=== PATIENT | female | born 1960 | race African-American/Black ===

== ENCOUNTER 2016-07-31 14:32 | Inpatient (IN) | payer BC, OTHER ==
[~2016-07-31] VITALS: Ht 157.5 cm
[~2016-07-31 14:32] MED LIST: ACET325T21 PO; ACET325T9 PO; ALBU2.5V14 NEB; ALBU2.5V5 NEB; ALTE2VIA IJ; ASCO500T2 PO; BREO ELLIPTA INH; FAMO20TA5 PO; FLUT1DIS5 IH; FOLI0.8T3 PO; FOLI1TAB16 PO; FURO-68 PO; FURO40TA4 PO; GABA-585 PO; IPRA3AMP IH; IPRA3AMP NEB; LINE600T PO; LORA0.5T96 PO; MELA3TAB12 PO; MELO7.5T5 PO; METH2.5T PO; METO25TA4 PO; METO25TA9 PO; MORP15TA34 PO; MULT-37 PO; MYCO500T PO; NYST1000 PO; NYST60PO TP; ONDA4TAB10 PO; ONDA4TAB7 PO; OXYC5CAP3 PO; OXYC5TAB PO; OXYM30SP67 NS; POLY17PO5 PO; PRED-299 PO; SENN-37 PO; SENN8.6T3 PO; SPIR50TA2 PO; WARF2TAB PO; ZINC220C5 PO
[2016-07-31] MEDS ORDERED: TRANEXAMIC ACID 1,000 MG/10 ML VIAL. TOP ONE (14:45)
[2016-07-31 14:54] LABS: BASO % 0 % (0-3); EOS % 0 % (0-3); HEMATOCRIT 33.4 % (36.0-47.0); HEMOGLOBIN 10.1 g/dL (12.0-15.5); LYMPH % 8 % (24-48); MEAN CORPUSCULAR HEMOGLOBIN 31 pg (25-35); MEAN CORPUSCULAR HGB CONC 30 g/dL (31-37); MEAN CORPUSCULAR VOLUME 101 fL (79-100); MONO % 5 % (0-9); NEUT % 87 % (31-73); PLATELET COUNT 314 x10^3/uL (140-400); WHITE BLOOD COUNT 13.2 x10^3/uL (4.0-11.0)
[2016-07-31 15:01] LABS: CALCIUM 10.6 mg/dL (8.5-10.1); CREATININE 1.2 mg/dL (0.6-1.0)
[2016-07-31 15:14] LABS: POTASSIUM 6.2 mmol/L (3.5-5.1)
[2016-07-31] MEDS ORDERED: PROTAMINE 50 MG/5 ML VIAL. IV ONE (15:15)
--- NOTE | 2016-07-31 15:28 | PHYS DOC ---
Past Medical History Past Medical History: Anxiety, Asthma, Heart Disease, Hypertension, Renal Failure, UTI, Other Additional Past Medical Histor: pain; MSSA Past Surgical History: Pacemaker, Other Additional Past Surgical Histo: defibrillator; PICC; GI sx Alcohol Use: None Drug Use: None Adult General Chief Complaint Chief Complaint: WOUND CHECK HPI HPI 56-year-old female with extensive wound history and some acute bleeding from her left anterior thigh that was noted today at her [facility] facility during a dressing change. Patient is currently heparinized for DVT prophylaxis. She is mentating appropriately and able to answer all my questions at this time and in no acute distress. EMS attempted hemostasis in the field without relief. She has full sensation in her lower extremities. She denies any significant chest pain or shortness breath at this time. Patient is morbidly obese history of renal failure as well. Review of Systems Review of Systems Constitutional: Denies fever or chills [] Eyes: Denies change in visual acuity, redness, or eye pain [] HENT: Denies nasal congestion or sore throat [] Respiratory: Denies cough or shortness of breath [] Cardiovascular: No additional information not addressed in HPI [] GI: Denies abdominal pain, nausea, vomiting, bloody stools or diarrhea [] : Denies dysuria or hematuria [] Musculoskeletal: Denies back pain or joint pain [] Integument: Denies rash or skin lesions [] Neurologic: Denies headache, focal weakness or sensory changes [] Endocrine: Denies polyuria or polydipsia [] Current Medications Current Medications Current Medications Medications (Trade) Dose Ordered Sig/[facility] Start Time Stop Time Status Last Admin Dose Admin Tranexamic Acid (Cyklokapron) 1,000 mg 1X ONCE 07/31/16 14:45 07/31/16 14:46 DC 07/31/16 15:18 1,000 MG Allergies Allergies Allergies Coded Allergies Type Severity Reaction Last Updated Verified pineapple Allergy Mild Itching 04/21/16 Yes Iodinated Contrast Media - IV Dye Adverse Reaction Severe 04/19/16 Yes vancomycin Adverse Reaction Severe renal disease 04/19/16 Yes Physical Exam Physical Exam Constitutional: Well developed, well nourished, no acute distress, non-toxic appearance, morbidly obese. [] HENT: Normocephalic, atraumatic, bilateral external ears normal, oropharynx moist, no oral exudates, nose normal. [] Eyes: PERRLA, EOMI, conjunctiva normal, no discharge. [] Neck: Normal range of motion, no tenderness, supple, no stridor. [] Cardiovascular:Heart rate regular rhythm, no murmur [] Lungs & Thorax: Bilateral breath sounds clear to auscultation [] Abdomen: Bowel sounds normal, soft, no tenderness, no masses, no pulsatile masses. [] Skin: Warm, dry, no erythema, no rash. [] Back: No tenderness, no CVA tenderness. [] Extremities: There is a large area of bleeding and ulceration to the left anterior thigh, the bleeding is nonpulsatile and appears consistent with venous oozing, no cyanosis, no clubbing, ROM intact, no edema. [] Neurologic: Alert and oriented X 3, normal motor function, normal sensory function, no focal deficits noted. [] Psychologic: Affect normal, judgement normal, mood normal. [] Current Patient Data Vital Signs Vital Signs Date Time Temp Pulse Resp B/P Pulse Ox O2 Delivery O2 Flow Rate FiO2 07/31/16 14:45 98.8 82 16 85/68 100 Nasal Cannula 2.5 98.8 Lab Values Laboratory Tests Test 07/31/16 14:45 White Blood Count 13.2x10^3/uL (4.0-11.0) H Red Blood Count 3.30x10^6/uL (3.50-5.40) L Hemoglobin 10.1g/dL (12.0-15.5) L Hematocrit 33.4% (36.0-47.0) L Mean Corpuscular Volume 101fL (79-100) H Mean Corpuscular Hemoglobin 31pg (25-35) Mean Corpuscular Hemoglobin Concent 30g/dL (31-37) L Red Cell Distribution Width 17.0% (11.5-14.5) H Platelet Count 314x10^3/uL (140-400) Neutrophils (%) (Auto) 87% (31-73) H Lymphocytes (%) (Auto) 8% (24-48) L Monocytes (%) (Auto) 5% (0-9) Eosinophils (%) (Auto) 0% (0-3) Basophils (%) (Auto) 0% (0-3) Neutrophils # (Auto) 11.5x10^3uL (1.8-7.7) H Lymphocytes # (Auto) 1.0x10^3/uL (1.0-4.8) Monocytes # (Auto) 0.7x10^3/uL (0.0-1.1) Eosinophils # (Auto) 0.0x10^3/uL (0.0-0.7) Basophils # (Auto) 0.0x10^3/uL (0.0-0.2) Platelet Estimate Pending Sodium Level 135mmol/L (136-145) L Potassium Level 6.2mmol/L (3.5-5.1) *H Chloride Level 99mmol/L (98-107) Carbon Dioxide Level 33mmol/L (21-32) H Anion Gap 3 (6-14) L Blood Urea Nitrogen 34mg/dL (7-20) H Creatinine 1.2mg/dL (0.6-1.0) H Estimated GFR (Cockcroft-Gault) 56.0 Glucose Level 112mg/dL (70-99) H Calcium Level 10.6mg/dL (8.5-10.1) H Laboratory Tests 07/31/16 14:45 Laboratory Tests 07/31/16 14:45 EKG EKG EKG as interpreted by me shows a sinus rhythm with rate of 93 bpm. There is a leftward axis. There is also a nonspecific intraventricular block. This EKG does not meet STEMI criteria. Radiology/Procedures Radiology/Procedures [] Course & Med Decision Making Course & Med Decision Making Pertinent Labs and Imaging studies reviewed. (See chart for details) This 56-year-old female who's having ongoing venous bleeding to her left anterior thigh has adequate hemostasis with topical TX a and pressure dressing. I discussed the case with the vascular surgeon on-call, Dr. Gil, who agreed with this plan and will see the patient consultation for her nonhealing wounds. I also discussed the need for admission with the [facility], Dr. Robin, who agreed to accept the patient for further evaluation and treatment. IM protamine was also administered for her heparin reversal. An IV bolus of fluids was given as the patient is hypotensive in the 81/47 range initially on our evaluation. Her initial labwork demonstrated a hyperkalemia but the lab reports the specimen is hemolyzed and we will have laboratory workup redrawn. Repeat basic metabolic panel demonstrates a continued hyperkalemia of 7.2 with a creatinine of 1.2 to be on a 34. Temporizing medications of insulin, dextrose , bicarbonate, and calcium were administered. A renal consult was also placed. At the time of admission, her bleeding appears controlled in her thigh with a pressure dressing and TXA soaked gauze applied to the area. Her blood pressure improved with fluid bolus 158/70. She is in no acute distress. She was admitted without incident. Dragon Disclaimer Dragon Disclaimer This electronic medical record was generated, in whole or in part, using a voice recognition dictation system. Departure Departure Impression: Primary Impression: Wound, open Additional Impressions: Bleeding from wound Hyperkalemia Disposition: ADMITTED INPATIENT Admitting Physician: Elizabeth oRbin Condition: STABLE Referrals: HAYDEN FLORES (PCP) Problem Qualifiers SACHI LOPEZ DO Jul 31, 2016 15:28
[2016-07-31] MEDS: IV NORMAL SALINE 1000ML BAG 1,000 ML IV SCH ×2 (15:30→23:30)
[2016-07-31] MEDS ORDERED: IV NORMAL SALINE 500ML BAG 500 ML IV ONE (15:30)
[2016-07-31] MEDS ORDERED: ONDANSETRON PF 4 MG/2 ML VIAL. IV PRN (15:30)
[2016-07-31] MEDS ORDERED: ACETAMINOPHEN 325 MG TABLET. PO PRN ×2 (15:30→19:15)
[2016-07-31] MEDS ORDERED: INSULIN REGULAR 100 UNIT/ML 10ML VIAL. IV ONE (15:45)
[2016-07-31] MEDS ORDERED: DEXTROSE 50% 25 GM / 50ML DISP.SYRIN. IV ONE (15:45)
[2016-07-31] MEDS ORDERED: SODIUM BICARBONATE VIAL 50 MEQ in IV DEXTROSE 5% 1,000 ML IV SCH (15:45)
[2016-07-31] MEDS ORDERED: SODIUM BICARB ADULT 8.4% 50 MEQ/50 ML DISP.SYRIN. ONE (16:26)
[2016-07-31 16:58] LABS: CALCIUM 10.5 mg/dL (8.5-10.1); CREATININE 1.2 mg/dL (0.6-1.0)
[2016-07-31 16:59] LABS: POTASSIUM 7.2 mmol/L (3.5-5.1)
[2016-07-31] MEDS ORDERED: CALCIUM GLUCONATE 1,000 MG/10 ML VIAL IVP ONE (17:00)
[2016-07-31] MEDS ORDERED: SODIUM BICARB ADULT 8.4% 50 MEQ/50 ML DISP.SYRIN. IV ONE (17:00)
[2016-07-31 17:27] LABS: PLT ESTIMATE ADEQUATE (ADEQUATE)
[2016-07-31] MEDS ORDERED: SODIUM POLYSTYRENE SULFONATE 15 GM/60 ML ORAL.SUSP. PO ONE (18:00)
[2016-07-31] MEDS ORDERED: IV NORMAL SALINE 1000ML BAG 1,000 ML IV PRN (18:10)
[2016-07-31] MEDS ORDERED: ALBUMIN HUMAN 25% 200 ML IV PRN (18:15)
[2016-07-31] MEDS ORDERED: DIALYSIS PATIENT. MC PRN (18:15)
[2016-07-31] MEDS ORDERED: DIPHENHYDRAMINE 50 MG/ML VIAL IV PRN ×2 (18:15)
[2016-07-31] MEDS ORDERED: ACETAMINOPHEN 500 MG TABLET PO PRN (18:15)
[2016-07-31] MEDS ORDERED: LIDOCAINE 1% / SOD BICARB 8.4% 20 ML VIAL. IJ ONE ×2 (18:27→19:00)
[2016-07-31] MEDS ORDERED: HEPARIN for IV BOLUS 10,000 UNIT/10 ML VIAL. ONE (18:27)
--- NOTE | 2016-07-31 18:52 | PDOC2 ---
CONSULT Date of Consult Date of Consult DATE: 07/31/16 TIME: 18:51 Past Medical History Cardiovascular: AFIB, Other Pulmonary: Asthma, Other GI: Other Heme/Onc: Other Psych: Anxiety, Depression Rheumatologic: Fibromyalgia Infectious disease: Other Renal/: Acute renal failure Past Surgical History Past Surgical History: Pacemaker Family History Family History: Family History Unknown Social History Lives: Intermediate Current Problem List Problem List Problems Medical Problems: (1) Bleeding from wound Status: Acute (2) Hyperkalemia Status: Acute (3) Wound, open Status: Acute Current Medications Current Medications Current Medications Tranexamic Acid (Cyklokapron) 1,000 mg 1X ONCE TOP Last administered on 15:18; Start 07/31/16 at 14:45; Stop 07/31/16 at 14:46; Status DC Protamine Sulfate 50 mg 1X ONCE IV Last administered on 07/31/16 14:54; Start 07/31/16 at 15:15; Stop 07/31/16 at 15:16; Status DC Dextrose 25 gm 1X ONCE IV Last administered on 07/31/16 16:32; Start at 15:45; Stop 07/31/16 at 15:46; Status DC Insulin Human Regular 10 unit 10 unit 1X ONCE IV Last administered on 16:35; Start 07/31/16 at 15:45; Stop 07/31/16 at 15:46; Status DC Sodium Bicarbonate 50 meq/Dextrose 1,050 ml @ 125 mls/hr Q8H24M IV ; Start 05/07 at 15:45; Status Cancel Sodium Chloride (Iv Sodium Chloride 0.9% 500ml Bag) 500 ml @ 500 mls/hr 1X ONCE IV Last administered on 07/31/16 15:25; Start 07/31/16 at 15:30; Stop 05/07 at 16:29; Status DC Ondansetron HCl 4 mg 4 mg PRN Q8HRS PRN IV NAUSEA/VOMITING; Start 07/31/16 at 15:30; Stop 08/01/16 at 15:29 Sodium Chloride (Iv Sodium Chloride 0.9% 1000ml Bag) 1,000 ml @ 125 mls/hr Q8H IV ; Start 07/31/16 at 15:30; Stop 08/01/16 at 15:29 Acetaminophen (Tylenol) 650 mg PRN Q4HRS PRN PO FEVER; Start 07/31/16 at 15:30 ; Stop 08/01/16 at 15:29 Calcium Gluconate 1,000 mg 1X ONCE IVP Last administered on 07/31/16 16:36; Start 07/31/16 at 17:00; Stop 07/31/16 at 17:01; Status DC Sodium Bicarbonate 50 meq STK-MED ONCE .ROUTE ; Start 07/31/16 at 16:26; Stop at 16:27; Status DC Sodium Bicarbonate 50 meq 1X ONCE IV Last administered on 07/31/16 16:36; Start 07/31/16 at 17:00; Stop 07/31/16 at 17:01; Status DC Sodium Polystyrene Sulfonate 15 gm 15 gm 1X ONCE PO Last administered on 18:00; Start 07/31/16 at 18:00; Stop 07/31/16 at 18:01; Status DC Sodium Chloride 1,000 ml @ 1,000 mls/hr Q1H PRN IV hypotension; Start 07/31/16 at 18:10; Stop 08/01/16 at 00:09 Albumin Human (Albuminar) 200 ml @ 200 mls/hr 1X PRN PRN IV Hypotension; Start 07/31/16 at 18:15; Stop 08/01/16 at 00:14 Acetaminophen (Tylenol) 500 mg 1X PRN PRN PO MILD PAIN / TEMP; Start 07/31/16 at 18:15; Stop 08/01/16 at 00:30 Diphenhydramine HCl (Benadryl) 25 mg 1X PRN PRN IV ITCHING; Start 07/31/16 at 18:15; Stop 08/01/16 at 00:30 Diphenhydramine HCl (Benadryl) 25 mg 1X PRN PRN IV ITCHING; Start 07/31/16 at 18:15; Stop 08/01/16 at 00:30 Info (PHARMACY MONITORING -- do not chart) 1 each PRN DAILY PRN MC SEE COMMENTS ; Start 07/31/16 at 18:15 Heparin Sodium (Porcine) 10,000 unit STK-MED ONCE .ROUTE ; Start 07/31/16 at 18: 27; Stop 3/12/17 at 18:28; Status DC Lidocaine/Sodium Bicarbonate 20 ml 20 ml STK-MED ONCE IJ ; Start 07/31/16 at 18: 27; Stop 07/31/16 at 18:28; Status DC Heparin Sodium/ Sodium Chloride 500 ml @ As Directed STK-MED ONCE .ROUTE ; Start 07/31/16 at 18:27; Stop 07/31/16 at 18:28; Status DC Lidocaine/Sodium Bicarbonate (Buffered Lidocaine 1%) 3 ml 1X ONCE IJ ; Start at 19:00; Stop 07/31/16 at 19:01 Heparin Sodium/ Sodium Chloride 60 unit 1X ONCE IV ; Start 07/31/16 at 19:00; Stop 07/31/16 at 19:01 Heparin Sodium (Porcine) 2,500 unit 1X ONCE INT CAT ; Start 07/31/16 at 19:00; Stop 07/31/16 at 19:01 Active Scripts Active Reported Nephro-Arielle Tablet (Folic Acid/Vitamin B Comp W-C) 0.8 Mg Tablet 1 Tab PO DAILY Oxycodone Hcl 5 Mg Capsule 1 Cap PO Q4HRS PRN Zofran (Ondansetron Hcl) 4 Mg Tablet 1 Tab PO Q8HRS Albuterol Sulfate Neb Soln (Albuterol Sulfate) 2.5 Mg/3 Ml Vial.neb 1 Vial NEB PRN Q4HRS Tylenol (Acetaminophen) 325 Mg Tablet 650 Mg PO Q6HRS PRN Duoneb 0.5-3(2.5) Mg/3 Ml (Albuterol/Ipratropium) 3 Ml Ampul.neb 3 Ml NEB TID Spironolactone 50 Mg Tablet 1 Tab PO DAILY Deltasone (Prednisone) 20 Mg Tablet 10 Mg PO DAILY Nystatin 100,000 Unit/1 Ml Oral.susp 100,000 Unit PO QID Cellcept (Mycophenolate Mofetil) 500 Mg Tablet 1 Tab PO BID Metoprolol Tartrate 25 Mg Tablet 25 Mg PO BID Melatonin 3 Mg Tab.rapdis 3 Mg PO HS Neurontin (Gabapentin) 100 Mg Capsule 100 Mg PO TID Lasix (Furosemide) 40 Mg Tablet 1 Tab PO DAILY Folic Acid 1 Mg Tablet 1 Tab PO DAILY Advair 500-50 Diskus (Fluticasone/Salmeterol) 1 Each Disk.w.dev 1 Puff IH BID Ms Contin (Morphine Sulfate) 15 Mg Tablet.er 15 Mg PO Q12HR Mobic (Meloxicam) 7.5 Mg Tablet 7.5 Mg PO DAILY Ativan (Lorazepam) 0.5 Mg Tablet 0.5 Mg PO PRN BID PRN Coumadin (Warfarin Sodium) 2 Mg Tablet 1 Tab PO HS Senokot-S Tablet (Sennosides/Docusate Sodium) 1 Each Tablet 1 Tab PO BID PRN Allergies Allergies: Coded Allergies: pineapple (Verified Allergy, Mild, Itching, 04/21/16) Iodinated Contrast Media - IV Dye (Verified Adverse Reaction, Severe, ) patient states that she thinks she ended up on dialysis temporarily after receiving dye vancomycin (Verified Adverse Reaction, Severe, renal disease, 04/19/16) Vitals VITALS Vital Signs Date Time Temp Pulse Resp B/P Pulse Ox O2 Delivery O2 Flow Rate FiO2 07/31/16 16:30 88 24 154/75 100 07/31/16 14:45 98.8 Nasal Cannula 2.5 98.8 Labs Labs Laboratory Tests Test 07/31/16 14:45 07/31/16 15:30 White Blood Count 13.2x10^3/uL (4.0-11.0) Red Blood Count 3.30x10^6/uL (3.50-5.40) Hemoglobin 10.1g/dL (12.0-15.5) Hematocrit 33.4% (36.0-47.0) Mean Corpuscular Volume 101fL (79-100) Mean Corpuscular Hemoglobin 31pg (25-35) Mean Corpuscular Hemoglobin Concent 30g/dL (31-37) Red Cell Distribution Width 17.0% (11.5-14.5) Platelet Count 314x10^3/uL (140-400) Neutrophils (%) (Auto) 87% (31-73) Lymphocytes (%) (Auto) 8% (24-48) Monocytes (%) (Auto) 5% (0-9) Eosinophils (%) (Auto) 0% (0-3) Basophils (%) (Auto) 0% (0-3) Neutrophils # (Auto) 11.5x10^3uL (1.8-7.7) Lymphocytes # (Auto) 1.0x10^3/uL (1.0-4.8) Monocytes # (Auto) 0.7x10^3/uL (0.0-1.1) Eosinophils # (Auto) 0.0x10^3/uL (0.0-0.7) Basophils # (Auto) 0.0x10^3/uL (0.0-0.2) Segmented Neutrophils % 87% (35-66) Lymphocytes % 10% (24-48) Monocytes % 3% (0-10) Platelet Estimate Adequate (ADEQUATE) Sodium Level 135mmol/L (136-145) 135mmol/L (136-145) Potassium Level 6.2mmol/L (3.5-5.1) 7.2mmol/L (3.5-5.1) Chloride Level 99mmol/L (98-107) 100mmol/L (98-107) Carbon Dioxide Level 33mmol/L (21-32) 32mmol/L (21-32) Anion Gap 3 (6-14) 3 (6-14) Blood Urea Nitrogen 34mg/dL (7-20) 34mg/dL (7-20) Creatinine 1.2mg/dL (0.6-1.0) 1.2mg/dL (0.6-1.0) Estimated GFR (Cockcroft-Gault) 56.0 56.0 Glucose Level 112mg/dL (70-99) 113mg/dL (70-99) Calcium Level 10.6mg/dL (8.5-10.1) 10.5mg/dL (8.5-10.1) Laboratory Tests Test 07/31/16 14:45 07/31/16 15:30 White Blood Count 13.2x10^3/uL (4.0-11.0) Red Blood Count 3.30x10^6/uL (3.50-5.40) Hemoglobin 10.1g/dL (12.0-15.5) Hematocrit 33.4% (36.0-47.0) Mean Corpuscular Volume 101fL (79-100) Mean Corpuscular Hemoglobin 31pg (25-35) Mean Corpuscular Hemoglobin Concent 30g/dL (31-37) Red Cell Distribution Width 17.0% (11.5-14.5) Platelet Count 314x10^3/uL (140-400) Neutrophils (%) (Auto) 87% (31-73) Lymphocytes (%) (Auto) 8% (24-48) Monocytes (%) (Auto) 5% (0-9) Eosinophils (%) (Auto) 0% (0-3) Basophils (%) (Auto) 0% (0-3) Neutrophils # (Auto) 11.5x10^3uL (1.8-7.7) Lymphocytes # (Auto) 1.0x10^3/uL (1.0-4.8) Monocytes # (Auto) 0.7x10^3/uL (0.0-1.1) Eosinophils # (Auto) 0.0x10^3/uL (0.0-0.7) Basophils # (Auto) 0.0x10^3/uL (0.0-0.2) Segmented Neutrophils % 87% (35-66) Lymphocytes % 10% (24-48) Monocytes % 3% (0-10) Platelet Estimate Adequate (ADEQUATE) Sodium Level 135mmol/L (136-145) 135mmol/L (136-145) Potassium Level 6.2mmol/L (3.5-5.1) 7.2mmol/L (3.5-5.1) Chloride Level 99mmol/L (98-107) 100mmol/L (98-107) Carbon Dioxide Level 33mmol/L (21-32) 32mmol/L (21-32) Anion Gap 3 (6-14) 3 (6-14) Blood Urea Nitrogen 34mg/dL (7-20) 34mg/dL (7-20) Creatinine 1.2mg/dL (0.6-1.0) 1.2mg/dL (0.6-1.0) Estimated GFR (Cockcroft-Gault) 56.0 56.0 Glucose Level 112mg/dL (70-99) 113mg/dL (70-99) Calcium Level 10.6mg/dL (8.5-10.1) 10.5mg/dL (8.5-10.1) Assessment/Plan Assessment/Plan RENAL CONSULT / SHARI GARIBAY. # [id number] REMBERTO MCCARTHY MD Jul 31, 2016 18:52
[2016-07-31] MEDS ORDERED: ALBUTEROL SULFATE 2.5 MG/3 ML NEBU. NEB PRN (19:15)
[2016-07-31] MEDS ORDERED: LORAZEPAM 0.5 MG TABLET. PO PRN (19:15)
--- NOTE | 2016-07-31 19:15 | PDOC1 ---
History and Physical Date of Admission Date of Admission DATE: 07/31/16 TIME: 19:13 Identification/Chief Complaint Chief Complaint leg bleeding, hyperkalemia Source Source: Chart review, Patient History of Present Illness History of Present Illness pt seen in ICU, waiting for HD cath placement she is awake and alert, had been eating in ER before repeat lab drawn seemed worse, tele stable she feels well full exam at 10pm after HD was done, she was cold and less talkative, had been very interactive before. had no complaint either time. LE thigh wounds well known to ID team here. bleeding from left leg brought her in tonight, appears improved after ER intervention first lab draw was thought to be hemolyzed by the ER, repeat lab was higher, stat REnal consult, IR, Dr. Jeff placed HD cath and HD done Past Medical History Cardiovascular: AFIB, Other Pulmonary: Asthma, Other GI: Other Heme/Onc: Other Psych: Anxiety, Depression Rheumatologic: Fibromyalgia Infectious disease: Other Renal/: Acute renal failure Past Surgical History Past Surgical History: Pacemaker Family History Family History: Family History Unknown Social History Smoke: No ALCOHOL: none Drugs: None Current Problem List Problem List Problems Medical Problems: (1) Bleeding from wound Status: Acute (2) Hyperkalemia Status: Acute (3) Wound, open Status: Acute Problems: Current Medications Current Medications Current Medications Tranexamic Acid (Cyklokapron) 1,000 mg 1X ONCE TOP Last administered on 15:18; Start 07/31/16 at 14:45; Stop 07/31/16 at 14:46; Status DC Protamine Sulfate 50 mg 1X ONCE IV Last administered on 07/31/16 14:54; Start 07/31/16 at 15:15; Stop 07/31/16 at 15:16; Status DC Dextrose 25 gm 1X ONCE IV Last administered on 07/31/16 16:32; Start at 15:45; Stop 07/31/16 at 15:46; Status DC Insulin Human Regular 10 unit 10 unit 1X ONCE IV Last administered on 16:35; Start 07/31/16 at 15:45; Stop 07/31/16 at 15:46; Status DC Sodium Bicarbonate 50 meq/Dextrose 1,050 ml @ 125 mls/hr Q8H24M IV ; Start 05/07 at 15:45; Status Cancel Sodium Chloride (Iv Sodium Chloride 0.9% 500ml Bag) 500 ml @ 500 mls/hr 1X ONCE IV Last administered on 07/31/16 15:25; Start 07/31/16 at 15:30; Stop 05/07 at 16:29; Status DC Ondansetron HCl 4 mg 4 mg PRN Q8HRS PRN IV NAUSEA/VOMITING; Start 07/31/16 at 15:30; Stop 08/01/16 at 15:29 Sodium Chloride (Iv Sodium Chloride 0.9% 1000ml Bag) 1,000 ml @ 125 mls/hr Q8H IV ; Start 07/31/16 at 15:30; Stop 08/01/16 at 15:29 Acetaminophen (Tylenol) 650 mg PRN Q4HRS PRN PO FEVER; Start 07/31/16 at 15:30 ; Stop 08/01/16 at 15:29 Calcium Gluconate 1,000 mg 1X ONCE IVP Last administered on 07/31/16 16:36; Start 07/31/16 at 17:00; Stop 07/31/16 at 17:01; Status DC Sodium Bicarbonate 50 meq STK-MED ONCE .ROUTE ; Start 07/31/16 at 16:26; Stop at 16:27; Status DC Sodium Bicarbonate 50 meq 1X ONCE IV Last administered on 07/31/16 16:36; Start 07/31/16 at 17:00; Stop 07/31/16 at 17:01; Status DC Sodium Polystyrene Sulfonate 15 gm 15 gm 1X ONCE PO Last administered on 18:00; Start 07/31/16 at 18:00; Stop 07/31/16 at 18:01; Status DC Sodium Chloride 1,000 ml @ 1,000 mls/hr Q1H PRN IV hypotension; Start 07/31/16 at 18:10; Stop 08/01/16 at 00:09 Albumin Human (Albuminar) 200 ml @ 200 mls/hr 1X PRN PRN IV Hypotension; Start 07/31/16 at 18:15; Stop 08/01/16 at 00:14 Acetaminophen (Tylenol) 500 mg 1X PRN PRN PO MILD PAIN / TEMP; Start 07/31/16 at 18:15; Stop 08/01/16 at 00:30 Diphenhydramine HCl (Benadryl) 25 mg 1X PRN PRN IV ITCHING; Start 07/31/16 at 18:15; Stop 08/01/16 at 00:30 Diphenhydramine HCl (Benadryl) 25 mg 1X PRN PRN IV ITCHING; Start 07/31/16 at 18:15; Stop 08/01/16 at 00:30 Info (PHARMACY MONITORING -- do not chart) 1 each PRN DAILY PRN MC SEE COMMENTS ; Start 07/31/16 at 18:15 Heparin Sodium (Porcine) 10,000 unit STK-MED ONCE .ROUTE ; Start 07/31/16 at 18: 27; Stop 07/31/16 at 18:28; Status DC Lidocaine/Sodium Bicarbonate 20 ml 20 ml STK-MED ONCE IJ ; Start 07/31/16 at 18: 27; Stop 07/31/16 at 18:28; Status DC Heparin Sodium/ Sodium Chloride 500 ml @ As Directed STK-MED ONCE .ROUTE ; Start 07/31/16 at 18:27; Stop 07/31/16 at 18:28; Status DC Lidocaine/Sodium Bicarbonate (Buffered Lidocaine 1%) 3 ml 1X ONCE IJ ; Start at 19:00; Stop 07/31/16 at 19:01; Status DC Heparin Sodium/ Sodium Chloride 60 unit 1X ONCE IV ; Start 07/31/16 at 19:00; Stop 07/31/16 at 19:01; Status DC Heparin Sodium (Porcine) 2,500 unit 1X ONCE INT CAT ; Start 07/31/16 at 19:00; Stop 07/31/16 at 19:01; Status DC Active Scripts Active Reported Nephro-Arielle Tablet (Folic Acid/Vitamin B Comp W-C) 0.8 Mg Tablet 1 Tab PO DAILY Oxycodone Hcl 5 Mg Capsule 1 Cap PO Q4HRS PRN Zofran (Ondansetron Hcl) 4 Mg Tablet 1 Tab PO Q8HRS Albuterol Sulfate Neb Soln (Albuterol Sulfate) 2.5 Mg/3 Ml Vial.neb 1 Vial NEB PRN Q4HRS Tylenol (Acetaminophen) 325 Mg Tablet 650 Mg PO Q6HRS PRN Duoneb 0.5-3(2.5) Mg/3 Ml (Albuterol/Ipratropium) 3 Ml Ampul.neb 3 Ml NEB TID Spironolactone 50 Mg Tablet 1 Tab PO DAILY Deltasone (Prednisone) 20 Mg Tablet 10 Mg PO DAILY Nystatin 100,000 Unit/1 Ml Oral.susp 100,000 Unit PO QID Cellcept (Mycophenolate Mofetil) 500 Mg Tablet 1 Tab PO BID Metoprolol Tartrate 25 Mg Tablet 25 Mg PO BID Melatonin 3 Mg Tab.rapdis 3 Mg PO HS Neurontin (Gabapentin) 100 Mg Capsule 100 Mg PO TID Lasix (Furosemide) 40 Mg Tablet 1 Tab PO DAILY Folic Acid 1 Mg Tablet 1 Tab PO DAILY Advair 500-50 Diskus (Fluticasone/Salmeterol) 1 Each Disk.w.dev 1 Puff IH BID Ms Contin (Morphine Sulfate) 15 Mg Tablet.er 15 Mg PO Q12HR Mobic (Meloxicam) 7.5 Mg Tablet 7.5 Mg PO DAILY Ativan (Lorazepam) 0.5 Mg Tablet 0.5 Mg PO PRN BID PRN Coumadin (Warfarin Sodium) 2 Mg Tablet 1 Tab PO HS Senokot-S Tablet (Sennosides/Docusate Sodium) 1 Each Tablet 1 Tab PO BID PRN Allergies Allergies: Coded Allergies: pineapple (Verified Allergy, Mild, Itching, 04/21/16) Iodinated Contrast Media - IV Dye (Verified Adverse Reaction, Severe, ) patient states that she thinks she ended up on dialysis temporarily after receiving dye vancomycin (Verified Adverse Reaction, Severe, renal disease, 04/19/16) ROS General: YES: Chills, No: Appetite, Fatigue, Malaise, Night Sweats, Other PSYCHOLOGICAL ROS: YES: Anxiety, No: Behavioral Disorder, Concentration difficultie, Decreased libido, Depression, Disorientation, Hallucinations, Hostility, Irritablity, Memory difficulties, Mood Swings, Obsessive thoughts, Other, Physical abuse, Sexual abuse, Sleep disturbances, Suicidal ideation Eyes: No Blurry vision, No Decreased vision, No Double vision, No Dry eyes, No Excessive tearing, No Eye Pain, No Itchy Eyes, No Loss of vision, No Other, No Photophobia, No Scotomata, No Uses contacts, No Uses glasses HEENT: No: Epistaxis, Heacaches, Hearing change, Nasal congestion, Nasal discharge, Oral lesions, Other, Sinus pain, Sneezing, Snoring, Sore Throat, Tinnitus, Vertigo, Visual Changes, Vocal changes Respiratory: No: Cough, Hemoptysis, Orthopnea, Other, Pleuritic Pain, SOB with excertion, Shortness of breath, Sputum Changes, Stridor, Tachypnea, Wheezing Cardiovascular: No Chest Pain, No Edema, No Lt Headedness, No Orthopnea, No Other, No Palpitations, No Paroxysmal Noc. Dyspnea Gastrointestinal: No Abdominal Pain, No Constipation, No Diarrhea, No Hematochezia, No Melena, No Nausea, No Other, No Vomiting Musculoskeletal: Yes Gait Disturbance, Yes Pain In:, No Joint Pain, No Joint Stiffness, No Joint Swelling, No Muscle Pain, No Muscular Weakness, No Other, No Swelling In: Neurological: Yes Gait Disturbance, No Behavorial Changes, No Bowel/Bladder ControlChng, No Confusion, No Dizziness, No Headaches, No Impaired Coord/balance, No Memory Loss, No Numbness/ Tingling, No Other, No Seizures, No Speech Problems, No Tremors, No Visual Changes, No Weakness Skin: Yes Dry Skin, No Acne, No Eczema, No Hair Changes, No Lumps, No Mole Changes, No Mottling, No Nail Changes, No Other, No Pruritus, No Rash, No Skin Lesion Changes Physical Exam General: Alert, Oriented X3, Cooperative, No acute distress HEENT: Atraumatic, PERRLA, EOMI Lungs: Clear to auscultation Heart: no gallops, no murmurs Abdomen: Normal bowel sounds, Soft (very obese) Extremities: No clubbing, Other (tr edema) Skin: Other (extensive open wounds to thigh, left thigh visualized, good margins, some exudate, right seems malordorous, ) Neuro: Sensation intact Psych/Mental Status: Mood NL Vitals Vitals Vital Signs Date Time Temp Pulse Resp B/P Pulse Ox O2 Delivery O2 Flow Rate FiO2 07/31/16 16:30 88 24 154/75 100 07/31/16 14:45 98.8 Nasal Cannula 2.5 98.8 Labs Labs Laboratory Tests Test 07/31/16 14:45 07/31/16 15:30 White Blood Count 13.2x10^3/uL (4.0-11.0) Red Blood Count 3.30x10^6/uL (3.50-5.40) Hemoglobin 10.1g/dL (12.0-15.5) Hematocrit 33.4% (36.0-47.0) Mean Corpuscular Volume 101fL (79-100) Mean Corpuscular Hemoglobin 31pg (25-35) Mean Corpuscular Hemoglobin Concent 30g/dL (31-37) Red Cell Distribution Width 17.0% (11.5-14.5) Platelet Count 314x10^3/uL (140-400) Neutrophils (%) (Auto) 87% (31-73) Lymphocytes (%) (Auto) 8% (24-48) Monocytes (%) (Auto) 5% (0-9) Eosinophils (%) (Auto) 0% (0-3) Basophils (%) (Auto) 0% (0-3) Neutrophils # (Auto) 11.5x10^3uL (1.8-7.7) Lymphocytes # (Auto) 1.0x10^3/uL (1.0-4.8) Monocytes # (Auto) 0.7x10^3/uL (0.0-1.1) Eosinophils # (Auto) 0.0x10^3/uL (0.0-0.7) Basophils # (Auto) 0.0x10^3/uL (0.0-0.2) Segmented Neutrophils % 87% (35-66) Lymphocytes % 10% (24-48) Monocytes % 3% (0-10) Platelet Estimate Adequate (ADEQUATE) Sodium Level 135mmol/L (136-145) 135mmol/L (136-145) Potassium Level 6.2mmol/L (3.5-5.1) 7.2mmol/L (3.5-5.1) Chloride Level 99mmol/L (98-107) 100mmol/L (98-107) Carbon Dioxide Level 33mmol/L (21-32) 32mmol/L (21-32) Anion Gap 3 (6-14) 3 (6-14) Blood Urea Nitrogen 34mg/dL (7-20) 34mg/dL (7-20) Creatinine 1.2mg/dL (0.6-1.0) 1.2mg/dL (0.6-1.0) Estimated GFR (Cockcroft-Gault) 56.0 56.0 Glucose Level 112mg/dL (70-99) 113mg/dL (70-99) Calcium Level 10.6mg/dL (8.5-10.1) 10.5mg/dL (8.5-10.1) Laboratory Tests Test 07/31/16 14:45 07/31/16 15:30 White Blood Count 13.2x10^3/uL (4.0-11.0) Red Blood Count 3.30x10^6/uL (3.50-5.40) Hemoglobin 10.1g/dL (12.0-15.5) Hematocrit 33.4% (36.0-47.0) Mean Corpuscular Volume 101fL (79-100) Mean Corpuscular Hemoglobin 31pg (25-35) Mean Corpuscular Hemoglobin Concent 30g/dL (31-37) Red Cell Distribution Width 17.0% (11.5-14.5) Platelet Count 314x10^3/uL (140-400) Neutrophils (%) (Auto) 87% (31-73) Lymphocytes (%) (Auto) 8% (24-48) Monocytes (%) (Auto) 5% (0-9) Eosinophils (%) (Auto) 0% (0-3) Basophils (%) (Auto) 0% (0-3) Neutrophils # (Auto) 11.5x10^3uL (1.8-7.7) Lymphocytes # (Auto) 1.0x10^3/uL (1.0-4.8) Monocytes # (Auto) 0.7x10^3/uL (0.0-1.1) Eosinophils # (Auto) 0.0x10^3/uL (0.0-0.7) Basophils # (Auto) 0.0x10^3/uL (0.0-0.2) Segmented Neutrophils % 87% (35-66) Lymphocytes % 10% (24-48) Monocytes % 3% (0-10) Platelet Estimate Adequate (ADEQUATE) Sodium Level 135mmol/L (136-145) 135mmol/L (136-145) Potassium Level 6.2mmol/L (3.5-5.1) 7.2mmol/L (3.5-5.1) Chloride Level 99mmol/L (98-107) 100mmol/L (98-107) Carbon Dioxide Level 33mmol/L (21-32) 32mmol/L (21-32) Anion Gap 3 (6-14) 3 (6-14) Blood Urea Nitrogen 34mg/dL (7-20) 34mg/dL (7-20) Creatinine 1.2mg/dL (0.6-1.0) 1.2mg/dL (0.6-1.0) Estimated GFR (Cockcroft-Gault) 56.0 56.0 Glucose Level 112mg/dL (70-99) 113mg/dL (70-99) Calcium Level 10.6mg/dL (8.5-10.1) 10.5mg/dL (8.5-10.1) VTE Prophylaxis Ordered VTE Prophylaxis Devices: Yes VTE Pharmacological Prophylaxi: Contraindicated (bleeding) Assessment/Plan Assessment/Plan acute renal failure hyperkalemia HD planned, renal consulted, admitted to ICU leg wounds, no INR checked morbid Obesity, BMI 50.7 chronic diastolic CHF weakenss and debilitiy peripheral neuropathy, chronic pain SIRI TAYLOR MD Jul 31, 2016 19:15
--- NOTE | 2016-07-31 19:19 | ACF ---
Admission Forms Criteria HYPONATREMIA; HYPERNATREMIA; HYPOKALEMIA; HYPERKALEMIA; HYPOCALCEMIA; HYPERCALCEMIA Clinical Indications for Inpatient Care (Place 'X' for any and all applicable criteria): Ongoing inpatient care may be indicated for ANY ONE of the following [G](1)(2)(3 )(5): [ ]I. Hyponatremia with ANY ONE of the following: [ ]a) Sodium less than 130 mEq/L (mmol/L) (new) (6)(22) [ ]b) Sodium less than 135 mEq/L (mmol/L) with ANY ONE of the following: [ ]i) Severe medical etiology requiring inpatient management (eg, heart failure, hypovolemia) [ ]ii) Altered mental status [ ]iii) Seizures [ ]II. Hypernatremia with ANY ONE of the following: [ ]a) Sodium greater than 155 mEq/L (mmol/L) [ ]b) Sodium greater than 150 mEq/L (mmol/L) with ANY ONE of the following: [ ] i) Altered mental status [ ]ii) Seizures [ ]iii) Severe medical etiology (eg, hypovolemia, diabetes insipidus) [ ]iv) Severe weakness [ ]v) Severe medical etiology (eg, hemolysis, infection, drug overdose) [ ]III. Hypokalemia with ANY ONE of the following: [ ]a) Potassium less than 2.5 mEq/L (mmol/L) despite outpatient and emergency treatment [ ]b) Potassium less than 3.0 mEq/L (mmol/L) with ANY ONE of the following: [ ]i) Weakness [ ]ii) Cardiac abnormality (eg, arrhythmia, conduction disturbance) [ ]iii) Cardiac ischemia [ ]iv) Ileus [ ]v) Ongoing medical cause requiring inpatient management. ( e.g., acute renal wasting, SIADH) [ ]vi) Other severe symptoms [X] IV. Hyperkalemia with ANY ONE of the following: [X]a) Potassium greater than 6.5 mEq/L (mmol/L) [ ]b) Potassium greater than 5 mEq/L (mmol/L) with ANY ONE of the following: [ ]i) Severe ECG findings [H] [ ]ii) Acute worsening of renal failure (creatinine greater than 2.5 mg/dL (221 micromoles/L) or significant elevation for age and size) [ ] V. Hypocalcemia with ANY ONE of the following: [ ]a) Calcium less than 7 mg/dL (1.75 mmol/L) despite outpatient and emergency treatment(19) [ ]b) Calcium less than 8 mg/dL (2 mmol/L) with significant symptoms or findings; examples include: [ ]i) Cardiac abnormality (eg, arrhythmia or conduction disturbance) [ ]ii) Altered mental status [ ]iii) Seizures [ ]iv) Breathing difficulty [ ]v) Muscle spasms [ ]. Hypercalcemia with ANY ONE of the following: [ ]a) Calcium greater than 14 mg/dL (3.5 mmol/L) [ ]b) Calcium greater than 12 mg/dL (3 mmol/L) with ANY ONE of the following: [ ]i) Significant dehydration or hypovolemia as indicated by ANY ONE of the following(2): [ ]1. Clinically significant dehydration as indicated by ANY ONE of the following: [ ]A. Acute loss of weight from baseline (5% of body weight in adults, 9% in pediatric patients) [ ]B. Hemodynamic instability [ ]C. Acute renal failure [ ]D. Serum sodium greater than 150 mEq/L (mmol/L) [ ]2) Dehydration that is persistent indicated by ALL of the following: [ ]A. Oral rehydration therapy not tolerated or insufficient to adequately correct dehydration [ ]B. Appropriate intravenous treatment (eg, fluids ) does not readily correct dehydration ie, after 12 to 24 hours of treatment) [ ]ii) Significant symptoms or findings; examples include: [ ]1) Altered mental status [ ]2) Cardiac abnormality (eg, arrhythmia, conduction disturbance) [ ]3) Cardiac abnormality (eg, arrhythmia, conduction disturbance) The original [employer] ([employer]) content created by [employer] has been revised. The portions of the content which have been revised are identified through the use of italic text or in bold, and [facility] has neither reviewed nor approved the modified material. All other unmodified content is copyright [facility] [employer] Please see references footnoted in the original [facility] [employer] edition 2016 Admission Criteria Met?: Yes CRISTI NI Jul 31, 2016 19:19
--- NOTE | 2016-07-31 19:28 | PDOC ---
BRIEF OPERATIVE NOTE Pre-Op Diagnosis Hyperkalemia Post-Op Diagnosis same Procedure Performed Temp HD Catheter Surgeon Randee Anesthesia Type: Local Findings Trialysis via RIJ with excellent manual flow rates Complications No immediate TOMMY TUCKER MD Jul 31, 2016 19:28
--- NOTE | 2016-07-31 19:51 | RAD ---
PROCEDURE AP portable chest 07/31/2016. HISTORY Line placement. TECHNIQUE COMPARISON FINDINGS A pacemaker enters the left subclavian approach. There apparently has been placement of a dialysis catheter via the right IJ approach. Its tip extends to near the cavoatrial junction. No pneumothorax is visible on this view. There is mild prominence of lung markings. Heart size is normal. IMPRESSION Placement of central line without apparent complication. Electronically signed by: Jared Camp (Jul 31, 2016 19:49:53)
[2016-07-31 20:00] VITALS: BP 127/72
[2016-07-31 20:27] LABS: POTASSIUM 4.6 mmol/L (3.5-5.1)
[2016-07-31 20:28] LABS: INR 1.2 (0.8-1.1); PROTHROMBIN TIME PATIENT 14.2 SEC (11.7-14.0)
[2016-07-31] MEDS: BUDESONIDE 0.5 MG/2 ML NEBU NEB SCH (20:41)
[2016-07-31] MEDS: IPRATRPIUM/ALBUTEROL 0.5/2.5MG 3 ML NEBU. NEB SCH (20:41)
[2016-07-31 21:00] VITALS: BP 125/69
[2016-07-31] MEDS ORDERED: NON FORMULARY ITEM (Melatonin 3 MG) PO SCH (21:00)
[2016-07-31 22:00] VITALS: BP 152/80
[2016-07-31] MEDS ORDERED: ONDANSETRON ODT 4 MG TAB.RAPDIS PO SCH (22:00)
[2016-07-31] MEDS: MYCOPHENOLATE MOFETIL 250 MG CAPSULE. PO SCH (22:26)
[2016-07-31] MEDS: METOPROLOL TART IMMED RELEASE 25 MG TABLET PO SCH (22:26)
[2016-07-31] MEDS: GABAPENTIN 100 MG CAPSULE. PO SCH (22:26)
[2016-07-31] MEDS: NYSTATIN 100,000 UNITS/ML 5 ML ORAL.SUSP. PO SCH (22:27)
[2016-07-31] MEDS: MORPHINE ER 15 MG TABLET.ER PO SCH (22:27)
[2016-07-31 23:00] VITALS: BP 132/80
[2016-07-31 23:17] LABS: BASO % 0 % (0-3); EOS % 0 % (0-3); HEMATOCRIT 31.8 % (36.0-47.0); HEMOGLOBIN 9.5 g/dL (12.0-15.5); LYMPH # 1.1 x10^3/uL (1.0-4.8); LYMPH % 7 % (24-48); MEAN CORPUSCULAR HEMOGLOBIN 31 pg (25-35); MEAN CORPUSCULAR HGB CONC 30 g/dL (31-37); MEAN CORPUSCULAR VOLUME 102 fL (79-100); MONO % 6 % (0-9); NEUT % 86 % (31-73); PLATELET COUNT 285 x10^3/uL (140-400); RED BLOOD COUNT 3.13 x10^6/uL (3.50-5.40); RED CELL DISTRIBUTION WIDTH 16.9 % (11.5-14.5); WHITE BLOOD COUNT 15.2 x10^3/uL (4.0-11.0)
[2016-07-31 23:34] LABS: ALBUMIN 1.9 g/dL (3.4-5.0); ALBUMIN/GLOBULIN RATIO 0.3 (1.0-1.7); CALCIUM 9.3 mg/dL (8.5-10.1); CREATININE 0.7 mg/dL (0.6-1.0); GFR 104.4; MAGNESIUM 1.5 mg/dL (1.8-2.4); POTASSIUM 3.8 mmol/L (3.5-5.1); TOTAL BILIRUBIN 0.3 mg/dL (0.2-1.0); TOTAL PROTEIN 8.2 g/dL (6.4-8.2)
[2016-08-01] VITALS (14 sets, daily range): BP systolic 87–108; BP diastolic 37–67
[2016-08-01] MEDS: OXYCODONE IR 5 MG TABLET. PO PRN ×2 (02:05→14:11)
[2016-08-01] MEDS: FENTANYL PF 100 MCG/2 ML VIAL. IV PRN ×2 (03:06→08:12)
--- NOTE | 2016-08-01 03:57 | CONS ---
DATE OF CONSULTATION: REASON FOR CONSULTATION: Hyperkalemia, acute renal failure. HISTORY OF PRESENT ILLNESS: The patient is a 56-year-old morbidly obese lady. History of hypertension, acute on chronic renal failure in the past, requiring temporary dialysis in April. Hospitalized through the Emergency Room initially to the floor and then transferred to the ICU at my request because of her potassium of 7.2 and bleeding through the thigh wound. She apparently came in due to acute bleeding from her left anterior thigh. There was ____ at the custodial [facility] where she is a resident. This was first picked up during a dressing change apparently today. She is on heparin for DVT prophylaxis. The patient was a little groggy when I saw her and was not able to engage in a very detailed conversation. She is denying any pain. She does not appear to be in any acute distress. No shortness of breath. Denies any chest discomfort. She is not obviously able to move around or walk. She is over 450 pounds. There is no reported vomiting, diarrhea, fever or chills. No other active issues. The patient was admitted to the floor and I unfortunately did not receive a phone call from the Emergency Room, so a dialysis catheter was not ordered until I was first made aware of the potassium of 7.2. PAST MEDICAL HISTORY: Significant for: 1. Hypertension. 2. Acute renal failure with possible CKD. 3. CKD stage 3 secondary to hypertension. 4. Morbid obesity with possible hypoventilation. 5. Atherosclerotic heart disease. 6. Asthma. 7. Anxiety and depression. 8. History of arrhythmias requiring a pacemaker. 9. Chronic back pain. 10. History of recurrent UTIs. PAST SURGICAL HISTORY: Significant for: 1. A temporary dialysis catheter placement and removal. 2. Pacemaker placement. 3. Insertion of previous PICC lines. REVIEW OF SYSTEMS: As above or as best could be obtained on a limited scale due to patient's condition. FAMILY HISTORY: Unobtainable. MEDICATIONS AND ALLERGIES: Reviewed. PHYSICAL EXAMINATION: GENERAL: Middle-aged lady, morbidly obese, awake, fairly alert, but not in a regular communication. VITAL SIGNS: Show blood pressure now in the low 100s/50s, apparently much lower down in the ER. HEENT: Her pupils are reactive. Tongue is midline and dry. NECK: Supple. LUNGS: Fair air entry. No rhonchi, rales or wheezes. CARDIOVASCULAR: Regular rate and rhythm, no rub. ABDOMEN: Portly, soft. EXTREMITIES: 1+ edema. Extensive wounds, both thighs, specifically on the left. LABORATORY DATA: White count 13.2, hemoglobin 10, hematocrit 33. Sodium 135, potassium 7.2, bicarbonate is 32, chloride 100, BUN of 34, creatinine of 1.2. Calcium is 10.5. IMPRESSION: 1. Acute renal failure likely due to renal hypoperfusion and hypotension. 2. Hyperkalemia from acute renal failure and possible bleed. 3. Hypertension with CKD. 4. Obesity with hypoventilation. PLAN: We will proceed with hemodialysis. Monitor intake and output. Given Kayexalate 15 g p.o. x 1. Recheck labs at 10:00 tonight. Discussed with the patient. Thank you very much for the consultation. I appreciate the referral. We will follow. REMBERTO MCCARTHY MD DR: MIN/ronnell JOB#: [id number] / [id number]
[2016-08-01 06:00] LABS: CALCIUM 9.4 mg/dL (8.5-10.1); GFR 69.1; POTASSIUM 3.9 mmol/L (3.5-5.1)
[2016-08-01] MEDS ORDERED: MEROPENEM 500 MG in IV NORMAL SALINE 50ML 50 ML IV SCH (06:00)
[2016-08-01 06:04] LABS: INR 1.2 (0.8-1.1); PROTHROMBIN TIME PATIENT 14.3 SEC (11.7-14.0)
[2016-08-01 06:05] LABS: ALBUMIN 1.8 g/dL (3.4-5.0); DIRECT BILIRUBIN 0.1 mg/dL (0.0-0.2); MAGNESIUM 1.6 mg/dL (1.8-2.4); PHOSPHORUS 3.2 mg/dL (2.6-4.7); TOTAL BILIRUBIN 0.3 mg/dL (0.2-1.0); TOTAL PROTEIN 7.8 g/dL (6.4-8.2)
[2016-08-01 06:07] LABS: BASO % 0 % (0-3); EOS % 0 % (0-3); HEMATOCRIT 30.3 % (36.0-47.0); HEMOGLOBIN 9.1 g/dL (12.0-15.5); LYMPH % 8 % (24-48); MEAN CORPUSCULAR HEMOGLOBIN 31 pg (25-35); MEAN CORPUSCULAR HGB CONC 30 g/dL (31-37); MEAN CORPUSCULAR VOLUME 103 fL (79-100); MONO % 8 % (0-9); NEUT % 84 % (31-73); PLATELET COUNT 274 x10^3/uL (140-400); RED BLOOD COUNT 2.93 x10^6/uL (3.50-5.40); RED CELL DISTRIBUTION WIDTH 17.3 % (11.5-14.5); WHITE BLOOD COUNT 12.9 x10^3/uL (4.0-11.0)
--- NOTE | 2016-08-01 06:10 | EKG ---
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
--- NOTE | 2016-08-01 07:23 | PDOC ---
Infectious Disease Note ROS ROS GEN: Denies fevers, chills, sweats HEENT: Denies blurred vision, sore throat CV: Denies chest pain RESP: Denies shortness of air, cough GI: Denies n/v/d NEURO: Denies confusion, dizziness MSK: Denies weakness, joint pain/swelling Vital Sign Vital Signs Vital Signs Date Time Temp Pulse Resp B/P Pulse Ox O2 Delivery O2 Flow Rate FiO2 08/01/16 06:05 100 08/01/16 06:00 74 20 94/47 BiPAP/CPAP 08/01/16 04:00 98.2 98.2 08/01/16 00:00 40.0 Physical Exam PHYSICAL EXAM GENERAL: NAD, Alert HEENT: PERRL, OC/OP NECK: Supple, no JVD, no LN LUNGS: Clear HEART: S1S2, no gallop, no murmur ABD: Soft, NT, no organomegaly, no rebound EXT: No edema, no cyanosis NARRATIVE WRITER: Alert, oriented x 3, no focal neurologic deficit SKIN: No rash IV: ok Labs Lab Laboratory Tests Test 07/31/16 14:45 07/31/16 15:30 07/31/16 20:00 07/31/16 23:00 White Blood Count 13.2x10^3/uL (4.0-11.0) 15.2x10^3/uL (4.0-11.0) Red Blood Count 3.30x10^6/uL (3.50-5.40) 3.13x10^6/uL (3.50-5.40) Hemoglobin 10.1g/dL (12.0-15.5) 9.5g/dL (12.0-15.5) Hematocrit 33.4% (36.0-47.0) 31.8% (36.0-47.0) Mean Corpuscular Volume 101fL (79-100) 102fL (79-100) Mean Corpuscular Hemoglobin 31pg (25-35) 31pg (25-35) Mean Corpuscular Hemoglobin Concent 30g/dL (31-37) 30g/dL (31-37) Red Cell Distribution Width 17.0% (11.5-14.5) 16.9% (11.5-14.5) Platelet Count 314x10^3/uL (140-400) 285x10^3/uL (140-400) Neutrophils (%) (Auto) 87% (31-73) 86% (31-73) Lymphocytes (%) (Auto) 8% (24-48) 7% (24-48) Monocytes (%) (Auto) 5% (0-9) 6% (0-9) Eosinophils (%) (Auto) 0% (0-3) 0% (0-3) Basophils (%) (Auto) 0% (0-3) 0% (0-3) Neutrophils # (Auto) 11.5x10^3uL (1.8-7.7) 13.1x10^3uL (1.8-7.7) Lymphocytes # (Auto) 1.0x10^3/uL (1.0-4.8) 1.1x10^3/uL (1.0-4.8) Monocytes # (Auto) 0.7x10^3/uL (0.0-1.1) 1.0x10^3/uL (0.0-1.1) Eosinophils # (Auto) 0.0x10^3/uL (0.0-0.7) 0.0x10^3/uL (0.0-0.7) Basophils # (Auto) 0.0x10^3/uL (0.0-0.2) 0.0x10^3/uL (0.0-0.2) Segmented Neutrophils % 87% (35-66) Lymphocytes % 10% (24-48) Monocytes % 3% (0-10) Platelet Estimate Adequate (ADEQUATE) Sodium Level 135mmol/L (136-145) 135mmol/L (136-145) 142mmol/L (136-145) 136mmol/L (136-145) Potassium Level 6.2mmol/L (3.5-5.1) 7.2mmol/L (3.5-5.1) 4.6mmol/L (3.5-5.1) 3.8mmol/L (3.5-5.1) Chloride Level 99mmol/L (98-107) 100mmol/L (98-107) 102mmol/L (98-107) 100mmol/L (98-107) Carbon Dioxide Level 33mmol/L (21-32) 32mmol/L (21-32) 35mmol/L (21-32) 30mmol/L (21-32) Anion Gap 3 (6-14) 3 (6-14) 5 (6-14) 6 (6-14) Blood Urea Nitrogen 34mg/dL (7-20) 34mg/dL (7-20) 13mg/dL (7-20) Creatinine 1.2mg/dL (0.6-1.0) 1.2mg/dL (0.6-1.0) 0.7mg/dL (0.6-1.0) Estimated GFR (Cockcroft-Gault) 56.0 56.0 104.4 Glucose Level 112mg/dL (70-99) 113mg/dL (70-99) 88mg/dL (70-99) Calcium Level 10.6mg/dL (8.5-10.1) 10.5mg/dL (8.5-10.1) 9.3mg/dL (8.5-10.1) Prothrombin Time 14.2SEC (11.7-14.0) Prothromb Time International Ratio 1.2 (0.8-1.1) BUN/Creatinine Ratio 19 (6-20) Magnesium Level 1.5mg/dL (1.8-2.4) Total Bilirubin 0.3mg/dL (0.2-1.0) Aspartate Amino Transf (AST/SGOT) 22U/L (15-37) Alanine Aminotransferase (ALT/SGPT) 9U/L (14-59) Alkaline Phosphatase 70U/L (46-116) Total Protein 8.2g/dL (6.4-8.2) Albumin 1.9g/dL (3.4-5.0) Albumin/Globulin Ratio 0.3 (1.0-1.7) Test 08/01/16 05:30 White Blood Count 12.9x10^3/uL (4.0-11.0) Red Blood Count 2.93x10^6/uL (3.50-5.40) Hemoglobin 9.1g/dL (12.0-15.5) Hematocrit 30.3% (36.0-47.0) Mean Corpuscular Volume 103fL (79-100) Mean Corpuscular Hemoglobin 31pg (25-35) Mean Corpuscular Hemoglobin Concent 30g/dL (31-37) Red Cell Distribution Width 17.3% (11.5-14.5) Platelet Count 274x10^3/uL (140-400) Neutrophils (%) (Auto) 84% (31-73) Lymphocytes (%) (Auto) 8% (24-48) Monocytes (%) (Auto) 8% (0-9) Eosinophils (%) (Auto) 0% (0-3) Basophils (%) (Auto) 0% (0-3) Neutrophils # (Auto) 10.8x10^3uL (1.8-7.7) Lymphocytes # (Auto) 1.0x10^3/uL (1.0-4.8) Monocytes # (Auto) 1.1x10^3/uL (0.0-1.1) Eosinophils # (Auto) 0.0x10^3/uL (0.0-0.7) Basophils # (Auto) 0.0x10^3/uL (0.0-0.2) Prothrombin Time 14.3SEC (11.7-14.0) Prothromb Time International Ratio 1.2 (0.8-1.1) Sodium Level 137mmol/L (136-145) Potassium Level 3.9mmol/L (3.5-5.1) Chloride Level 102mmol/L (98-107) Carbon Dioxide Level 31mmol/L (21-32) Anion Gap 4 (6-14) Blood Urea Nitrogen 15mg/dL (7-20) Creatinine 1.0mg/dL (0.6-1.0) Estimated GFR (Cockcroft-Gault) 69.1 Glucose Level 88mg/dL (70-99) Calcium Level 9.4mg/dL (8.5-10.1) Phosphorus Level 3.2mg/dL (2.6-4.7) Magnesium Level 1.6mg/dL (1.8-2.4) Total Bilirubin 0.3mg/dL (0.2-1.0) Direct Bilirubin 0.1mg/dL (0.0-0.2) Aspartate Amino Transf (AST/SGOT) 22U/L (15-37) Alanine Aminotransferase (ALT/SGPT) 8U/L (14-59) Alkaline Phosphatase 63U/L (46-116) Total Protein 7.8g/dL (6.4-8.2) Albumin 1.8g/dL (3.4-5.0) Objective Assessment Leukocytosis - better Multiple wounds H/o MDR PSA/MSSA Acute Encephalopathy Bleed from left thigh wound -controlled Acute Resp failure - on BiPAP ODALIS Plan Plan of Care Add Meropenem/Zyvox with Leukocytosis Add micafungin Obtain Cults if spikes Await wound care eval - needs surgical debridement of right thigh F/u labs 35 mins Critically ill Thank you # [phone] RAS MERINO MD Aug 01, 2016 07:23
[2016-08-01] MEDS: BUDESONIDE 0.5 MG/2 ML NEBU NEB SCH ×2 (07:25→21:38)
[2016-08-01] MEDS: IPRATRPIUM/ALBUTEROL 0.5/2.5MG 3 ML NEBU. NEB SCH ×3 (07:25→21:39)
[2016-08-01] MEDS: NYSTATIN 100,000 UNITS/ML 5 ML ORAL.SUSP. PO SCH ×4 (08:45→21:00)
[2016-08-01] MEDS: FOLIC ACID 1 MG TABLET PO SCH (08:46)
[2016-08-01] MEDS: FUROSEMIDE 40 MG TABLET PO SCH (08:46)
[2016-08-01] MEDS: MORPHINE ER 15 MG TABLET.ER PO SCH (08:46)
[2016-08-01] MEDS: MYCOPHENOLATE MOFETIL 250 MG CAPSULE. PO SCH ×2 (08:46→21:00)
[2016-08-01] MEDS: GABAPENTIN 100 MG CAPSULE. PO SCH ×3 (08:46→21:00)
[2016-08-01] MEDS: FOLIC/VIT B COMP W-C (RENAL) TABLET. PO SCH (08:46)
[2016-08-01] MEDS: METOPROLOL TART IMMED RELEASE 25 MG TABLET PO SCH ×3 (08:48→21:00)
[2016-08-01] MEDS: PREDNISONE 10 MG TABLET PO SCH (08:48)
[2016-08-01] MEDS ORDERED: MELOXICAM 7.5 MG TABLET PO SCH (09:00)
[2016-08-01] MEDS ORDERED: SPIRONOLACTONE 25 MG TABLET PO SCH (09:00)
--- NOTE | 2016-08-01 11:23 | PDOC ---
Renal-Progress Notes Subjective Notes Notes CONFUSED History of Present Illness Hx of present illness STABLE Vitals Vitals Vital Signs Date Time Temp Pulse Resp B/P Pulse Ox O2 Delivery O2 Flow Rate FiO2 08/01/16 09:13 98.1 79 20 103/56 99 Nasal Cannula 3.0 98.1 Weight Weight [ ] I.O. Intake and Output Intake and Output 08/01/16 07:00 Intake Total 1178 ml Output Total 550 ml Balance 628 ml Intake Oral 140 ml IV Total 500 ml Blood Product IV Normal Saline Flush 538 ml Output Urine Total 550 ml # Bowel Movements 1 Labs Labs Laboratory Tests Test 07/31/16 14:45 07/31/16 15:30 07/31/16 20:00 07/31/16 23:00 White Blood Count 13.2x10^3/uL (4.0-11.0) 15.2x10^3/uL (4.0-11.0) Red Blood Count 3.30x10^6/uL (3.50-5.40) 3.13x10^6/uL (3.50-5.40) Hemoglobin 10.1g/dL (12.0-15.5) 9.5g/dL (12.0-15.5) Hematocrit 33.4% (36.0-47.0) 31.8% (36.0-47.0) Mean Corpuscular Volume 101fL (79-100) 102fL (79-100) Mean Corpuscular Hemoglobin 31pg (25-35) 31pg (25-35) Mean Corpuscular Hemoglobin Concent 30g/dL (31-37) 30g/dL (31-37) Red Cell Distribution Width 17.0% (11.5-14.5) 16.9% (11.5-14.5) Platelet Count 314x10^3/uL (140-400) 285x10^3/uL (140-400) Neutrophils (%) (Auto) 87% (31-73) 86% (31-73) Lymphocytes (%) (Auto) 8% (24-48) 7% (24-48) Monocytes (%) (Auto) 5% (0-9) 6% (0-9) Eosinophils (%) (Auto) 0% (0-3) 0% (0-3) Basophils (%) (Auto) 0% (0-3) 0% (0-3) Neutrophils # (Auto) 11.5x10^3uL (1.8-7.7) 13.1x10^3uL (1.8-7.7) Lymphocytes # (Auto) 1.0x10^3/uL (1.0-4.8) 1.1x10^3/uL (1.0-4.8) Monocytes # (Auto) 0.7x10^3/uL (0.0-1.1) 1.0x10^3/uL (0.0-1.1) Eosinophils # (Auto) 0.0x10^3/uL (0.0-0.7) 0.0x10^3/uL (0.0-0.7) Basophils # (Auto) 0.0x10^3/uL (0.0-0.2) 0.0x10^3/uL (0.0-0.2) Segmented Neutrophils % 87% (35-66) Lymphocytes % 10% (24-48) Monocytes % 3% (0-10) Platelet Estimate Adequate (ADEQUATE) Sodium Level 135mmol/L (136-145) 135mmol/L (136-145) 142mmol/L (136-145) 136mmol/L (136-145) Potassium Level 6.2mmol/L (3.5-5.1) 7.2mmol/L (3.5-5.1) 4.6mmol/L (3.5-5.1) 3.8mmol/L (3.5-5.1) Chloride Level 99mmol/L (98-107) 100mmol/L (98-107) 102mmol/L (98-107) 100mmol/L (98-107) Carbon Dioxide Level 33mmol/L (21-32) 32mmol/L (21-32) 35mmol/L (21-32) 30mmol/L (21-32) Anion Gap 3 (6-14) 3 (6-14) 5 (6-14) 6 (6-14) Blood Urea Nitrogen 34mg/dL (7-20) 34mg/dL (7-20) 13mg/dL (7-20) Creatinine 1.2mg/dL (0.6-1.0) 1.2mg/dL (0.6-1.0) 0.7mg/dL (0.6-1.0) Estimated GFR (Cockcroft-Gault) 56.0 56.0 104.4 Glucose Level 112mg/dL (70-99) 113mg/dL (70-99) 88mg/dL (70-99) Calcium Level 10.6mg/dL (8.5-10.1) 10.5mg/dL (8.5-10.1) 9.3mg/dL (8.5-10.1) Prothrombin Time 14.2SEC (11.7-14.0) Prothromb Time International Ratio 1.2 (0.8-1.1) BUN/Creatinine Ratio 19 (6-20) Magnesium Level 1.5mg/dL (1.8-2.4) Total Bilirubin 0.3mg/dL (0.2-1.0) Aspartate Amino Transf (AST/SGOT) 22U/L (15-37) Alanine Aminotransferase (ALT/SGPT) 9U/L (14-59) Alkaline Phosphatase 70U/L (46-116) Total Protein 8.2g/dL (6.4-8.2) Albumin 1.9g/dL (3.4-5.0) Albumin/Globulin Ratio 0.3 (1.0-1.7) Test 08/01/16 05:30 White Blood Count 12.9x10^3/uL (4.0-11.0) Red Blood Count 2.93x10^6/uL (3.50-5.40) Hemoglobin 9.1g/dL (12.0-15.5) Hematocrit 30.3% (36.0-47.0) Mean Corpuscular Volume 103fL (79-100) Mean Corpuscular Hemoglobin 31pg (25-35) Mean Corpuscular Hemoglobin Concent 30g/dL (31-37) Red Cell Distribution Width 17.3% (11.5-14.5) Platelet Count 274x10^3/uL (140-400) Neutrophils (%) (Auto) 84% (31-73) Lymphocytes (%) (Auto) 8% (24-48) Monocytes (%) (Auto) 8% (0-9) Eosinophils (%) (Auto) 0% (0-3) Basophils (%) (Auto) 0% (0-3) Neutrophils # (Auto) 10.8x10^3uL (1.8-7.7) Lymphocytes # (Auto) 1.0x10^3/uL (1.0-4.8) Monocytes # (Auto) 1.1x10^3/uL (0.0-1.1) Eosinophils # (Auto) 0.0x10^3/uL (0.0-0.7) Basophils # (Auto) 0.0x10^3/uL (0.0-0.2) Prothrombin Time 14.3SEC (11.7-14.0) Prothromb Time International Ratio 1.2 (0.8-1.1) Sodium Level 137mmol/L (136-145) Potassium Level 3.9mmol/L (3.5-5.1) Chloride Level 102mmol/L (98-107) Carbon Dioxide Level 31mmol/L (21-32) Anion Gap 4 (6-14) Blood Urea Nitrogen 15mg/dL (7-20) Creatinine 1.0mg/dL (0.6-1.0) Estimated GFR (Cockcroft-Gault) 69.1 Glucose Level 88mg/dL (70-99) Calcium Level 9.4mg/dL (8.5-10.1) Phosphorus Level 3.2mg/dL (2.6-4.7) Magnesium Level 1.6mg/dL (1.8-2.4) Total Bilirubin 0.3mg/dL (0.2-1.0) Direct Bilirubin 0.1mg/dL (0.0-0.2) Aspartate Amino Transf (AST/SGOT) 22U/L (15-37) Alanine Aminotransferase (ALT/SGPT) 8U/L (14-59) Alkaline Phosphatase 63U/L (46-116) Total Protein 7.8g/dL (6.4-8.2) Albumin 1.8g/dL (3.4-5.0) Review of Systems Constitutional: yes: no symptom reported Physical Exam General Appearance: no apparent distress Skin: warm Respiratory: decreased breath sounds Heart: S1S2, RRR Abdomen: soft, bowel sounds present Extremities: pulses present Neurology: alert Assessment Assessment IMP HYPERKALEMIA-RESOLVED MORBID OBESITY LEUCOCYTOSIS MULTIPLE WOUNDS ENCEPHALOPATHY PLAN HOLD HD FOR NOW STOP HER ALDACTONE, MOBIC FOR NOW LABS IN AM ANTIBIOTICS ISOTONIC SALINE CATARINO LOREDO MD Aug 01, 2016 11:23
--- NOTE | 2016-08-01 11:28 | CONS ---
DATE OF CONSULTATION: 08/01/2016 PATIENT'S ROOM: ICU 13. REQUESTING PHYSICIAN: Dr. Robin. REASON FOR CONSULTATION: Leg wounds. 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 She has a history of multidrug-resistant pseudomonas from her wounds sensitive to tobramycin, intermediate to carbapenems, but otherwise resistant. Also has a history of Staph aureus and Klebsiella. [facility] 31 of July secondary to bleeding from her left thigh wound. On arrival, she had a white count of 13.2, hemoglobin was 10.5, which was concerning for acute renal failure and a potassium of 6.2. She had a hemodialysis PICC catheter placed in her right chest. She was admitted to the Intensive Care Unit. This evening her white blood cell count increased to 15.2. I was consulted and instituted meropenem and Zyvox. Currently, she is on BiPAP. She is arousable, but unable to provide any past medical history, history of present illness, or review of systems. PAST MEDICAL HISTORY: Positive for multiple wounds secondary to calciphylaxis with multiple bacteria including methicillin-sensitive Staph aureus to above-mentioned multidrug-resistant pseudomonas, Klebsiella. She had a history of yeast infections, super morbid obesity, anxiety disorder, asthma, hypertension, history of renal failure and respiratory failure. PAST SURGICAL HISTORY: Positive for pacemaker placement as well as multiple wound debridements. REVIEW OF SYSTEMS: Unobtainable. ALLERGIES: LISTED VANCOMYCIN AND TO [place]. SOCIAL HISTORY: She is a half-way resident. No recent tobacco. She has a supportive family. FAMILY HISTORY: Noncontributory. CURRENT MEDICATIONS: Include meropenem, Zyvox, Lasix, Neurontin. She was on heparin, Mobic, Aldactone, CellCept, oral nystatin. PHYSICAL EXAMINATION: VITAL SIGNS: She has been afebrile, temperature 98.2, pulse 74, respirations 20, blood pressure is 94/47, and 100% on CPAP. GENERAL: She is arousable. She is in no acute distress. She has normal conjunctivae. NECK: Supple. Neck was without JVD. LUNGS: Clear to auscultation. HEART: S1, S2. Pacemaker without signs of complications. Right chest hemodialysis catheter without signs of complications. ABDOMEN: Obese, soft, nontender, nondistended, positive bowel sounds. Morton is in place. EXTREMITIES: No clubbing or cyanosis with trace edema. She has bilateral thigh wounds with areas of necrosis on her right thigh with a foul odor. Her left thigh has a pressure bandage in place, appears to be clean with minimal bleed. SKIN: Otherwise, warm to touch without signs of rash, questionably yeast. NEUROLOGIC: She is awaken. LABORATORY VALUES: White count 12.9, hemoglobin 9.1, platelet are 274 with neutrophils of 84, creatinine of 1, potassium of 3.9, AST 22, ALT 8, albumin of 1.8. Chest x-ray, no acute abnormality by my eye. IMPRESSION: 1. Leukocytosis that is improved. 2. Multiple wounds. 3. History of multidrug-resistant pseudomonas, Staph aureus and Klebsiella. 4. Acute encephalopathy. 5. Bleed from her left thigh wound, appears controlled. 6. Acute respiratory failure, on BiPAP. 7. Acute kidney injury. RECOMMENDATIONS: Last night I did add meropenem as well as Zyvox given her leukocytosis, given the yeast accompanying her wounds we will add some micafungin, obtain cultures if she spikes, we will await wound care evaluation as she needs surgical debridement of her right thigh and we will follow up on her labs. She is critically ill. I spent 35 minutes of critical care time reviewing previous records and in discussions with the nursing staff. Thank you for allowing us me to participate in this patient's care. If you have any questions, please do not hesitate to contact me. RAS MERINO MD DR: GUILLAUME/ronnell JOB#: [id number] / [id number]
--- NOTE | 2016-08-01 11:47 | PDOC ---
PROGRESS NOTES Chief Complaint Chief Complaint Hyperkalemia Open wounds, bleeding ASSESSMENT AND PLAN: 1. ODALIS: improving 2. Hyperkalemia: resolved s/p HD yesterday 3. Respir failure: chronic; hypoventilation syndrome due to obesity; sarcoidosis 4. Wounds: calciphylaxis. hx of infection (MSSA). appreciate ID service input. on Merrem, Zyvox, micafungin. needs debridement FRANCISCO! wound care consult, Dr Gil consult 5. Leukocytosis: improving 6. Wound bleed: resolved with direct pressure 7. Acute Encephalopathy: resolved 8. Afib: rate controlled 9. Sarcoidosis: on cellcept and pred log-term 10. Antiphospholipid syndrome: previously seen by Dr Church; on coumadin on O/ P basis. 11. Anemia: macrocytic. obtain B12/folate levels. hx severe anemia, prob chronic inflammatory. 12. Hypoalbuminemia: severe, in face of massive obesity. supplements 13. Prophylaxis: coumadin on hold for now. heparin SQ minimum given APS hx Vitals Vitals Vital Signs Date Time Temp Pulse Resp B/P Pulse Ox O2 Delivery O2 Flow Rate FiO2 08/01/16 09:13 98.1 79 20 103/56 99 Nasal Cannula 3.0 98.1 Physical Exam General: Alert, Oriented X3, Cooperative, No acute distress Lungs: Clear Abdomen: Normal bowel sounds, Soft (very obese) Extremities: Other (tr edema) Skin: Other (Bilat open thigh wounds, with significant detritus, juarez R. malodorous) Labs LABS Laboratory Tests Test 07/31/16 14:45 07/31/16 15:30 07/31/16 20:00 07/31/16 23:00 White Blood Count 13.2x10^3/uL (4.0-11.0) 15.2x10^3/uL (4.0-11.0) Red Blood Count 3.30x10^6/uL (3.50-5.40) 3.13x10^6/uL (3.50-5.40) Hemoglobin 10.1g/dL (12.0-15.5) 9.5g/dL (12.0-15.5) Hematocrit 33.4% (36.0-47.0) 31.8% (36.0-47.0) Mean Corpuscular Volume 101fL (79-100) 102fL (79-100) Mean Corpuscular Hemoglobin 31pg (25-35) 31pg (25-35) Mean Corpuscular Hemoglobin Concent 30g/dL (31-37) 30g/dL (31-37) Red Cell Distribution Width 17.0% (11.5-14.5) 16.9% (11.5-14.5) Platelet Count 314x10^3/uL (140-400) 285x10^3/uL (140-400) Neutrophils (%) (Auto) 87% (31-73) 86% (31-73) Lymphocytes (%) (Auto) 8% (24-48) 7% (24-48) Monocytes (%) (Auto) 5% (0-9) 6% (0-9) Eosinophils (%) (Auto) 0% (0-3) 0% (0-3) Basophils (%) (Auto) 0% (0-3) 0% (0-3) Neutrophils # (Auto) 11.5x10^3uL (1.8-7.7) 13.1x10^3uL (1.8-7.7) Lymphocytes # (Auto) 1.0x10^3/uL (1.0-4.8) 1.1x10^3/uL (1.0-4.8) Monocytes # (Auto) 0.7x10^3/uL (0.0-1.1) 1.0x10^3/uL (0.0-1.1) Eosinophils # (Auto) 0.0x10^3/uL (0.0-0.7) 0.0x10^3/uL (0.0-0.7) Basophils # (Auto) 0.0x10^3/uL (0.0-0.2) 0.0x10^3/uL (0.0-0.2) Segmented Neutrophils % 87% (35-66) Lymphocytes % 10% (24-48) Monocytes % 3% (0-10) Platelet Estimate Adequate (ADEQUATE) Sodium Level 135mmol/L (136-145) 135mmol/L (136-145) 142mmol/L (136-145) 136mmol/L (136-145) Potassium Level 6.2mmol/L (3.5-5.1) 7.2mmol/L (3.5-5.1) 4.6mmol/L (3.5-5.1) 3.8mmol/L (3.5-5.1) Chloride Level 99mmol/L (98-107) 100mmol/L (98-107) 102mmol/L (98-107) 100mmol/L (98-107) Carbon Dioxide Level 33mmol/L (21-32) 32mmol/L (21-32) 35mmol/L (21-32) 30mmol/L (21-32) Anion Gap 3 (6-14) 3 (6-14) 5 (6-14) 6 (6-14) Blood Urea Nitrogen 34mg/dL (7-20) 34mg/dL (7-20) 13mg/dL (7-20) Creatinine 1.2mg/dL (0.6-1.0) 1.2mg/dL (0.6-1.0) 0.7mg/dL (0.6-1.0) Estimated GFR (Cockcroft-Gault) 56.0 56.0 104.4 Glucose Level 112mg/dL (70-99) 113mg/dL (70-99) 88mg/dL (70-99) Calcium Level 10.6mg/dL (8.5-10.1) 10.5mg/dL (8.5-10.1) 9.3mg/dL (8.5-10.1) Prothrombin Time 14.2SEC (11.7-14.0) Prothromb Time International Ratio 1.2 (0.8-1.1) BUN/Creatinine Ratio 19 (6-20) Magnesium Level 1.5mg/dL (1.8-2.4) Total Bilirubin 0.3mg/dL (0.2-1.0) Aspartate Amino Transf (AST/SGOT) 22U/L (15-37) Alanine Aminotransferase (ALT/SGPT) 9U/L (14-59) Alkaline Phosphatase 70U/L (46-116) Total Protein 8.2g/dL (6.4-8.2) Albumin 1.9g/dL (3.4-5.0) Albumin/Globulin Ratio 0.3 (1.0-1.7) Test 08/01/16 05:30 White Blood Count 12.9x10^3/uL (4.0-11.0) Red Blood Count 2.93x10^6/uL (3.50-5.40) Hemoglobin 9.1g/dL (12.0-15.5) Hematocrit 30.3% (36.0-47.0) Mean Corpuscular Volume 103fL (79-100) Mean Corpuscular Hemoglobin 31pg (25-35) Mean Corpuscular Hemoglobin Concent 30g/dL (31-37) Red Cell Distribution Width 17.3% (11.5-14.5) Platelet Count 274x10^3/uL (140-400) Neutrophils (%) (Auto) 84% (31-73) Lymphocytes (%) (Auto) 8% (24-48) Monocytes (%) (Auto) 8% (0-9) Eosinophils (%) (Auto) 0% (0-3) Basophils (%) (Auto) 0% (0-3) Neutrophils # (Auto) 10.8x10^3uL (1.8-7.7) Lymphocytes # (Auto) 1.0x10^3/uL (1.0-4.8) Monocytes # (Auto) 1.1x10^3/uL (0.0-1.1) Eosinophils # (Auto) 0.0x10^3/uL (0.0-0.7) Basophils # (Auto) 0.0x10^3/uL (0.0-0.2) Prothrombin Time 14.3SEC (11.7-14.0) Prothromb Time International Ratio 1.2 (0.8-1.1) Sodium Level 137mmol/L (136-145) Potassium Level 3.9mmol/L (3.5-5.1) Chloride Level 102mmol/L (98-107) Carbon Dioxide Level 31mmol/L (21-32) Anion Gap 4 (6-14) Blood Urea Nitrogen 15mg/dL (7-20) Creatinine 1.0mg/dL (0.6-1.0) Estimated GFR (Cockcroft-Gault) 69.1 Glucose Level 88mg/dL (70-99) Calcium Level 9.4mg/dL (8.5-10.1) Phosphorus Level 3.2mg/dL (2.6-4.7) Magnesium Level 1.6mg/dL (1.8-2.4) Total Bilirubin 0.3mg/dL (0.2-1.0) Direct Bilirubin 0.1mg/dL (0.0-0.2) Aspartate Amino Transf (AST/SGOT) 22U/L (15-37) Alanine Aminotransferase (ALT/SGPT) 8U/L (14-59) Alkaline Phosphatase 63U/L (46-116) Total Protein 7.8g/dL (6.4-8.2) Albumin 1.8g/dL (3.4-5.0) Review of Systems Review of Systems c/o vaginal itching (chronic) Comment Review of Relevant OVIDIO STALLWORTH MD Aug 01, 2016 11:47
--- NOTE | 2016-08-01 12:58 | RAD ---
PROCEDURE Ultrasound-guided right internal jugular venous temporary hemodialysis catheter placement at bedside HISTORY Adult female requiring hemodialysis for hyperkalemia COMPARISON No immediate FINDINGS All elements of maximal sterile barrier technique were utilized for this procedure including cap, sterile gown, mask, sterile gloves, chlorhexidine for antisepsis, and full field sterile drape. Following informed consent, the patient was prepped and draped in the usual sterile fashion. Ultrasound interrogation of the right neck revealed patency and compressibility of the right internal jugular vein. Hard copy ultrasound image was recorded as a 21 gauge micropuncture needle was used to gain access to this vessel. The needle was exchanged over a wire for serial dilators followed by a 20 centimeter Trialysis hemodialysis catheter. All lumens flushed and aspirated with ease and the large-bore lumens demonstrated excellent manual flow rates. The catheter was flushed, packed with heparin, capped, and sutured to the skin. Chest x-ray was obtained to assess for line position. IMPRESSION Ultrasound-guided temporary hemodialysis catheter as described Electronically signed by: Monroe Jeff MD (Aug 01, 2016 12:57:47)
[2016-08-01] MEDS: IV NORMAL SALINE 1000ML BAG 1,000 ML IV SCH ×2 (14:12)
[2016-08-01 14:23] LABS: HEP B SURFACE ABDY Non Reactive (.)
--- NOTE | 2016-08-01 16:46 | PDOC2 ---
CARLIE LUCERO TRIMMER OPERATOR 08/01/16 1646: CONSULT Date of Consult Date of Consult DATE: 08/01/16 TIME: 14:00 Reason for Consult Reason for Consult: Bleeding left thigh wound Referring Physician Referring Physician: Dr. 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 It is my understanding these wounds have been resistant to multiple antibiotics in the past and well-known to the Infectious Disease physicians. It is uncertain how long the patient has had these wounds. There is no family present and the patient is not coherent enough to provide any history or provide pertinent information. In reviewing previous notes, it appears the patient was brought to the emergency room due to bleeding from her left thigh wound where the bleeding was controlled by compression therapy while lab work was obtained. She was also given Protamine for heparin reversal. Additionally, she was found to have severe hyperkalemia with hypotension and concern for acute renal failure. She urgently underwent placement of a temporary hemodialysis catheter placement in her right neck followed by hemodialysis. She was admitted to the Intensive Care Unit and closely monitored. Vascular Surgery has been consulted to provide evaluation of her circulation and for a bleeding left thigh wound. 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) Renal/: Acute renal failure Dermatology: Other (Chronic bilateral thigh and buttock wounds ) Past Surgical History Past Surgical History: Pacemaker Family History Family History: Family History Unknown Social History No ALCOHOL: none Drugs: None Lives: [facility] Current Problem List Problem List Problems Medical Problems: (1) Bleeding from wound Status: Acute (2) Hyperkalemia Status: Acute (3) Wound, open Status: Acute Current Medications Current Medications Current Medications Tranexamic Acid (Cyklokapron) 1,000 mg 1X ONCE TOP Last administered on 15:18; Start 07/31/16 at 14:45; Stop 07/31/16 at 14:46; Status DC Protamine Sulfate 50 mg 1X ONCE IV Last administered on 07/31/16 14:54; Start 07/31/16 at 15:15; Stop 07/31/16 at 15:16; Status DC Dextrose 25 gm 1X ONCE IV Last administered on 07/31/16 16:32; Start at 15:45; Stop 07/31/16 at 15:46; Status DC Insulin Human Regular 10 unit 10 unit 1X ONCE IV Last administered on 16:35; Start 07/31/16 at 15:45; Stop 07/31/16 at 15:46; Status DC Sodium Bicarbonate 50 meq/Dextrose 1,050 ml @ 125 mls/hr Q8H24M IV ; Start 05/07 at 15:45; Status Cancel Sodium Chloride (Iv Sodium Chloride 0.9% 500ml Bag) 500 ml @ 500 mls/hr 1X ONCE IV Last administered on 07/31/16 15:25; Start 07/31/16 at 15:30; Stop 05/07 at 16:29; Status DC Ondansetron HCl 4 mg 4 mg PRN Q8HRS PRN IV NAUSEA/VOMITING; Start 07/31/16 at 15:30; Stop 08/01/16 at 15:29; Status DC Sodium Chloride (Iv Sodium Chloride 0.9% 1000ml Bag) 1,000 ml @ 125 mls/hr Q8H IV ; Start 07/31/16 at 15:30; Stop 08/01/16 at 00:00; Status DC Acetaminophen (Tylenol) 650 mg PRN Q4HRS PRN PO FEVER; Start 07/31/16 at 15:30 ; Stop 07/31/16 at 19:08; Status DC Calcium Gluconate 1,000 mg 1X ONCE IVP Last administered on 07/31/16 16:36; Start 07/31/16 at 17:00; Stop 07/31/16 at 17:01; Status DC Sodium Bicarbonate 50 meq STK-MED ONCE .ROUTE ; Start 07/31/16 at 16:26; Stop at 16:27; Status DC Sodium Bicarbonate 50 meq 1X ONCE IV Last administered on 07/31/16 16:36; Start 07/31/16 at 17:00; Stop 07/31/16 at 17:01; Status DC Sodium Polystyrene Sulfonate 15 gm 15 gm 1X ONCE PO Last administered on 18:00; Start 07/31/16 at 18:00; Stop 07/31/16 at 18:01; Status DC Sodium Chloride 1,000 ml @ 1,000 mls/hr Q1H PRN IV hypotension; Start 07/31/16 at 18:10; Stop 08/01/16 at 00:09; Status DC Albumin Human (Albuminar) 200 ml @ 200 mls/hr 1X PRN PRN IV Hypotension; Start 07/31/16 at 18:15; Stop 08/01/16 at 00:14; Status DC Acetaminophen (Tylenol) 500 mg 1X PRN PRN PO MILD PAIN / TEMP; Start 07/31/16 at 18:15; Stop 08/01/16 at 00:30; Status DC Diphenhydramine HCl (Benadryl) 25 mg 1X PRN PRN IV ITCHING; Start 07/31/16 at 18:15; Stop 08/01/16 at 00:30; Status DC Diphenhydramine HCl (Benadryl) 25 mg 1X PRN PRN IV ITCHING; Start 07/31/16 at 18:15; Stop 08/01/16 at 00:30; Status DC Info (PHARMACY MONITORING -- do not chart) 1 each PRN DAILY PRN MC SEE COMMENTS ; Start 07/31/16 at 18:15 Heparin Sodium (Porcine) 10,000 unit STK-MED ONCE .ROUTE ; Start 07/31/16 at 18: 27; Stop 07/31/16 at 18:28; Status DC Lidocaine/Sodium Bicarbonate 20 ml 20 ml STK-MED ONCE IJ ; Start 07/31/16 at 18: 27; Stop 07/31/16 at 18:28; Status DC Heparin Sodium/ Sodium Chloride 500 ml @ As Directed STK-MED ONCE .ROUTE ; Start 07/31/16 at 18:27; Stop 07/31/16 at 18:28; Status DC Lidocaine/Sodium Bicarbonate (Buffered Lidocaine 1%) 3 ml 1X ONCE IJ Last administered on 07/31/16t 19:12; Start 07/31/16 at 19:00; Stop 07/31/16 at 19:01 ; Status DC Heparin Sodium/ Sodium Chloride 60 unit 1X ONCE IV Last administered on t 19:13; Start 07/31/16 at 19:00; Stop 07/31/16 at 19:01; Status DC Heparin Sodium (Porcine) 2,500 unit 1X ONCE INT CAT Last administered on 19:12; Start 07/31/16 at 19:00; Stop 07/31/16 at 19:01; Status DC Acetaminophen (Tylenol) 650 mg PRN Q6HRS PRN PO PAIN; Start 07/31/16 at 19:15 Albuterol Sulfate (Ventolin Neb Soln) 2.5 mg PRN Q4HRS PRN NEB SHORTNESS OF BREATH; Start 07/31/16 at 19:15 Folic Acid (Folic Acid) 1 mg DAILY PO Last administered on 08/01/16 08:46; Start 08/01/16 at 09:00 Vitamin B Complex/ Vitamin C (Nephro-Arielle) 1 tab DAILY PO Last administered on 08/01/16 08:46; Start 08/01/16 at 09:00 Furosemide (Lasix) 40 mg DAILY PO Last administered on 08/01/16 08:46; Start 08/01/16 at 09:00 Gabapentin (Neurontin) 100 mg TID PO Last administered on 08/01/16 14:10; Start 07/31/16 at 21:00 Albuterol/ Ipratropium (Duoneb) 3 ml TID NEB Last administered on 08/01/16 11: 39; Start 07/31/16 at 21:00 Lorazepam (Ativan) 0.5 mg PRN BID PRN PO ANXIETY / AGITATION; Start 07/31/16 at 19:15 Meloxicam (Mobic) 7.5 mg DAILY PO Last administered on 08/01/16 08:46; Start 08/01/16 at 09:00; Stop 08/01/16 at 11:25; Status DC Metoprolol Tartrate (Lopressor) 25 mg BID PO Last administered on 07/31/16 22: 26; Start 07/31/16 at 21:00 Morphine Sulfate (Ms Contin) 15 mg Q12HR PO Last administered on 08/01/16 08: 46; Start 07/31/16 at 21:00 Nystatin 5 ml QID PO Last administered on 08/01/16 14:10; Start 07/31/16 at 21 :00 Prednisone (Prednisone) 10 mg DAILY PO Last administered on 08/01/16 08:48; Start 08/01/16 at 09:00 Senna/Docusate Sodium (Senna Plus) 1 tab PRN BID PRN PO CONSTIPATION; Start 05/07 at 19:15 Budesonide (Pulmicort) 0.5 mg RTBID NEB Last administered on 08/01/16 07:25; Start 07/31/16 at 20:00 Non-Formulary Medication 3 mg HS PO ; Start 07/31/16 at 21:00; Status UNV Mycophenolate Mofetil (Cellcept) 500 mg BID PO Last administered on 08/01/16 08:46; Start 07/31/16 at 21:00 Ondansetron HCl (Zofran Odt) 4 mg Q8HRS PO ; Start 07/31/16 at 22:00; Status Cancel Oxycodone HCl (Roxicodone) 5 mg PRN Q4HRS PRN PO PAIN Last administered on 08/01 14:11; Start 07/31/16 at 19:30 Spironolactone 50 mg 50 mg DAILY PO Last administered on 08/01/16 08:46; Start 08/01/16 at 09:00; Stop 08/01/16 at 11:25; Status DC Meropenem 500 mg/ Sodium Chloride 50 ml @ 100 mls/hr Q24H IV Last administered on 08/01/16 05:17; Start 08/01/16 at 06:00 Linezolid 300 ml @ 300 mls/hr Q12HR IV Last administered on 08/01/16 08:45; Start 08/01/16 at 09:00 Sodium Chloride (Iv Sodium Chloride 0.9% 1000ml Bag) 1,000 ml @ 70 mls/hr [id number] IV Last administered on 08/01/16 14:12; Start 08/01/16 at 00:00 Fentanyl Citrate (Fentanyl 2ml Vial) 50 mcg PRN Q2HR PRN IV PAIN Last administered on 08/01/16 08:12; Start 08/01/16 at 02:45 Heparin Sodium (Porcine) 5,000 unit Q8HRS SQ ; Start 08/01/16 at 22:00 Active Scripts Active Reported Nephro-Arielle Tablet (Folic Acid/Vitamin B Comp W-C) 0.8 Mg Tablet 1 Tab PO DAILY Oxycodone Hcl 5 Mg Capsule 1 Cap PO Q4HRS PRN Zofran (Ondansetron Hcl) 4 Mg Tablet 1 Tab PO Q8HRS Albuterol Sulfate Neb Soln (Albuterol Sulfate) 2.5 Mg/3 Ml Vial.neb 1 Vial NEB PRN Q4HRS Tylenol (Acetaminophen) 325 Mg Tablet 650 Mg PO Q6HRS PRN Duoneb 0.5-3(2.5) Mg/3 Ml (Albuterol/Ipratropium) 3 Ml Ampul.neb 3 Ml NEB TID Spironolactone 50 Mg Tablet 1 Tab PO DAILY Deltasone (Prednisone) 20 Mg Tablet 10 Mg PO DAILY Nystatin 100,000 Unit/1 Ml Oral.susp 100,000 Unit PO QID Cellcept (Mycophenolate Mofetil) 500 Mg Tablet 1 Tab PO BID Metoprolol Tartrate 25 Mg Tablet 25 Mg PO BID Melatonin 3 Mg Tab.rapdis 3 Mg PO HS Neurontin (Gabapentin) 100 Mg Capsule 100 Mg PO TID Lasix (Furosemide) 40 Mg Tablet 1 Tab PO DAILY Folic Acid 1 Mg Tablet 1 Tab PO DAILY Advair 500-50 Diskus (Fluticasone/Salmeterol) 1 Each Disk.w.dev 1 Puff IH BID Mobic (Meloxicam) 7.5 Mg Tablet 7.5 Mg PO DAILY Ativan (Lorazepam) 0.5 Mg Tablet 0.5 Mg PO PRN BID PRN Coumadin (Warfarin Sodium) 2 Mg Tablet 1 Tab PO HS Senokot-S Tablet (Sennosides/Docusate Sodium) 1 Each Tablet 1 Tab PO BID PRN Allergies Allergies: Coded Allergies: pineapple (Verified Allergy, Mild, Itching, 04/21/16) Iodinated Contrast Media - Oral and (Verified Adverse Reaction, Severe, ) patient states that she thinks she ended up on dialysis temporarily after receiving dye vancomycin (Verified Adverse Reaction, Severe, renal disease, 04/19/16) morphine (Verified Adverse Reaction, Unknown, 08/01/16) ROS Review of System The patient is unable to provide a review of symptoms at this time. She is not conversive, lethargic and only moans when dressings removed. Physical Exam General: Other (Lethargic and sedate) Lungs: Clear to auscultation, Other (Very shallow respirations with prolonged expiration phase) Heart: Normal S1, Normal S2, No murmurs Abdomen: Soft, Other (Morbidly obese abdomen. Unable to appreciate bowel sounds or auscultate a bruit.) Extremities: Other (Palpable bilateral radial and post tibial pulses. Unable to palpate femoral or popliteal pulses due to body habitus.) Skin: Other (Multiple superficial open ulcers to bilateral thighs, right calf, mat-area and buttock. Right thigh wound odorous and with thick, brown drainage sitting in the bed of the wound. Left thigh pressure wound dressing removed. No bleeding present. Base of wound appears clean and superficial.) Neuro: Other (Incoherent and sedate) Vitals VITALS Vital Signs Date Time Temp Pulse Resp B/P Pulse Ox O2 Delivery O2 Flow Rate FiO2 08/01/16 15:00 98.0 84 18 88/50 99 Nasal Cannula 3.0 98.0 Labs Labs Laboratory Tests Test 07/31/16 14:45 07/31/16 15:30 07/31/16 20:00 07/31/16 23:00 White Blood Count 13.2x10^3/uL (4.0-11.0) 15.2x10^3/uL (4.0-11.0) Red Blood Count 3.30x10^6/uL (3.50-5.40) 3.13x10^6/uL (3.50-5.40) Hemoglobin 10.1g/dL (12.0-15.5) 9.5g/dL (12.0-15.5) Hematocrit 33.4% (36.0-47.0) 31.8% (36.0-47.0) Mean Corpuscular Volume 101fL (79-100) 102fL (79-100) Mean Corpuscular Hemoglobin 31pg (25-35) 31pg (25-35) Mean Corpuscular Hemoglobin Concent 30g/dL (31-37) 30g/dL (31-37) Red Cell Distribution Width 17.0% (11.5-14.5) 16.9% (11.5-14.5) Platelet Count 314x10^3/uL (140-400) 285x10^3/uL (140-400) Neutrophils (%) (Auto) 87% (31-73) 86% (31-73) Lymphocytes (%) (Auto) 8% (24-48) 7% (24-48) Monocytes (%) (Auto) 5% (0-9) 6% (0-9) Eosinophils (%) (Auto) 0% (0-3) 0% (0-3) Basophils (%) (Auto) 0% (0-3) 0% (0-3) Neutrophils # (Auto) 11.5x10^3uL (1.8-7.7) 13.1x10^3uL (1.8-7.7) Lymphocytes # (Auto) 1.0x10^3/uL (1.0-4.8) 1.1x10^3/uL (1.0-4.8) Monocytes # (Auto) 0.7x10^3/uL (0.0-1.1) 1.0x10^3/uL (0.0-1.1) Eosinophils # (Auto) 0.0x10^3/uL (0.0-0.7) 0.0x10^3/uL (0.0-0.7) Basophils # (Auto) 0.0x10^3/uL (0.0-0.2) 0.0x10^3/uL (0.0-0.2) Segmented Neutrophils % 87% (35-66) Lymphocytes % 10% (24-48) Monocytes % 3% (0-10) Platelet Estimate Adequate (ADEQUATE) Sodium Level 135mmol/L (136-145) 135mmol/L (136-145) 142mmol/L (136-145) 136mmol/L (136-145) Potassium Level 6.2mmol/L (3.5-5.1) 7.2mmol/L (3.5-5.1) 4.6mmol/L (3.5-5.1) 3.8mmol/L (3.5-5.1) Chloride Level 99mmol/L (98-107) 100mmol/L (98-107) 102mmol/L (98-107) 100mmol/L (98-107) Carbon Dioxide Level 33mmol/L (21-32) 32mmol/L (21-32) 35mmol/L (21-32) 30mmol/L (21-32) Anion Gap 3 (6-14) 3 (6-14) 5 (6-14) 6 (6-14) Blood Urea Nitrogen 34mg/dL (7-20) 34mg/dL (7-20) 13mg/dL (7-20) Creatinine 1.2mg/dL (0.6-1.0) 1.2mg/dL (0.6-1.0) 0.7mg/dL (0.6-1.0) Estimated GFR (Cockcroft-Gault) 56.0 56.0 104.4 Glucose Level 112mg/dL (70-99) 113mg/dL (70-99) 88mg/dL (70-99) Calcium Level 10.6mg/dL (8.5-10.1) 10.5mg/dL (8.5-10.1) 9.3mg/dL (8.5-10.1) Prothrombin Time 14.2SEC (11.7-14.0) Prothromb Time International Ratio 1.2 (0.8-1.1) Hepatitis B Surface Antigen Negative (Negative) Hepatitis B Surface Antibody Non reactive (.) Hepatitis B Core IgM Antibody Negative (Negative) BUN/Creatinine Ratio 19 (6-20) Magnesium Level 1.5mg/dL (1.8-2.4) Total Bilirubin 0.3mg/dL (0.2-1.0) Aspartate Amino Transf (AST/SGOT) 22U/L (15-37) Alanine Aminotransferase (ALT/SGPT) 9U/L (14-59) Alkaline Phosphatase 70U/L (46-116) Total Protein 8.2g/dL (6.4-8.2) Albumin 1.9g/dL (3.4-5.0) Albumin/Globulin Ratio 0.3 (1.0-1.7) Test 08/01/16 05:30 White Blood Count 12.9x10^3/uL (4.0-11.0) Red Blood Count 2.93x10^6/uL (3.50-5.40) Hemoglobin 9.1g/dL (12.0-15.5) Hematocrit 30.3% (36.0-47.0) Mean Corpuscular Volume 103fL (79-100) Mean Corpuscular Hemoglobin 31pg (25-35) Mean Corpuscular Hemoglobin Concent 30g/dL (31-37) Red Cell Distribution Width 17.3% (11.5-14.5) Platelet Count 274x10^3/uL (140-400) Neutrophils (%) (Auto) 84% (31-73) Lymphocytes (%) (Auto) 8% (24-48) Monocytes (%) (Auto) 8% (0-9) Eosinophils (%) (Auto) 0% (0-3) Basophils (%) (Auto) 0% (0-3) Neutrophils # (Auto) 10.8x10^3uL (1.8-7.7) Lymphocytes # (Auto) 1.0x10^3/uL (1.0-4.8) Monocytes # (Auto) 1.1x10^3/uL (0.0-1.1) Eosinophils # (Auto) 0.0x10^3/uL (0.0-0.7) Basophils # (Auto) 0.0x10^3/uL (0.0-0.2) Prothrombin Time 14.3SEC (11.7-14.0) Prothromb Time International Ratio 1.2 (0.8-1.1) Sodium Level 137mmol/L (136-145) Potassium Level 3.9mmol/L (3.5-5.1) Chloride Level 102mmol/L (98-107) Carbon Dioxide Level 31mmol/L (21-32) Anion Gap 4 (6-14) Blood Urea Nitrogen 15mg/dL (7-20) Creatinine 1.0mg/dL (0.6-1.0) Estimated GFR (Cockcroft-Gault) 69.1 Glucose Level 88mg/dL (70-99) Calcium Level 9.4mg/dL (8.5-10.1) Phosphorus Level 3.2mg/dL (2.6-4.7) Magnesium Level 1.6mg/dL (1.8-2.4) Total Bilirubin 0.3mg/dL (0.2-1.0) Direct Bilirubin 0.1mg/dL (0.0-0.2) Aspartate Amino Transf (AST/SGOT) 22U/L (15-37) Alanine Aminotransferase (ALT/SGPT) 8U/L (14-59) Alkaline Phosphatase 63U/L (46-116) Total Protein 7.8g/dL (6.4-8.2) Albumin 1.8g/dL (3.4-5.0) Laboratory Tests Test 07/31/16 20:00 07/31/16 23:00 08/01/16 05:30 Prothrombin Time 14.2SEC (11.7-14.0) 14.3SEC (11.7-14.0) Prothromb Time International Ratio 1.2 (0.8-1.1) 1.2 (0.8-1.1) Sodium Level 142mmol/L (136-145) 136mmol/L (136-145) 137mmol/L (136-145) Potassium Level 4.6mmol/L (3.5-5.1) 3.8mmol/L (3.5-5.1) 3.9mmol/L (3.5-5.1) Chloride Level 102mmol/L (98-107) 100mmol/L (98-107) 102mmol/L (98-107) Carbon Dioxide Level 35mmol/L (21-32) 30mmol/L (21-32) 31mmol/L (21-32) Anion Gap 5 (6-14) 6 (6-14) 4 (6-14) Hepatitis B Surface Antigen Negative (Negative) Hepatitis B Surface Antibody Non reactive (.) Hepatitis B Core IgM Antibody Negative (Negative) White Blood Count 15.2x10^3/uL (4.0-11.0) 12.9x10^3/uL (4.0-11.0) Red Blood Count 3.13x10^6/uL (3.50-5.40) 2.93x10^6/uL (3.50-5.40) Hemoglobin 9.5g/dL (12.0-15.5) 9.1g/dL (12.0-15.5) Hematocrit 31.8% (36.0-47.0) 30.3% (36.0-47.0) Mean Corpuscular Volume 102fL (79-100) 103fL (79-100) Mean Corpuscular Hemoglobin 31pg (25-35) 31pg (25-35) Mean Corpuscular Hemoglobin Concent 30g/dL (31-37) 30g/dL (31-37) Red Cell Distribution Width 16.9% (11.5-14.5) 17.3% (11.5-14.5) Platelet Count 285x10^3/uL (140-400) 274x10^3/uL (140-400) Neutrophils (%) (Auto) 86% (31-73) 84% (31-73) Lymphocytes (%) (Auto) 7% (24-48) 8% (24-48) Monocytes (%) (Auto) 6% (0-9) 8% (0-9) Eosinophils (%) (Auto) 0% (0-3) 0% (0-3) Basophils (%) (Auto) 0% (0-3) 0% (0-3) Neutrophils # (Auto) 13.1x10^3uL (1.8-7.7) 10.8x10^3uL (1.8-7.7) Lymphocytes # (Auto) 1.1x10^3/uL (1.0-4.8) 1.0x10^3/uL (1.0-4.8) Monocytes # (Auto) 1.0x10^3/uL (0.0-1.1) 1.1x10^3/uL (0.0-1.1) Eosinophils # (Auto) 0.0x10^3/uL (0.0-0.7) 0.0x10^3/uL (0.0-0.7) Basophils # (Auto) 0.0x10^3/uL (0.0-0.2) 0.0x10^3/uL (0.0-0.2) Blood Urea Nitrogen 13mg/dL (7-20) 15mg/dL (7-20) Creatinine 0.7mg/dL (0.6-1.0) 1.0mg/dL (0.6-1.0) Estimated GFR (Cockcroft-Gault) 104.4 69.1 BUN/Creatinine Ratio 19 (6-20) Glucose Level 88mg/dL (70-99) 88mg/dL (70-99) Calcium Level 9.3mg/dL (8.5-10.1) 9.4mg/dL (8.5-10.1) Magnesium Level 1.5mg/dL (1.8-2.4) 1.6mg/dL (1.8-2.4) Total Bilirubin 0.3mg/dL (0.2-1.0) 0.3mg/dL (0.2-1.0) Aspartate Amino Transf (AST/SGOT) 22U/L (15-37) 22U/L (15-37) Alanine Aminotransferase (ALT/SGPT) 9U/L (14-59) 8U/L (14-59) Alkaline Phosphatase 70U/L (46-116) 63U/L (46-116) Total Protein 8.2g/dL (6.4-8.2) 7.8g/dL (6.4-8.2) Albumin 1.9g/dL (3.4-5.0) 1.8g/dL (3.4-5.0) Albumin/Globulin Ratio 0.3 (1.0-1.7) Phosphorus Level 3.2mg/dL (2.6-4.7) Direct Bilirubin 0.1mg/dL (0.0-0.2) Assessment/Plan Assessment/Plan Known history of multiple legs wounds secondary to calciphylaxis. I am unable to know exactly who has been managing or following these wounds as the leasing property manager is present with me at this time and unknown to the [facility] staff. I am assuming the wound care has been provided by the patient's place of residence in a SNF. Infectious Disease does have a history of chronic treatment on IV antibiotics with known drug resistance. I spoke with Dr. Pierre earlier today and the patient remains on IV antibiotics. The patient's limited exam supports adequate arterial circulation to the lower extremities to support wound healing. We would not recommend more invasive arterial studies unless wound healing declines. The appearance of these wounds seem more consistent with calciphylaxis and wound infection. Upon reviewing the chart, the left thigh wound most likely had a venous bleeder that was easily controlled by compression in the emergency room. The wound no longer has a bleeding source and the patient's blood counts are stable and without coagulopathy. I have spoke with Dr. Rose Gil regarding the patient's current status and wound assessment. There does not appear to be a vascular-related problem . Dr. Gil recommends placing a General Surgery consult for consideration of wound debridement should this need to be accomplished expeditiously and during this admission. An additional recommendation to be considered would be to transfer the patient to [facility] as they have an aggressive program coordinated by wound care specialists and Plastic Surgeons. Thank you for the opportunity to participate in the care of this patient. Dr. Gil will provide additional recommendations if needed. ROSE GIL MD 08/02/16 0823: CONSULT Allergies Allergies: Coded Allergies: pineapple (Verified Allergy, Mild, Itching, 04/21/16) Iodinated Contrast Media - Oral and (Verified Adverse Reaction, Severe, ) patient states that she thinks she ended up on dialysis temporarily after receiving dye vancomycin (Verified Adverse Reaction, Severe, renal disease, 04/19/16) morphine (Verified Adverse Reaction, Unknown, 08/01/16) Assessment/Plan Assessment/Plan Agree with the above note. 56 year old female with bilateral lower extremity thigh/calf open wounds deep to the subcutaneous tissue level secondary to calciphylaxis. Her feet are clear with no tissue breakdown. Recommend continued management of the wounds by general surgery and the wound care center. No arterial insufficiency wounds on her feet. No revascularization needed. CARLIE LUCERO APRN Aug 01, 2016 16:46 ROSE GIL MD Aug 02, 2016 08:23
[2016-08-01 22:03] LABS: CALCIUM 9.3 mg/dL (8.5-10.1); CREATININE 1.8 mg/dL (0.6-1.0); GFR 35.1; POTASSIUM 4.5 mmol/L (3.5-5.1)
[2016-08-01] MEDS ORDERED: FUROSEMIDE 40 MG/4 ML VIAL IVP ONE (22:45)
[2016-08-01] MEDS ORDERED: NALOXONE 0.4 MG/ML VIAL. IV ONE (23:00)
[2016-08-01] MEDS ORDERED: IV NORMAL SALINE 250ML 250 ML IV ONE (23:15)
[2016-08-02] VITALS (25 sets, daily range): BP systolic 74–135; BP diastolic 37–73
--- NOTE | 2016-08-02 01:26 | RAD ---
CT head without contrast Indication: Altered mental status. Axial imaging through the brain was performed without contrast. PQRS STATEMENT One or more of the following individualized dose reduction techniques were utilized for this study: 1.Automated exposure control. 2.Adjustment of the mA and/orkVaccording to patient size. 3.Use of iterative reconstruction technique. Comparison is made with prior head CT from 05/14/2016. The ventricles and sulci are within normal limits. No sulcal effacement, midline shift or hemorrhage is detected. The cisterns are patent. The visualized paranasal sinuses are clear. Impression: No acute intracranial process is detected. Electronically signed by: Godfrey Salazar MD (Aug 02, 2016 01:25:18)
[2016-08-02] MEDS: NOREPINEPHRINE VIAL 8 MG in IV NORMAL SALINE 250ML 250 ML IV PRN ×2 (01:59→19:53)
[2016-08-02] MEDS: HEPARIN PF for SUB-Q USE 5,000 UNIT/0.5 ML VIAL. SQ SCH ×4 (02:04→21:24)
[2016-08-02] MEDS: IV NORMAL SALINE 1000ML BAG 1,000 ML IV SCH ×3 (02:11→20:41)
[2016-08-02 03:14] LABS: BILIRUBIN,URINE MODERATE (NEG); GLUCOSE,URINE NEGATIVE (NEG); NITRITE,URINE NEGATIVE (NEG); PROTEIN,URINE 100 mg/dL (NEG-TRACE)
[2016-08-02 03:18] LABS: BACTERIA,URINE MODERATE /HPF (0-FEW); RBC,URINE OCC /HPF (0-2); WBC,URINE >40 /HPF (0-4)
[2016-08-02 03:19] LABS: SQUAMOUS EPITHELIAL CELL,UR OCC /LPF
[2016-08-02 06:07] LABS: CALCIUM 9.2 mg/dL (8.5-10.1); CREATININE 1.8 mg/dL (0.6-1.0); GFR 35.1; POTASSIUM 4.1 mmol/L (3.5-5.1)
[2016-08-02 06:10] LABS: BASO # 0.1 x10^3/uL (0.0-0.2); BASO % 0 % (0-3); EOS % 0 % (0-3); HEMATOCRIT 29.2 % (36.0-47.0); HEMOGLOBIN 8.8 g/dL (12.0-15.5); LYMPH # 1.2 x10^3/uL (1.0-4.8); LYMPH % 6 % (24-48); MEAN CORPUSCULAR HEMOGLOBIN 31 pg (25-35); MEAN CORPUSCULAR HGB CONC 30 g/dL (31-37); MEAN CORPUSCULAR VOLUME 102 fL (79-100); MONO % 6 % (0-9); NEUT % 87 % (31-73); PLATELET COUNT 264 x10^3/uL (140-400); RED BLOOD COUNT 2.86 x10^6/uL (3.50-5.40); RED CELL DISTRIBUTION WIDTH 17.2 % (11.5-14.5); WHITE BLOOD COUNT 18.8 x10^3/uL (4.0-11.0)
--- NOTE | 2016-08-02 07:19 | PDOC ---
Infectious Disease Note Subjective Subjective Events noted. On Bipap s/p rapid. Son reports shaking after given Narcan ROS ROS Unobtainable Vital Sign Vital Signs Vital Signs Date Time Temp Pulse Resp B/P Pulse Ox O2 Delivery O2 Flow Rate FiO2 08/02/16 06:00 65 13 100/53 100 BiPAP/CPAP 08/02/16 04:00 98.1 98.1 08/01/16 21:11 15.0 Physical Exam PHYSICAL EXAM GENERAL: min responsive on Bipap HEENT: PERRL - small NECK: Supple, no JVD, no LN LUNGS: Clear HEART: S1S2, no gallop, no murmur ABD: Soft, NT, no organomegaly, no rebound, obese [place] EXT: No edema, no cyanosis [employer]: Alert, oriented x 3, no focal neurologic deficit SKIN: No rash. 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 IV: RIJ Labs Lab Laboratory Tests Test 08/01/16 07:30 08/01/16 21:30 08/02/16 02:30 08/02/16 05:45 Nasal Screen MRSA (PCR) Negative (Negative) Sodium Level 137mmol/L (136-145) 137mmol/L (136-145) Potassium Level 4.5mmol/L (3.5-5.1) 4.1mmol/L (3.5-5.1) Chloride Level 101mmol/L (98-107) 102mmol/L (98-107) Carbon Dioxide Level 28mmol/L (21-32) 29mmol/L (21-32) Anion Gap 8 (6-14) 6 (6-14) Blood Urea Nitrogen 19mg/dL (7-20) 22mg/dL (7-20) Creatinine 1.8mg/dL (0.6-1.0) 1.8mg/dL (0.6-1.0) Estimated GFR (Cockcroft-Gault) 35.1 35.1 Glucose Level 125mg/dL (70-99) 127mg/dL (70-99) Calcium Level 9.3mg/dL (8.5-10.1) 9.2mg/dL (8.5-10.1) MM-Ipt-X-Type Natriuretic Peptide 1660pg/mL (0-124) Urine Collection Type U cath Urine Color Mckenna Urine Clarity Turbid Urine pH 5.0 Urine Specific [place] 1.025 Urine Protein 100mg/dL (NEG-TRACE) Urine Glucose (UA) Negativemg/dL (NEG) Urine Ketones (Stick) Tracemg/dL (NEG) Urine Blood Large (NEG) Urine Nitrite Negative (NEG) Urine Bilirubin Moderate (NEG) Urine Urobilinogen Dipstick 1.0mg/dL (0.2 mg/dL) Urine Leukocyte Esterase Moderate (NEG) Urine RBC Occ/HPF (0-2) Urine WBC >40/HPF (0-4) Urine Squamous Epithelial Cells Occ/LPF Urine Amorphous Sediment Present/HPF Urine Bacteria Moderate/HPF (0-FEW) Urine Hyaline Casts Few/HPF Urine Mucus Slight/LPF White Blood Count 18.8x10^3/uL (4.0-11.0) Red Blood Count 2.86x10^6/uL (3.50-5.40) Hemoglobin 8.8g/dL (12.0-15.5) Hematocrit 29.2% (36.0-47.0) Mean Corpuscular Volume 102fL (79-100) Mean Corpuscular Hemoglobin 31pg (25-35) Mean Corpuscular Hemoglobin Concent 30g/dL (31-37) Red Cell Distribution Width 17.2% (11.5-14.5) Platelet Count 264x10^3/uL (140-400) Neutrophils (%) (Auto) 87% (31-73) Lymphocytes (%) (Auto) 6% (24-48) Monocytes (%) (Auto) 6% (0-9) Eosinophils (%) (Auto) 0% (0-3) Basophils (%) (Auto) 0% (0-3) Neutrophils # (Auto) 16.5x10^3uL (1.8-7.7) Lymphocytes # (Auto) 1.2x10^3/uL (1.0-4.8) Monocytes # (Auto) 1.1x10^3/uL (0.0-1.1) Eosinophils # (Auto) 0.0x10^3/uL (0.0-0.7) Basophils # (Auto) 0.1x10^3/uL (0.0-0.2) Objective Assessment S/p rapid response Decreased UOP Hypotension on Levophed Leukocytosis - increased ? SIRS - remains AF Multiple wounds H/o MDR PSA/MSSA Acute Encephalopathy Bleed from left thigh wound -controlled Acute Resp failure - on BiPAP ODALIS Plan Plan of Care D/c Meropenem Will dose Zerbaxa given Leukocytosis/hypotension/h/o MDR PSA(d/w pharmacy to adjust dose) Add micafungin Cont Zyvox Check Lactic acid, Procalcitonin/ABG Consult Pulm Neuro consulted F/u Cults urine that was ordered. Check Blood cults as well this am F/u labs in am D/w son Critically ill RAS MERINO MD Aug 02, 2016 07:19
[2016-08-02] MEDS ORDERED: CEFTOLOZANE/TAZOBACTAM 1,500 MG in IV NORMAL SALINE 100ML 100 ML IV SCH (08:00)
[2016-08-02] MEDS: IPRATRPIUM/ALBUTEROL 0.5/2.5MG 3 ML NEBU. NEB SCH ×3 (08:07→19:59)
[2016-08-02 08:17] LABS: HCO3 ABG 27 mmol/L (21-28); PO2 ABG 106 mmHg (75-108); SAT O2 ABG 98 % (92-99)
[2016-08-02 08:25] LABS: FIO2 ABG 40; PCO2 ABG 80 mmHg (35-46); PH ABG 7.15 (7.35-7.45)
[2016-08-02] MEDS: METOPROLOL TART IMMED RELEASE 25 MG TABLET PO SCH ×2 (09:00→21:22)
[2016-08-02] MEDS: FOLIC ACID 1 MG TABLET PO SCH (09:00)
[2016-08-02] MEDS: FUROSEMIDE 40 MG TABLET PO SCH (09:00)
[2016-08-02] MEDS: NYSTATIN 100,000 UNITS/ML 5 ML ORAL.SUSP. PO SCH ×4 (09:00→21:22)
[2016-08-02] MEDS: MYCOPHENOLATE MOFETIL 250 MG CAPSULE. PO SCH ×2 (09:00→21:22)
[2016-08-02] MEDS: GABAPENTIN 100 MG CAPSULE. PO SCH ×3 (09:00→21:22)
[2016-08-02] MEDS: FOLIC/VIT B COMP W-C (RENAL) TABLET. PO SCH (09:00)
[2016-08-02] MEDS: PREDNISONE 10 MG TABLET PO SCH (09:00)
--- NOTE | 2016-08-02 09:42 | PDOC ---
PULMONARY PROGRESS NOTES Vitals Vital Signs Date Time Temp Pulse Resp B/P Pulse Ox O2 Delivery O2 Flow Rate FiO2 08/02/16 08:00 97.8 65 15 100/56 100 BiPAP/CPAP 97.8 08/01/16 21:11 15.0 General: Alert Lungs: Clear Cardiovascular: S1, S2 Abdomen: Soft, Non-tender Extremities: Other Labs Laboratory Tests Test 07/31/16 14:45 07/31/16 15:30 07/31/16 20:00 07/31/16 23:00 White Blood Count 13.2x10^3/uL (4.0-11.0) 15.2x10^3/uL (4.0-11.0) Red Blood Count 3.30x10^6/uL (3.50-5.40) 3.13x10^6/uL (3.50-5.40) Hemoglobin 10.1g/dL (12.0-15.5) 9.5g/dL (12.0-15.5) Hematocrit 33.4% (36.0-47.0) 31.8% (36.0-47.0) Mean Corpuscular Volume 101fL (79-100) 102fL (79-100) Mean Corpuscular Hemoglobin 31pg (25-35) 31pg (25-35) Mean Corpuscular Hemoglobin Concent 30g/dL (31-37) 30g/dL (31-37) Red Cell Distribution Width 17.0% (11.5-14.5) 16.9% (11.5-14.5) Platelet Count 314x10^3/uL (140-400) 285x10^3/uL (140-400) Neutrophils (%) (Auto) 87% (31-73) 86% (31-73) Lymphocytes (%) (Auto) 8% (24-48) 7% (24-48) Monocytes (%) (Auto) 5% (0-9) 6% (0-9) Eosinophils (%) (Auto) 0% (0-3) 0% (0-3) Basophils (%) (Auto) 0% (0-3) 0% (0-3) Neutrophils # (Auto) 11.5x10^3uL (1.8-7.7) 13.1x10^3uL (1.8-7.7) Lymphocytes # (Auto) 1.0x10^3/uL (1.0-4.8) 1.1x10^3/uL (1.0-4.8) Monocytes # (Auto) 0.7x10^3/uL (0.0-1.1) 1.0x10^3/uL (0.0-1.1) Eosinophils # (Auto) 0.0x10^3/uL (0.0-0.7) 0.0x10^3/uL (0.0-0.7) Basophils # (Auto) 0.0x10^3/uL (0.0-0.2) 0.0x10^3/uL (0.0-0.2) Segmented Neutrophils % 87% (35-66) Lymphocytes % 10% (24-48) Monocytes % 3% (0-10) Platelet Estimate Adequate (ADEQUATE) Sodium Level 135mmol/L (136-145) 135mmol/L (136-145) 142mmol/L (136-145) 136mmol/L (136-145) Potassium Level 6.2mmol/L (3.5-5.1) 7.2mmol/L (3.5-5.1) 4.6mmol/L (3.5-5.1) 3.8mmol/L (3.5-5.1) Chloride Level 99mmol/L (98-107) 100mmol/L (98-107) 102mmol/L (98-107) 100mmol/L (98-107) Carbon Dioxide Level 33mmol/L (21-32) 32mmol/L (21-32) 35mmol/L (21-32) 30mmol/L (21-32) Anion Gap 3 (6-14) 3 (6-14) 5 (6-14) 6 (6-14) Blood Urea Nitrogen 34mg/dL (7-20) 34mg/dL (7-20) 13mg/dL (7-20) Creatinine 1.2mg/dL (0.6-1.0) 1.2mg/dL (0.6-1.0) 0.7mg/dL (0.6-1.0) Estimated GFR (Cockcroft-Gault) 56.0 56.0 104.4 Glucose Level 112mg/dL (70-99) 113mg/dL (70-99) 88mg/dL (70-99) Calcium Level 10.6mg/dL (8.5-10.1) 10.5mg/dL (8.5-10.1) 9.3mg/dL (8.5-10.1) Prothrombin Time 14.2SEC (11.7-14.0) Prothromb Time International Ratio 1.2 (0.8-1.1) Hepatitis B Surface Antigen Negative (Negative) Hepatitis B Surface Antibody Non reactive (.) Hepatitis B Core IgM Antibody Negative (Negative) BUN/Creatinine Ratio 19 (6-20) Magnesium Level 1.5mg/dL (1.8-2.4) Total Bilirubin 0.3mg/dL (0.2-1.0) Aspartate Amino Transf (AST/SGOT) 22U/L (15-37) Alanine Aminotransferase (ALT/SGPT) 9U/L (14-59) Alkaline Phosphatase 70U/L (46-116) Total Protein 8.2g/dL (6.4-8.2) Albumin 1.9g/dL (3.4-5.0) Albumin/Globulin Ratio 0.3 (1.0-1.7) Test 08/01/16 05:30 08/01/16 07:30 08/01/16 21:30 08/02/16 02:30 White Blood Count 12.9x10^3/uL (4.0-11.0) Red Blood Count 2.93x10^6/uL (3.50-5.40) Hemoglobin 9.1g/dL (12.0-15.5) Hematocrit 30.3% (36.0-47.0) Mean Corpuscular Volume 103fL (79-100) Mean Corpuscular Hemoglobin 31pg (25-35) Mean Corpuscular Hemoglobin Concent 30g/dL (31-37) Red Cell Distribution Width 17.3% (11.5-14.5) Platelet Count 274x10^3/uL (140-400) Neutrophils (%) (Auto) 84% (31-73) Lymphocytes (%) (Auto) 8% (24-48) Monocytes (%) (Auto) 8% (0-9) Eosinophils (%) (Auto) 0% (0-3) Basophils (%) (Auto) 0% (0-3) Neutrophils # (Auto) 10.8x10^3uL (1.8-7.7) Lymphocytes # (Auto) 1.0x10^3/uL (1.0-4.8) Monocytes # (Auto) 1.1x10^3/uL (0.0-1.1) Eosinophils # (Auto) 0.0x10^3/uL (0.0-0.7) Basophils # (Auto) 0.0x10^3/uL (0.0-0.2) Prothrombin Time 14.3SEC (11.7-14.0) Prothromb Time International Ratio 1.2 (0.8-1.1) Sodium Level 137mmol/L (136-145) 137mmol/L (136-145) Potassium Level 3.9mmol/L (3.5-5.1) 4.5mmol/L (3.5-5.1) Chloride Level 102mmol/L (98-107) 101mmol/L (98-107) Carbon Dioxide Level 31mmol/L (21-32) 28mmol/L (21-32) Anion Gap 4 (6-14) 8 (6-14) Blood Urea Nitrogen 15mg/dL (7-20) 19mg/dL (7-20) Creatinine 1.0mg/dL (0.6-1.0) 1.8mg/dL (0.6-1.0) Estimated GFR (Cockcroft-Gault) 69.1 35.1 Glucose Level 88mg/dL (70-99) 125mg/dL (70-99) Calcium Level 9.4mg/dL (8.5-10.1) 9.3mg/dL (8.5-10.1) Phosphorus Level 3.2mg/dL (2.6-4.7) Magnesium Level 1.6mg/dL (1.8-2.4) Total Bilirubin 0.3mg/dL (0.2-1.0) Direct Bilirubin 0.1mg/dL (0.0-0.2) Aspartate Amino Transf (AST/SGOT) 22U/L (15-37) Alanine Aminotransferase (ALT/SGPT) 8U/L (14-59) Alkaline Phosphatase 63U/L (46-116) Total Protein 7.8g/dL (6.4-8.2) Albumin 1.8g/dL (3.4-5.0) Nasal Screen MRSA (PCR) Negative (Negative) DT-Lmw-U-Type Natriuretic Peptide 1660pg/mL (0-124) Urine Collection Type U cath Urine Color Mckenna Urine Clarity Turbid Urine pH 5.0 Urine Specific [place] 1.025 Urine Protein 100mg/dL (NEG-TRACE) Urine Glucose (UA) Negativemg/dL (NEG) Urine Ketones (Stick) Tracemg/dL (NEG) Urine Blood Large (NEG) Urine Nitrite Negative (NEG) Urine Bilirubin Moderate (NEG) Urine Urobilinogen Dipstick 1.0mg/dL (0.2 mg/dL) Urine Leukocyte Esterase Moderate (NEG) Urine RBC Occ/HPF (0-2) Urine WBC >40/HPF (0-4) Urine Squamous Epithelial Cells Occ/LPF Urine Amorphous Sediment Present/HPF Urine Bacteria Moderate/HPF (0-FEW) Urine Hyaline Casts Few/HPF Urine Mucus Slight/LPF Test 08/02/16 05:45 08/02/16 07:40 08/02/16 08:00 White Blood Count 18.8x10^3/uL (4.0-11.0) Red Blood Count 2.86x10^6/uL (3.50-5.40) Hemoglobin 8.8g/dL (12.0-15.5) Hematocrit 29.2% (36.0-47.0) Mean Corpuscular Volume 102fL (79-100) Mean Corpuscular Hemoglobin 31pg (25-35) Mean Corpuscular Hemoglobin Concent 30g/dL (31-37) Red Cell Distribution Width 17.2% (11.5-14.5) Platelet Count 264x10^3/uL (140-400) Neutrophils (%) (Auto) 87% (31-73) Lymphocytes (%) (Auto) 6% (24-48) Monocytes (%) (Auto) 6% (0-9) Eosinophils (%) (Auto) 0% (0-3) Basophils (%) (Auto) 0% (0-3) Neutrophils # (Auto) 16.5x10^3uL (1.8-7.7) Lymphocytes # (Auto) 1.2x10^3/uL (1.0-4.8) Monocytes # (Auto) 1.1x10^3/uL (0.0-1.1) Eosinophils # (Auto) 0.0x10^3/uL (0.0-0.7) Basophils # (Auto) 0.1x10^3/uL (0.0-0.2) Sodium Level 137mmol/L (136-145) Potassium Level 4.1mmol/L (3.5-5.1) Chloride Level 102mmol/L (98-107) Carbon Dioxide Level 29mmol/L (21-32) Anion Gap 6 (6-14) Blood Urea Nitrogen 22mg/dL (7-20) Creatinine 1.8mg/dL (0.6-1.0) Estimated GFR (Cockcroft-Gault) 35.1 Glucose Level 127mg/dL (70-99) Calcium Level 9.2mg/dL (8.5-10.1) Lactic Acid Level 0.9mmol/L (0.4-2.0) O2 Saturation 98% (92-99) Arterial Blood pH 7.15 (7.35-7.45) Arterial Blood pCO2 at Patient Temp 80mmHg (35-46) Arterial Blood pO2 at Patient Temp 106mmHg (75-108) Arterial Blood HCO3 27mmol/L (21-28) Arterial Blood Base Excess -3mmol/L (-3-3) FiO2 40 Laboratory Tests Test 08/01/16 21:30 08/02/16 02:30 08/02/16 05:45 08/02/16 07:40 Sodium Level 137mmol/L (136-145) 137mmol/L (136-145) Potassium Level 4.5mmol/L (3.5-5.1) 4.1mmol/L (3.5-5.1) Chloride Level 101mmol/L (98-107) 102mmol/L (98-107) Carbon Dioxide Level 28mmol/L (21-32) 29mmol/L (21-32) Anion Gap 8 (6-14) 6 (6-14) Blood Urea Nitrogen 19mg/dL (7-20) 22mg/dL (7-20) Creatinine 1.8mg/dL (0.6-1.0) 1.8mg/dL (0.6-1.0) Estimated GFR (Cockcroft-Gault) 35.1 35.1 Glucose Level 125mg/dL (70-99) 127mg/dL (70-99) Calcium Level 9.3mg/dL (8.5-10.1) 9.2mg/dL (8.5-10.1) VE-Hfo-S-Type Natriuretic Peptide 1660pg/mL (0-124) Urine Collection Type U cath Urine Color Mckenna Urine Clarity Turbid Urine pH 5.0 Urine Specific [place] 1.025 Urine Protein 100mg/dL (NEG-TRACE) Urine Glucose (UA) Negativemg/dL (NEG) Urine Ketones (Stick) Tracemg/dL (NEG) Urine Blood Large (NEG) Urine Nitrite Negative (NEG) Urine Bilirubin Moderate (NEG) Urine Urobilinogen Dipstick 1.0mg/dL (0.2 mg/dL) Urine Leukocyte Esterase Moderate (NEG) Urine RBC Occ/HPF (0-2) Urine WBC >40/HPF (0-4) Urine Squamous Epithelial Cells Occ/LPF Urine Amorphous Sediment Present/HPF Urine Bacteria Moderate/HPF (0-FEW) Urine Hyaline Casts Few/HPF Urine Mucus Slight/LPF White Blood Count 18.8x10^3/uL (4.0-11.0) Red Blood Count 2.86x10^6/uL (3.50-5.40) Hemoglobin 8.8g/dL (12.0-15.5) Hematocrit 29.2% (36.0-47.0) Mean Corpuscular Volume 102fL (79-100) Mean Corpuscular Hemoglobin 31pg (25-35) Mean Corpuscular Hemoglobin Concent 30g/dL (31-37) Red Cell Distribution Width 17.2% (11.5-14.5) Platelet Count 264x10^3/uL (140-400) Neutrophils (%) (Auto) 87% (31-73) Lymphocytes (%) (Auto) 6% (24-48) Monocytes (%) (Auto) 6% (0-9) Eosinophils (%) (Auto) 0% (0-3) Basophils (%) (Auto) 0% (0-3) Neutrophils # (Auto) 16.5x10^3uL (1.8-7.7) Lymphocytes # (Auto) 1.2x10^3/uL (1.0-4.8) Monocytes # (Auto) 1.1x10^3/uL (0.0-1.1) Eosinophils # (Auto) 0.0x10^3/uL (0.0-0.7) Basophils # (Auto) 0.1x10^3/uL (0.0-0.2) Lactic Acid Level 0.9mmol/L (0.4-2.0) Test 08/02/16 08:00 O2 Saturation 98% (92-99) Arterial Blood pH 7.15 (7.35-7.45) Arterial Blood pCO2 at Patient Temp 80mmHg (35-46) Arterial Blood pO2 at Patient Temp 106mmHg (75-108) Arterial Blood HCO3 27mmol/L (21-28) Arterial Blood Base Excess -3mmol/L (-3-3) FiO2 40 Medications Active Scripts Medications Dose Route/Sig Days Date Category Nephro-Arielle Tablet (Folic Acid/Vitamin B Comp W-C) 0.8 Mg Tablet 1 Tab PO DAILY 04/19/16 Reported Oxycodone Hcl 5 Mg Capsule 1 Cap PO Q4HRS PRN 04/19/16 Reported Zofran (Ondansetron Hcl) 4 Mg Tablet 1 Tab PO Q8HRS 04/19/16 Reported Albuterol Sulfate Neb Soln (Albuterol Sulfate) 2.5 Mg/3 Ml Vial.neb 1 Vial NEB PRN Q4HRS 04/19/16 Reported Tylenol (Acetaminophen) 325 Mg Tablet 650 Mg PO Q6HRS PRN 04/19/16 Reported Duoneb 0.5-3(2.5) Mg/3 Ml (Albuterol/Ipratropium) 3 Ml Ampul.neb 3 Ml NEB TID 04/19/16 Reported Spironolactone 50 Mg Tablet 1 Tab PO DAILY 04/19/16 Reported Deltasone (Prednisone) 20 Mg Tablet 10 Mg PO DAILY 04/19/16 Reported Nystatin 100,000 Unit/1 Ml Oral.susp 100,000 Unit PO QID 04/19/16 Reported Cellcept (Mycophenolate Mofetil) 500 Mg Tablet 1 Tab PO BID 04/19/16 Reported Metoprolol Tartrate 25 Mg Tablet 25 Mg PO BID 04/19/16 Reported Melatonin 3 Mg Tab.rapdis 3 Mg PO HS 04/19/16 Reported Neurontin (Gabapentin) 100 Mg Capsule 100 Mg PO TID 04/19/16 Reported Lasix (Furosemide) 40 Mg Tablet 1 Tab PO DAILY 04/19/16 Reported Folic Acid 1 Mg Tablet 1 Tab PO DAILY 04/19/16 Reported Advair 500-50 Diskus (Fluticasone/Salmeterol) 1 Each Disk.w.dev 1 Puff IH BID 04/19/16 Reported Mobic (Meloxicam) 7.5 Mg Tablet 7.5 Mg PO DAILY 04/19/16 Reported Ativan (Lorazepam) 0.5 Mg Tablet 0.5 Mg PO PRN BID PRN 04/19/16 Reported Coumadin (Warfarin Sodium) 2 Mg Tablet 1 Tab PO HS 04/19/16 Reported Senokot-S Tablet (Sennosides/Docusate Sodium) 1 Each Tablet 1 Tab PO BID PRN 04/24/15 Reported KOFI BENNETT MD Aug 02, 2016 09:42
--- NOTE | 2016-08-02 10:11 | PDOC ---
PROGRESS NOTES Chief Complaint Chief Complaint Hyperkalemia Open wounds, bleeding ASSESSMENT AND PLAN: 1. Sepsis: remains borderline hypotensive, worsening leukocytosis and need for rapid response this AM 2. ODALIS: creat stable, above previous baseline (~1.2). prob 2/2 to above. monitor closely 3. Hyperkalemia: resolved s/p HD yesterday 4. Respir failure: chronic; hypoventilation syndrome due to obesity; sarcoidosis. ? worsening with narcotics - minimize 5. Wounds: calciphylaxis. hx of infection (MSSA). Abx as per Dr Sharpe. Dr Gil's consult noted. Surg consult for debridement 6. Leukocytosis: worse today, c/w infect/sepsis 7. Wound bleed: resolved with direct pressure 8. Acute Encephalopathy: resolved 9. Afib: rate controlled 10. Sarcoidosis: on cellcept and pred long-term 11. Antiphospholipid syndrome: previously seen by Dr Church; on coumadin on O/ P basis. 12. Anemia: macrocytic. hx severe anemia, chronic inflammatory by recent labs, no vitamin deficiency 13. Hypoalbuminemia: severe, in face of massive obesity, and chronic infection /inflammation. supplements 14. Prophylaxis: coumadin on hold for now. heparin SQ minimum given APS hx Vitals Vitals Vital Signs Date Time Temp Pulse Resp B/P Pulse Ox O2 Delivery O2 Flow Rate FiO2 08/02/16 08:00 97.8 65 15 100/56 100 BiPAP/CPAP 97.8 08/01/16 21:11 15.0 Physical Exam General: Other (Lethargic , on BiPAP) Heart: Regular rate, No murmurs Lungs: Clear Abdomen: Soft, Other (Morbidly obese abdomen. ) Extremities: Other (ttrace pitting edema; massively obese) Skin: Other (Multiple superficial open ulcers to bilateral thighs, right calf, mat-area and buttock. Right thigh wound odorous ) Labs LABS Laboratory Tests Test 08/01/16 21:30 08/02/16 02:30 08/02/16 05:45 08/02/16 07:40 Sodium Level 137mmol/L (136-145) 137mmol/L (136-145) Potassium Level 4.5mmol/L (3.5-5.1) 4.1mmol/L (3.5-5.1) Chloride Level 101mmol/L (98-107) 102mmol/L (98-107) Carbon Dioxide Level 28mmol/L (21-32) 29mmol/L (21-32) Anion Gap 8 (6-14) 6 (6-14) Blood Urea Nitrogen 19mg/dL (7-20) 22mg/dL (7-20) Creatinine 1.8mg/dL (0.6-1.0) 1.8mg/dL (0.6-1.0) Estimated GFR (Cockcroft-Gault) 35.1 35.1 Glucose Level 125mg/dL (70-99) 127mg/dL (70-99) Calcium Level 9.3mg/dL (8.5-10.1) 9.2mg/dL (8.5-10.1) DG-Gxc-I-Type Natriuretic Peptide 1660pg/mL (0-124) Urine Collection Type U cath Urine Color Mckenna Urine Clarity Turbid Urine pH 5.0 Urine Specific [place] 1.025 Urine Protein 100mg/dL (NEG-TRACE) Urine Glucose (UA) Negativemg/dL (NEG) Urine Ketones (Stick) Tracemg/dL (NEG) Urine Blood Large (NEG) Urine Nitrite Negative (NEG) Urine Bilirubin Moderate (NEG) Urine Urobilinogen Dipstick 1.0mg/dL (0.2 mg/dL) Urine Leukocyte Esterase Moderate (NEG) Urine RBC Occ/HPF (0-2) Urine WBC >40/HPF (0-4) Urine Squamous Epithelial Cells Occ/LPF Urine Amorphous Sediment Present/HPF Urine Bacteria Moderate/HPF (0-FEW) Urine Hyaline Casts Few/HPF Urine Mucus Slight/LPF White Blood Count 18.8x10^3/uL (4.0-11.0) Red Blood Count 2.86x10^6/uL (3.50-5.40) Hemoglobin 8.8g/dL (12.0-15.5) Hematocrit 29.2% (36.0-47.0) Mean Corpuscular Volume 102fL (79-100) Mean Corpuscular Hemoglobin 31pg (25-35) Mean Corpuscular Hemoglobin Concent 30g/dL (31-37) Red Cell Distribution Width 17.2% (11.5-14.5) Platelet Count 264x10^3/uL (140-400) Neutrophils (%) (Auto) 87% (31-73) Lymphocytes (%) (Auto) 6% (24-48) Monocytes (%) (Auto) 6% (0-9) Eosinophils (%) (Auto) 0% (0-3) Basophils (%) (Auto) 0% (0-3) Neutrophils # (Auto) 16.5x10^3uL (1.8-7.7) Lymphocytes # (Auto) 1.2x10^3/uL (1.0-4.8) Monocytes # (Auto) 1.1x10^3/uL (0.0-1.1) Eosinophils # (Auto) 0.0x10^3/uL (0.0-0.7) Basophils # (Auto) 0.1x10^3/uL (0.0-0.2) Lactic Acid Level 0.9mmol/L (0.4-2.0) Test 08/02/16 08:00 O2 Saturation 98% (92-99) Arterial Blood pH 7.15 (7.35-7.45) Arterial Blood pCO2 at Patient Temp 80mmHg (35-46) Arterial Blood pO2 at Patient Temp 106mmHg (75-108) Arterial Blood HCO3 27mmol/L (21-28) Arterial Blood Base Excess -3mmol/L (-3-3) FiO2 40 Review of Systems Review of Systems not responding to verbal input Nutrition Consultation Dietary Evaluation: Recommendations by RD: Increase Calorie Intake, Protein supplementation Comments: Novasource Renal TID - 475kcal and 21.6g protein Encourage intake at meals as tolerated Expected Outcomes/Goals: meet >75% est nutr needs Interpretation of weight loss: >7.5% in 3 months Malnutrition Findings: Malnutrition related to morbid: BMI>or equal to 40 Malnutrition related to morbid: Yes Weight Status: Morbidly Obese Fluid Accumulation (Non-Severe: Mild depletion OVIDIO STALLWORTH MD Aug 02, 2016 10:11
[2016-08-02] MEDS: MICAFUNGIN 100 MG in IV DEXTROSE 5% 100 ML IV SCH (10:41)
--- NOTE | 2016-08-02 11:14 | PDOC ---
Renal-Progress Notes Subjective Notes Notes CONFUSED History of Present Illness Hx of present illness STABLE Vitals Vitals Vital Signs Date Time Temp Pulse Resp B/P Pulse Ox O2 Delivery O2 Flow Rate FiO2 08/02/16 08:00 97.8 65 15 100/56 100 BiPAP/CPAP 97.8 08/01/16 21:11 15.0 Weight Weight [ ] I.O. Intake and Output Intake and Output 08/02/16 07:00 Intake Total 0 ml Output Total 80 ml Balance -80 ml Intake Oral 0 ml Output Urine Total 80 ml Labs Labs Laboratory Tests Test 08/01/16 21:30 08/02/16 02:30 08/02/16 05:45 08/02/16 07:40 Sodium Level 137mmol/L (136-145) 137mmol/L (136-145) Potassium Level 4.5mmol/L (3.5-5.1) 4.1mmol/L (3.5-5.1) Chloride Level 101mmol/L (98-107) 102mmol/L (98-107) Carbon Dioxide Level 28mmol/L (21-32) 29mmol/L (21-32) Anion Gap 8 (6-14) 6 (6-14) Blood Urea Nitrogen 19mg/dL (7-20) 22mg/dL (7-20) Creatinine 1.8mg/dL (0.6-1.0) 1.8mg/dL (0.6-1.0) Estimated GFR (Cockcroft-Gault) 35.1 35.1 Glucose Level 125mg/dL (70-99) 127mg/dL (70-99) Calcium Level 9.3mg/dL (8.5-10.1) 9.2mg/dL (8.5-10.1) KY-Hqx-H-Type Natriuretic Peptide 1660pg/mL (0-124) Urine Collection Type U cath Urine Color Mckenna Urine Clarity Turbid Urine pH 5.0 Urine Specific [place] 1.025 Urine Protein 100mg/dL (NEG-TRACE) Urine Glucose (UA) Negativemg/dL (NEG) Urine Ketones (Stick) Tracemg/dL (NEG) Urine Blood Large (NEG) Urine Nitrite Negative (NEG) Urine Bilirubin Moderate (NEG) Urine Urobilinogen Dipstick 1.0mg/dL (0.2 mg/dL) Urine Leukocyte Esterase Moderate (NEG) Urine RBC Occ/HPF (0-2) Urine WBC >40/HPF (0-4) Urine Squamous Epithelial Cells Occ/LPF Urine Amorphous Sediment Present/HPF Urine Bacteria Moderate/HPF (0-FEW) Urine Hyaline Casts Few/HPF Urine Mucus Slight/LPF White Blood Count 18.8x10^3/uL (4.0-11.0) Red Blood Count 2.86x10^6/uL (3.50-5.40) Hemoglobin 8.8g/dL (12.0-15.5) Hematocrit 29.2% (36.0-47.0) Mean Corpuscular Volume 102fL (79-100) Mean Corpuscular Hemoglobin 31pg (25-35) Mean Corpuscular Hemoglobin Concent 30g/dL (31-37) Red Cell Distribution Width 17.2% (11.5-14.5) Platelet Count 264x10^3/uL (140-400) Neutrophils (%) (Auto) 87% (31-73) Lymphocytes (%) (Auto) 6% (24-48) Monocytes (%) (Auto) 6% (0-9) Eosinophils (%) (Auto) 0% (0-3) Basophils (%) (Auto) 0% (0-3) Neutrophils # (Auto) 16.5x10^3uL (1.8-7.7) Lymphocytes # (Auto) 1.2x10^3/uL (1.0-4.8) Monocytes # (Auto) 1.1x10^3/uL (0.0-1.1) Eosinophils # (Auto) 0.0x10^3/uL (0.0-0.7) Basophils # (Auto) 0.1x10^3/uL (0.0-0.2) Lactic Acid Level 0.9mmol/L (0.4-2.0) Procalcitonin 0.33ng/mL (0.00-0.10) Test 08/02/16 08:00 O2 Saturation 98% (92-99) Arterial Blood pH 7.15 (7.35-7.45) Arterial Blood pCO2 at Patient Temp 80mmHg (35-46) Arterial Blood pO2 at Patient Temp 106mmHg (75-108) Arterial Blood HCO3 27mmol/L (21-28) Arterial Blood Base Excess -3mmol/L (-3-3) FiO2 40 Review of Systems Constitutional: yes: no symptom reported Physical Exam General Appearance: no apparent distress Skin: warm Respiratory: decreased breath sounds Heart: S1S2, RRR Abdomen: soft, bowel sounds present Extremities: pulses present Neurology: alert Assessment Assessment IMP HYPERKALEMIA-RESOLVED MORBID OBESITY LEUCOCYTOSIS MULTIPLE WOUNDS ENCEPHALOPATHY RESP ACIDOSIS FROM HYPERCARBIA PLAN HOLD HD FOR NOW CONT TO HOLD HER ALDACTONE, MOBIC FOR NOW LABS IN AM ANTIBIOTICS ISOTONIC SALINE UPDATED PROBABLY NEEDS HD TOMORROW CATARINO LOREDO MD Aug 02, 2016 11:14
[2016-08-02 11:15] LABS: HCO3 ABG 25 mmol/L (21-28); PO2 ABG 80 mmHg (75-108); SAT O2 ABG 95 % (92-99)
[2016-08-02 11:17] LABS: FIO2 ABG 30; PCO2 ABG 67 mmHg (35-46)
--- NOTE | 2016-08-02 11:22 | PDOC2 ---
CONSULT Date of Consult Date of Consult DATE: 08/02/16 TIME: 11:14 Reason for Consult Reason for Consult: wound debridement Referring Physician Referring Physician: Dr Gil Identification/Chief Complaint Chief Complaint wound complications Source Source: Chart review History of Present Illness Reason for Visit: Reviewed with nurse and family. Admitted for wound bleeding. 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 Has followed ID for resistant abx wound related infections. 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) Renal/: Acute renal failure Dermatology: Other (Chronic bilateral thigh and buttock wounds ) Past Surgical History Past Surgical History: Pacemaker Family History Family History: Family History Unknown Social History No ALCOHOL: none Drugs: None Lives: Alf Current Problem List Problem List Problems Medical Problems: (1) Bleeding from wound Status: Acute (2) Hyperkalemia Status: Acute (3) Wound, open Status: Acute Current Medications Current Medications Current Medications Tranexamic Acid (Cyklokapron) 1,000 mg 1X ONCE TOP Last administered on 15:18; Start 07/31/16 at 14:45; Stop 07/31/16 at 14:46; Status DC Protamine Sulfate 50 mg 1X ONCE IV Last administered on 07/31/16 14:54; Start 07/31/16 at 15:15; Stop 07/31/16 at 15:16; Status DC Dextrose 25 gm 1X ONCE IV Last administered on 07/31/16 16:32; Start at 15:45; Stop 07/31/16 at 15:46; Status DC Insulin Human Regular 10 unit 10 unit 1X ONCE IV Last administered on 16:35; Start 07/31/16 at 15:45; Stop 07/31/16 at 15:46; Status DC Sodium Bicarbonate 50 meq/Dextrose 1,050 ml @ 125 mls/hr Q8H24M IV ; Start 05/07 at 15:45; Status Cancel Sodium Chloride (Iv Sodium Chloride 0.9% 500ml Bag) 500 ml @ 500 mls/hr 1X ONCE IV Last administered on 07/31/16 15:25; Start 07/31/16 at 15:30; Stop 05/07 at 16:29; Status DC Ondansetron HCl 4 mg 4 mg PRN Q8HRS PRN IV NAUSEA/VOMITING; Start 07/31/16 at 15:30; Stop 08/01/16 at 15:29; Status DC Sodium Chloride (Iv Sodium Chloride 0.9% 1000ml Bag) 1,000 ml @ 125 mls/hr Q8H IV ; Start 07/31/16 at 15:30; Stop 08/01/16 at 00:00; Status DC Acetaminophen (Tylenol) 650 mg PRN Q4HRS PRN PO FEVER; Start 07/31/16 at 15:30 ; Stop 07/31/16 at 19:08; Status DC Calcium Gluconate 1,000 mg 1X ONCE IVP Last administered on 07/31/16 16:36; Start 07/31/16 at 17:00; Stop 07/31/16 at 17:01; Status DC Sodium Bicarbonate 50 meq STK-MED ONCE .ROUTE ; Start 07/31/16 at 16:26; Stop at 16:27; Status DC Sodium Bicarbonate 50 meq 1X ONCE IV Last administered on 07/31/16 16:36; Start 07/31/16 at 17:00; Stop 07/31/16 at 17:01; Status DC Sodium Polystyrene Sulfonate 15 gm 15 gm 1X ONCE PO Last administered on 18:00; Start 07/31/16 at 18:00; Stop 07/31/16 at 18:01; Status DC Sodium Chloride 1,000 ml @ 1,000 mls/hr Q1H PRN IV hypotension; Start 07/31/16 at 18:10; Stop 08/01/16 at 00:09; Status DC Albumin Human (Albuminar) 200 ml @ 200 mls/hr 1X PRN PRN IV Hypotension; Start 07/31/16 at 18:15; Stop 08/01/16 at 00:14; Status DC Acetaminophen (Tylenol) 500 mg 1X PRN PRN PO MILD PAIN / TEMP; Start 07/31/16 at 18:15; Stop 08/01/16 at 00:30; Status DC Diphenhydramine HCl (Benadryl) 25 mg 1X PRN PRN IV ITCHING; Start 07/31/16 at 18:15; Stop 08/01/16 at 00:30; Status DC Diphenhydramine HCl (Benadryl) 25 mg 1X PRN PRN IV ITCHING; Start 07/31/16 at 18:15; Stop 08/01/16 at 00:30; Status DC Info (PHARMACY MONITORING -- do not chart) 1 each PRN DAILY PRN MC SEE COMMENTS ; Start 07/31/16 at 18:15 Heparin Sodium (Porcine) 10,000 unit STK-MED ONCE .ROUTE ; Start 07/31/16 at 18: 27; Stop 07/31/16 at 18:28; Status DC Lidocaine/Sodium Bicarbonate 20 ml 20 ml STK-MED ONCE IJ ; Start 07/31/16 at 18: 27; Stop 07/31/16 at 18:28; Status DC Heparin Sodium/ Sodium Chloride 500 ml @ As Directed STK-MED ONCE .ROUTE ; Start 07/31/16 at 18:27; Stop 07/31/16 at 18:28; Status DC Lidocaine/Sodium Bicarbonate (Buffered Lidocaine 1%) 3 ml 1X ONCE IJ Last administered on 07/31/16 19:12; Start 07/31/16 at 19:00; Stop 07/31/16 at 19:01 ; Status DC Heparin Sodium/ Sodium Chloride 60 unit 1X ONCE IV Last administered on 19:13; Start 07/31/16 at 19:00; Stop 07/31/16 at 19:01; Status DC Heparin Sodium (Porcine) 2,500 unit 1X ONCE INT CAT Last administered on 19:12; Start 07/31/16 at 19:00; Stop 07/31/16 at 19:01; Status DC Acetaminophen (Tylenol) 650 mg PRN Q6HRS PRN PO PAIN; Start 07/31/16 at 19:15 Albuterol Sulfate (Ventolin Neb Soln) 2.5 mg PRN Q4HRS PRN NEB SHORTNESS OF BREATH; Start 07/31/16 at 19:15 Folic Acid (Folic Acid) 1 mg DAILY PO Last administered on 08/01/16 08:46; Start 08/01/16 at 09:00 Vitamin B Complex/ Vitamin C (Nephro-Arielle) 1 tab DAILY PO Last administered on 08/01/16 08:46; Start 08/01/16 at 09:00 Furosemide (Lasix) 40 mg DAILY PO Last administered on 08/01/16 08:46; Start 08/01/16 at 09:00 Gabapentin (Neurontin) 100 mg TID PO Last administered on 08/01/16 14:10; Start 07/31/16 at 21:00 Albuterol/ Ipratropium (Duoneb) 3 ml TID NEB Last administered on 08/02/16 08: 07; Start 07/31/16 at 21:00 Lorazepam (Ativan) 0.5 mg PRN BID PRN PO ANXIETY / AGITATION; Start 07/31/16 at 19:15 Meloxicam (Mobic) 7.5 mg DAILY PO Last administered on 08/01/16 08:46; Start 08/01/16 at 09:00; Stop 08/01/16 at 11:25; Status DC Metoprolol Tartrate (Lopressor) 25 mg BID PO Last administered on 07/31/16 22: 26; Start 07/31/16 at 21:00 Morphine Sulfate (Ms Contin) 15 mg Q12HR PO Last administered on 08/01/16 08: 46; Start 07/31/16 at 21:00; Stop 08/01/16 at 16:46; Status DC Nystatin 5 ml QID PO Last administered on 08/01/16 14:10; Start 07/31/16 at 21 :00 Prednisone (Prednisone) 10 mg DAILY PO Last administered on 08/01/16 08:48; Start 08/01/16 at 09:00 Senna/Docusate Sodium (Senna Plus) 1 tab PRN BID PRN PO CONSTIPATION; Start 05/07 at 19:15 Budesonide (Pulmicort) 0.5 mg RTBID NEB Last administered on 08/01/16 21:38; Start 07/31/16 at 20:00 Non-Formulary Medication 3 mg HS PO ; Start 07/31/16 at 21:00; Status UNV Mycophenolate Mofetil (Cellcept) 500 mg BID PO Last administered on 08/01/16 08:46; Start 07/31/16 at 21:00 Ondansetron HCl (Zofran Odt) 4 mg Q8HRS PO ; Start 07/31/16 at 22:00; Status Cancel Oxycodone HCl (Roxicodone) 5 mg PRN Q4HRS PRN PO PAIN Last administered on 08/01 14:11; Start 07/31/16 at 19:30 Spironolactone 50 mg 50 mg DAILY PO Last administered on 08/01/16 08:46; Start 08/01/16 at 09:00; Stop 08/01/16 at 11:25; Status DC Meropenem 500 mg/ Sodium Chloride 50 ml @ 100 mls/hr Q24H IV Last administered on 08/01/16 05:17; Start 08/01/16 at 06:00; Stop 08/02/16 at 07:03 ; Status DC Linezolid 300 ml @ 300 mls/hr Q12HR IV Last administered on 08/02/16 09:19; Start 08/01/16 at 09:00 Sodium Chloride (Iv Sodium Chloride 0.9% 1000ml Bag) 1,000 ml @ 70 mls/hr [id number] IV Last administered on 08/02/16 02:11; Start 08/01/16 at 00:00 Fentanyl Citrate (Fentanyl 2ml Vial) 50 mcg PRN Q2HR PRN IV PAIN Last administered on 08/01/16 08:12; Start 08/01/16 at 02:45 Heparin Sodium (Porcine) 5,000 unit Q8HRS SQ Last administered on 08/02/16 09: 20; Start 08/01/16 at 22:00 Furosemide (Lasix) 80 mg 1X ONCE IVP ; Start 08/01/16 at 22:45; Stop 08/02/16 at 00:56; Status DC Naloxone HCl 0.4 mg 0.4 mg 1X ONCE IV Last administered on 08/01/16 23:00; Start 08/01/16 at 23:00; Stop 08/01/16 at 23:01; Status DC Sodium Chloride 250 ml @ 250 mls/hr 1X ONCE IV Last administered on 23:11; Start 08/01/16 at 23:15; Stop 08/02/16 at 00:14; Status DC Norepinephrine Bitartrate 8 mg/ Sodium Chloride 258 ml @ 0 mls/hr CONT PRN IV SEE I/O RECORD Last administered on 08/02/16 01:59; Start 08/02/16 at 00:00 Sodium Chloride 1,000 ml @ 75 mls/hr [id number] IV Last administered on 03:45; Start 08/02/16 at 03:45 Micafungin Sodium 100 mg/Dextrose 100 ml @ 100 mls/hr Q24H IV Last administered on 08/02/16 10:41; Start 08/02/16 at 08:00 Ceftolozane/ Tazobactam/Sodium Chloride (Zerbaxa/Iv Sodium Chloride 0.9% 100ml) 100 ml @ 100 mls/hr Q8HRS IV Last administered on 08/02/16 10:41; Start 08/02 at 08:00 Active Scripts Active Reported Nephro-Arielle Tablet (Folic Acid/Vitamin B Comp W-C) 0.8 Mg Tablet 1 Tab PO DAILY Oxycodone Hcl 5 Mg Capsule 1 Cap PO Q4HRS PRN Zofran (Ondansetron Hcl) 4 Mg Tablet 1 Tab PO Q8HRS Albuterol Sulfate Neb Soln (Albuterol Sulfate) 2.5 Mg/3 Ml Vial.neb 1 Vial NEB PRN Q4HRS Tylenol (Acetaminophen) 325 Mg Tablet 650 Mg PO Q6HRS PRN Duoneb 0.5-3(2.5) Mg/3 Ml (Albuterol/Ipratropium) 3 Ml Ampul.neb 3 Ml NEB TID Spironolactone 50 Mg Tablet 1 Tab PO DAILY Deltasone (Prednisone) 20 Mg Tablet 10 Mg PO DAILY Nystatin 100,000 Unit/1 Ml Oral.susp 100,000 Unit PO QID Cellcept (Mycophenolate Mofetil) 500 Mg Tablet 1 Tab PO BID Metoprolol Tartrate 25 Mg Tablet 25 Mg PO BID Melatonin 3 Mg Tab.rapdis 3 Mg PO HS Neurontin (Gabapentin) 100 Mg Capsule 100 Mg PO TID Lasix (Furosemide) 40 Mg Tablet 1 Tab PO DAILY Folic Acid 1 Mg Tablet 1 Tab PO DAILY Advair 500-50 Diskus (Fluticasone/Salmeterol) 1 Each Disk.w.dev 1 Puff IH BID Mobic (Meloxicam) 7.5 Mg Tablet 7.5 Mg PO DAILY Ativan (Lorazepam) 0.5 Mg Tablet 0.5 Mg PO PRN BID PRN Coumadin (Warfarin Sodium) 2 Mg Tablet 1 Tab PO HS Senokot-S Tablet (Sennosides/Docusate Sodium) 1 Each Tablet 1 Tab PO BID PRN Allergies Allergies: Coded Allergies: pineapple (Verified Allergy, Mild, Itching, 04/21/16) Iodinated Contrast Media - Oral and (Verified Adverse Reaction, Severe, ) patient states that she thinks she ended up on dialysis temporarily after receiving dye vancomycin (Verified Adverse Reaction, Severe, renal disease, 04/19/16) morphine (Verified Adverse Reaction, Unknown, 08/01/16) ROS Review of System unable to obtain due to vent Physical Exam General: Cooperative, No acute distress HEENT: PERRLA, Other (ET tube in place) Lungs: Other (mech vent ) Heart: Regular rate, Normal S1, Normal S2 Abdomen: Soft Extremities: Other (multiple wounds noted to bilat LEs, some have thick purulent drainage, no necrotic tissues) Vitals VITALS Vital Signs Date Time Temp Pulse Resp B/P Pulse Ox O2 Delivery O2 Flow Rate FiO2 08/02/16 08:00 97.8 65 15 100/56 100 BiPAP/CPAP 97.8 08/01/16 21:11 15.0 Labs Labs Laboratory Tests Test 07/31/16 14:45 07/31/16 15:30 07/31/16 20:00 07/31/16 23:00 White Blood Count 13.2x10^3/uL (4.0-11.0) 15.2x10^3/uL (4.0-11.0) Red Blood Count 3.30x10^6/uL (3.50-5.40) 3.13x10^6/uL (3.50-5.40) Hemoglobin 10.1g/dL (12.0-15.5) 9.5g/dL (12.0-15.5) Hematocrit 33.4% (36.0-47.0) 31.8% (36.0-47.0) Mean Corpuscular Volume 101fL (79-100) 102fL (79-100) Mean Corpuscular Hemoglobin 31pg (25-35) 31pg (25-35) Mean Corpuscular Hemoglobin Concent 30g/dL (31-37) 30g/dL (31-37) Red Cell Distribution Width 17.0% (11.5-14.5) 16.9% (11.5-14.5) Platelet Count 314x10^3/uL (140-400) 285x10^3/uL (140-400) Neutrophils (%) (Auto) 87% (31-73) 86% (31-73) Lymphocytes (%) (Auto) 8% (24-48) 7% (24-48) Monocytes (%) (Auto) 5% (0-9) 6% (0-9) Eosinophils (%) (Auto) 0% (0-3) 0% (0-3) Basophils (%) (Auto) 0% (0-3) 0% (0-3) Neutrophils # (Auto) 11.5x10^3uL (1.8-7.7) 13.1x10^3uL (1.8-7.7) Lymphocytes # (Auto) 1.0x10^3/uL (1.0-4.8) 1.1x10^3/uL (1.0-4.8) Monocytes # (Auto) 0.7x10^3/uL (0.0-1.1) 1.0x10^3/uL (0.0-1.1) Eosinophils # (Auto) 0.0x10^3/uL (0.0-0.7) 0.0x10^3/uL (0.0-0.7) Basophils # (Auto) 0.0x10^3/uL (0.0-0.2) 0.0x10^3/uL (0.0-0.2) Segmented Neutrophils % 87% (35-66) Lymphocytes % 10% (24-48) Monocytes % 3% (0-10) Platelet Estimate Adequate (ADEQUATE) Sodium Level 135mmol/L (136-145) 135mmol/L (136-145) 142mmol/L (136-145) 136mmol/L (136-145) Potassium Level 6.2mmol/L (3.5-5.1) 7.2mmol/L (3.5-5.1) 4.6mmol/L (3.5-5.1) 3.8mmol/L (3.5-5.1) Chloride Level 99mmol/L (98-107) 100mmol/L (98-107) 102mmol/L (98-107) 100mmol/L (98-107) Carbon Dioxide Level 33mmol/L (21-32) 32mmol/L (21-32) 35mmol/L (21-32) 30mmol/L (21-32) Anion Gap 3 (6-14) 3 (6-14) 5 (6-14) 6 (6-14) Blood Urea Nitrogen 34mg/dL (7-20) 34mg/dL (7-20) 13mg/dL (7-20) Creatinine 1.2mg/dL (0.6-1.0) 1.2mg/dL (0.6-1.0) 0.7mg/dL (0.6-1.0) Estimated GFR (Cockcroft-Gault) 56.0 56.0 104.4 Glucose Level 112mg/dL (70-99) 113mg/dL (70-99) 88mg/dL (70-99) Calcium Level 10.6mg/dL (8.5-10.1) 10.5mg/dL (8.5-10.1) 9.3mg/dL (8.5-10.1) Prothrombin Time 14.2SEC (11.7-14.0) Prothromb Time International Ratio 1.2 (0.8-1.1) Hepatitis B Surface Antigen Negative (Negative) Hepatitis B Surface Antibody Non reactive (.) Hepatitis B Core IgM Antibody Negative (Negative) BUN/Creatinine Ratio 19 (6-20) Magnesium Level 1.5mg/dL (1.8-2.4) Total Bilirubin 0.3mg/dL (0.2-1.0) Aspartate Amino Transf (AST/SGOT) 22U/L (15-37) Alanine Aminotransferase (ALT/SGPT) 9U/L (14-59) Alkaline Phosphatase 70U/L (46-116) Total Protein 8.2g/dL (6.4-8.2) Albumin 1.9g/dL (3.4-5.0) Albumin/Globulin Ratio 0.3 (1.0-1.7) Test 08/01/16 05:30 08/01/16 07:30 08/01/16 21:30 08/02/16 02:30 White Blood Count 12.9x10^3/uL (4.0-11.0) Red Blood Count 2.93x10^6/uL (3.50-5.40) Hemoglobin 9.1g/dL (12.0-15.5) Hematocrit 30.3% (36.0-47.0) Mean Corpuscular Volume 103fL (79-100) Mean Corpuscular Hemoglobin 31pg (25-35) Mean Corpuscular Hemoglobin Concent 30g/dL (31-37) Red Cell Distribution Width 17.3% (11.5-14.5) Platelet Count 274x10^3/uL (140-400) Neutrophils (%) (Auto) 84% (31-73) Lymphocytes (%) (Auto) 8% (24-48) Monocytes (%) (Auto) 8% (0-9) Eosinophils (%) (Auto) 0% (0-3) Basophils (%) (Auto) 0% (0-3) Neutrophils # (Auto) 10.8x10^3uL (1.8-7.7) Lymphocytes # (Auto) 1.0x10^3/uL (1.0-4.8) Monocytes # (Auto) 1.1x10^3/uL (0.0-1.1) Eosinophils # (Auto) 0.0x10^3/uL (0.0-0.7) Basophils # (Auto) 0.0x10^3/uL (0.0-0.2) Prothrombin Time 14.3SEC (11.7-14.0) Prothromb Time International Ratio 1.2 (0.8-1.1) Sodium Level 137mmol/L (136-145) 137mmol/L (136-145) Potassium Level 3.9mmol/L (3.5-5.1) 4.5mmol/L (3.5-5.1) Chloride Level 102mmol/L (98-107) 101mmol/L (98-107) Carbon Dioxide Level 31mmol/L (21-32) 28mmol/L (21-32) Anion Gap 4 (6-14) 8 (6-14) Blood Urea Nitrogen 15mg/dL (7-20) 19mg/dL (7-20) Creatinine 1.0mg/dL (0.6-1.0) 1.8mg/dL (0.6-1.0) Estimated GFR (Cockcroft-Gault) 69.1 35.1 Glucose Level 88mg/dL (70-99) 125mg/dL (70-99) Calcium Level 9.4mg/dL (8.5-10.1) 9.3mg/dL (8.5-10.1) Phosphorus Level 3.2mg/dL (2.6-4.7) Magnesium Level 1.6mg/dL (1.8-2.4) Total Bilirubin 0.3mg/dL (0.2-1.0) Direct Bilirubin 0.1mg/dL (0.0-0.2) Aspartate Amino Transf (AST/SGOT) 22U/L (15-37) Alanine Aminotransferase (ALT/SGPT) 8U/L (14-59) Alkaline Phosphatase 63U/L (46-116) Total Protein 7.8g/dL (6.4-8.2) Albumin 1.8g/dL (3.4-5.0) Nasal Screen MRSA (PCR) Negative (Negative) LT-Fvt-E-Type Natriuretic Peptide 1660pg/mL (0-124) Urine Collection Type U cath Urine Color Mckenna Urine Clarity Turbid Urine pH 5.0 Urine Specific [place] 1.025 Urine Protein 100mg/dL (NEG-TRACE) Urine Glucose (UA) Negativemg/dL (NEG) Urine Ketones (Stick) Tracemg/dL (NEG) Urine Blood Large (NEG) Urine Nitrite Negative (NEG) Urine Bilirubin Moderate (NEG) Urine Urobilinogen Dipstick 1.0mg/dL (0.2 mg/dL) Urine Leukocyte Esterase Moderate (NEG) Urine RBC Occ/HPF (0-2) Urine WBC >40/HPF (0-4) Urine Squamous Epithelial Cells Occ/LPF Urine Amorphous Sediment Present/HPF Urine Bacteria Moderate/HPF (0-FEW) Urine Hyaline Casts Few/HPF Urine Mucus Slight/LPF Test 08/02/16 05:45 08/02/16 07:40 08/02/16 08:00 White Blood Count 18.8x10^3/uL (4.0-11.0) Red Blood Count 2.86x10^6/uL (3.50-5.40) Hemoglobin 8.8g/dL (12.0-15.5) Hematocrit 29.2% (36.0-47.0) Mean Corpuscular Volume 102fL (79-100) Mean Corpuscular Hemoglobin 31pg (25-35) Mean Corpuscular Hemoglobin Concent 30g/dL (31-37) Red Cell Distribution Width 17.2% (11.5-14.5) Platelet Count 264x10^3/uL (140-400) Neutrophils (%) (Auto) 87% (31-73) Lymphocytes (%) (Auto) 6% (24-48) Monocytes (%) (Auto) 6% (0-9) Eosinophils (%) (Auto) 0% (0-3) Basophils (%) (Auto) 0% (0-3) Neutrophils # (Auto) 16.5x10^3uL (1.8-7.7) Lymphocytes # (Auto) 1.2x10^3/uL (1.0-4.8) Monocytes # (Auto) 1.1x10^3/uL (0.0-1.1) Eosinophils # (Auto) 0.0x10^3/uL (0.0-0.7) Basophils # (Auto) 0.1x10^3/uL (0.0-0.2) Sodium Level 137mmol/L (136-145) Potassium Level 4.1mmol/L (3.5-5.1) Chloride Level 102mmol/L (98-107) Carbon Dioxide Level 29mmol/L (21-32) Anion Gap 6 (6-14) Blood Urea Nitrogen 22mg/dL (7-20) Creatinine 1.8mg/dL (0.6-1.0) Estimated GFR (Cockcroft-Gault) 35.1 Glucose Level 127mg/dL (70-99) Calcium Level 9.2mg/dL (8.5-10.1) Lactic Acid Level 0.9mmol/L (0.4-2.0) Procalcitonin 0.33ng/mL (0.00-0.10) O2 Saturation 98% (92-99) Arterial Blood pH 7.15 (7.35-7.45) Arterial Blood pCO2 at Patient Temp 80mmHg (35-46) Arterial Blood pO2 at Patient Temp 106mmHg (75-108) Arterial Blood HCO3 27mmol/L (21-28) Arterial Blood Base Excess -3mmol/L (-3-3) FiO2 40 Laboratory Tests Test 08/01/16 21:30 08/02/16 02:30 08/02/16 05:45 08/02/16 07:40 Sodium Level 137mmol/L (136-145) 137mmol/L (136-145) Potassium Level 4.5mmol/L (3.5-5.1) 4.1mmol/L (3.5-5.1) Chloride Level 101mmol/L (98-107) 102mmol/L (98-107) Carbon Dioxide Level 28mmol/L (21-32) 29mmol/L (21-32) Anion Gap 8 (6-14) 6 (6-14) Blood Urea Nitrogen 19mg/dL (7-20) 22mg/dL (7-20) Creatinine 1.8mg/dL (0.6-1.0) 1.8mg/dL (0.6-1.0) Estimated GFR (Cockcroft-Gault) 35.1 35.1 Glucose Level 125mg/dL (70-99) 127mg/dL (70-99) Calcium Level 9.3mg/dL (8.5-10.1) 9.2mg/dL (8.5-10.1) KE-Zeo-V-Type Natriuretic Peptide 1660pg/mL (0-124) Urine Collection Type U cath Urine Color Mckenna Urine Clarity Turbid Urine pH 5.0 Urine Specific [place] 1.025 Urine Protein 100mg/dL (NEG-TRACE) Urine Glucose (UA) Negativemg/dL (NEG) Urine Ketones (Stick) Tracemg/dL (NEG) Urine Blood Large (NEG) Urine Nitrite Negative (NEG) Urine Bilirubin Moderate (NEG) Urine Urobilinogen Dipstick 1.0mg/dL (0.2 mg/dL) Urine Leukocyte Esterase Moderate (NEG) Urine RBC Occ/HPF (0-2) Urine WBC >40/HPF (0-4) Urine Squamous Epithelial Cells Occ/LPF Urine Amorphous Sediment Present/HPF Urine Bacteria Moderate/HPF (0-FEW) Urine Hyaline Casts Few/HPF Urine Mucus Slight/LPF White Blood Count 18.8x10^3/uL (4.0-11.0) Red Blood Count 2.86x10^6/uL (3.50-5.40) Hemoglobin 8.8g/dL (12.0-15.5) Hematocrit 29.2% (36.0-47.0) Mean Corpuscular Volume 102fL (79-100) Mean Corpuscular Hemoglobin 31pg (25-35) Mean Corpuscular Hemoglobin Concent 30g/dL (31-37) Red Cell Distribution Width 17.2% (11.5-14.5) Platelet Count 264x10^3/uL (140-400) Neutrophils (%) (Auto) 87% (31-73) Lymphocytes (%) (Auto) 6% (24-48) Monocytes (%) (Auto) 6% (0-9) Eosinophils (%) (Auto) 0% (0-3) Basophils (%) (Auto) 0% (0-3) Neutrophils # (Auto) 16.5x10^3uL (1.8-7.7) Lymphocytes # (Auto) 1.2x10^3/uL (1.0-4.8) Monocytes # (Auto) 1.1x10^3/uL (0.0-1.1) Eosinophils # (Auto) 0.0x10^3/uL (0.0-0.7) Basophils # (Auto) 0.1x10^3/uL (0.0-0.2) Lactic Acid Level 0.9mmol/L (0.4-2.0) Procalcitonin 0.33ng/mL (0.00-0.10) Test 08/02/16 08:00 O2 Saturation 98% (92-99) Arterial Blood pH 7.15 (7.35-7.45) Arterial Blood pCO2 at Patient Temp 80mmHg (35-46) Arterial Blood pO2 at Patient Temp 106mmHg (75-108) Arterial Blood HCO3 27mmol/L (21-28) Arterial Blood Base Excess -3mmol/L (-3-3) FiO2 40 Assessment/Plan Assessment/Plan multiple LE wounds due to calciphylaxis, some wound with thick purulent drainage, resistance to abx in past Resp failure, vent morbid obesity BMI 54.1 ARF will review with Dr Prajapati, extensive wounds,? [facility] for further treatment LYNDSAY RAMOS [employer] Aug 02, 2016 11:22
--- NOTE | 2016-08-02 11:35 | PDOC2 ---
NEUROLOGY CONSULT Date of Admission Date of Admission DATE: 08/02/16 TIME: 10:56 Reason for Consult Reason for Consult: Altered mental status Referring Physician Referring Physician: Dr. Robin Source Source: Caregiver, Chart review History of Present Illness History of Present Illness The patient is a 56-year-old right-handed female who is a intermediate resident , basically bed fast due to morbid obesity and chronic wound infections. She was having some bleeding of the wounds and came to the emergency department 2 days ago. Last night she became less responsive and had hypotension and hypoxemia. There was some shivering, not thought to be due to a seizure as it did resolve with warm blankets. She had also been given Narcan. According to the son there is no history of stroke, seizure, or head injury. 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) Past Surgical History Past Surgical History: Pacemaker (defribrilator), Hysterectomy, Other ( cholecystostomy tube left obturator artery embolization) Family History Family History: No pertinent hx Social History Social History snf resident, non-smoker, nondrinker Current Medications Current Medications Current Medications Tranexamic Acid (Cyklokapron) 1,000 mg 1X ONCE TOP Last administered on 15:18; Start 07/31/16 at 14:45; Stop 07/31/16 at 14:46; Status DC Protamine Sulfate 50 mg 1X ONCE IV Last administered on 07/31/16 14:54; Start 07/31/16 at 15:15; Stop 07/31/16 at 15:16; Status DC Dextrose 25 gm 1X ONCE IV Last administered on 07/31/16 16:32; Start at 15:45; Stop 07/31/16 at 15:46; Status DC Insulin Human Regular 10 unit 10 unit 1X ONCE IV Last administered on 16:35; Start 07/31/16 at 15:45; Stop 07/31/16 at 15:46; Status DC Sodium Bicarbonate 50 meq/Dextrose 1,050 ml @ 125 mls/hr Q8H24M IV ; Start 05/07 at 15:45; Status Cancel Sodium Chloride (Iv Sodium Chloride 0.9% 500ml Bag) 500 ml @ 500 mls/hr 1X ONCE IV Last administered on 07/31/16 15:25; Start 07/31/16 at 15:30; Stop 05/07 at 16:29; Status DC Ondansetron HCl 4 mg 4 mg PRN Q8HRS PRN IV NAUSEA/VOMITING; Start 07/31/16 at 15:30; Stop 08/01/16 at 15:29; Status DC Sodium Chloride (Iv Sodium Chloride 0.9% 1000ml Bag) 1,000 ml @ 125 mls/hr Q8H IV ; Start 07/31/16 at 15:30; Stop 08/01/16 at 00:00; Status DC Acetaminophen (Tylenol) 650 mg PRN Q4HRS PRN PO FEVER; Start 07/31/16 at 15:30 ; Stop 07/31/16 at 19:08; Status DC Calcium Gluconate 1,000 mg 1X ONCE IVP Last administered on 07/31/16 16:36; Start 07/31/16 at 17:00; Stop 07/31/16 at 17:01; Status DC Sodium Bicarbonate 50 meq STK-MED ONCE .ROUTE ; Start 07/31/16 at 16:26; Stop at 16:27; Status DC Sodium Bicarbonate 50 meq 1X ONCE IV Last administered on 07/31/16 16:36; Start 07/31/16 at 17:00; Stop 07/31/16 at 17:01; Status DC Sodium Polystyrene Sulfonate 15 gm 15 gm 1X ONCE PO Last administered on 18:00; Start 07/31/16 at 18:00; Stop 07/31/16 at 18:01; Status DC Sodium Chloride 1,000 ml @ 1,000 mls/hr Q1H PRN IV hypotension; Start 07/31/16 at 18:10; Stop 08/01/16 at 00:09; Status DC Albumin Human (Albuminar) 200 ml @ 200 mls/hr 1X PRN PRN IV Hypotension; Start 07/31/16 at 18:15; Stop 08/01/16 at 00:14; Status DC Acetaminophen (Tylenol) 500 mg 1X PRN PRN PO MILD PAIN / TEMP; Start 07/31/16 at 18:15; Stop 08/01/16 at 00:30; Status DC Diphenhydramine HCl (Benadryl) 25 mg 1X PRN PRN IV ITCHING; Start 07/31/16 at 18:15; Stop 08/01/16 at 00:30; Status DC Diphenhydramine HCl (Benadryl) 25 mg 1X PRN PRN IV ITCHING; Start 07/31/16 at 18:15; Stop 08/01/16 at 00:30; Status DC Info (PHARMACY MONITORING -- do not chart) 1 each PRN DAILY PRN MC SEE COMMENTS ; Start 07/31/16 at 18:15 Heparin Sodium (Porcine) 10,000 unit STK-MED ONCE .ROUTE ; Start 07/31/16 at 18: 27; Stop 07/31/16 at 18:28; Status DC Lidocaine/Sodium Bicarbonate 20 ml 20 ml STK-MED ONCE IJ ; Start 07/31/16 at 18: 27; Stop 07/31/16 at 18:28; Status DC Heparin Sodium/ Sodium Chloride 500 ml @ As Directed STK-MED ONCE .ROUTE ; Start 07/31/16 at 18:27; Stop 07/31/16 at 18:28; Status DC Lidocaine/Sodium Bicarbonate (Buffered Lidocaine 1%) 3 ml 1X ONCE IJ Last administered on 07/31/16 19:12; Start 07/31/16 at 19:00; Stop 07/31/16 at 19:01 ; Status DC Heparin Sodium/ Sodium Chloride 60 unit 1X ONCE IV Last administered on 19:13; Start 07/31/16 at 19:00; Stop 07/31/16 at 19:01; Status DC Heparin Sodium (Porcine) 2,500 unit 1X ONCE INT CAT Last administered on 19:12; Start 07/31/16 at 19:00; Stop 07/31/16 at 19:01; Status DC Acetaminophen (Tylenol) 650 mg PRN Q6HRS PRN PO PAIN; Start 07/31/16 at 19:15 Albuterol Sulfate (Ventolin Neb Soln) 2.5 mg PRN Q4HRS PRN NEB SHORTNESS OF BREATH; Start 07/31/16 at 19:15 Folic Acid (Folic Acid) 1 mg DAILY PO Last administered on 08/01/16 08:46; Start 08/01/16 at 09:00 Vitamin B Complex/ Vitamin C (Nephro-Arielle) 1 tab DAILY PO Last administered on 08/01/16 08:46; Start 08/01/16 at 09:00 Furosemide (Lasix) 40 mg DAILY PO Last administered on 08/01/16 08:46; Start 08/01/16 at 09:00 Gabapentin (Neurontin) 100 mg TID PO Last administered on 08/01/16 14:10; Start 07/31/16 at 21:00 Albuterol/ Ipratropium (Duoneb) 3 ml TID NEB Last administered on 08/02/16 08: 07; Start 07/31/16 at 21:00 Lorazepam (Ativan) 0.5 mg PRN BID PRN PO ANXIETY / AGITATION; Start 07/31/16 at 19:15 Meloxicam (Mobic) 7.5 mg DAILY PO Last administered on 08/01/16 08:46; Start 08/01/16 at 09:00; Stop 08/01/16 at 11:25; Status DC Metoprolol Tartrate (Lopressor) 25 mg BID PO Last administered on 07/31/16 22: 26; Start 07/31/16 at 21:00 Morphine Sulfate (Ms Contin) 15 mg Q12HR PO Last administered on 08/01/16 08: 46; Start 07/31/16 at 21:00; Stop 08/01/16 at 16:46; Status DC Nystatin 5 ml QID PO Last administered on 08/01/16 14:10; Start 07/31/16 at 21 :00 Prednisone (Prednisone) 10 mg DAILY PO Last administered on 08/01/16 08:48; Start 08/01/16 at 09:00 Senna/Docusate Sodium (Senna Plus) 1 tab PRN BID PRN PO CONSTIPATION; Start 05/07 at 19:15 Budesonide (Pulmicort) 0.5 mg RTBID NEB Last administered on 08/01/16 21:38; Start 07/31/16 at 20:00 Non-Formulary Medication 3 mg HS PO ; Start 07/31/16 at 21:00; Status UNV Mycophenolate Mofetil (Cellcept) 500 mg BID PO Last administered on 08/01/16 08:46; Start 07/31/16 at 21:00 Ondansetron HCl (Zofran Odt) 4 mg Q8HRS PO ; Start 07/31/16 at 22:00; Status Cancel Oxycodone HCl (Roxicodone) 5 mg PRN Q4HRS PRN PO PAIN Last administered on 08/01 14:11; Start 07/31/16 at 19:30 Spironolactone 50 mg 50 mg DAILY PO Last administered on 08/01/16 08:46; Start 08/01/16 at 09:00; Stop 08/01/16 at 11:25; Status DC Meropenem 500 mg/ Sodium Chloride 50 ml @ 100 mls/hr Q24H IV Last administered on 08/01/16 05:17; Start 08/01/16 at 06:00; Stop 08/02/16 at 07:03 ; Status DC Linezolid 300 ml @ 300 mls/hr Q12HR IV Last administered on 08/02/16 09:19; Start 08/01/16 at 09:00 Sodium Chloride (Iv Sodium Chloride 0.9% 1000ml Bag) 1,000 ml @ 70 mls/hr [id number] IV Last administered on 08/02/16 02:11; Start 08/01/16 at 00:00 Fentanyl Citrate (Fentanyl 2ml Vial) 50 mcg PRN Q2HR PRN IV PAIN Last administered on 08/01/16 08:12; Start 08/01/16 at 02:45 Heparin Sodium (Porcine) 5,000 unit Q8HRS SQ Last administered on 08/02/16 09: 20; Start 08/01/16 at 22:00 Furosemide (Lasix) 80 mg 1X ONCE IVP ; Start 08/01/16 at 22:45; Stop 08/02/16 at 00:56; Status DC Naloxone HCl 0.4 mg 0.4 mg 1X ONCE IV Last administered on 08/01/16 23:00; Start 08/01/16 at 23:00; Stop 08/01/16 at 23:01; Status DC Sodium Chloride 250 ml @ 250 mls/hr 1X ONCE IV Last administered on 23:11; Start 08/01/16 at 23:15; Stop 08/02/16 at 00:14; Status DC Norepinephrine Bitartrate 8 mg/ Sodium Chloride 258 ml @ 0 mls/hr CONT PRN IV SEE I/O RECORD Last administered on 08/02/16 01:59; Start 08/02/16 at 00:00 Sodium Chloride 1,000 ml @ 75 mls/hr [id number] IV Last administered on 03:45; Start 08/02/16 at 03:45 Micafungin Sodium 100 mg/Dextrose 100 ml @ 100 mls/hr Q24H IV Last administered on 08/02/16 10:41; Start 08/02/16 at 08:00 Ceftolozane/ Tazobactam/Sodium Chloride (Zerbaxa/Iv Sodium Chloride 0.9% 100ml) 100 ml @ 100 mls/hr Q8HRS IV Last administered on 08/02/16 10:41; Start 08/02 at 08:00 Active Scripts Active Reported Nephro-Arielle Tablet (Folic Acid/Vitamin B Comp W-C) 0.8 Mg Tablet 1 Tab PO DAILY Oxycodone Hcl 5 Mg Capsule 1 Cap PO Q4HRS PRN Zofran (Ondansetron Hcl) 4 Mg Tablet 1 Tab PO Q8HRS Albuterol Sulfate Neb Soln (Albuterol Sulfate) 2.5 Mg/3 Ml Vial.neb 1 Vial NEB PRN Q4HRS Tylenol (Acetaminophen) 325 Mg Tablet 650 Mg PO Q6HRS PRN Duoneb 0.5-3(2.5) Mg/3 Ml (Albuterol/Ipratropium) 3 Ml Ampul.neb 3 Ml NEB TID Spironolactone 50 Mg Tablet 1 Tab PO DAILY Deltasone (Prednisone) 20 Mg Tablet 10 Mg PO DAILY Nystatin 100,000 Unit/1 Ml Oral.susp 100,000 Unit PO QID Cellcept (Mycophenolate Mofetil) 500 Mg Tablet 1 Tab PO BID Metoprolol Tartrate 25 Mg Tablet 25 Mg PO BID Melatonin 3 Mg Tab.rapdis 3 Mg PO HS Neurontin (Gabapentin) 100 Mg Capsule 100 Mg PO TID Lasix (Furosemide) 40 Mg Tablet 1 Tab PO DAILY Folic Acid 1 Mg Tablet 1 Tab PO DAILY Advair 500-50 Diskus (Fluticasone/Salmeterol) 1 Each Disk.w.dev 1 Puff IH BID Mobic (Meloxicam) 7.5 Mg Tablet 7.5 Mg PO DAILY Ativan (Lorazepam) 0.5 Mg Tablet 0.5 Mg PO PRN BID PRN Coumadin (Warfarin Sodium) 2 Mg Tablet 1 Tab PO HS Senokot-S Tablet (Sennosides/Docusate Sodium) 1 Each Tablet 1 Tab PO BID PRN Allergies Allergies: Coded Allergies: pineapple (Verified Allergy, Mild, Itching, 04/21/16) Iodinated Contrast Media - Oral and (Verified Adverse Reaction, Severe, ) patient states that she thinks she ended up on dialysis temporarily after receiving dye vancomycin (Verified Adverse Reaction, Severe, renal disease, 04/19/16) morphine (Verified Adverse Reaction, Unknown, 08/01/16) ROS Review of System Negative for fevers, chills, weight loss, chest pain, indigestion, hematochezia , melena. She has chronic dyspnea and dysuria. Full 14-point review systems is negative. Physical Exam Physical Examination PHYSICAL EXAMINATION: Vital signs: see above. General appearance is normal and in no acute distress. HEENT: Normocephalic and nontraumatic. Eyes, nose, ears, and throat are unremarkable. Neck is supple. No lymphadenopathy. No bruits are heard over the carotid artery. No crepitus. NEUROLOGIC: She stirs a little to voice. Pupils to react to light. Reflexes are 0+. Plantar responses are silent. She does not cooperate with motor, coordination, and sensation testing. Vitals VITALS Vital Signs Date Time Temp Pulse Resp B/P Pulse Ox O2 Delivery O2 Flow Rate FiO2 08/02/16 08:00 97.8 65 15 100/56 100 BiPAP/CPAP 97.8 08/01/16 21:11 15.0 Labs Labs Laboratory Tests Test 07/31/16 14:45 07/31/16 15:30 07/31/16 20:00 07/31/16 23:00 White Blood Count 13.2x10^3/uL (4.0-11.0) 15.2x10^3/uL (4.0-11.0) Red Blood Count 3.30x10^6/uL (3.50-5.40) 3.13x10^6/uL (3.50-5.40) Hemoglobin 10.1g/dL (12.0-15.5) 9.5g/dL (12.0-15.5) Hematocrit 33.4% (36.0-47.0) 31.8% (36.0-47.0) Mean Corpuscular Volume 101fL (79-100) 102fL (79-100) Mean Corpuscular Hemoglobin 31pg (25-35) 31pg (25-35) Mean Corpuscular Hemoglobin Concent 30g/dL (31-37) 30g/dL (31-37) Red Cell Distribution Width 17.0% (11.5-14.5) 16.9% (11.5-14.5) Platelet Count 314x10^3/uL (140-400) 285x10^3/uL (140-400) Neutrophils (%) (Auto) 87% (31-73) 86% (31-73) Lymphocytes (%) (Auto) 8% (24-48) 7% (24-48) Monocytes (%) (Auto) 5% (0-9) 6% (0-9) Eosinophils (%) (Auto) 0% (0-3) 0% (0-3) Basophils (%) (Auto) 0% (0-3) 0% (0-3) Neutrophils # (Auto) 11.5x10^3uL (1.8-7.7) 13.1x10^3uL (1.8-7.7) Lymphocytes # (Auto) 1.0x10^3/uL (1.0-4.8) 1.1x10^3/uL (1.0-4.8) Monocytes # (Auto) 0.7x10^3/uL (0.0-1.1) 1.0x10^3/uL (0.0-1.1) Eosinophils # (Auto) 0.0x10^3/uL (0.0-0.7) 0.0x10^3/uL (0.0-0.7) Basophils # (Auto) 0.0x10^3/uL (0.0-0.2) 0.0x10^3/uL (0.0-0.2) Segmented Neutrophils % 87% (35-66) Lymphocytes % 10% (24-48) Monocytes % 3% (0-10) Platelet Estimate Adequate (ADEQUATE) Sodium Level 135mmol/L (136-145) 135mmol/L (136-145) 142mmol/L (136-145) 136mmol/L (136-145) Potassium Level 6.2mmol/L (3.5-5.1) 7.2mmol/L (3.5-5.1) 4.6mmol/L (3.5-5.1) 3.8mmol/L (3.5-5.1) Chloride Level 99mmol/L (98-107) 100mmol/L (98-107) 102mmol/L (98-107) 100mmol/L (98-107) Carbon Dioxide Level 33mmol/L (21-32) 32mmol/L (21-32) 35mmol/L (21-32) 30mmol/L (21-32) Anion Gap 3 (6-14) 3 (6-14) 5 (6-14) 6 (6-14) Blood Urea Nitrogen 34mg/dL (7-20) 34mg/dL (7-20) 13mg/dL (7-20) Creatinine 1.2mg/dL (0.6-1.0) 1.2mg/dL (0.6-1.0) 0.7mg/dL (0.6-1.0) Estimated GFR (Cockcroft-Gault) 56.0 56.0 104.4 Glucose Level 112mg/dL (70-99) 113mg/dL (70-99) 88mg/dL (70-99) Calcium Level 10.6mg/dL (8.5-10.1) 10.5mg/dL (8.5-10.1) 9.3mg/dL (8.5-10.1) Prothrombin Time 14.2SEC (11.7-14.0) Prothromb Time International Ratio 1.2 (0.8-1.1) Hepatitis B Surface Antigen Negative (Negative) Hepatitis B Surface Antibody Non reactive (.) Hepatitis B Core IgM Antibody Negative (Negative) BUN/Creatinine Ratio 19 (6-20) Magnesium Level 1.5mg/dL (1.8-2.4) Total Bilirubin 0.3mg/dL (0.2-1.0) Aspartate Amino Transf (AST/SGOT) 22U/L (15-37) Alanine Aminotransferase (ALT/SGPT) 9U/L (14-59) Alkaline Phosphatase 70U/L (46-116) Total Protein 8.2g/dL (6.4-8.2) Albumin 1.9g/dL (3.4-5.0) Albumin/Globulin Ratio 0.3 (1.0-1.7) Test 08/01/16 05:30 08/01/16 07:30 08/01/16 21:30 08/02/16 02:30 White Blood Count 12.9x10^3/uL (4.0-11.0) Red Blood Count 2.93x10^6/uL (3.50-5.40) Hemoglobin 9.1g/dL (12.0-15.5) Hematocrit 30.3% (36.0-47.0) Mean Corpuscular Volume 103fL (79-100) Mean Corpuscular Hemoglobin 31pg (25-35) Mean Corpuscular Hemoglobin Concent 30g/dL (31-37) Red Cell Distribution Width 17.3% (11.5-14.5) Platelet Count 274x10^3/uL (140-400) Neutrophils (%) (Auto) 84% (31-73) Lymphocytes (%) (Auto) 8% (24-48) Monocytes (%) (Auto) 8% (0-9) Eosinophils (%) (Auto) 0% (0-3) Basophils (%) (Auto) 0% (0-3) Neutrophils # (Auto) 10.8x10^3uL (1.8-7.7) Lymphocytes # (Auto) 1.0x10^3/uL (1.0-4.8) Monocytes # (Auto) 1.1x10^3/uL (0.0-1.1) Eosinophils # (Auto) 0.0x10^3/uL (0.0-0.7) Basophils # (Auto) 0.0x10^3/uL (0.0-0.2) Prothrombin Time 14.3SEC (11.7-14.0) Prothromb Time International Ratio 1.2 (0.8-1.1) Sodium Level 137mmol/L (136-145) 137mmol/L (136-145) Potassium Level 3.9mmol/L (3.5-5.1) 4.5mmol/L (3.5-5.1) Chloride Level 102mmol/L (98-107) 101mmol/L (98-107) Carbon Dioxide Level 31mmol/L (21-32) 28mmol/L (21-32) Anion Gap 4 (6-14) 8 (6-14) Blood Urea Nitrogen 15mg/dL (7-20) 19mg/dL (7-20) Creatinine 1.0mg/dL (0.6-1.0) 1.8mg/dL (0.6-1.0) Estimated GFR (Cockcroft-Gault) 69.1 35.1 Glucose Level 88mg/dL (70-99) 125mg/dL (70-99) Calcium Level 9.4mg/dL (8.5-10.1) 9.3mg/dL (8.5-10.1) Phosphorus Level 3.2mg/dL (2.6-4.7) Magnesium Level 1.6mg/dL (1.8-2.4) Total Bilirubin 0.3mg/dL (0.2-1.0) Direct Bilirubin 0.1mg/dL (0.0-0.2) Aspartate Amino Transf (AST/SGOT) 22U/L (15-37) Alanine Aminotransferase (ALT/SGPT) 8U/L (14-59) Alkaline Phosphatase 63U/L (46-116) Total Protein 7.8g/dL (6.4-8.2) Albumin 1.8g/dL (3.4-5.0) Nasal Screen MRSA (PCR) Negative (Negative) [id number]-[id number]-Type Natriuretic Peptide 1660pg/mL (0-124) Urine Collection Type U cath Urine Color Mckenna Urine Clarity Turbid Urine pH 5.0 Urine Specific [place] 1.025 Urine Protein 100mg/dL (NEG-TRACE) Urine Glucose (UA) Negativemg/dL (NEG) Urine Ketones (Stick) Tracemg/dL (NEG) Urine Blood Large (NEG) Urine Nitrite Negative (NEG) Urine Bilirubin Moderate (NEG) Urine Urobilinogen Dipstick 1.0mg/dL (0.2 mg/dL) Urine Leukocyte Esterase Moderate (NEG) Urine RBC Occ/HPF (0-2) Urine WBC >40/HPF (0-4) Urine Squamous Epithelial Cells Occ/LPF Urine Amorphous Sediment Present/HPF Urine Bacteria Moderate/HPF (0-FEW) Urine Hyaline Casts Few/HPF Urine Mucus Slight/LPF Test 08/02/16 05:45 08/02/16 07:40 08/02/16 08:00 White Blood Count 18.8x10^3/uL (4.0-11.0) Red Blood Count 2.86x10^6/uL (3.50-5.40) Hemoglobin 8.8g/dL (12.0-15.5) Hematocrit 29.2% (36.0-47.0) Mean Corpuscular Volume 102fL (79-100) Mean Corpuscular Hemoglobin 31pg (25-35) Mean Corpuscular Hemoglobin Concent 30g/dL (31-37) Red Cell Distribution Width 17.2% (11.5-14.5) Platelet Count 264x10^3/uL (140-400) Neutrophils (%) (Auto) 87% (31-73) Lymphocytes (%) (Auto) 6% (24-48) Monocytes (%) (Auto) 6% (0-9) Eosinophils (%) (Auto) 0% (0-3) Basophils (%) (Auto) 0% (0-3) Neutrophils # (Auto) 16.5x10^3uL (1.8-7.7) Lymphocytes # (Auto) 1.2x10^3/uL (1.0-4.8) Monocytes # (Auto) 1.1x10^3/uL (0.0-1.1) Eosinophils # (Auto) 0.0x10^3/uL (0.0-0.7) Basophils # (Auto) 0.1x10^3/uL (0.0-0.2) Sodium Level 137mmol/L (136-145) Potassium Level 4.1mmol/L (3.5-5.1) Chloride Level 102mmol/L (98-107) Carbon Dioxide Level 29mmol/L (21-32) Anion Gap 6 (6-14) Blood Urea Nitrogen 22mg/dL (7-20) Creatinine 1.8mg/dL (0.6-1.0) Estimated GFR (Cockcroft-Gault) 35.1 Glucose Level 127mg/dL (70-99) Calcium Level 9.2mg/dL (8.5-10.1) Lactic Acid Level 0.9mmol/L (0.4-2.0) Procalcitonin 0.33ng/mL (0.00-0.10) O2 Saturation 98% (92-99) Arterial Blood pH 7.15 (7.35-7.45) Arterial Blood pCO2 at Patient Temp 80mmHg (35-46) Arterial Blood pO2 at Patient Temp 106mmHg (75-108) Arterial Blood HCO3 27mmol/L (21-28) Arterial Blood Base Excess -3mmol/L (-3-3) FiO2 40 Laboratory Tests Test 08/01/16 21:30 08/02/16 02:30 08/02/16 05:45 08/02/16 07:40 Sodium Level 137mmol/L (136-145) 137mmol/L (136-145) Potassium Level 4.5mmol/L (3.5-5.1) 4.1mmol/L (3.5-5.1) Chloride Level 101mmol/L (98-107) 102mmol/L (98-107) Carbon Dioxide Level 28mmol/L (21-32) 29mmol/L (21-32) Anion Gap 8 (6-14) 6 (6-14) Blood Urea Nitrogen 19mg/dL (7-20) 22mg/dL (7-20) Creatinine 1.8mg/dL (0.6-1.0) 1.8mg/dL (0.6-1.0) Estimated GFR (Cockcroft-Gault) 35.1 35.1 Glucose Level 125mg/dL (70-99) 127mg/dL (70-99) Calcium Level 9.3mg/dL (8.5-10.1) 9.2mg/dL (8.5-10.1) PL-[id number]-Type Natriuretic Peptide 1660pg/mL (0-124) Urine Collection Type U cath Urine Color Mckenna Urine Clarity Turbid Urine pH 5.0 Urine Specific [place] 1.025 Urine Protein 100mg/dL (NEG-TRACE) Urine Glucose (UA) Negativemg/dL (NEG) Urine Ketones (Stick) Tracemg/dL (NEG) Urine Blood Large (NEG) Urine Nitrite Negative (NEG) Urine Bilirubin Moderate (NEG) Urine Urobilinogen Dipstick 1.0mg/dL (0.2 mg/dL) Urine Leukocyte Esterase Moderate (NEG) Urine RBC Occ/HPF (0-2) Urine WBC >40/HPF (0-4) Urine Squamous Epithelial Cells Occ/LPF Urine Amorphous Sediment Present/HPF Urine Bacteria Moderate/HPF (0-FEW) Urine Hyaline Casts Few/HPF Urine Mucus Slight/LPF White Blood Count 18.8x10^3/uL (4.0-11.0) Red Blood Count 2.86x10^6/uL (3.50-5.40) Hemoglobin 8.8g/dL (12.0-15.5) Hematocrit 29.2% (36.0-47.0) Mean Corpuscular Volume 102fL (79-100) Mean Corpuscular Hemoglobin 31pg (25-35) Mean Corpuscular Hemoglobin Concent 30g/dL (31-37) Red Cell Distribution Width 17.2% (11.5-14.5) Platelet Count 264x10^3/uL (140-400) Neutrophils (%) (Auto) 87% (31-73) Lymphocytes (%) (Auto) 6% (24-48) Monocytes (%) (Auto) 6% (0-9) Eosinophils (%) (Auto) 0% (0-3) Basophils (%) (Auto) 0% (0-3) Neutrophils # (Auto) 16.5x10^3uL (1.8-7.7) Lymphocytes # (Auto) 1.2x10^3/uL (1.0-4.8) Monocytes # (Auto) 1.1x10^3/uL (0.0-1.1) Eosinophils # (Auto) 0.0x10^3/uL (0.0-0.7) Basophils # (Auto) 0.1x10^3/uL (0.0-0.2) Lactic Acid Level 0.9mmol/L (0.4-2.0) Procalcitonin 0.33ng/mL (0.00-0.10) Test 08/02/16 08:00 O2 Saturation 98% (92-99) Arterial Blood pH 7.15 (7.35-7.45) Arterial Blood pCO2 at Patient Temp 80mmHg (35-46) Arterial Blood pO2 at Patient Temp 106mmHg (75-108) Arterial Blood HCO3 27mmol/L (21-28) Arterial Blood Base Excess -3mmol/L (-3-3) FiO2 [address] head is negative Assessment/Plan Assessment/Plan Impression: Metabolic encephalopathy due to uremia, respiratory with hypercarbia. No evidence of stroke, seizure activity, or central nervous system infection. Recommendations No additional neurological studies needed Correction of medical problems I discussed my findings with the patient's son. Thank you for letting me help the patient's care. ELSA KHOURY MD Aug 02, 2016 11:34
--- NOTE | 2016-08-02 15:11 | PDOC ---
PULMONARY PROGRESS NOTES Vitals Vital Signs Date Time Temp Pulse Resp B/P Pulse Ox O2 Delivery O2 Flow Rate FiO2 08/02/16 13:31 100 BiPAP/CPAP 08/02/16 13:00 60 24 93/50 08/02/16 12:38 98.0 98.0 08/01/16 21:11 15.0 Labs Laboratory Tests Test 07/31/16 15:30 07/31/16 20:00 07/31/16 23:00 08/01/16 05:30 Sodium Level 135mmol/L (136-145) 142mmol/L (136-145) 136mmol/L (136-145) 137mmol/L (136-145) Potassium Level 7.2mmol/L (3.5-5.1) 4.6mmol/L (3.5-5.1) 3.8mmol/L (3.5-5.1) 3.9mmol/L (3.5-5.1) Chloride Level 100mmol/L (98-107) 102mmol/L (98-107) 100mmol/L (98-107) 102mmol/L (98-107) Carbon Dioxide Level 32mmol/L (21-32) 35mmol/L (21-32) 30mmol/L (21-32) 31mmol/L (21-32) Anion Gap 3 (6-14) 5 (6-14) 6 (6-14) 4 (6-14) Blood Urea Nitrogen 34mg/dL (7-20) 13mg/dL (7-20) 15mg/dL (7-20) Creatinine 1.2mg/dL (0.6-1.0) 0.7mg/dL (0.6-1.0) 1.0mg/dL (0.6-1.0) Estimated GFR (Cockcroft-Gault) 56.0 104.4 69.1 Glucose Level 113mg/dL (70-99) 88mg/dL (70-99) 88mg/dL (70-99) Calcium Level 10.5mg/dL (8.5-10.1) 9.3mg/dL (8.5-10.1) 9.4mg/dL (8.5-10.1) Prothrombin Time 14.2SEC (11.7-14.0) 14.3SEC (11.7-14.0) Prothromb Time International Ratio 1.2 (0.8-1.1) 1.2 (0.8-1.1) Hepatitis B Surface Antigen Negative (Negative) Hepatitis B Surface Antibody Non reactive (.) Hepatitis B Core IgM Antibody Negative (Negative) White Blood Count 15.2x10^3/uL (4.0-11.0) 12.9x10^3/uL (4.0-11.0) Red Blood Count 3.13x10^6/uL (3.50-5.40) 2.93x10^6/uL (3.50-5.40) Hemoglobin 9.5g/dL (12.0-15.5) 9.1g/dL (12.0-15.5) Hematocrit 31.8% (36.0-47.0) 30.3% (36.0-47.0) Mean Corpuscular Volume 102fL (79-100) 103fL (79-100) Mean Corpuscular Hemoglobin 31pg (25-35) 31pg (25-35) Mean Corpuscular Hemoglobin Concent 30g/dL (31-37) 30g/dL (31-37) Red Cell Distribution Width 16.9% (11.5-14.5) 17.3% (11.5-14.5) Platelet Count 285x10^3/uL (140-400) 274x10^3/uL (140-400) Neutrophils (%) (Auto) 86% (31-73) 84% (31-73) Lymphocytes (%) (Auto) 7% (24-48) 8% (24-48) Monocytes (%) (Auto) 6% (0-9) 8% (0-9) Eosinophils (%) (Auto) 0% (0-3) 0% (0-3) Basophils (%) (Auto) 0% (0-3) 0% (0-3) Neutrophils # (Auto) 13.1x10^3uL (1.8-7.7) 10.8x10^3uL (1.8-7.7) Lymphocytes # (Auto) 1.1x10^3/uL (1.0-4.8) 1.0x10^3/uL (1.0-4.8) Monocytes # (Auto) 1.0x10^3/uL (0.0-1.1) 1.1x10^3/uL (0.0-1.1) Eosinophils # (Auto) 0.0x10^3/uL (0.0-0.7) 0.0x10^3/uL (0.0-0.7) Basophils # (Auto) 0.0x10^3/uL (0.0-0.2) 0.0x10^3/uL (0.0-0.2) BUN/Creatinine Ratio 19 (6-20) Magnesium Level 1.5mg/dL (1.8-2.4) 1.6mg/dL (1.8-2.4) Total Bilirubin 0.3mg/dL (0.2-1.0) 0.3mg/dL (0.2-1.0) Aspartate Amino Transf (AST/SGOT) 22U/L (15-37) 22U/L (15-37) Alanine Aminotransferase (ALT/SGPT) 9U/L (14-59) 8U/L (14-59) Alkaline Phosphatase 70U/L (46-116) 63U/L (46-116) Total Protein 8.2g/dL (6.4-8.2) 7.8g/dL (6.4-8.2) Albumin 1.9g/dL (3.4-5.0) 1.8g/dL (3.4-5.0) Albumin/Globulin Ratio 0.3 (1.0-1.7) Phosphorus Level 3.2mg/dL (2.6-4.7) Direct Bilirubin 0.1mg/dL (0.0-0.2) Test 08/01/16 07:30 08/01/16 21:30 08/02/16 02:30 08/02/16 05:45 Nasal Screen MRSA (PCR) Negative (Negative) Sodium Level 137mmol/L (136-145) 137mmol/L (136-145) Potassium Level 4.5mmol/L (3.5-5.1) 4.1mmol/L (3.5-5.1) Chloride Level 101mmol/L (98-107) 102mmol/L (98-107) Carbon Dioxide Level 28mmol/L (21-32) 29mmol/L (21-32) Anion Gap 8 (6-14) 6 (6-14) Blood Urea Nitrogen 19mg/dL (7-20) 22mg/dL (7-20) Creatinine 1.8mg/dL (0.6-1.0) 1.8mg/dL (0.6-1.0) Estimated GFR (Cockcroft-Gault) 35.1 35.1 Glucose Level 125mg/dL (70-99) 127mg/dL (70-99) Calcium Level 9.3mg/dL (8.5-10.1) 9.2mg/dL (8.5-10.1) JT-Dah-Z-Type Natriuretic Peptide 1660pg/mL (0-124) Urine Collection Type U cath Urine Color Mckenna Urine Clarity Turbid Urine pH 5.0 Urine Specific [place] 1.025 Urine Protein 100mg/dL (NEG-TRACE) Urine Glucose (UA) Negativemg/dL (NEG) Urine Ketones (Stick) Tracemg/dL (NEG) Urine Blood Large (NEG) Urine Nitrite Negative (NEG) Urine Bilirubin Moderate (NEG) Urine Urobilinogen Dipstick 1.0mg/dL (0.2 mg/dL) Urine Leukocyte Esterase Moderate (NEG) Urine RBC Occ/HPF (0-2) Urine WBC >40/HPF (0-4) Urine Squamous Epithelial Cells Occ/LPF Urine Amorphous Sediment Present/HPF Urine Bacteria Moderate/HPF (0-FEW) Urine Hyaline Casts Few/HPF Urine Mucus Slight/LPF White Blood Count 18.8x10^3/uL (4.0-11.0) Red Blood Count 2.86x10^6/uL (3.50-5.40) Hemoglobin 8.8g/dL (12.0-15.5) Hematocrit 29.2% (36.0-47.0) Mean Corpuscular Volume 102fL (79-100) Mean Corpuscular Hemoglobin 31pg (25-35) Mean Corpuscular Hemoglobin Concent 30g/dL (31-37) Red Cell Distribution Width 17.2% (11.5-14.5) Platelet Count 264x10^3/uL (140-400) Neutrophils (%) (Auto) 87% (31-73) Lymphocytes (%) (Auto) 6% (24-48) Monocytes (%) (Auto) 6% (0-9) Eosinophils (%) (Auto) 0% (0-3) Basophils (%) (Auto) 0% (0-3) Neutrophils # (Auto) 16.5x10^3uL (1.8-7.7) Lymphocytes # (Auto) 1.2x10^3/uL (1.0-4.8) Monocytes # (Auto) 1.1x10^3/uL (0.0-1.1) Eosinophils # (Auto) 0.0x10^3/uL (0.0-0.7) Basophils # (Auto) 0.1x10^3/uL (0.0-0.2) Test 08/02/16 07:40 08/02/16 08:00 08/02/16 11:00 Lactic Acid Level 0.9mmol/L (0.4-2.0) Procalcitonin 0.33ng/mL (0.00-0.10) O2 Saturation 98% (92-99) 95% (92-99) Arterial Blood pH 7.15 (7.35-7.45) 7.20 (7.35-7.45) Arterial Blood pCO2 at Patient Temp 80mmHg (35-46) 67mmHg (35-46) Arterial Blood pO2 at Patient Temp 106mmHg (75-108) 80mmHg (75-108) Arterial Blood HCO3 27mmol/L (21-28) 25mmol/L (21-28) Arterial Blood Base Excess -3mmol/L (-3-3) -3mmol/L (-3-3) FiO2 40 30 Laboratory Tests Test 08/01/16 21:30 08/02/16 02:30 08/02/16 05:45 08/02/16 07:40 Sodium Level 137mmol/L (136-145) 137mmol/L (136-145) Potassium Level 4.5mmol/L (3.5-5.1) 4.1mmol/L (3.5-5.1) Chloride Level 101mmol/L (98-107) 102mmol/L (98-107) Carbon Dioxide Level 28mmol/L (21-32) 29mmol/L (21-32) Anion Gap 8 (6-14) 6 (6-14) Blood Urea Nitrogen 19mg/dL (7-20) 22mg/dL (7-20) Creatinine 1.8mg/dL (0.6-1.0) 1.8mg/dL (0.6-1.0) Estimated GFR (Cockcroft-Gault) 35.1 35.1 Glucose Level 125mg/dL (70-99) 127mg/dL (70-99) Calcium Level 9.3mg/dL (8.5-10.1) 9.2mg/dL (8.5-10.1) JH-Fuy-V-Type Natriuretic Peptide 1660pg/mL (0-124) Urine Collection Type U cath Urine Color Mckenna Urine Clarity Turbid Urine pH 5.0 Urine Specific [place] 1.025 Urine Protein 100mg/dL (NEG-TRACE) Urine Glucose (UA) Negativemg/dL (NEG) Urine Ketones (Stick) Tracemg/dL (NEG) Urine Blood Large (NEG) Urine Nitrite Negative (NEG) Urine Bilirubin Moderate (NEG) Urine Urobilinogen Dipstick 1.0mg/dL (0.2 mg/dL) Urine Leukocyte Esterase Moderate (NEG) Urine RBC Occ/HPF (0-2) Urine WBC >40/HPF (0-4) Urine Squamous Epithelial Cells Occ/LPF Urine Amorphous Sediment Present/HPF Urine Bacteria Moderate/HPF (0-FEW) Urine Hyaline Casts Few/HPF Urine Mucus Slight/LPF White Blood Count 18.8x10^3/uL (4.0-11.0) Red Blood Count 2.86x10^6/uL (3.50-5.40) Hemoglobin 8.8g/dL (12.0-15.5) Hematocrit 29.2% (36.0-47.0) Mean Corpuscular Volume 102fL (79-100) Mean Corpuscular Hemoglobin 31pg (25-35) Mean Corpuscular Hemoglobin Concent 30g/dL (31-37) Red Cell Distribution Width 17.2% (11.5-14.5) Platelet Count 264x10^3/uL (140-400) Neutrophils (%) (Auto) 87% (31-73) Lymphocytes (%) (Auto) 6% (24-48) Monocytes (%) (Auto) 6% (0-9) Eosinophils (%) (Auto) 0% (0-3) Basophils (%) (Auto) 0% (0-3) Neutrophils # (Auto) 16.5x10^3uL (1.8-7.7) Lymphocytes # (Auto) 1.2x10^3/uL (1.0-4.8) Monocytes # (Auto) 1.1x10^3/uL (0.0-1.1) Eosinophils # (Auto) 0.0x10^3/uL (0.0-0.7) Basophils # (Auto) 0.1x10^3/uL (0.0-0.2) Lactic Acid Level 0.9mmol/L (0.4-2.0) Procalcitonin 0.33ng/mL (0.00-0.10) Test 08/02/16 08:00 08/02/16 11:00 O2 Saturation 98% (92-99) 95% (92-99) Arterial Blood pH 7.15 (7.35-7.45) 7.20 (7.35-7.45) Arterial Blood pCO2 at Patient Temp 80mmHg (35-46) 67mmHg (35-46) Arterial Blood pO2 at Patient Temp 106mmHg (75-108) 80mmHg (75-108) Arterial Blood HCO3 27mmol/L (21-28) 25mmol/L (21-28) Arterial Blood Base Excess -3mmol/L (-3-3) -3mmol/L (-3-3) FiO2 40 30 Medications Active Scripts Medications Dose Route/Sig Days Date Category Nephro-Arielle Tablet (Folic Acid/Vitamin B Comp W-C) 0.8 Mg Tablet 1 Tab PO DAILY 04/19/16 Reported Oxycodone Hcl 5 Mg Capsule 1 Cap PO Q4HRS PRN 04/19/16 Reported Zofran (Ondansetron Hcl) 4 Mg Tablet 1 Tab PO Q8HRS 04/19/16 Reported Albuterol Sulfate Neb Soln (Albuterol Sulfate) 2.5 Mg/3 Ml Vial.neb 1 Vial NEB PRN Q4HRS 04/19/16 Reported Tylenol (Acetaminophen) 325 Mg Tablet 650 Mg PO Q6HRS PRN 04/19/16 Reported Duoneb 0.5-3(2.5) Mg/3 Ml (Albuterol/Ipratropium) 3 Ml Ampul.neb 3 Ml NEB TID 04/19/16 Reported Spironolactone 50 Mg Tablet 1 Tab PO DAILY 04/19/16 Reported Deltasone (Prednisone) 20 Mg Tablet 10 Mg PO DAILY 04/19/16 Reported Nystatin 100,000 Unit/1 Ml Oral.susp 100,000 Unit PO QID 04/19/16 Reported Cellcept (Mycophenolate Mofetil) 500 Mg Tablet 1 Tab PO BID 04/19/16 Reported Metoprolol Tartrate 25 Mg Tablet 25 Mg PO BID 04/19/16 Reported Melatonin 3 Mg Tab.rapdis 3 Mg PO HS 04/19/16 Reported Neurontin (Gabapentin) 100 Mg Capsule 100 Mg PO TID 04/19/16 Reported Lasix (Furosemide) 40 Mg Tablet 1 Tab PO DAILY 04/19/16 Reported Folic Acid 1 Mg Tablet 1 Tab PO DAILY 04/19/16 Reported Advair 500-50 Diskus (Fluticasone/Salmeterol) 1 Each Disk.w.dev 1 Puff IH BID 04/19/16 Reported Mobic (Meloxicam) 7.5 Mg Tablet 7.5 Mg PO DAILY 04/19/16 Reported Ativan (Lorazepam) 0.5 Mg Tablet 0.5 Mg PO PRN BID PRN 04/19/16 Reported Coumadin (Warfarin Sodium) 2 Mg Tablet 1 Tab PO HS 04/19/16 Reported Senokot-S Tablet (Sennosides/Docusate Sodium) 1 Each Tablet 1 Tab PO BID PRN 04/24/15 Reported Impression . FULL NOTE DICTATED A/C HYPERCAPNIC RESP FAILURE CONTINUE BIPAP HYPOTENSION SEC TO ADRENAL INSUFFICIENCY KOFI BENNETT MD Aug 02, 2016 15:11
[2016-08-02] MEDS: HYDROCORTISONE SOD SUCC/PF 100 MG/2 ML VIAL. IV SCH ×2 (16:20→21:23)
[2016-08-02 17:44] LABS: HCO3 ABG 25 mmol/L (21-28); PO2 ABG 89 mmHg (75-108); SAT O2 ABG 96 % (92-99)
[2016-08-02 17:48] LABS: FIO2 ABG 30; PCO2 ABG 70 mmHg (35-46); PH ABG 7.17 (7.35-7.45)
[2016-08-02] MEDS: BUDESONIDE 0.5 MG/2 ML NEBU NEB SCH ×2 (19:59→20:00)
[2016-08-02] MEDS: SENNOSIDES/DOCUSATE 8.6/50MG TABLET. PO PRN (21:22)
[2016-08-02] MEDS: CEFTOLOZANE IV SCH (22:32)
[2016-08-02] MEDS: NORMAL SALINE IV SCH (22:32)
[2016-08-02] MEDS: TAZOBACTAM IV SCH (22:32)
[2016-08-03] VITALS (27 sets, daily range): BP systolic 105–149; BP diastolic 53–86
--- NOTE | 2016-08-03 01:06 | CONS ---
DATE OF CONSULTATION: 08/02/2016 ATTENDING PHYSICIAN: Dr. Elizabeth Robin. REASON FOR CONSULTATION: The patient is seen in pulmonary consultation at the request of Dr. Robin for ailra-ji-qioctud hypercapnic respiratory failure. HISTORY OF PRESENT ILLNESS: The patient is a 56-year-old female with a history of extensive wound, came in with wound check. She has some acute bleeding [facility] She was receiving heparin for DVT prophylaxis. Initially, her mental status was clear. The patient was admitted, was treated. She has some chronic pain. She has also a history of obstructive sleep apnea, normally wears CPAP at home. She then had a rapid response. Arterial blood gas initially revealed a pH of 7.15, PaCO2 of 80, pO2 of 106. The patient has been on BiPAP all day. Her repeat arterial blood gases improved, pH of 7.20, PaCO2 of 67, pO2 of 80. She is currently sleepy, but arousable. She follows commands. Her son, Alexander, works here in the operating room is a registered nurse, was reporting that her mental status has improved over the last several hours. She has been seen by Infectious Disease Service and is currently on some antibiotics. She also came in with [id number] renal failure, required dialysis. She is scheduled to undergo dialysis tomorrow. PAST MEDICAL HISTORY: Remarkable for history of: 1. History of sarcoid, on chronic prednisone use. She also has a history of cardiac sarcoid. 2. Antiphospholipid syndrome with a history of pulmonary emboli, had been on anticoagulation in the past. 3. Asthma. 4. Hypertension. 5. Morbid obesity. 6. Multiple wounds. She has had previous MSSA. 7. Secondary pulmonary hypertension. 8. Obesity hypoventilation syndrome. She had a CT of the chest on 03/03/2016, which was negative for PE. Bilateral venous Dopplers on 05/29/2015 was negative for DVT. Lower extremity Dopplers on 02/06/2016 was likewise negative. PAST SURGICAL HISTORY: 1. Status post pacemaker implantation for cardiac sarcoid. 2. PICC line. 3. GI surgery. SOCIAL HISTORY: She currently resides at senior living, is a nonsmoker. FAMILY HISTORY: Hypertension. REVIEW OF SYSTEMS: As indicated above, otherwise other systems could not be adequately reviewed. CURRENT MEDICATIONS: List was reviewed. PHYSICAL EXAMINATION: VITAL SIGNS: Since admission, she had T-max of 99.1. She has been slightly hypotensive, receiving Levophed. HEENT: Eyes, the sclerae were nonicteric. NECK: Jugular venous distention could not be assessed secondary to body habitus. CHEST: Full expansion. LUNGS: Anteriorly were clear. No wheezes. CARDIOVASCULAR: Regular rate and rhythm with S1, S2, no S3. ABDOMEN: Soft, obese. EXTREMITIES: No clubbing, cyanosis. Some edema. NEUROLOGIC: The patient was sleepy, but arousable. LABORATORY DATA: Reviewed. Arterial blood gas as indicated above. Electrolytes were noted. Platelet count was noted. INR was 1.2. BUN was elevated. Creatinine was elevated. UA was noted. Serology for hepatitis C was negative. Chest x-ray revealed some increased lung markings. IMPRESSION: 1. Llmzz-kd-mwxegom hypercapnic respiratory failure. 2. Hyperkalemia. 3. Multiple wounds. 4. Leukocytosis. 5. Morbid obesity. 6. Obstructive sleep apnea. 7. Acute metabolic encephalopathy. 8. Hypotension, suspect secondary to adrenal insufficiency. PLAN: 1. Continue current BiPAP settings. 2. Continue antibiotics per Infectious Disease. 3. Follow lab. 4. Hemodialysis per Dr. Clay. 5. Steroids for chronic sarcoid. 6. Solu-Cortef 100 IV q. 8. I do appreciate the privilege in sharing in the patient's care. KOFI BENNETT MD DR: MOISES/ronnell JOB#: [id number] / [id number]
[2016-08-03] MEDS: HYDROCORTISONE SOD SUCC/PF 100 MG/2 ML VIAL. IV SCH ×3 (05:35→22:14)
[2016-08-03] MEDS: NORMAL SALINE IV SCH ×3 (05:36→22:20)
[2016-08-03] MEDS: IV NORMAL SALINE 1000ML BAG 1,000 ML IV SCH (05:36)
[2016-08-03] MEDS: TAZOBACTAM IV SCH ×3 (05:36→22:20)
[2016-08-03] MEDS: CEFTOLOZANE IV SCH ×3 (05:36→22:20)
[2016-08-03] MEDS: HEPARIN PF for SUB-Q USE 5,000 UNIT/0.5 ML VIAL. SQ SCH ×3 (05:37→22:23)
[2016-08-03 06:39] LABS: ALBUMIN 1.6 g/dL (3.4-5.0); ALBUMIN/GLOBULIN RATIO 0.3 (1.0-1.7); CALCIUM 8.8 mg/dL (8.5-10.1); CREATININE 1.5 mg/dL (0.6-1.0); GFR 43.3; POTASSIUM 4.1 mmol/L (3.5-5.1); TOTAL BILIRUBIN 0.3 mg/dL (0.2-1.0); TOTAL PROTEIN 7.3 g/dL (6.4-8.2)
--- NOTE | 2016-08-03 06:48 | PDOC ---
Infectious Disease Note Subjective Subjective Resting on Bipap but was slert earlier ROS ROS Difficult to ascertain Vital Sign Vital Signs Vital Signs Date Time Temp Pulse Resp B/P Pulse Ox O2 Delivery O2 Flow Rate FiO2 08/03/16 05:43 97.2 63 24 113/81 100 15.0 97.2 08/03/16 04:40 BiPAP/CPAP Physical Exam PHYSICAL EXAM GENERAL: NAD on Bipap, appears comfortable HEENT: PERRL - small NECK: Supple, no JVD, no LN LUNGS: Clear HEART: S1S2, no gallop, no murmur ABD: Soft, NT, no organomegaly, no rebound, obese [place] EXT: No edema, no cyanosis RELEASE COORDINATOR: Alert, oriented x 3, no focal neurologic deficit SKIN: No rash. 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 thighs lining cleaner IV: RIJ Labs Lab Laboratory Tests Test 08/02/16 07:40 08/02/16 08:00 08/02/16 11:00 08/02/16 17:40 Lactic Acid Level 0.9mmol/L (0.4-2.0) Procalcitonin 0.33ng/mL (0.00-0.10) O2 Saturation 98% (92-99) 95% (92-99) 96% (92-99) Arterial Blood pH 7.15 (7.35-7.45) 7.20 (7.35-7.45) 7.17 (7.35-7.45) Arterial Blood pCO2 at Patient Temp 80mmHg (35-46) 67mmHg (35-46) 70mmHg (35-46) Arterial Blood pO2 at Patient Temp 106mmHg (75-108) 80mmHg (75-108) 89mmHg (75-108) Arterial Blood HCO3 27mmol/L (21-28) 25mmol/L (21-28) 25mmol/L (21-28) Arterial Blood Base Excess -3mmol/L (-3-3) -3mmol/L (-3-3) -4mmol/L (-3-3) FiO2 40 30 30 Test 08/03/16 06:10 Sodium Level 138mmol/L (136-145) Potassium Level 4.1mmol/L (3.5-5.1) Chloride Level 104mmol/L (98-107) Carbon Dioxide Level 24mmol/L (21-32) Anion Gap 10 (6-14) Blood Urea Nitrogen 27mg/dL (7-20) Creatinine 1.5mg/dL (0.6-1.0) Estimated GFR (Cockcroft-Gault) 43.3 BUN/Creatinine Ratio 18 (6-20) Glucose Level 157mg/dL (70-99) Calcium Level 8.8mg/dL (8.5-10.1) Total Bilirubin 0.3mg/dL (0.2-1.0) Aspartate Amino Transf (AST/SGOT) 17U/L (15-37) Alanine Aminotransferase (ALT/SGPT) 12U/L (14-59) Alkaline Phosphatase 64U/L (46-116) Total Protein 7.3g/dL (6.4-8.2) Albumin 1.6g/dL (3.4-5.0) Albumin/Globulin Ratio 0.3 (1.0-1.7) Objective Assessment S/p rapid response 08/02 Decreased UOP Hypotension on 7 of Levophed Leukocytosis - improved- remains AF Multiple wounds - H/o MDR PSA/MSSA Acute Encephalopathy - improved overnight - took applesauce Bleed from left thigh wound -controlled Acute Resp failure - on BiPAP ODALIS - UOP is picking up - better Plan Plan of Care Cont Zerbaxa given Leukocytosis/hypotension/h/o MDR PSA (d/w pharmacy to adjust dose) Cont micafungin/ Zyvox F/u Cults urine that was ordered. Check Blood cults as well this am F/u labs in am Critically ill RAS MERINO MD Aug 03, 2016 06:48
[2016-08-03 06:57] LABS: BASO % 0 % (0-3); EOS % 0 % (0-3); HEMATOCRIT 29.1 % (36.0-47.0); HEMOGLOBIN 8.7 g/dL (12.0-15.5); LYMPH # 0.4 x10^3/uL (1.0-4.8); LYMPH % 3 % (24-48); MEAN CORPUSCULAR HEMOGLOBIN 30 pg (25-35); MEAN CORPUSCULAR HGB CONC 30 g/dL (31-37); MEAN CORPUSCULAR VOLUME 101 fL (79-100); MONO % 1 % (0-9); NEUT % 96 % (31-73); PLATELET COUNT 242 x10^3/uL (140-400); RED BLOOD COUNT 2.88 x10^6/uL (3.50-5.40); RED CELL DISTRIBUTION WIDTH 16.4 % (11.5-14.5); WHITE BLOOD COUNT 15.3 x10^3/uL (4.0-11.0)
[2016-08-03] MEDS: BUDESONIDE 0.5 MG/2 ML NEBU NEB SCH ×2 (07:14→19:50)
[2016-08-03] MEDS: IPRATRPIUM/ALBUTEROL 0.5/2.5MG 3 ML NEBU. NEB SCH ×3 (07:14→19:51)
[2016-08-03 08:09] LABS: HCO3 ABG 23 mmol/L (21-28); PCO2 ABG 55 mmHg (35-46); PH ABG 7.23 (7.35-7.45); PO2 ABG 106 mmHg (75-108); SAT O2 ABG 98 % (92-99)
[2016-08-03 08:14] LABS: FIO2 ABG 30
[2016-08-03] MEDS ORDERED: FUROSEMIDE 100 MG/10 ML VIAL IVP ONE (08:30)
[2016-08-03] MEDS: NOREPINEPHRINE VIAL 8 MG in IV NORMAL SALINE 250ML 250 ML IV PRN (08:42)
[2016-08-03] MEDS: MYCOPHENOLATE MOFETIL 250 MG CAPSULE. PO SCH ×2 (08:43→21:03)
[2016-08-03] MEDS: MICAFUNGIN 100 MG in IV DEXTROSE 5% 100 ML IV SCH (08:43)
[2016-08-03] MEDS: METOPROLOL TART IMMED RELEASE 25 MG TABLET PO SCH ×2 (08:43→21:00)
[2016-08-03] MEDS: NYSTATIN 100,000 UNITS/ML 5 ML ORAL.SUSP. PO SCH ×5 (08:43→21:03)
[2016-08-03] MEDS: FOLIC ACID 1 MG TABLET PO SCH (08:43)
[2016-08-03] MEDS: GABAPENTIN 100 MG CAPSULE. PO SCH ×3 (08:43→21:03)
[2016-08-03] MEDS: SENNOSIDES/DOCUSATE 8.6/50MG TABLET. PO PRN (08:43)
[2016-08-03] MEDS: FOLIC/VIT B COMP W-C (RENAL) TABLET. PO SCH (08:44)
[2016-08-03] MEDS: PREDNISONE 10 MG TABLET PO SCH (09:00)
--- NOTE | 2016-08-03 10:27 | PDOC ---
PROGRESS NOTES Assessment Problems Medical Problems: (1) Bleeding from wound Status: Acute (2) Hyperkalemia Status: Acute (3) Wound, open Status: Acute Metabolic encephalopathy due to uremia, respiratory with hypercarbia. No evidence of stroke, seizure activity, or central nervous system infection. Plan No additional neurological studies needed Correction of medical problems Subjective None Objective Vital Signs Date Time Temp Pulse Resp B/P Pulse Ox O2 Delivery O2 Flow Rate FiO2 08/03/16 09:38 100 BiPAP/CPAP 08/03/16 09:00 62 26 115/53 08/03/16 07:49 15.0 08/03/16 07:00 97.6 97.6 Intake and Output 08/03/16 07:00 Intake Total 2650.61 ml Output Total 443 ml Balance 2207.61 ml Intake Oral 105 ml IV Total 2545.61 ml Output Urine Total 443 ml PHYSICAL EXAM Opens Eyes to voice, squeezes hands to command PERRL. EOMI. CN: no focal findings. Muscle tone: normal. Muscle strength: 0/5 legs, 2/5 arms DTR: 0+ Plantar reflex: flexor Gait: not examined in bed. Sensory exam: not cooperative with exam. No cerebellar signs elicited, not cooperative with exam. Review of Relevant I have reviewed the following items natacha (where applicable) has been applied. Labs Laboratory Tests Test 08/01/16 21:30 08/02/16 02:30 08/02/16 05:45 08/02/16 07:40 Sodium Level 137mmol/L (136-145) 137mmol/L (136-145) Potassium Level 4.5mmol/L (3.5-5.1) 4.1mmol/L (3.5-5.1) Chloride Level 101mmol/L (98-107) 102mmol/L (98-107) Carbon Dioxide Level 28mmol/L (21-32) 29mmol/L (21-32) Anion Gap 8 (6-14) 6 (6-14) Blood Urea Nitrogen 19mg/dL (7-20) 22mg/dL (7-20) Creatinine 1.8mg/dL (0.6-1.0) 1.8mg/dL (0.6-1.0) Estimated GFR (Cockcroft-Gault) 35.1 35.1 Glucose Level 125mg/dL (70-99) 127mg/dL (70-99) Calcium Level 9.3mg/dL (8.5-10.1) 9.2mg/dL (8.5-10.1) HN-Hgc-P-Type Natriuretic Peptide 1660pg/mL (0-124) Urine Collection Type U cath Urine Color Mckenna Urine Clarity Turbid Urine pH 5.0 Urine Specific Harrison 1.025 Urine Protein 100mg/dL (NEG-TRACE) Urine Glucose (UA) Negativemg/dL (NEG) Urine Ketones (Stick) Tracemg/dL (NEG) Urine Blood Large (NEG) Urine Nitrite Negative (NEG) Urine Bilirubin Moderate (NEG) Urine Urobilinogen Dipstick 1.0mg/dL (0.2 mg/dL) Urine Leukocyte Esterase Moderate (NEG) Urine RBC Occ/HPF (0-2) Urine WBC >40/HPF (0-4) Urine Squamous Epithelial Cells Occ/LPF Urine Amorphous Sediment Present/HPF Urine Bacteria Moderate/HPF (0-FEW) Urine Hyaline Casts Few/HPF Urine Mucus Slight/LPF White Blood Count 18.8x10^3/uL (4.0-11.0) Red Blood Count 2.86x10^6/uL (3.50-5.40) Hemoglobin 8.8g/dL (12.0-15.5) Hematocrit 29.2% (36.0-47.0) Mean Corpuscular Volume 102fL (79-100) Mean Corpuscular Hemoglobin 31pg (25-35) Mean Corpuscular Hemoglobin Concent 30g/dL (31-37) Red Cell Distribution Width 17.2% (11.5-14.5) Platelet Count 264x10^3/uL (140-400) Neutrophils (%) (Auto) 87% (31-73) Lymphocytes (%) (Auto) 6% (24-48) Monocytes (%) (Auto) 6% (0-9) Eosinophils (%) (Auto) 0% (0-3) Basophils (%) (Auto) 0% (0-3) Neutrophils # (Auto) 16.5x10^3uL (1.8-7.7) Lymphocytes # (Auto) 1.2x10^3/uL (1.0-4.8) Monocytes # (Auto) 1.1x10^3/uL (0.0-1.1) Eosinophils # (Auto) 0.0x10^3/uL (0.0-0.7) Basophils # (Auto) 0.1x10^3/uL (0.0-0.2) Lactic Acid Level 0.9mmol/L (0.4-2.0) Procalcitonin 0.33ng/mL (0.00-0.10) Test 08/02/16 08:00 08/02/16 11:00 08/02/16 17:40 08/03/16 06:10 O2 Saturation 98% (92-99) 95% (92-99) 96% (92-99) Arterial Blood pH 7.15 (7.35-7.45) 7.20 (7.35-7.45) 7.17 (7.35-7.45) Arterial Blood pCO2 at Patient Temp 80mmHg (35-46) 67mmHg (35-46) 70mmHg (35-46) Arterial Blood pO2 at Patient Temp 106mmHg (75-108) 80mmHg (75-108) 89mmHg (75-108) Arterial Blood HCO3 27mmol/L (21-28) 25mmol/L (21-28) 25mmol/L (21-28) Arterial Blood Base Excess -3mmol/L (-3-3) -3mmol/L (-3-3) -4mmol/L (-3-3) FiO2 40 30 30 White Blood Count 15.3x10^3/uL (4.0-11.0) Red Blood Count 2.88x10^6/uL (3.50-5.40) Hemoglobin 8.7g/dL (12.0-15.5) Hematocrit 29.1% (36.0-47.0) Mean Corpuscular Volume 101fL (79-100) Mean Corpuscular Hemoglobin 30pg (25-35) Mean Corpuscular Hemoglobin Concent 30g/dL (31-37) Red Cell Distribution Width 16.4% (11.5-14.5) Platelet Count 242x10^3/uL (140-400) Neutrophils (%) (Auto) 96% (31-73) Lymphocytes (%) (Auto) 3% (24-48) Monocytes (%) (Auto) 1% (0-9) Eosinophils (%) (Auto) 0% (0-3) Basophils (%) (Auto) 0% (0-3) Neutrophils # (Auto) 14.6x10^3uL (1.8-7.7) Lymphocytes # (Auto) 0.4x10^3/uL (1.0-4.8) Monocytes # (Auto) 0.2x10^3/uL (0.0-1.1) Eosinophils # (Auto) 0.0x10^3/uL (0.0-0.7) Basophils # (Auto) 0.0x10^3/uL (0.0-0.2) Sodium Level 138mmol/L (136-145) Potassium Level 4.1mmol/L (3.5-5.1) Chloride Level 104mmol/L (98-107) Carbon Dioxide Level 24mmol/L (21-32) Anion Gap 10 (6-14) Blood Urea Nitrogen 27mg/dL (7-20) Creatinine 1.5mg/dL (0.6-1.0) Estimated GFR (Cockcroft-Gault) 43.3 BUN/Creatinine Ratio 18 (6-20) Glucose Level 157mg/dL (70-99) Calcium Level 8.8mg/dL (8.5-10.1) Total Bilirubin 0.3mg/dL (0.2-1.0) Aspartate Amino Transf (AST/SGOT) 17U/L (15-37) Alanine Aminotransferase (ALT/SGPT) 12U/L (14-59) Alkaline Phosphatase 64U/L (46-116) Total Protein 7.3g/dL (6.4-8.2) Albumin 1.6g/dL (3.4-5.0) Albumin/Globulin Ratio 0.3 (1.0-1.7) Test 08/03/16 08:00 O2 Saturation 98% (92-99) Arterial Blood pH 7.23 (7.35-7.45) Arterial Blood pCO2 at Patient Temp 55mmHg (35-46) Arterial Blood pO2 at Patient Temp 106mmHg (75-108) Arterial Blood HCO3 23mmol/L (21-28) Arterial Blood Base Excess -5mmol/L (-3-3) FiO2 30 Laboratory Tests Test 08/02/16 11:00 08/02/16 17:40 08/03/16 06:10 08/03/16 08:00 O2 Saturation 95% (92-99) 96% (92-99) 98% (92-99) Arterial Blood pH 7.20 (7.35-7.45) 7.17 (7.35-7.45) 7.23 (7.35-7.45) Arterial Blood pCO2 at Patient Temp 67mmHg (35-46) 70mmHg (35-46) 55mmHg (35-46) Arterial Blood pO2 at Patient Temp 80mmHg (75-108) 89mmHg (75-108) 106mmHg (75-108) Arterial Blood HCO3 25mmol/L (21-28) 25mmol/L (21-28) 23mmol/L (21-28) Arterial Blood Base Excess -3mmol/L (-3-3) -4mmol/L (-3-3) -5mmol/L (-3-3) FiO2 30 30 30 White Blood Count 15.3x10^3/uL (4.0-11.0) Red Blood Count 2.88x10^6/uL (3.50-5.40) Hemoglobin 8.7g/dL (12.0-15.5) Hematocrit 29.1% (36.0-47.0) Mean Corpuscular Volume 101fL (79-100) Mean Corpuscular Hemoglobin 30pg (25-35) Mean Corpuscular Hemoglobin Concent 30g/dL (31-37) Red Cell Distribution Width 16.4% (11.5-14.5) Platelet Count 242x10^3/uL (140-400) Neutrophils (%) (Auto) 96% (31-73) Lymphocytes (%) (Auto) 3% (24-48) Monocytes (%) (Auto) 1% (0-9) Eosinophils (%) (Auto) 0% (0-3) Basophils (%) (Auto) 0% (0-3) Neutrophils # (Auto) 14.6x10^3uL (1.8-7.7) Lymphocytes # (Auto) 0.4x10^3/uL (1.0-4.8) Monocytes # (Auto) 0.2x10^3/uL (0.0-1.1) Eosinophils # (Auto) 0.0x10^3/uL (0.0-0.7) Basophils # (Auto) 0.0x10^3/uL (0.0-0.2) Sodium Level 138mmol/L (136-145) Potassium Level 4.1mmol/L (3.5-5.1) Chloride Level 104mmol/L (98-107) Carbon Dioxide Level 24mmol/L (21-32) Anion Gap 10 (6-14) Blood Urea Nitrogen 27mg/dL (7-20) Creatinine 1.5mg/dL (0.6-1.0) Estimated GFR (Cockcroft-Gault) 43.3 BUN/Creatinine Ratio 18 (6-20) Glucose Level 157mg/dL (70-99) Calcium Level 8.8mg/dL (8.5-10.1) Total Bilirubin 0.3mg/dL (0.2-1.0) Aspartate Amino Transf (AST/SGOT) 17U/L (15-37) Alanine Aminotransferase (ALT/SGPT) 12U/L (14-59) Alkaline Phosphatase 64U/L (46-116) Total Protein 7.3g/dL (6.4-8.2) Albumin 1.6g/dL (3.4-5.0) Albumin/Globulin Ratio 0.3 (1.0-1.7) Microbiology 08/02/16 Blood Culture - Preliminary, Resulted NO GROWTH AFTER 1 DAY Medications Current Medications Tranexamic Acid (Cyklokapron) 1,000 mg 1X ONCE TOP Last administered on 15:18; Start 07/31/16 at 14:45; Stop 07/31/16 at 14:46; Status DC Protamine Sulfate 50 mg 1X ONCE IV Last administered on 07/31/16 14:54; Start 07/31/16 at 15:15; Stop 07/31/16 at 15:16; Status DC Dextrose 25 gm 1X ONCE IV Last administered on 07/31/16 16:32; Start at 15:45; Stop 07/31/16 at 15:46; Status DC Insulin Human Regular 10 unit 10 unit 1X ONCE IV Last administered on 16:35; Start 07/31/16 at 15:45; Stop 07/31/16 at 15:46; Status DC Sodium Bicarbonate 50 meq/Dextrose 1,050 ml @ 125 mls/hr Q8H24M IV ; Start 05/07 at 15:45; Status Cancel Sodium Chloride (Iv Sodium Chloride 0.9% 500ml Bag) 500 ml @ 500 mls/hr 1X ONCE IV Last administered on 07/31/16 15:25; Start 07/31/16 at 15:30; Stop 05/07 at 16:29; Status DC Ondansetron HCl 4 mg 4 mg PRN Q8HRS PRN IV NAUSEA/VOMITING; Start 07/31/16 at 15:30; Stop 08/01/16 at 15:29; Status DC Sodium Chloride (Iv Sodium Chloride 0.9% 1000ml Bag) 1,000 ml @ 125 mls/hr Q8H IV ; Start 07/31/16 at 15:30; Stop 08/01/16 at 00:00; Status DC Acetaminophen (Tylenol) 650 mg PRN Q4HRS PRN PO FEVER; Start 07/31/16 at 15:30 ; Stop 07/31/16 at 19:08; Status DC Calcium Gluconate 1,000 mg 1X ONCE IVP Last administered on 07/31/16 16:36; Start 07/31/16 at 17:00; Stop 07/31/16 at 17:01; Status DC Sodium Bicarbonate 50 meq STK-MED ONCE .ROUTE ; Start 07/31/16 at 16:26; Stop at 16:27; Status DC Sodium Bicarbonate 50 meq 1X ONCE IV Last administered on 07/31/16 16:36; Start 07/31/16 at 17:00; Stop 07/31/16 at 17:01; Status DC Sodium Polystyrene Sulfonate 15 gm 15 gm 1X ONCE PO Last administered on 18:00; Start 07/31/16 at 18:00; Stop 07/31/16 at 18:01; Status DC Sodium Chloride 1,000 ml @ 1,000 mls/hr Q1H PRN IV hypotension; Start 07/31/16 at 18:10; Stop 08/01/16 at 00:09; Status DC Albumin Human (Albuminar) 200 ml @ 200 mls/hr 1X PRN PRN IV Hypotension; Start 07/31/16 at 18:15; Stop 08/01/16 at 00:14; Status DC Acetaminophen (Tylenol) 500 mg 1X PRN PRN PO MILD PAIN / TEMP; Start 07/31/16 at 18:15; Stop 08/01/16 at 00:30; Status DC Diphenhydramine HCl (Benadryl) 25 mg 1X PRN PRN IV ITCHING; Start 07/31/16 at 18:15; Stop 08/01/16 at 00:30; Status DC Diphenhydramine HCl (Benadryl) 25 mg 1X PRN PRN IV ITCHING; Start 07/31/16 at 18:15; Stop 08/01/16 at 00:30; Status DC Info (PHARMACY MONITORING -- do not chart) 1 each PRN DAILY PRN MC SEE COMMENTS ; Start 07/31/16 at 18:15 Heparin Sodium (Porcine) 10,000 unit STK-MED ONCE .ROUTE ; Start 07/31/16 at 18: 27; Stop 07/31/16 at 18:28; Status DC Lidocaine/Sodium Bicarbonate 20 ml 20 ml STK-MED ONCE IJ ; Start 07/31/16 at 18: 27; Stop 07/31/16 at 18:28; Status DC Heparin Sodium/ Sodium Chloride 500 ml @ As Directed STK-MED ONCE .ROUTE ; Start 07/31/16 at 18:27; Stop 07/31/16 at 18:28; Status DC Lidocaine/Sodium Bicarbonate (Buffered Lidocaine 1%) 3 ml 1X ONCE IJ Last administered on 07/31/16 19:12; Start 07/31/16 at 19:00; Stop 07/31/16 at 19:01 ; Status DC Heparin Sodium/ Sodium Chloride 60 unit 1X ONCE IV Last administered on 19:13; Start 07/31/16 at 19:00; Stop 07/31/16 at 19:01; Status DC Heparin Sodium (Porcine) 2,500 unit 1X ONCE INT CAT Last administered on 19:12; Start 07/31/16 at 19:00; Stop 07/31/16 at 19:01; Status DC Acetaminophen (Tylenol) 650 mg PRN Q6HRS PRN PO PAIN; Start 07/31/16 at 19:15 Albuterol Sulfate (Ventolin Neb Soln) 2.5 mg PRN Q4HRS PRN NEB SHORTNESS OF BREATH; Start 07/31/16 at 19:15 Folic Acid (Folic Acid) 1 mg DAILY PO Last administered on 08/03/16 08:43; Start 08/01/16 at 09:00 Vitamin B Complex/ Vitamin C (Nephro-Arielle) 1 tab DAILY PO Last administered on 08/03/16 08:44; Start 08/01/16 at 09:00 Furosemide (Lasix) 40 mg DAILY PO Last administered on 08/01/16 08:46; Start 08/01/16 at 09:00; Stop 08/02/16 at 11:29; Status DC Gabapentin (Neurontin) 100 mg TID PO Last administered on 08/03/16 08:43; Start 07/31/16 at 21:00 Albuterol/ Ipratropium (Duoneb) 3 ml TID NEB Last administered on 08/03/16 07: 14; Start 07/31/16 at 21:00 Lorazepam (Ativan) 0.5 mg PRN BID PRN PO ANXIETY / AGITATION; Start 07/31/16 at 19:15 Meloxicam (Mobic) 7.5 mg DAILY PO Last administered on 08/01/16 08:46; Start 08/01/16 at 09:00; Stop 08/01/16 at 11:25; Status DC Metoprolol Tartrate (Lopressor) 25 mg BID PO Last administered on 08/02/16 21: 22; Start 07/31/16 at 21:00 Morphine Sulfate (Ms Contin) 15 mg Q12HR PO Last administered on 08/01/16 08: 46; Start 07/31/16 at 21:00; Stop 08/01/16 at 16:46; Status DC Nystatin 5 ml QID PO Last administered on 08/03/16 08:43; Start 07/31/16 at 21 :00 Prednisone (Prednisone) 10 mg DAILY PO Last administered on 08/01/16 08:48; Start 08/01/16 at 09:00 Senna/Docusate Sodium (Senna Plus) 1 tab PRN BID PRN PO CONSTIPATION Last administered on 08/03/16 08:43; Start 07/31/16 at 19:15 Budesonide (Pulmicort) 0.5 mg RTBID NEB Last administered on 08/03/16 07:14; Start 07/31/16 at 20:00 Non-Formulary Medication 3 mg HS PO ; Start 07/31/16 at 21:00; Status UNV Mycophenolate Mofetil (Cellcept) 500 mg BID PO Last administered on 08/03/16 08:43; Start 07/31/16 at 21:00 Ondansetron HCl (Zofran Odt) 4 mg Q8HRS PO ; Start 07/31/16 at 22:00; Status Cancel Oxycodone HCl (Roxicodone) 5 mg PRN Q4HRS PRN PO PAIN Last administered on 08/01 14:11; Start 07/31/16 at 19:30 Spironolactone 50 mg 50 mg DAILY PO Last administered on 08/01/16 08:46; Start 08/01/16 at 09:00; Stop 08/01/16 at 11:25; Status DC Meropenem 500 mg/ Sodium Chloride 50 ml @ 100 mls/hr Q24H IV Last administered on 08/01/16 05:17; Start 08/01/16 at 06:00; Stop 08/02/16 at 07:03 ; Status DC Linezolid 300 ml @ 300 mls/hr Q12HR IV Last administered on 08/03/16 08:42; Start 08/01/16 at 09:00 Sodium Chloride (Iv Sodium Chloride 0.9% 1000ml Bag) 1,000 ml @ 70 mls/hr [id number] IV Last administered on 08/02/16 02:11; Start 08/01/16 at 00:00; Stop 08/02/16 at 14:14; Status DC Fentanyl Citrate (Fentanyl 2ml Vial) 50 mcg PRN Q2HR PRN IV PAIN Last administered on 08/01/16 08:12; Start 08/01/16 at 02:45 Heparin Sodium (Porcine) 5,000 unit Q8HRS SQ Last administered on 08/03/16 05: 37; Start 08/01/16 at 22:00 Furosemide (Lasix) 80 mg 1X ONCE IVP ; Start 08/01/16 at 22:45; Stop 08/02/16 at 00:56; Status DC Naloxone HCl 0.4 mg 0.4 mg 1X ONCE IV Last administered on 08/01/16 23:00; Start 08/01/16 at 23:00; Stop 08/01/16 at 23:01; Status DC Sodium Chloride 250 ml @ 250 mls/hr 1X ONCE IV Last administered on 23:11; Start 08/01/16 at 23:15; Stop 08/02/16 at 00:14; Status DC Norepinephrine Bitartrate 8 mg/ Sodium Chloride 258 ml @ 0 mls/hr CONT PRN IV SEE I/O RECORD Last administered on 08/03/16 08:42; Start 08/02/16 at 00:00 Sodium Chloride 1,000 ml @ 75 mls/hr [id number] IV Last administered on 05:36; Start 08/02/16 at 03:45 Micafungin Sodium 100 mg/Dextrose 100 ml @ 100 mls/hr Q24H IV Last administered on 08/03/16 08:43; Start 08/02/16 at 08:00 Ceftolozane/ Tazobactam 1500 mg/Sodium Chloride 100 ml @ 100 mls/hr Q8HRS IV Last administered on 08/02/16 10:41; Start 08/02/16 at 08:00; Stop 08/02/16 at 14:02; Status DC Ceftolozane/ Tazobactam/Sodium Chloride (Zerbaxa/Iv Sodium Chloride 0.9% 100ml) 100 ml @ 100 mls/hr Q8HRS IV Last administered on 08/03/16 05:36; Start 08/02 at 22:00 Hydrocortisone Sodium Succinate (Solu-Cortef) 100 mg Q8HRS IV Last administered on 08/03/16 05:35; Start 08/02/16 at 16:00 Furosemide (Lasix) 60 mg 1X ONCE IVP Last administered on 08/03/16 08:41; Start 08/03/16 at 08:30; Stop 08/03/16 at 08:33; Status DC Active Scripts Active Reported Nephro-Arielle Tablet (Folic Acid/Vitamin B Comp W-C) 0.8 Mg Tablet 1 Tab PO DAILY Oxycodone Hcl 5 Mg Capsule 1 Cap PO Q4HRS PRN Zofran (Ondansetron Hcl) 4 Mg Tablet 1 Tab PO Q8HRS Albuterol Sulfate Neb Soln (Albuterol Sulfate) 2.5 Mg/3 Ml Vial.neb 1 Vial NEB PRN Q4HRS Tylenol (Acetaminophen) 325 Mg Tablet 650 Mg PO Q6HRS PRN Duoneb 0.5-3(2.5) Mg/3 Ml (Albuterol/Ipratropium) 3 Ml Ampul.neb 3 Ml NEB TID Spironolactone 50 Mg Tablet 1 Tab PO DAILY Deltasone (Prednisone) 20 Mg Tablet 10 Mg PO DAILY Nystatin 100,000 Unit/1 Ml Oral.susp 100,000 Unit PO QID Cellcept (Mycophenolate Mofetil) 500 Mg Tablet 1 Tab PO BID Metoprolol Tartrate 25 Mg Tablet 25 Mg PO BID Melatonin 3 Mg Tab.rapdis 3 Mg PO HS Neurontin (Gabapentin) 100 Mg Capsule 100 Mg PO TID Lasix (Furosemide) 40 Mg Tablet 1 Tab PO DAILY Folic Acid 1 Mg Tablet 1 Tab PO DAILY Advair 500-50 Diskus (Fluticasone/Salmeterol) 1 Each Disk.w.dev 1 Puff IH BID Mobic (Meloxicam) 7.5 Mg Tablet 7.5 Mg PO DAILY Ativan (Lorazepam) 0.5 Mg Tablet 0.5 Mg PO PRN BID PRN Coumadin (Warfarin Sodium) 2 Mg Tablet 1 Tab PO HS Senokot-S Tablet (Sennosides/Docusate Sodium) 1 Each Tablet 1 Tab PO BID PRN Vitals/I & O Vital Sign - Last 24 Hours 08/02/16 08/02/16 08/02/16 08/02/16 11:00 11:00 12:00 12:00 Temp 97.5 97.5 Pulse 60 60 Resp 20 24 B/P 95/48 92/49 Pulse Ox 100 99 99 O2 Delivery BiPAP/CPAP BiPAP/CPAP BiPAP/CPAP Bi-pap 08/02/16 08/02/16 08/02/16 08/02/16 12:38 13:00 13:31 15:24 Temp 98.0 98.0 Pulse 100 60 Resp 24 24 B/P 93/50 Pulse Ox 93 100 100 100 O2 Delivery BiPAP/CPAP BiPAP/CPAP BiPAP/CPAP 08/02/16 08/02/16 08/02/16 08/02/16 15:35 16:00 16:00 17:00 Temp 97.8 97.8 97.8 97.8 Pulse 62 66 65 Resp 20 24 B/P 102/43 107/50 Pulse Ox 99 100 100 O2 Delivery BiPAP/CPAP Bi-pap BiPAP/CPAP 08/02/16 08/02/16 08/02/16 08/02/16 17:17 19:57 20:00 20:00 Temp 97.7 97.7 Pulse 66 Resp 26 B/P 118/58 Pulse Ox 100 100 100 O2 Delivery BiPAP/CPAP BiPAP/CPAP Bi-pap O2 Flow Rate 15.0 15.0 08/02/16 08/02/16 08/02/16 08/02/16 20:00 20:39 21:22 22:00 Temp 97.7 97.7 97.7 97.7 Pulse 66 66 70 Resp 24 B/P 125/62 125/62 135/73 Pulse Ox 100 100 O2 Flow Rate 15.0 15.0 15.0 08/02/16 08/02/16 08/03/16 08/03/16 23:03 23:22 00:00 00:00 Temp 97.7 97.7 Pulse 67 Resp 24 B/P 119/57 Pulse Ox 100 100 O2 Delivery BiPAP/CPAP Bi-pap O2 Flow Rate 15.0 15.0 15.0 08/03/16 08/03/16 08/03/16 08/03/16 00:01 00:50 01:35 03:00 Temp 97.6 97.6 97.6 97.6 97.6 97.6 Pulse 66 67 65 Resp 24 24 B/P 124/68 119/57 115/59 Pulse Ox 100 100 100 100 O2 Delivery BiPAP/CPAP BiPAP/CPAP BiPAP/CPAP O2 Flow Rate 15.0 15.0 15.0 08/03/16 08/03/16 08/03/16 08/03/16 03:04 04:00 04:00 04:00 Temp 97.8 97.8 Pulse 62 Resp 20 B/P 119/58 Pulse Ox 100 100 O2 Delivery BiPAP/CPAP Bi-pap O2 Flow Rate 15.0 15.0 15.0 3/08/03/16 08/03/16 08/03/16 04:40 05:00 05:43 07:00 Temp 97.8 97.2 97.6 97.8 97.2 97.6 Pulse 60 63 60 Resp 24 24 24 B/P 118/64 113/81 105/86 Pulse Ox 100 100 100 100 O2 Delivery BiPAP/CPAP O2 Flow Rate 15.0 15.0 08/03/16 08/03/16 08/03/16 08/03/16 07:14 07:49 08:00 08:00 Pulse 60 Resp 24 B/P 128/71 Pulse Ox 100 100 O2 Delivery BiPAP/CPAP Bi-pap O2 Flow Rate 15.0 08/03/16 08/03/16 09:00 09:38 Pulse 62 Resp 26 B/P 115/53 Pulse Ox 100 100 O2 Delivery BiPAP/CPAP Intake and Output 08/02/16 08/02/16 08/03/16 15:00 23:00 07:00 Intake Total 500 ml 747.61 ml 1403 ml Output Total 43 ml 50 ml 350 ml Balance 457 ml 697.61 ml 1053 ml ELSA KHOURY MD Aug 03, 2016 10:27
--- NOTE | 2016-08-03 10:45 | PDOC ---
SURGICAL PROGRESS NOTE Subjective on BIPAP Vital Signs Vital Signs Date Time Temp Pulse Resp B/P Pulse Ox O2 Delivery O2 Flow Rate FiO2 08/03/16 09:38 100 BiPAP/CPAP 08/03/16 09:00 62 26 115/53 08/03/16 07:49 15.0 08/03/16 07:00 97.6 97.6 I&O Intake and Output 08/03/16 07:00 Intake Total 2650.61 ml Output Total 443 ml Balance 2207.61 ml Intake Oral 105 ml IV Total 2545.61 ml Output Urine Total 443 ml PATIENT HAS A RODRIGUEZ: Yes Skin: Other (dressings intact on bilateral thighs, lower extremities) Labs Laboratory Tests Test 08/01/16 21:30 08/02/16 02:30 08/02/16 05:45 08/02/16 07:40 Sodium Level 137mmol/L (136-145) 137mmol/L (136-145) Potassium Level 4.5mmol/L (3.5-5.1) 4.1mmol/L (3.5-5.1) Chloride Level 101mmol/L (98-107) 102mmol/L (98-107) Carbon Dioxide Level 28mmol/L (21-32) 29mmol/L (21-32) Anion Gap 8 (6-14) 6 (6-14) Blood Urea Nitrogen 19mg/dL (7-20) 22mg/dL (7-20) Creatinine 1.8mg/dL (0.6-1.0) 1.8mg/dL (0.6-1.0) Estimated GFR (Cockcroft-Gault) 35.1 35.1 Glucose Level 125mg/dL (70-99) 127mg/dL (70-99) Calcium Level 9.3mg/dL (8.5-10.1) 9.2mg/dL (8.5-10.1) HU-Lpf-A-Type Natriuretic Peptide 1660pg/mL (0-124) Urine Collection Type U cath Urine Color Mckenna Urine Clarity Turbid Urine pH 5.0 Urine Specific [place]wick 1.025 Urine Protein 100mg/dL (NEG-TRACE) Urine Glucose (UA) Negativemg/dL (NEG) Urine Ketones (Stick) Tracemg/dL (NEG) Urine Blood Large (NEG) Urine Nitrite Negative (NEG) Urine Bilirubin Moderate (NEG) Urine Urobilinogen Dipstick 1.0mg/dL (0.2 mg/dL) Urine Leukocyte Esterase Moderate (NEG) Urine RBC Occ/HPF (0-2) Urine WBC >40/HPF (0-4) Urine Squamous Epithelial Cells Occ/LPF Urine Amorphous Sediment Present/HPF Urine Bacteria Moderate/HPF (0-FEW) Urine Hyaline Casts Few/HPF Urine Mucus Slight/LPF White Blood Count 18.8x10^3/uL (4.0-11.0) Red Blood Count 2.86x10^6/uL (3.50-5.40) Hemoglobin 8.8g/dL (12.0-15.5) Hematocrit 29.2% (36.0-47.0) Mean Corpuscular Volume 102fL (79-100) Mean Corpuscular Hemoglobin 31pg (25-35) Mean Corpuscular Hemoglobin Concent 30g/dL (31-37) Red Cell Distribution Width 17.2% (11.5-14.5) Platelet Count 264x10^3/uL (140-400) Neutrophils (%) (Auto) 87% (31-73) Lymphocytes (%) (Auto) 6% (24-48) Monocytes (%) (Auto) 6% (0-9) Eosinophils (%) (Auto) 0% (0-3) Basophils (%) (Auto) 0% (0-3) Neutrophils # (Auto) 16.5x10^3uL (1.8-7.7) Lymphocytes # (Auto) 1.2x10^3/uL (1.0-4.8) Monocytes # (Auto) 1.1x10^3/uL (0.0-1.1) Eosinophils # (Auto) 0.0x10^3/uL (0.0-0.7) Basophils # (Auto) 0.1x10^3/uL (0.0-0.2) Lactic Acid Level 0.9mmol/L (0.4-2.0) Procalcitonin 0.33ng/mL (0.00-0.10) Test 08/02/16 08:00 08/02/16 11:00 08/02/16 17:40 08/03/16 06:10 O2 Saturation 98% (92-99) 95% (92-99) 96% (92-99) Arterial Blood pH 7.15 (7.35-7.45) 7.20 (7.35-7.45) 7.17 (7.35-7.45) Arterial Blood pCO2 at Patient Temp 80mmHg (35-46) 67mmHg (35-46) 70mmHg (35-46) Arterial Blood pO2 at Patient Temp 106mmHg (75-108) 80mmHg (75-108) 89mmHg (75-108) Arterial Blood HCO3 27mmol/L (21-28) 25mmol/L (21-28) 25mmol/L (21-28) Arterial Blood Base Excess -3mmol/L (-3-3) -3mmol/L (-3-3) -4mmol/L (-3-3) FiO2 40 30 30 White Blood Count 15.3x10^3/uL (4.0-11.0) Red Blood Count 2.88x10^6/uL (3.50-5.40) Hemoglobin 8.7g/dL (12.0-15.5) Hematocrit 29.1% (36.0-47.0) Mean Corpuscular Volume 101fL (79-100) Mean Corpuscular Hemoglobin 30pg (25-35) Mean Corpuscular Hemoglobin Concent 30g/dL (31-37) Red Cell Distribution Width 16.4% (11.5-14.5) Platelet Count 242x10^3/uL (140-400) Neutrophils (%) (Auto) 96% (31-73) Lymphocytes (%) (Auto) 3% (24-48) Monocytes (%) (Auto) 1% (0-9) Eosinophils (%) (Auto) 0% (0-3) Basophils (%) (Auto) 0% (0-3) Neutrophils # (Auto) 14.6x10^3uL (1.8-7.7) Lymphocytes # (Auto) 0.4x10^3/uL (1.0-4.8) Monocytes # (Auto) 0.2x10^3/uL (0.0-1.1) Eosinophils # (Auto) 0.0x10^3/uL (0.0-0.7) Basophils # (Auto) 0.0x10^3/uL (0.0-0.2) Sodium Level 138mmol/L (136-145) Potassium Level 4.1mmol/L (3.5-5.1) Chloride Level 104mmol/L (98-107) Carbon Dioxide Level 24mmol/L (21-32) Anion Gap 10 (6-14) Blood Urea Nitrogen 27mg/dL (7-20) Creatinine 1.5mg/dL (0.6-1.0) Estimated GFR (Cockcroft-Gault) 43.3 BUN/Creatinine Ratio 18 (6-20) Glucose Level 157mg/dL (70-99) Calcium Level 8.8mg/dL (8.5-10.1) Total Bilirubin 0.3mg/dL (0.2-1.0) Aspartate Amino Transf (AST/SGOT) 17U/L (15-37) Alanine Aminotransferase (ALT/SGPT) 12U/L (14-59) Alkaline Phosphatase 64U/L (46-116) Total Protein 7.3g/dL (6.4-8.2) Albumin 1.6g/dL (3.4-5.0) Albumin/Globulin Ratio 0.3 (1.0-1.7) Test 08/03/16 08:00 O2 Saturation 98% (92-99) Arterial Blood pH 7.23 (7.35-7.45) Arterial Blood pCO2 at Patient Temp 55mmHg (35-46) Arterial Blood pO2 at Patient Temp 106mmHg (75-108) Arterial Blood HCO3 23mmol/L (21-28) Arterial Blood Base Excess -5mmol/L (-3-3) FiO2 30 Laboratory Tests Test 08/02/16 11:00 08/02/16 17:40 08/03/16 06:10 08/03/16 08:00 O2 Saturation 95% (92-99) 96% (92-99) 98% (92-99) Arterial Blood pH 7.20 (7.35-7.45) 7.17 (7.35-7.45) 7.23 (7.35-7.45) Arterial Blood pCO2 at Patient Temp 67mmHg (35-46) 70mmHg (35-46) 55mmHg (35-46) Arterial Blood pO2 at Patient Temp 80mmHg (75-108) 89mmHg (75-108) 106mmHg (75-108) Arterial Blood HCO3 25mmol/L (21-28) 25mmol/L (21-28) 23mmol/L (21-28) Arterial Blood Base Excess -3mmol/L (-3-3) -4mmol/L (-3-3) -5mmol/L (-3-3) FiO2 30 30 30 White Blood Count 15.3x10^3/uL (4.0-11.0) Red Blood Count 2.88x10^6/uL (3.50-5.40) Hemoglobin 8.7g/dL (12.0-15.5) Hematocrit 29.1% (36.0-47.0) Mean Corpuscular Volume 101fL (79-100) Mean Corpuscular Hemoglobin 30pg (25-35) Mean Corpuscular Hemoglobin Concent 30g/dL (31-37) Red Cell Distribution Width 16.4% (11.5-14.5) Platelet Count 242x10^3/uL (140-400) Neutrophils (%) (Auto) 96% (31-73) Lymphocytes (%) (Auto) 3% (24-48) Monocytes (%) (Auto) 1% (0-9) Eosinophils (%) (Auto) 0% (0-3) Basophils (%) (Auto) 0% (0-3) Neutrophils # (Auto) 14.6x10^3uL (1.8-7.7) Lymphocytes # (Auto) 0.4x10^3/uL (1.0-4.8) Monocytes # (Auto) 0.2x10^3/uL (0.0-1.1) Eosinophils # (Auto) 0.0x10^3/uL (0.0-0.7) Basophils # (Auto) 0.0x10^3/uL (0.0-0.2) Sodium Level 138mmol/L (136-145) Potassium Level 4.1mmol/L (3.5-5.1) Chloride Level 104mmol/L (98-107) Carbon Dioxide Level 24mmol/L (21-32) Anion Gap 10 (6-14) Blood Urea Nitrogen 27mg/dL (7-20) Creatinine 1.5mg/dL (0.6-1.0) Estimated GFR (Cockcroft-Gault) 43.3 BUN/Creatinine Ratio 18 (6-20) Glucose Level 157mg/dL (70-99) Calcium Level 8.8mg/dL (8.5-10.1) Total Bilirubin 0.3mg/dL (0.2-1.0) Aspartate Amino Transf (AST/SGOT) 17U/L (15-37) Alanine Aminotransferase (ALT/SGPT) 12U/L (14-59) Alkaline Phosphatase 64U/L (46-116) Total Protein 7.3g/dL (6.4-8.2) Albumin 1.6g/dL (3.4-5.0) Albumin/Globulin Ratio 0.3 (1.0-1.7) Problem List Problems Medical Problems: (1) Bleeding from wound Status: Acute (2) Hyperkalemia Status: Acute (3) Wound, open Status: Acute Assessment/Plan multiple leg wounds morbid obesity resp failure on BIPAP hypotension, on some pressor support no new surgical recs don't feel benefits of debridement under anesthesia outweigh risks associated with same Problems: ANITA NARANJO MD Aug 03, 2016 10:45
--- NOTE | 2016-08-03 10:55 | PDOC ---
Renal-Progress Notes Subjective Notes Notes CONFUSED ON BIPAP History of Present Illness Hx of present illness NO CHANGE Vitals Vitals Vital Signs Date Time Temp Pulse Resp B/P Pulse Ox O2 Delivery O2 Flow Rate FiO2 08/03/16 09:38 100 BiPAP/CPAP 08/03/16 09:00 62 26 115/53 08/03/16 07:49 15.0 08/03/16 07:00 97.6 97.6 Weight Weight [ ] I.O. Intake and Output Intake and Output 08/03/16 07:00 Intake Total 2650.61 ml Output Total 443 ml Balance 2207.61 ml Intake Oral 105 ml IV Total 2545.61 ml Output Urine Total 443 ml Labs Labs Laboratory Tests Test 08/02/16 11:00 08/02/16 17:40 08/03/16 06:10 08/03/16 08:00 O2 Saturation 95% (92-99) 96% (92-99) 98% (92-99) Arterial Blood pH 7.20 (7.35-7.45) 7.17 (7.35-7.45) 7.23 (7.35-7.45) Arterial Blood pCO2 at Patient Temp 67mmHg (35-46) 70mmHg (35-46) 55mmHg (35-46) Arterial Blood pO2 at Patient Temp 80mmHg (75-108) 89mmHg (75-108) 106mmHg (75-108) Arterial Blood HCO3 25mmol/L (21-28) 25mmol/L (21-28) 23mmol/L (21-28) Arterial Blood Base Excess -3mmol/L (-3-3) -4mmol/L (-3-3) -5mmol/L (-3-3) FiO2 30 30 30 White Blood Count 15.3x10^3/uL (4.0-11.0) Red Blood Count 2.88x10^6/uL (3.50-5.40) Hemoglobin 8.7g/dL (12.0-15.5) Hematocrit 29.1% (36.0-47.0) Mean Corpuscular Volume 101fL (79-100) Mean Corpuscular Hemoglobin 30pg (25-35) Mean Corpuscular Hemoglobin Concent 30g/dL (31-37) Red Cell Distribution Width 16.4% (11.5-14.5) Platelet Count 242x10^3/uL (140-400) Neutrophils (%) (Auto) 96% (31-73) Lymphocytes (%) (Auto) 3% (24-48) Monocytes (%) (Auto) 1% (0-9) Eosinophils (%) (Auto) 0% (0-3) Basophils (%) (Auto) 0% (0-3) Neutrophils # (Auto) 14.6x10^3uL (1.8-7.7) Lymphocytes # (Auto) 0.4x10^3/uL (1.0-4.8) Monocytes # (Auto) 0.2x10^3/uL (0.0-1.1) Eosinophils # (Auto) 0.0x10^3/uL (0.0-0.7) Basophils # (Auto) 0.0x10^3/uL (0.0-0.2) Sodium Level 138mmol/L (136-145) Potassium Level 4.1mmol/L (3.5-5.1) Chloride Level 104mmol/L (98-107) Carbon Dioxide Level 24mmol/L (21-32) Anion Gap 10 (6-14) Blood Urea Nitrogen 27mg/dL (7-20) Creatinine 1.5mg/dL (0.6-1.0) Estimated GFR (Cockcroft-Gault) 43.3 BUN/Creatinine Ratio 18 (6-20) Glucose Level 157mg/dL (70-99) Calcium Level 8.8mg/dL (8.5-10.1) Total Bilirubin 0.3mg/dL (0.2-1.0) Aspartate Amino Transf (AST/SGOT) 17U/L (15-37) Alanine Aminotransferase (ALT/SGPT) 12U/L (14-59) Alkaline Phosphatase 64U/L (46-116) Total Protein 7.3g/dL (6.4-8.2) Albumin 1.6g/dL (3.4-5.0) Albumin/Globulin Ratio 0.3 (1.0-1.7) Micro Micro Microbiology 08/02/16 Blood Culture - Preliminary, Resulted NO GROWTH AFTER 1 DAY Review of Systems Constitutional: yes: no symptom reported Physical Exam General Appearance: no apparent distress Skin: warm Respiratory: decreased breath sounds Heart: S1S2, RRR Abdomen: soft, bowel sounds present Extremities: pulses present Neurology: alert Musculoskeletal: Other ( bilateral hip avascular necrosis) Assessment Assessment IMP ODALIS-IMPROVED HYPERKALEMIA-RESOLVED MORBID OBESITY LEUCOCYTOSIS MULTIPLE WOUNDS ENCEPHALOPATHY RESP ACIDOSIS FROM HYPERCARBIA-BETTER PLAN HOLD HD FOR NOW CONT TO HOLD HER ALDACTONE, MOBIC FOR NOW LABS IN AM ANTIBIOTICS PPN TILL EATING BETTER UPDATED SON CATARINO LOREDO MD Aug 03, 2016 10:55
--- NOTE | 2016-08-03 10:56 | PDOC ---
PULMONARY PROGRESS NOTES Subjective pt off bipap confused Vitals Vital Signs Date Time Temp Pulse Resp B/P Pulse Ox O2 Delivery O2 Flow Rate FiO2 08/03/16 09:38 100 BiPAP/CPAP 08/03/16 09:00 62 26 115/53 08/03/16 07:49 15.0 08/03/16 07:00 97.6 97.6 ROS: No Nausea, No Chest Pain, No Abdominal Pain General: Alert Lungs: Clear Cardiovascular: S1, S2 Abdomen: Soft, Non-tender Neuro Exam: Alert Extremities: Other (edema) Skin: Warm Labs Laboratory Tests Test 08/01/16 21:30 08/02/16 02:30 08/02/16 05:45 08/02/16 07:40 Sodium Level 137mmol/L (136-145) 137mmol/L (136-145) Potassium Level 4.5mmol/L (3.5-5.1) 4.1mmol/L (3.5-5.1) Chloride Level 101mmol/L (98-107) 102mmol/L (98-107) Carbon Dioxide Level 28mmol/L (21-32) 29mmol/L (21-32) Anion Gap 8 (6-14) 6 (6-14) Blood Urea Nitrogen 19mg/dL (7-20) 22mg/dL (7-20) Creatinine 1.8mg/dL (0.6-1.0) 1.8mg/dL (0.6-1.0) Estimated GFR (Cockcroft-Gault) 35.1 35.1 Glucose Level 125mg/dL (70-99) 127mg/dL (70-99) Calcium Level 9.3mg/dL (8.5-10.1) 9.2mg/dL (8.5-10.1) AN-Nbt-D-Type Natriuretic Peptide 1660pg/mL (0-124) Urine Collection Type U cath Urine Color Mckenna Urine Clarity Turbid Urine pH 5.0 Urine Specific [place] 1.025 Urine Protein 100mg/dL (NEG-TRACE) Urine Glucose (UA) Negativemg/dL (NEG) Urine Ketones (Stick) Tracemg/dL (NEG) Urine Blood Large (NEG) Urine Nitrite Negative (NEG) Urine Bilirubin Moderate (NEG) Urine Urobilinogen Dipstick 1.0mg/dL (0.2 mg/dL) Urine Leukocyte Esterase Moderate (NEG) Urine RBC Occ/HPF (0-2) Urine WBC >40/HPF (0-4) Urine Squamous Epithelial Cells Occ/LPF Urine Amorphous Sediment Present/HPF Urine Bacteria Moderate/HPF (0-FEW) Urine Hyaline Casts Few/HPF Urine Mucus Slight/LPF White Blood Count 18.8x10^3/uL (4.0-11.0) Red Blood Count 2.86x10^6/uL (3.50-5.40) Hemoglobin 8.8g/dL (12.0-15.5) Hematocrit 29.2% (36.0-47.0) Mean Corpuscular Volume 102fL (79-100) Mean Corpuscular Hemoglobin 31pg (25-35) Mean Corpuscular Hemoglobin Concent 30g/dL (31-37) Red Cell Distribution Width 17.2% (11.5-14.5) Platelet Count 264x10^3/uL (140-400) Neutrophils (%) (Auto) 87% (31-73) Lymphocytes (%) (Auto) 6% (24-48) Monocytes (%) (Auto) 6% (0-9) Eosinophils (%) (Auto) 0% (0-3) Basophils (%) (Auto) 0% (0-3) Neutrophils # (Auto) 16.5x10^3uL (1.8-7.7) Lymphocytes # (Auto) 1.2x10^3/uL (1.0-4.8) Monocytes # (Auto) 1.1x10^3/uL (0.0-1.1) Eosinophils # (Auto) 0.0x10^3/uL (0.0-0.7) Basophils # (Auto) 0.1x10^3/uL (0.0-0.2) Lactic Acid Level 0.9mmol/L (0.4-2.0) Procalcitonin 0.33ng/mL (0.00-0.10) Test 08/02/16 08:00 08/02/16 11:00 08/02/16 17:40 08/03/16 06:10 O2 Saturation 98% (92-99) 95% (92-99) 96% (92-99) Arterial Blood pH 7.15 (7.35-7.45) 7.20 (7.35-7.45) 7.17 (7.35-7.45) Arterial Blood pCO2 at Patient Temp 80mmHg (35-46) 67mmHg (35-46) 70mmHg (35-46) Arterial Blood pO2 at Patient Temp 106mmHg (75-108) 80mmHg (75-108) 89mmHg (75-108) Arterial Blood HCO3 27mmol/L (21-28) 25mmol/L (21-28) 25mmol/L (21-28) Arterial Blood Base Excess -3mmol/L (-3-3) -3mmol/L (-3-3) -4mmol/L (-3-3) FiO2 40 30 30 White Blood Count 15.3x10^3/uL (4.0-11.0) Red Blood Count 2.88x10^6/uL (3.50-5.40) Hemoglobin 8.7g/dL (12.0-15.5) Hematocrit 29.1% (36.0-47.0) Mean Corpuscular Volume 101fL (79-100) Mean Corpuscular Hemoglobin 30pg (25-35) Mean Corpuscular Hemoglobin Concent 30g/dL (31-37) Red Cell Distribution Width 16.4% (11.5-14.5) Platelet Count 242x10^3/uL (140-400) Neutrophils (%) (Auto) 96% (31-73) Lymphocytes (%) (Auto) 3% (24-48) Monocytes (%) (Auto) 1% (0-9) Eosinophils (%) (Auto) 0% (0-3) Basophils (%) (Auto) 0% (0-3) Neutrophils # (Auto) 14.6x10^3uL (1.8-7.7) Lymphocytes # (Auto) 0.4x10^3/uL (1.0-4.8) Monocytes # (Auto) 0.2x10^3/uL (0.0-1.1) Eosinophils # (Auto) 0.0x10^3/uL (0.0-0.7) Basophils # (Auto) 0.0x10^3/uL (0.0-0.2) Sodium Level 138mmol/L (136-145) Potassium Level 4.1mmol/L (3.5-5.1) Chloride Level 104mmol/L (98-107) Carbon Dioxide Level 24mmol/L (21-32) Anion Gap 10 (6-14) Blood Urea Nitrogen 27mg/dL (7-20) Creatinine 1.5mg/dL (0.6-1.0) Estimated GFR (Cockcroft-Gault) 43.3 BUN/Creatinine Ratio 18 (6-20) Glucose Level 157mg/dL (70-99) Calcium Level 8.8mg/dL (8.5-10.1) Total Bilirubin 0.3mg/dL (0.2-1.0) Aspartate Amino Transf (AST/SGOT) 17U/L (15-37) Alanine Aminotransferase (ALT/SGPT) 12U/L (14-59) Alkaline Phosphatase 64U/L (46-116) Total Protein 7.3g/dL (6.4-8.2) Albumin 1.6g/dL (3.4-5.0) Albumin/Globulin Ratio 0.3 (1.0-1.7) Test 08/03/16 08:00 O2 Saturation 98% (92-99) Arterial Blood pH 7.23 (7.35-7.45) Arterial Blood pCO2 at Patient Temp 55mmHg (35-46) Arterial Blood pO2 at Patient Temp 106mmHg (75-108) Arterial Blood HCO3 23mmol/L (21-28) Arterial Blood Base Excess -5mmol/L (-3-3) FiO2 30 Laboratory Tests Test 08/02/16 11:00 08/02/16 17:40 08/03/16 06:10 08/03/16 08:00 O2 Saturation 95% (92-99) 96% (92-99) 98% (92-99) Arterial Blood pH 7.20 (7.35-7.45) 7.17 (7.35-7.45) 7.23 (7.35-7.45) Arterial Blood pCO2 at Patient Temp 67mmHg (35-46) 70mmHg (35-46) 55mmHg (35-46) Arterial Blood pO2 at Patient Temp 80mmHg (75-108) 89mmHg (75-108) 106mmHg (75-108) Arterial Blood HCO3 25mmol/L (21-28) 25mmol/L (21-28) 23mmol/L (21-28) Arterial Blood Base Excess -3mmol/L (-3-3) -4mmol/L (-3-3) -5mmol/L (-3-3) FiO2 30 30 30 White Blood Count 15.3x10^3/uL (4.0-11.0) Red Blood Count 2.88x10^6/uL (3.50-5.40) Hemoglobin 8.7g/dL (12.0-15.5) Hematocrit 29.1% (36.0-47.0) Mean Corpuscular Volume 101fL (79-100) Mean Corpuscular Hemoglobin 30pg (25-35) Mean Corpuscular Hemoglobin Concent 30g/dL (31-37) Red Cell Distribution Width 16.4% (11.5-14.5) Platelet Count 242x10^3/uL (140-400) Neutrophils (%) (Auto) 96% (31-73) Lymphocytes (%) (Auto) 3% (24-48) Monocytes (%) (Auto) 1% (0-9) Eosinophils (%) (Auto) 0% (0-3) Basophils (%) (Auto) 0% (0-3) Neutrophils # (Auto) 14.6x10^3uL (1.8-7.7) Lymphocytes # (Auto) 0.4x10^3/uL (1.0-4.8) Monocytes # (Auto) 0.2x10^3/uL (0.0-1.1) Eosinophils # (Auto) 0.0x10^3/uL (0.0-0.7) Basophils # (Auto) 0.0x10^3/uL (0.0-0.2) Sodium Level 138mmol/L (136-145) Potassium Level 4.1mmol/L (3.5-5.1) Chloride Level 104mmol/L (98-107) Carbon Dioxide Level 24mmol/L (21-32) Anion Gap 10 (6-14) Blood Urea Nitrogen 27mg/dL (7-20) Creatinine 1.5mg/dL (0.6-1.0) Estimated GFR (Cockcroft-Gault) 43.3 BUN/Creatinine Ratio 18 (6-20) Glucose Level 157mg/dL (70-99) Calcium Level 8.8mg/dL (8.5-10.1) Total Bilirubin 0.3mg/dL (0.2-1.0) Aspartate Amino Transf (AST/SGOT) 17U/L (15-37) Alanine Aminotransferase (ALT/SGPT) 12U/L (14-59) Alkaline Phosphatase 64U/L (46-116) Total Protein 7.3g/dL (6.4-8.2) Albumin 1.6g/dL (3.4-5.0) Albumin/Globulin Ratio 0.3 (1.0-1.7) Medications Active Scripts Medications Dose Route/Sig Days Date Category Nephro-Arielle Tablet (Folic Acid/Vitamin B Comp W-C) 0.8 Mg Tablet 1 Tab PO DAILY 04/19/16 Reported Oxycodone Hcl 5 Mg Capsule 1 Cap PO Q4HRS PRN 04/19/16 Reported Zofran (Ondansetron Hcl) 4 Mg Tablet 1 Tab PO Q8HRS 04/19/16 Reported Albuterol Sulfate Neb Soln (Albuterol Sulfate) 2.5 Mg/3 Ml Vial.neb 1 Vial NEB PRN Q4HRS 04/19/16 Reported Tylenol (Acetaminophen) 325 Mg Tablet 650 Mg PO Q6HRS PRN 04/19/16 Reported Duoneb 0.5-3(2.5) Mg/3 Ml (Albuterol/Ipratropium) 3 Ml Ampul.neb 3 Ml NEB TID 04/19/16 Reported Spironolactone 50 Mg Tablet 1 Tab PO DAILY 04/19/16 Reported Deltasone (Prednisone) 20 Mg Tablet 10 Mg PO DAILY 04/19/16 Reported Nystatin 100,000 Unit/1 Ml Oral.susp 100,000 Unit PO QID 04/19/16 Reported Cellcept (Mycophenolate Mofetil) 500 Mg Tablet 1 Tab PO BID 04/19/16 Reported Metoprolol Tartrate 25 Mg Tablet 25 Mg PO BID 04/19/16 Reported Melatonin 3 Mg Tab.rapdis 3 Mg PO HS 04/19/16 Reported Neurontin (Gabapentin) 100 Mg Capsule 100 Mg PO TID 04/19/16 Reported Lasix (Furosemide) 40 Mg Tablet 1 Tab PO DAILY 04/19/16 Reported Folic Acid 1 Mg Tablet 1 Tab PO DAILY 04/19/16 Reported Advair 500-50 Diskus (Fluticasone/Salmeterol) 1 Each Disk.w.dev 1 Puff IH BID 04/19/16 Reported Mobic (Meloxicam) 7.5 Mg Tablet 7.5 Mg PO DAILY 04/19/16 Reported Ativan (Lorazepam) 0.5 Mg Tablet 0.5 Mg PO PRN BID PRN 04/19/16 Reported Coumadin (Warfarin Sodium) 2 Mg Tablet 1 Tab PO HS 04/19/16 Reported Senokot-S Tablet (Sennosides/Docusate Sodium) 1 Each Tablet 1 Tab PO BID PRN 04/24/15 Reported Impression . 1. Ogkgg-fk-utvwkfh hypercapnic respiratory failure. 2. Hyperkalemia. 3. Multiple wounds. 4. Leukocytosis. 5. Morbid obesity. 6. Obstructive sleep apnea. 7. Acute metabolic encephalopathy. 8. Hypotension, suspect secondary to adrenal insufficiency. Plan . 1. Continue current BiPAP settings. ABG improved will keep off bipap for a while, d/w RT 2. Continue antibiotics per Infectious Disease. 3. Follow lab. 4. Hemodialysis per Dr. Clay. 5. Steroids for chronic sarcoid. 6. Solu-Cortef 100 IV q. 8. KOFI BENNETT MD Aug 03, 2016 10:55
[2016-08-03] MEDS ORDERED: AA 2.75%/CALCIUM/LYTES/D5W 2,000 ML IV SCH (12:00)
[2016-08-03] MEDS: AA 2.75%/CALCIUM/LYTES/D5W 1,000 ML IV SCH (12:00)
[2016-08-03 12:31] LABS: HCO3 ABG 22 mmol/L (21-28); PCO2 ABG 45 mmHg (35-46); PH ABG 7.31 (7.35-7.45); PO2 ABG 69 mmHg (75-108); SAT O2 ABG 94 % (92-99)
[2016-08-03 12:40] LABS: FIO2 ABG 21
--- NOTE | 2016-08-03 12:40 | PDOC ---
PROGRESS NOTES Chief Complaint Chief Complaint Hyperkalemia Open wounds, bleeding ASSESSMENT AND PLAN: 1. Sepsis: improved, stable VS. blood cult NGTD. on stress dose steroids ( chronic rx for sarcoid) 2. ODALIS: creat improving, above previous baseline (~1.2). prob 2/2 to above. monitor closely 3. Hyperkalemia: resolved s/p HD on 08/01. appreciate Dr Clay's help w/ management 4. Respir failure: chronic; hypoventilation syndrome due to obesity; sarcoidosis. ? worsening with narcotics - minimize 5. Wounds: calciphylaxis. hx of infection (MSSA). Abx as per Dr Sharpe. Dr Prajapati's input appreciated: risk with anesthesia currently outweighing benefits of debridement 6. Leukocytosis: improving. monitor 7. Wound bleed: resolved with direct pressure 8. Acute Encephalopathy: fluctuating. suspect multifactorial: respir issues , infection 9. Afib: rate controlled 10. Sarcoidosis: on cellcept and pred long-term 11. Antiphospholipid syndrome: previously seen by Dr Church; on coumadin on O/ P basis. 12. Anemia: macrocytic. hx severe anemia, chronic inflammatory by recent labs, no vitamin deficiency 13. Hypoalbuminemia: severe, in face of massive obesity, and chronic infection /inflammation. supplements when PO reestablished 14. Prophylaxis: heparin SQ minimum given APS hx. restart coumadin when full PO condition: critical Vitals Vitals Vital Signs Date Time Temp Pulse Resp B/P Pulse Ox O2 Delivery O2 Flow Rate FiO2 08/03/16 12:03 Bi-pap 08/03/16 12:01 15.0 08/03/16 11:17 97 08/03/16 11:00 63 26 124/60 08/03/16 07:00 97.6 97.6 Physical Exam General: Alert, No acute distress Heart: Regular rate, No murmurs Lungs: Clear Abdomen: Soft, No tenderness, Other (massively obese) Extremities: Other (ttrace pitting edema; massively obese) Skin: Other (dressings intact on bilateral thighs, lower extremities) Labs LABS Laboratory Tests Test 08/02/16 17:40 08/03/16 06:10 08/03/16 08:00 O2 Saturation 96% (92-99) 98% (92-99) Arterial Blood pH 7.17 (7.35-7.45) 7.23 (7.35-7.45) Arterial Blood pCO2 at Patient Temp 70mmHg (35-46) 55mmHg (35-46) Arterial Blood pO2 at Patient Temp 89mmHg (75-108) 106mmHg (75-108) Arterial Blood HCO3 25mmol/L (21-28) 23mmol/L (21-28) Arterial Blood Base Excess -4mmol/L (-3-3) -5mmol/L (-3-3) FiO2 30 30 White Blood Count 15.3x10^3/uL (4.0-11.0) Red Blood Count 2.88x10^6/uL (3.50-5.40) Hemoglobin 8.7g/dL (12.0-15.5) Hematocrit 29.1% (36.0-47.0) Mean Corpuscular Volume 101fL (79-100) Mean Corpuscular Hemoglobin 30pg (25-35) Mean Corpuscular Hemoglobin Concent 30g/dL (31-37) Red Cell Distribution Width 16.4% (11.5-14.5) Platelet Count 242x10^3/uL (140-400) Neutrophils (%) (Auto) 96% (31-73) Lymphocytes (%) (Auto) 3% (24-48) Monocytes (%) (Auto) 1% (0-9) Eosinophils (%) (Auto) 0% (0-3) Basophils (%) (Auto) 0% (0-3) Neutrophils # (Auto) 14.6x10^3uL (1.8-7.7) Lymphocytes # (Auto) 0.4x10^3/uL (1.0-4.8) Monocytes # (Auto) 0.2x10^3/uL (0.0-1.1) Eosinophils # (Auto) 0.0x10^3/uL (0.0-0.7) Basophils # (Auto) 0.0x10^3/uL (0.0-0.2) Sodium Level 138mmol/L (136-145) Potassium Level 4.1mmol/L (3.5-5.1) Chloride Level 104mmol/L (98-107) Carbon Dioxide Level 24mmol/L (21-32) Anion Gap 10 (6-14) Blood Urea Nitrogen 27mg/dL (7-20) Creatinine 1.5mg/dL (0.6-1.0) Estimated GFR (Cockcroft-Gault) 43.3 BUN/Creatinine Ratio 18 (6-20) Glucose Level 157mg/dL (70-99) Calcium Level 8.8mg/dL (8.5-10.1) Total Bilirubin 0.3mg/dL (0.2-1.0) Aspartate Amino Transf (AST/SGOT) 17U/L (15-37) Alanine Aminotransferase (ALT/SGPT) 12U/L (14-59) Alkaline Phosphatase 64U/L (46-116) Total Protein 7.3g/dL (6.4-8.2) Albumin 1.6g/dL (3.4-5.0) Albumin/Globulin Ratio 0.3 (1.0-1.7) Review of Systems Review of Systems off BiPAP currently, eating breakfast. Nutrition Consultation Dietary Evaluation: Recommendations by RD: Increase Calorie Intake, Protein supplementation Comments: [facility] Renal TID - 475kcal and 21.6g protein Encourage intake at meals as tolerated Expected Outcomes/Goals: meet >75% est nutr needs Interpretation of weight loss: >7.5% in 3 months Malnutrition Findings: Malnutrition related to morbid: BMI>or equal to 40 Malnutrition related to morbid: Yes Weight Status: Morbidly Obese Fluid Accumulation (Non-Severe: Mild depletion OVIDIO STALLWORTH MD Aug 03, 2016 12:40
[2016-08-03] MEDS: OXYCODONE IR 5 MG TABLET. PO PRN (18:37)
[2016-08-04] VITALS (16 sets, daily range): BP systolic 102–123; BP diastolic 57–83
[2016-08-04] MEDS: AA 2.75%/CALCIUM/LYTES/D5W 1,000 ML IV SCH ×2 (01:20→17:24)
[2016-08-04] MEDS: OXYCODONE IR 5 MG TABLET. PO PRN ×2 (05:03→19:11)
[2016-08-04] MEDS: HYDROCORTISONE SOD SUCC/PF 100 MG/2 ML VIAL. IV SCH ×3 (05:59→21:37)
[2016-08-04] MEDS: HEPARIN PF for SUB-Q USE 5,000 UNIT/0.5 ML VIAL. SQ SCH ×3 (06:00→21:38)
[2016-08-04] MEDS: CEFTOLOZANE/TAZOBACTAM 1,500 MG in IV NORMAL SALINE 100ML 100 ML IV SCH ×3 (06:11→22:24)
[2016-08-04 06:32] LABS: BASO % 0 % (0-3); EOS % 0 % (0-3); HEMATOCRIT 25.5 % (36.0-47.0); HEMOGLOBIN 7.8 g/dL (12.0-15.5); LYMPH # 0.4 x10^3/uL (1.0-4.8); LYMPH % 4 % (24-48); MEAN CORPUSCULAR HEMOGLOBIN 31 pg (25-35); MEAN CORPUSCULAR HGB CONC 31 g/dL (31-37); MEAN CORPUSCULAR VOLUME 101 fL (79-100); MONO % 4 % (0-9); NEUT % 92 % (31-73); PLATELET COUNT 177 x10^3/uL (140-400); RED BLOOD COUNT 2.53 x10^6/uL (3.50-5.40); RED CELL DISTRIBUTION WIDTH 16.1 % (11.5-14.5); WHITE BLOOD COUNT 10.3 x10^3/uL (4.0-11.0)
[2016-08-04 06:52] LABS: CALCIUM 8.9 mg/dL (8.5-10.1); CREATININE 1.3 mg/dL (0.6-1.0); GFR 51.1; POTASSIUM 4.1 mmol/L (3.5-5.1)
--- NOTE | 2016-08-04 07:22 | PDOC ---
Infectious Disease Note Subjective Subjective Resting on Bipap but was more alert earlier per nursing but now s/p pain med ROS ROS Unobtainable Vital Sign Vital Signs Vital Signs Date Time Temp Pulse Resp B/P Pulse Ox O2 Delivery O2 Flow Rate FiO2 08/04/16 05:53 99 BiPAP/CPAP 08/04/16 05:03 26 08/04/16 05:00 70 102/64 08/04/16 04:00 98.3 98.3 08/03/16 14:00 1.0 Physical Exam PHYSICAL EXAM GENERAL: NAD on Bipap, appears comfortable HEENT: PERRL - small NECK: Supple, no JVD, no LN LUNGS: Clear HEART: S1S2, no gallop, no murmur ABD: Soft, NT, no organomegaly, no rebound, obese Morton EXT: No edema, no cyanosis OPTIMIZATION CONSULTANT: Alert, oriented x 3, no focal neurologic deficit SKIN: No rash. Wounds dressed with clean dressings IV: RIJ. Left ant shoulder peripheral Labs Lab Laboratory Tests Test 08/03/16 08:00 08/03/16 12:17 08/03/16 22:18 08/04/16 06:00 O2 Saturation 98% (92-99) 94% (92-99) Arterial Blood pH 7.23 (7.35-7.45) 7.31 (7.35-7.45) Arterial Blood pCO2 at Patient Temp 55mmHg (35-46) 45mmHg (35-46) Arterial Blood pO2 at Patient Temp 106mmHg (75-108) 69mmHg (75-108) Arterial Blood HCO3 23mmol/L (21-28) 22mmol/L (21-28) Arterial Blood Base Excess -5mmol/L (-3-3) -4mmol/L (-3-3) FiO2 30 21 Glucose (Fingerstick) 172mg/dL (70-99) White Blood Count 10.3x10^3/uL (4.0-11.0) Red Blood Count 2.53x10^6/uL (3.50-5.40) Hemoglobin 7.8g/dL (12.0-15.5) Hematocrit 25.5% (36.0-47.0) Mean Corpuscular Volume 101fL (79-100) Mean Corpuscular Hemoglobin 31pg (25-35) Mean Corpuscular Hemoglobin Concent 31g/dL (31-37) Red Cell Distribution Width 16.1% (11.5-14.5) Platelet Count 177x10^3/uL (140-400) Neutrophils (%) (Auto) 92% (31-73) Lymphocytes (%) (Auto) 4% (24-48) Monocytes (%) (Auto) 4% (0-9) Eosinophils (%) (Auto) 0% (0-3) Basophils (%) (Auto) 0% (0-3) Neutrophils # (Auto) 9.5x10^3uL (1.8-7.7) Lymphocytes # (Auto) 0.4x10^3/uL (1.0-4.8) Monocytes # (Auto) 0.4x10^3/uL (0.0-1.1) Eosinophils # (Auto) 0.0x10^3/uL (0.0-0.7) Basophils # (Auto) 0.0x10^3/uL (0.0-0.2) Sodium Level 136mmol/L (136-145) Potassium Level 4.1mmol/L (3.5-5.1) Chloride Level 103mmol/L (98-107) Carbon Dioxide Level 23mmol/L (21-32) Anion Gap 10 (6-14) Blood Urea Nitrogen 37mg/dL (7-20) Creatinine 1.3mg/dL (0.6-1.0) Estimated GFR (Cockcroft-Gault) 51.1 Glucose Level 130mg/dL (70-99) Calcium Level 8.9mg/dL (8.5-10.1) Objective Assessment S/p rapid response 08/02 Decreased UOP - improved Hypotension imporved now off Levophed Leukocytosis - improved- remains AF Multiple wounds - H/o MDR PSA/MSSA Acute Encephalopathy - improved overnight - took applesauce Bleed from left thigh wound -controlled Acute Resp failure - on BiPAP currently while resting but was on 2 liters NC earlier when more awake ODALIS - UOP is picking up - better Plan Plan of Care Cont Zerbaxa/micafungin/Zyvox for now but wean soon F/u Cults urine that was ordered. Check Blood cults as well this am F/u labs in am Critically ill RAS MERINO MD Aug 04, 2016 07:22
[2016-08-04] MEDS: IPRATRPIUM/ALBUTEROL 0.5/2.5MG 3 ML NEBU. NEB SCH ×3 (07:27→19:47)
[2016-08-04] MEDS: BUDESONIDE 0.5 MG/2 ML NEBU NEB SCH ×2 (07:27→19:47)
[2016-08-04 07:47] LABS: HCO3 ABG 19 mmol/L (21-28); PCO2 ABG 25 mmHg (35-46); PO2 ABG 125 mmHg (75-108); SAT O2 ABG 99 % (92-99)
[2016-08-04 07:52] LABS: FIO2 ABG 21
[2016-08-04] MEDS: METOPROLOL TART IMMED RELEASE 25 MG TABLET PO SCH ×2 (09:00→21:25)
[2016-08-04] MEDS: MYCOPHENOLATE MOFETIL 250 MG CAPSULE. PO SCH ×2 (09:00→21:20)
--- NOTE | 2016-08-04 09:46 | PDOC ---
PROGRESS NOTES Assessment Problems Medical Problems: (1) Bleeding from wound Status: Acute (2) Hyperkalemia Status: Acute (3) Wound, open Status: Acute Metabolic encephalopathy due to uremia, respiratory with hypercarbia. No evidence of stroke, seizure activity, or central nervous system infection. Plan No additional neurological studies needed Correction of medical problems Objective Vital Signs Date Time Temp Pulse Resp B/P Pulse Ox O2 Delivery O2 Flow Rate FiO2 08/04/16 07:28 98 BiPAP/CPAP 08/04/16 07:00 64 26 118/71 08/04/16 04:00 98.3 98.3 08/03/16 14:00 1.0 Intake and Output 08/04/16 07:00 Intake Total 3282 ml Output Total 735 ml Balance 2547 ml Intake Oral 600 ml IV Total 2682 ml Output Urine Total 735 ml PHYSICAL EXAM Opens eyes to voice, squeezes hands to command PERRL. EOMI. CN: no focal findings. Muscle tone: normal. Muscle strength: 0/5 legs, 2/5 arms DTR: 0+ Plantar reflex: flexor Gait: not examined in bed. Sensory exam: not cooperative with exam. No cerebellar signs elicited, not cooperative with exam. Review of Relevant I have reviewed the following items natacha (where applicable) has been applied. Labs Laboratory Tests Test 08/02/16 11:00 08/02/16 17:40 08/03/16 06:10 08/03/16 08:00 O2 Saturation 95% (92-99) 96% (92-99) 98% (92-99) Arterial Blood pH 7.20 (7.35-7.45) 7.17 (7.35-7.45) 7.23 (7.35-7.45) Arterial Blood pCO2 at Patient Temp 67mmHg (35-46) 70mmHg (35-46) 55mmHg (35-46) Arterial Blood pO2 at Patient Temp 80mmHg (75-108) 89mmHg (75-108) 106mmHg (75-108) Arterial Blood HCO3 25mmol/L (21-28) 25mmol/L (21-28) 23mmol/L (21-28) Arterial Blood Base Excess -3mmol/L (-3-3) -4mmol/L (-3-3) -5mmol/L (-3-3) FiO2 30 30 30 White Blood Count 15.3x10^3/uL (4.0-11.0) Red Blood Count 2.88x10^6/uL (3.50-5.40) Hemoglobin 8.7g/dL (12.0-15.5) Hematocrit 29.1% (36.0-47.0) Mean Corpuscular Volume 101fL (79-100) Mean Corpuscular Hemoglobin 30pg (25-35) Mean Corpuscular Hemoglobin Concent 30g/dL (31-37) Red Cell Distribution Width 16.4% (11.5-14.5) Platelet Count 242x10^3/uL (140-400) Neutrophils (%) (Auto) 96% (31-73) Lymphocytes (%) (Auto) 3% (24-48) Monocytes (%) (Auto) 1% (0-9) Eosinophils (%) (Auto) 0% (0-3) Basophils (%) (Auto) 0% (0-3) Neutrophils # (Auto) 14.6x10^3uL (1.8-7.7) Lymphocytes # (Auto) 0.4x10^3/uL (1.0-4.8) Monocytes # (Auto) 0.2x10^3/uL (0.0-1.1) Eosinophils # (Auto) 0.0x10^3/uL (0.0-0.7) Basophils # (Auto) 0.0x10^3/uL (0.0-0.2) Sodium Level 138mmol/L (136-145) Potassium Level 4.1mmol/L (3.5-5.1) Chloride Level 104mmol/L (98-107) Carbon Dioxide Level 24mmol/L (21-32) Anion Gap 10 (6-14) Blood Urea Nitrogen 27mg/dL (7-20) Creatinine 1.5mg/dL (0.6-1.0) Estimated GFR (Cockcroft-Gault) 43.3 BUN/Creatinine Ratio 18 (6-20) Glucose Level 157mg/dL (70-99) Calcium Level 8.8mg/dL (8.5-10.1) Total Bilirubin 0.3mg/dL (0.2-1.0) Aspartate Amino Transf (AST/SGOT) 17U/L (15-37) Alanine Aminotransferase (ALT/SGPT) 12U/L (14-59) Alkaline Phosphatase 64U/L (46-116) Total Protein 7.3g/dL (6.4-8.2) Albumin 1.6g/dL (3.4-5.0) Albumin/Globulin Ratio 0.3 (1.0-1.7) Test 08/03/16 12:17 08/03/16 22:18 08/04/16 06:00 08/04/16 07:30 O2 Saturation 94% (92-99) 99% (92-99) Arterial Blood pH 7.31 (7.35-7.45) 7.50 (7.35-7.45) Arterial Blood pCO2 at Patient Temp 45mmHg (35-46) 25mmHg (35-46) Arterial Blood pO2 at Patient Temp 69mmHg (75-108) 125mmHg (75-108) Arterial Blood HCO3 22mmol/L (21-28) 19mmol/L (21-28) Arterial Blood Base Excess -4mmol/L (-3-3) -3mmol/L (-3-3) FiO2 21 21 Glucose (Fingerstick) 172mg/dL (70-99) White Blood Count 10.3x10^3/uL (4.0-11.0) Red Blood Count 2.53x10^6/uL (3.50-5.40) Hemoglobin 7.8g/dL (12.0-15.5) Hematocrit 25.5% (36.0-47.0) Mean Corpuscular Volume 101fL (79-100) Mean Corpuscular Hemoglobin 31pg (25-35) Mean Corpuscular Hemoglobin Concent 31g/dL (31-37) Red Cell Distribution Width 16.1% (11.5-14.5) Platelet Count 177x10^3/uL (140-400) Neutrophils (%) (Auto) 92% (31-73) Lymphocytes (%) (Auto) 4% (24-48) Monocytes (%) (Auto) 4% (0-9) Eosinophils (%) (Auto) 0% (0-3) Basophils (%) (Auto) 0% (0-3) Neutrophils # (Auto) 9.5x10^3uL (1.8-7.7) Lymphocytes # (Auto) 0.4x10^3/uL (1.0-4.8) Monocytes # (Auto) 0.4x10^3/uL (0.0-1.1) Eosinophils # (Auto) 0.0x10^3/uL (0.0-0.7) Basophils # (Auto) 0.0x10^3/uL (0.0-0.2) Sodium Level 136mmol/L (136-145) Potassium Level 4.1mmol/L (3.5-5.1) Chloride Level 103mmol/L (98-107) Carbon Dioxide Level 23mmol/L (21-32) Anion Gap 10 (6-14) Blood Urea Nitrogen 37mg/dL (7-20) Creatinine 1.3mg/dL (0.6-1.0) Estimated GFR (Cockcroft-Gault) 51.1 Glucose Level 130mg/dL (70-99) Calcium Level 8.9mg/dL (8.5-10.1) Laboratory Tests Test 08/03/16 12:17 08/03/16 22:18 08/04/16 06:00 08/04/16 07:30 O2 Saturation 94% (92-99) 99% (92-99) Arterial Blood pH 7.31 (7.35-7.45) 7.50 (7.35-7.45) Arterial Blood pCO2 at Patient Temp 45mmHg (35-46) 25mmHg (35-46) Arterial Blood pO2 at Patient Temp 69mmHg (75-108) 125mmHg (75-108) Arterial Blood HCO3 22mmol/L (21-28) 19mmol/L (21-28) Arterial Blood Base Excess -4mmol/L (-3-3) -3mmol/L (-3-3) FiO2 21 21 Glucose (Fingerstick) 172mg/dL (70-99) White Blood Count 10.3x10^3/uL (4.0-11.0) Red Blood Count 2.53x10^6/uL (3.50-5.40) Hemoglobin 7.8g/dL (12.0-15.5) Hematocrit 25.5% (36.0-47.0) Mean Corpuscular Volume 101fL (79-100) Mean Corpuscular Hemoglobin 31pg (25-35) Mean Corpuscular Hemoglobin Concent 31g/dL (31-37) Red Cell Distribution Width 16.1% (11.5-14.5) Platelet Count 177x10^3/uL (140-400) Neutrophils (%) (Auto) 92% (31-73) Lymphocytes (%) (Auto) 4% (24-48) Monocytes (%) (Auto) 4% (0-9) Eosinophils (%) (Auto) 0% (0-3) Basophils (%) (Auto) 0% (0-3) Neutrophils # (Auto) 9.5x10^3uL (1.8-7.7) Lymphocytes # (Auto) 0.4x10^3/uL (1.0-4.8) Monocytes # (Auto) 0.4x10^3/uL (0.0-1.1) Eosinophils # (Auto) 0.0x10^3/uL (0.0-0.7) Basophils # (Auto) 0.0x10^3/uL (0.0-0.2) Sodium Level 136mmol/L (136-145) Potassium Level 4.1mmol/L (3.5-5.1) Chloride Level 103mmol/L (98-107) Carbon Dioxide Level 23mmol/L (21-32) Anion Gap 10 (6-14) Blood Urea Nitrogen 37mg/dL (7-20) Creatinine 1.3mg/dL (0.6-1.0) Estimated GFR (Cockcroft-Gault) 51.1 Glucose Level 130mg/dL (70-99) Calcium Level 8.9mg/dL (8.5-10.1) Microbiology 08/02/16 Blood Culture - Preliminary, Resulted NO GROWTH AFTER 2 DAYS Medications Current Medications Tranexamic Acid (Cyklokapron) 1,000 mg 1X ONCE TOP Last administered on 15:18; Start 07/31/16 at 14:45; Stop 07/31/16 at 14:46; Status DC Protamine Sulfate 50 mg 1X ONCE IV Last administered on 07/31/16 14:54; Start 07/31/16 at 15:15; Stop 07/31/16 at 15:16; Status DC Dextrose 25 gm 1X ONCE IV Last administered on 07/31/16 16:32; Start at 15:45; Stop 07/31/16 at 15:46; Status DC Insulin Human Regular 10 unit 10 unit 1X ONCE IV Last administered on 16:35; Start 07/31/16 at 15:45; Stop 07/31/16 at 15:46; Status DC Sodium Bicarbonate 50 meq/Dextrose 1,050 ml @ 125 mls/hr Q8H24M IV ; Start 05/07 at 15:45; Status Cancel Sodium Chloride (Iv Sodium Chloride 0.9% 500ml Bag) 500 ml @ 500 mls/hr 1X ONCE IV Last administered on 07/31/16 15:25; Start 07/31/16 at 15:30; Stop 05/07 at 16:29; Status DC Ondansetron HCl 4 mg 4 mg PRN Q8HRS PRN IV NAUSEA/VOMITING; Start 07/31/16 at 15:30; Stop 08/01/16 at 15:29; Status DC Sodium Chloride (Iv Sodium Chloride 0.9% 1000ml Bag) 1,000 ml @ 125 mls/hr Q8H IV ; Start 07/31/16 at 15:30; Stop 08/01/16 at 00:00; Status DC Acetaminophen (Tylenol) 650 mg PRN Q4HRS PRN PO FEVER; Start 07/31/16 at 15:30 ; Stop 07/31/16 at 19:08; Status DC Calcium Gluconate 1,000 mg 1X ONCE IVP Last administered on 07/31/16 16:36; Start 07/31/16 at 17:00; Stop 07/31/16 at 17:01; Status DC Sodium Bicarbonate 50 meq STK-MED ONCE .ROUTE ; Start 07/31/16 at 16:26; Stop at 16:27; Status DC Sodium Bicarbonate 50 meq 1X ONCE IV Last administered on 07/31/16 16:36; Start 07/31/16 at 17:00; Stop 07/31/16 at 17:01; Status DC Sodium Polystyrene Sulfonate 15 gm 15 gm 1X ONCE PO Last administered on 18:00; Start 07/31/16 at 18:00; Stop 07/31/16 at 18:01; Status DC Sodium Chloride 1,000 ml @ 1,000 mls/hr Q1H PRN IV hypotension; Start 07/31/16 at 18:10; Stop 08/01/16 at 00:09; Status DC Albumin Human (Albuminar) 200 ml @ 200 mls/hr 1X PRN PRN IV Hypotension; Start 07/31/16 at 18:15; Stop 08/01/16 at 00:14; Status DC Acetaminophen (Tylenol) 500 mg 1X PRN PRN PO MILD PAIN / TEMP; Start 07/31/16 at 18:15; Stop 08/01/16 at 00:30; Status DC Diphenhydramine HCl (Benadryl) 25 mg 1X PRN PRN IV ITCHING; Start 07/31/16 at 18:15; Stop 08/01/16 at 00:30; Status DC Diphenhydramine HCl (Benadryl) 25 mg 1X PRN PRN IV ITCHING; Start 07/31/16 at 18:15; Stop 08/01/16 at 00:30; Status DC Info (PHARMACY MONITORING -- do not chart) 1 each PRN DAILY PRN MC SEE COMMENTS ; Start 07/31/16 at 18:15 Heparin Sodium (Porcine) 10,000 unit STK-MED ONCE .ROUTE ; Start 07/31/16 at 18: 27; Stop 07/31/16 at 18:28; Status DC Lidocaine/Sodium Bicarbonate 20 ml 20 ml STK-MED ONCE IJ ; Start 07/31/16 at 18: 27; Stop 07/31/16 at 18:28; Status DC Heparin Sodium/ Sodium Chloride 500 ml @ As Directed STK-MED ONCE .ROUTE ; Start 07/31/16 at 18:27; Stop 07/31/16 at 18:28; Status DC Lidocaine/Sodium Bicarbonate (Buffered Lidocaine 1%) 3 ml 1X ONCE IJ Last administered on 07/31/16t 19:12; Start 07/31/16 at 19:00; Stop 07/31/16 at 19:01 ; Status DC Heparin Sodium/ Sodium Chloride 60 unit 1X ONCE IV Last administered on t 19:13; Start 07/31/16 at 19:00; Stop 07/31/16 at 19:01; Status DC Heparin Sodium (Porcine) 2,500 unit 1X ONCE INT CAT Last administered on 19:12; Start 07/31/16 at 19:00; Stop 07/31/16 at 19:01; Status DC Acetaminophen (Tylenol) 650 mg PRN Q6HRS PRN PO PAIN; Start 07/31/16 at 19:15 Albuterol Sulfate (Ventolin Neb Soln) 2.5 mg PRN Q4HRS PRN NEB SHORTNESS OF BREATH; Start 07/31/16 at 19:15 Folic Acid (Folic Acid) 1 mg DAILY PO Last administered on 08/03/16 08:43; Start 08/01/16 at 09:00 Vitamin B Complex/ Vitamin C (Nephro-Arielle) 1 tab DAILY PO Last administered on 08/03/16 08:44; Start 08/01/16 at 09:00 Furosemide (Lasix) 40 mg DAILY PO Last administered on 08/01/16 08:46; Start 08/01/16 at 09:00; Stop 08/02/16 at 11:29; Status DC Gabapentin (Neurontin) 100 mg TID PO Last administered on 08/03/16 21:03; Start 07/31/16 at 21:00 Albuterol/ Ipratropium (Duoneb) 3 ml TID NEB Last administered on 08/04/16 07: 27; Start 07/31/16 at 21:00 Lorazepam (Ativan) 0.5 mg PRN BID PRN PO ANXIETY / AGITATION; Start 07/31/16 at 19:15 Meloxicam (Mobic) 7.5 mg DAILY PO Last administered on 08/01/16 08:46; Start 08/01/16 at 09:00; Stop 08/01/16 at 11:25; Status DC Metoprolol Tartrate (Lopressor) 25 mg BID PO Last administered on 08/02/16 21: 22; Start 07/31/16 at 21:00 Morphine Sulfate (Ms Contin) 15 mg Q12HR PO Last administered on 08/01/16 08: 46; Start 07/31/16 at 21:00; Stop 08/01/16 at 16:46; Status DC Nystatin 5 ml QID PO Last administered on 08/03/16 21:03; Start 07/31/16 at 21 :00 Prednisone (Prednisone) 10 mg DAILY PO Last administered on 08/01/16 08:48; Start 08/01/16 at 09:00; Stop 08/03/16 at 16:57; Status DC Senna/Docusate Sodium (Senna Plus) 1 tab PRN BID PRN PO CONSTIPATION Last administered on 08/03/16 08:43; Start 07/31/16 at 19:15 Budesonide (Pulmicort) 0.5 mg RTBID NEB Last administered on 08/04/16 07:27; Start 07/31/16 at 20:00 Non-Formulary Medication 3 mg HS PO ; Start 07/31/16 at 21:00; Status UNV Mycophenolate Mofetil (Cellcept) 500 mg BID PO Last administered on 08/03/16 21:03; Start 07/31/16 at 21:00 Ondansetron HCl (Zofran Odt) 4 mg Q8HRS PO ; Start 07/31/16 at 22:00; Status Cancel Oxycodone HCl (Roxicodone) 5 mg PRN Q4HRS PRN PO PAIN Last administered on 08/04 05:03; Start 07/31/16 at 19:30 Spironolactone 50 mg 50 mg DAILY PO Last administered on 08/01/16 08:46; Start 08/01/16 at 09:00; Stop 08/01/16 at 11:25; Status DC Meropenem 500 mg/ Sodium Chloride 50 ml @ 100 mls/hr Q24H IV Last administered on 08/01/16 05:17; Start 08/01/16 at 06:00; Stop 08/02/16 at 07:03 ; Status DC Linezolid 300 ml @ 300 mls/hr Q12HR IV Last administered on 08/03/16 21:03; Start 08/01/16 at 09:00 Sodium Chloride (Iv Sodium Chloride 0.9% 1000ml Bag) 1,000 ml @ 70 mls/hr [id number] IV Last administered on 08/02/16 02:11; Start 08/01/16 at 00:00; Stop 08/02/16 at 14:14; Status DC Fentanyl Citrate (Fentanyl 2ml Vial) 50 mcg PRN Q2HR PRN IV PAIN Last administered on 08/01/16 08:12; Start 08/01/16 at 02:45 Heparin Sodium (Porcine) 5,000 unit Q8HRS SQ Last administered on 08/04/16 06: 00; Start 08/01/16 at 22:00 Furosemide (Lasix) 80 mg 1X ONCE IVP ; Start 08/01/16 at 22:45; Stop 08/02/16 at 00:56; Status DC Naloxone HCl 0.4 mg 0.4 mg 1X ONCE IV Last administered on 08/01/16 23:00; Start 08/01/16 at 23:00; Stop 08/01/16 at 23:01; Status DC Sodium Chloride 250 ml @ 250 mls/hr 1X ONCE IV Last administered on 23:11; Start 08/01/16 at 23:15; Stop 08/02/16 at 00:14; Status DC Norepinephrine Bitartrate 8 mg/ Sodium Chloride 258 ml @ 0 mls/hr CONT PRN IV SEE I/O RECORD Last administered on 08/03/16 08:42; Start 08/02/16 at 00:00 Sodium Chloride 1,000 ml @ 75 mls/hr [id number] IV Last administered on 05:36; Start 08/02/16 at 03:45; Stop 08/03/16 at 10:49; Status DC Micafungin Sodium 100 mg/Dextrose 100 ml @ 100 mls/hr Q24H IV Last administered on 08/03/16 08:43; Start 08/02/16 at 08:00 Ceftolozane/ Tazobactam 1500 mg/Sodium Chloride 100 ml @ 100 mls/hr Q8HRS IV Last administered on 08/02/16 10:41; Start 08/02/16 at 08:00; Stop 08/02/16 at 14:02; Status DC Ceftolozane/ Tazobactam/Sodium Chloride (Zerbaxa/Iv Sodium Chloride 0.9% 100ml) 100 ml @ 100 mls/hr Q8HRS IV Last administered on 08/03/16 22:20; Start 08/02 at 22:00; Stop 08/04/16 at 00:00; Status DC Hydrocortisone Sodium Succinate (Solu-Cortef) 100 mg Q8HRS IV Last administered on 08/04/16 05:59; Start 08/02/16 at 16:00 Furosemide 60 mg 60 mg 1X ONCE IVP Last administered on 08/03/16 08:41; Start 08/03/16 at 08:30; Stop 08/03/16 at 08:33; Status DC Amino Acids/ Electrolytes 2,000 ml @ 75 mls/hr Q24H IV ; Start 08/03/16 at 12: 00; Status Cancel Amino Acids/ Electrolytes 1,000 ml @ 75 mls/hr [id number] IV Last administered on 08/03/16 12:00; Start 08/03/16 at 12:00 Ceftolozane/ Tazobactam/Sodium Chloride (Zerbaxa/Iv Sodium Chloride 0.9% 100ml) 100 ml @ 100 mls/hr Q8HRS IV Last administered on 08/04/16 06:11; Start 08/04 at 06:00 Active Scripts Active Reported Nephro-Arielle Tablet (Folic Acid/Vitamin B Comp W-C) 0.8 Mg Tablet 1 Tab PO DAILY Oxycodone Hcl 5 Mg Capsule 1 Cap PO Q4HRS PRN Zofran (Ondansetron Hcl) 4 Mg Tablet 1 Tab PO Q8HRS Albuterol Sulfate Neb Soln (Albuterol Sulfate) 2.5 Mg/3 Ml Vial.neb 1 Vial NEB PRN Q4HRS Tylenol (Acetaminophen) 325 Mg Tablet 650 Mg PO Q6HRS PRN Duoneb 0.5-3(2.5) Mg/3 Ml (Albuterol/Ipratropium) 3 Ml Ampul.neb 3 Ml NEB TID Spironolactone 50 Mg Tablet 1 Tab PO DAILY Deltasone (Prednisone) 20 Mg Tablet 10 Mg PO DAILY Nystatin 100,000 Unit/1 Ml Oral.susp 100,000 Unit PO QID Cellcept (Mycophenolate Mofetil) 500 Mg Tablet 1 Tab PO BID Metoprolol Tartrate 25 Mg Tablet 25 Mg PO BID Melatonin 3 Mg Tab.rapdis 3 Mg PO HS Neurontin (Gabapentin) 100 Mg Capsule 100 Mg PO TID Lasix (Furosemide) 40 Mg Tablet 1 Tab PO DAILY Folic Acid 1 Mg Tablet 1 Tab PO DAILY Advair 500-50 Diskus (Fluticasone/Salmeterol) 1 Each Disk.w.dev 1 Puff IH BID Mobic (Meloxicam) 7.5 Mg Tablet 7.5 Mg PO DAILY Ativan (Lorazepam) 0.5 Mg Tablet 0.5 Mg PO PRN BID PRN Coumadin (Warfarin Sodium) 2 Mg Tablet 1 Tab PO HS Senokot-S Tablet (Sennosides/Docusate Sodium) 1 Each Tablet 1 Tab PO BID PRN Vitals/I & O Vital Sign - Last 24 Hours 08/03/16 08/03/16 08/03/16 08/03/16 10:00 11:00 11:17 12:00 Temp 98.1 98.1 Pulse 62 63 67 Resp B/P 124/71 124/60 127/65 Pulse Ox 99 99 97 100 O2 Delivery BiPAP/CPAP 08/03/16 08/03/16 08/03/16 08/03/16 12:01 12:03 12:45 13:00 Pulse 66 Resp B/P 113/56 Pulse Ox 97 99 O2 Delivery Bi-pap BiPAP/CPAP O2 Flow Rate 15.0 08/03/16 08/03/16 08/03/16 08/03/16 13:00 13:00 14:00 15:00 Pulse 64 64 65 Resp B/P 133/74 133/74 125/69 Pulse Ox 98 99 99 99 O2 Delivery Nasal Cannula Nasal Cannula O2 Flow Rate 1.0 1.0 08/03/16 08/03/16 08/03/16 08/03/16 15:35 16:00 16:00 17:15 Temp 98.0 98.0 Pulse 63 65 B/P 134/74 135/71 Pulse Ox 97 99 99 O2 Delivery BiPAP/CPAP Bi-pap 08/03/16 08/03/16 08/03/16 08/03/16 17:47 18:00 18:37 19:00 Temp 98.7 98.7 Pulse 65 66 67 Resp B/P 149/74 112/66 119/67 Pulse Ox 99 98 99 98 O2 Delivery BiPAP/CPAP Room Air BiPAP/CPAP 08/03/16 08/03/16 08/03/16 08/03/16 19:51 19:53 20:00 20:00 Pulse 63 Resp 26 B/P 113/60 Pulse Ox 98 98 99 O2 Delivery BiPAP/CPAP BiPAP/CPAP Bi-pap BiPAP/CPAP 08/03/16 08/03/16 08/03/16 08/03/16 21:00 22:00 23:00 23:01 Pulse 63 63 62 Resp B/P 113/60 124/59 123/62 Pulse Ox 98 99 99 99 O2 Delivery BiPAP/CPAP BiPAP/CPAP BiPAP/CPAP BiPAP/CPAP 08/03/16 08/03/16 08/03/16 08/03/16 23:15 23:30 23:59 23:59 Temp 98.6 98.6 Pulse 70 68 63 Resp B/P 131/62 131/63 131/68 Pulse Ox 99 99 100 O2 Delivery BiPAP/CPAP BiPAP/CPAP Bi-pap BiPAP/CPAP 08/04/16 08/04/16 08/04/16 08/04/16 00:15 00:30 01:00 01:25 Pulse 65 65 63 Resp B/P 115/58 110/57 113/59 Pulse Ox 99 99 99 99 O2 Delivery BiPAP/CPAP BiPAP/CPAP BiPAP/CPAP BiPAP/CPAP 08/04/16 08/04/16 08/04/16 08/04/16 02:00 03:00 03:47 04:00 Pulse 64 61 Resp B/P 120/70 116/69 Pulse Ox 98 99 99 O2 Delivery BiPAP/CPAP BiPAP/CPAP BiPAP/CPAP Bi-pap 08/04/16 08/04/16 08/04/16 08/04/16 04:00 04:15 04:30 05:00 Temp 98.3 98.3 Pulse 65 66 65 70 Resp 26 26 B/P 123/57 109/59 123/57 102/64 Pulse Ox 99 99 100 99 O2 Delivery BiPAP/CPAP BiPAP/CPAP BiPAP/CPAP BiPAP/CPAP 08/04/16 08/04/16 08/04/16 08/04/16 05:03 05:53 06:00 06:00 Pulse 60 Resp 26 26 B/P 103/60 Pulse Ox 100 99 100 99 O2 Delivery BiPAP/CPAP BiPAP/CPAP BiPAP/CPAP BiPAP/CPAP 08/04/16 08/04/16 07:00 07:28 Pulse 64 Resp 26 B/P 118/71 Pulse Ox 99 98 O2 Delivery BiPAP/CPAP BiPAP/CPAP Intake and Output 08/03/16 08/03/16 08/04/16 15:00 23:00 07:00 Intake Total 400 ml 1410 ml 1472 ml Output Total 390 ml 225 ml 120 ml Balance 10 ml 1185 ml 1352 ml ELSA KHOURY MD Aug 04, 2016 09:46
--- NOTE | 2016-08-04 09:53 | PDOC ---
LYNDSAY RAMOS SCRAP CARRIER 08/04/16 0953: SURGICAL PROGRESS NOTE Subjective awake Vital Signs Vital Signs Date Time Temp Pulse Resp B/P Pulse Ox O2 Delivery O2 Flow Rate FiO2 08/04/16 07:28 98 BiPAP/CPAP 08/04/16 07:00 64 26 118/71 08/04/16 04:00 98.3 98.3 08/03/16 14:00 1.0 I&O Intake and Output 08/04/16 07:00 Intake Total 3282 ml Output Total 735 ml Balance 2547 ml Intake Oral 600 ml IV Total 2682 ml Output Urine Total 735 ml General: Cooperative, No acute distress Extremities: Other (multiple lower ext wounds) Labs Laboratory Tests Test 08/02/16 11:00 08/02/16 17:40 08/03/16 06:10 08/03/16 08:00 O2 Saturation 95% (92-99) 96% (92-99) 98% (92-99) Arterial Blood pH 7.20 (7.35-7.45) 7.17 (7.35-7.45) 7.23 (7.35-7.45) Arterial Blood pCO2 at Patient Temp 67mmHg (35-46) 70mmHg (35-46) 55mmHg (35-46) Arterial Blood pO2 at Patient Temp 80mmHg (75-108) 89mmHg (75-108) 106mmHg (75-108) Arterial Blood HCO3 25mmol/L (21-28) 25mmol/L (21-28) 23mmol/L (21-28) Arterial Blood Base Excess -3mmol/L (-3-3) -4mmol/L (-3-3) -5mmol/L (-3-3) FiO2 30 30 30 White Blood Count 15.3x10^3/uL (4.0-11.0) Red Blood Count 2.88x10^6/uL (3.50-5.40) Hemoglobin 8.7g/dL (12.0-15.5) Hematocrit 29.1% (36.0-47.0) Mean Corpuscular Volume 101fL (79-100) Mean Corpuscular Hemoglobin 30pg (25-35) Mean Corpuscular Hemoglobin Concent 30g/dL (31-37) Red Cell Distribution Width 16.4% (11.5-14.5) Platelet Count 242x10^3/uL (140-400) Neutrophils (%) (Auto) 96% (31-73) Lymphocytes (%) (Auto) 3% (24-48) Monocytes (%) (Auto) 1% (0-9) Eosinophils (%) (Auto) 0% (0-3) Basophils (%) (Auto) 0% (0-3) Neutrophils # (Auto) 14.6x10^3uL (1.8-7.7) Lymphocytes # (Auto) 0.4x10^3/uL (1.0-4.8) Monocytes # (Auto) 0.2x10^3/uL (0.0-1.1) Eosinophils # (Auto) 0.0x10^3/uL (0.0-0.7) Basophils # (Auto) 0.0x10^3/uL (0.0-0.2) Sodium Level 138mmol/L (136-145) Potassium Level 4.1mmol/L (3.5-5.1) Chloride Level 104mmol/L (98-107) Carbon Dioxide Level 24mmol/L (21-32) Anion Gap 10 (6-14) Blood Urea Nitrogen 27mg/dL (7-20) Creatinine 1.5mg/dL (0.6-1.0) Estimated GFR (Cockcroft-Gault) 43.3 BUN/Creatinine Ratio 18 (6-20) Glucose Level 157mg/dL (70-99) Calcium Level 8.8mg/dL (8.5-10.1) Total Bilirubin 0.3mg/dL (0.2-1.0) Aspartate Amino Transf (AST/SGOT) 17U/L (15-37) Alanine Aminotransferase (ALT/SGPT) 12U/L (14-59) Alkaline Phosphatase 64U/L (46-116) Total Protein 7.3g/dL (6.4-8.2) Albumin 1.6g/dL (3.4-5.0) Albumin/Globulin Ratio 0.3 (1.0-1.7) Test 08/03/16 12:17 08/03/16 22:18 08/04/16 06:00 08/04/16 07:30 O2 Saturation 94% (92-99) 99% (92-99) Arterial Blood pH 7.31 (7.35-7.45) 7.50 (7.35-7.45) Arterial Blood pCO2 at Patient Temp 45mmHg (35-46) 25mmHg (35-46) Arterial Blood pO2 at Patient Temp 69mmHg (75-108) 125mmHg (75-108) Arterial Blood HCO3 22mmol/L (21-28) 19mmol/L (21-28) Arterial Blood Base Excess -4mmol/L (-3-3) -3mmol/L (-3-3) FiO2 21 21 Glucose (Fingerstick) 172mg/dL (70-99) White Blood Count 10.3x10^3/uL (4.0-11.0) Red Blood Count 2.53x10^6/uL (3.50-5.40) Hemoglobin 7.8g/dL (12.0-15.5) Hematocrit 25.5% (36.0-47.0) Mean Corpuscular Volume 101fL (79-100) Mean Corpuscular Hemoglobin 31pg (25-35) Mean Corpuscular Hemoglobin Concent 31g/dL (31-37) Red Cell Distribution Width 16.1% (11.5-14.5) Platelet Count 177x10^3/uL (140-400) Neutrophils (%) (Auto) 92% (31-73) Lymphocytes (%) (Auto) 4% (24-48) Monocytes (%) (Auto) 4% (0-9) Eosinophils (%) (Auto) 0% (0-3) Basophils (%) (Auto) 0% (0-3) Neutrophils # (Auto) 9.5x10^3uL (1.8-7.7) Lymphocytes # (Auto) 0.4x10^3/uL (1.0-4.8) Monocytes # (Auto) 0.4x10^3/uL (0.0-1.1) Eosinophils # (Auto) 0.0x10^3/uL (0.0-0.7) Basophils # (Auto) 0.0x10^3/uL (0.0-0.2) Sodium Level 136mmol/L (136-145) Potassium Level 4.1mmol/L (3.5-5.1) Chloride Level 103mmol/L (98-107) Carbon Dioxide Level 23mmol/L (21-32) Anion Gap 10 (6-14) Blood Urea Nitrogen 37mg/dL (7-20) Creatinine 1.3mg/dL (0.6-1.0) Estimated GFR (Cockcroft-Gault) 51.1 Glucose Level 130mg/dL (70-99) Calcium Level 8.9mg/dL (8.5-10.1) Laboratory Tests Test 08/03/16 12:17 08/03/16 22:18 08/04/16 06:00 08/04/16 07:30 O2 Saturation 94% (92-99) 99% (92-99) Arterial Blood pH 7.31 (7.35-7.45) 7.50 (7.35-7.45) Arterial Blood pCO2 at Patient Temp 45mmHg (35-46) 25mmHg (35-46) Arterial Blood pO2 at Patient Temp 69mmHg (75-108) 125mmHg (75-108) Arterial Blood HCO3 22mmol/L (21-28) 19mmol/L (21-28) Arterial Blood Base Excess -4mmol/L (-3-3) -3mmol/L (-3-3) FiO2 21 21 Glucose (Fingerstick) 172mg/dL (70-99) White Blood Count 10.3x10^3/uL (4.0-11.0) Red Blood Count 2.53x10^6/uL (3.50-5.40) Hemoglobin 7.8g/dL (12.0-15.5) Hematocrit 25.5% (36.0-47.0) Mean Corpuscular Volume 101fL (79-100) Mean Corpuscular Hemoglobin 31pg (25-35) Mean Corpuscular Hemoglobin Concent 31g/dL (31-37) Red Cell Distribution Width 16.1% (11.5-14.5) Platelet Count 177x10^3/uL (140-400) Neutrophils (%) (Auto) 92% (31-73) Lymphocytes (%) (Auto) 4% (24-48) Monocytes (%) (Auto) 4% (0-9) Eosinophils (%) (Auto) 0% (0-3) Basophils (%) (Auto) 0% (0-3) Neutrophils # (Auto) 9.5x10^3uL (1.8-7.7) Lymphocytes # (Auto) 0.4x10^3/uL (1.0-4.8) Monocytes # (Auto) 0.4x10^3/uL (0.0-1.1) Eosinophils # (Auto) 0.0x10^3/uL (0.0-0.7) Basophils # (Auto) 0.0x10^3/uL (0.0-0.2) Sodium Level 136mmol/L (136-145) Potassium Level 4.1mmol/L (3.5-5.1) Chloride Level 103mmol/L (98-107) Carbon Dioxide Level 23mmol/L (21-32) Anion Gap 10 (6-14) Blood Urea Nitrogen 37mg/dL (7-20) Creatinine 1.3mg/dL (0.6-1.0) Estimated GFR (Cockcroft-Gault) 51.1 Glucose Level 130mg/dL (70-99) Calcium Level 8.9mg/dL (8.5-10.1) Problem List Problems Medical Problems: (1) Bleeding from wound Status: Acute (2) Hyperkalemia Status: Acute (3) Wound, open Status: Acute Assessment/Plan off pressors cierra leg wounds resp failure-bipap will review with Dr Naranjo Problems: ANITA NARANJO MD 08/04/16 1445: SURGICAL PROGRESS NOTE Assessment/Plan continue wound care Problems: LYNDSAY RAMOS APRN Aug 04, 2016 09:53 ANITA NARANJO MD Aug 04, 2016 14:45
--- NOTE | 2016-08-04 11:03 | PDOC ---
PULMONARY PROGRESS NOTES Subjective more awake and alert no resp complaints Vitals Vital Signs Date Time Temp Pulse Resp B/P Pulse Ox O2 Delivery O2 Flow Rate FiO2 08/04/16 07:28 98 BiPAP/CPAP 08/04/16 07:00 64 26 118/71 08/04/16 04:00 98.3 98.3 08/03/16 14:00 1.0 ROS: No Nausea, No Chest Pain, No Abdominal Pain General: Alert Lungs: Clear Cardiovascular: S1, S2 Abdomen: Soft, Non-tender Neuro Exam: Alert Extremities: Other (edema) Skin: Warm Labs Laboratory Tests Test 08/02/16 17:40 08/03/16 06:10 08/03/16 08:00 08/03/16 12:17 O2 Saturation 96% (92-99) 98% (92-99) 94% (92-99) Arterial Blood pH 7.17 (7.35-7.45) 7.23 (7.35-7.45) 7.31 (7.35-7.45) Arterial Blood pCO2 at Patient Temp 70mmHg (35-46) 55mmHg (35-46) 45mmHg (35-46) Arterial Blood pO2 at Patient Temp 89mmHg (75-108) 106mmHg (75-108) 69mmHg (75-108) Arterial Blood HCO3 25mmol/L (21-28) 23mmol/L (21-28) 22mmol/L (21-28) Arterial Blood Base Excess -4mmol/L (-3-3) -5mmol/L (-3-3) -4mmol/L (-3-3) FiO2 30 30 21 White Blood Count 15.3x10^3/uL (4.0-11.0) Red Blood Count 2.88x10^6/uL (3.50-5.40) Hemoglobin 8.7g/dL (12.0-15.5) Hematocrit 29.1% (36.0-47.0) Mean Corpuscular Volume 101fL (79-100) Mean Corpuscular Hemoglobin 30pg (25-35) Mean Corpuscular Hemoglobin Concent 30g/dL (31-37) Red Cell Distribution Width 16.4% (11.5-14.5) Platelet Count 242x10^3/uL (140-400) Neutrophils (%) (Auto) 96% (31-73) Lymphocytes (%) (Auto) 3% (24-48) Monocytes (%) (Auto) 1% (0-9) Eosinophils (%) (Auto) 0% (0-3) Basophils (%) (Auto) 0% (0-3) Neutrophils # (Auto) 14.6x10^3uL (1.8-7.7) Lymphocytes # (Auto) 0.4x10^3/uL (1.0-4.8) Monocytes # (Auto) 0.2x10^3/uL (0.0-1.1) Eosinophils # (Auto) 0.0x10^3/uL (0.0-0.7) Basophils # (Auto) 0.0x10^3/uL (0.0-0.2) Sodium Level 138mmol/L (136-145) Potassium Level 4.1mmol/L (3.5-5.1) Chloride Level 104mmol/L (98-107) Carbon Dioxide Level 24mmol/L (21-32) Anion Gap 10 (6-14) Blood Urea Nitrogen 27mg/dL (7-20) Creatinine 1.5mg/dL (0.6-1.0) Estimated GFR (Cockcroft-Gault) 43.3 BUN/Creatinine Ratio 18 (6-20) Glucose Level 157mg/dL (70-99) Calcium Level 8.8mg/dL (8.5-10.1) Total Bilirubin 0.3mg/dL (0.2-1.0) Aspartate Amino Transf (AST/SGOT) 17U/L (15-37) Alanine Aminotransferase (ALT/SGPT) 12U/L (14-59) Alkaline Phosphatase 64U/L (46-116) Total Protein 7.3g/dL (6.4-8.2) Albumin 1.6g/dL (3.4-5.0) Albumin/Globulin Ratio 0.3 (1.0-1.7) Test 08/03/16 22:18 08/04/16 06:00 08/04/16 07:30 Glucose (Fingerstick) 172mg/dL (70-99) White Blood Count 10.3x10^3/uL (4.0-11.0) Red Blood Count 2.53x10^6/uL (3.50-5.40) Hemoglobin 7.8g/dL (12.0-15.5) Hematocrit 25.5% (36.0-47.0) Mean Corpuscular Volume 101fL (79-100) Mean Corpuscular Hemoglobin 31pg (25-35) Mean Corpuscular Hemoglobin Concent 31g/dL (31-37) Red Cell Distribution Width 16.1% (11.5-14.5) Platelet Count 177x10^3/uL (140-400) Neutrophils (%) (Auto) 92% (31-73) Lymphocytes (%) (Auto) 4% (24-48) Monocytes (%) (Auto) 4% (0-9) Eosinophils (%) (Auto) 0% (0-3) Basophils (%) (Auto) 0% (0-3) Neutrophils # (Auto) 9.5x10^3uL (1.8-7.7) Lymphocytes # (Auto) 0.4x10^3/uL (1.0-4.8) Monocytes # (Auto) 0.4x10^3/uL (0.0-1.1) Eosinophils # (Auto) 0.0x10^3/uL (0.0-0.7) Basophils # (Auto) 0.0x10^3/uL (0.0-0.2) Sodium Level 136mmol/L (136-145) Potassium Level 4.1mmol/L (3.5-5.1) Chloride Level 103mmol/L (98-107) Carbon Dioxide Level 23mmol/L (21-32) Anion Gap 10 (6-14) Blood Urea Nitrogen 37mg/dL (7-20) Creatinine 1.3mg/dL (0.6-1.0) Estimated GFR (Cockcroft-Gault) 51.1 Glucose Level 130mg/dL (70-99) Calcium Level 8.9mg/dL (8.5-10.1) O2 Saturation 99% (92-99) Arterial Blood pH 7.50 (7.35-7.45) Arterial Blood pCO2 at Patient Temp 25mmHg (35-46) Arterial Blood pO2 at Patient Temp 125mmHg (75-108) Arterial Blood HCO3 19mmol/L (21-28) Arterial Blood Base Excess -3mmol/L (-3-3) FiO2 21 Laboratory Tests Test 08/03/16 12:17 08/03/16 22:18 08/04/16 06:00 08/04/16 07:30 O2 Saturation 94% (92-99) 99% (92-99) Arterial Blood pH 7.31 (7.35-7.45) 7.50 (7.35-7.45) Arterial Blood pCO2 at Patient Temp 45mmHg (35-46) 25mmHg (35-46) Arterial Blood pO2 at Patient Temp 69mmHg (75-108) 125mmHg (75-108) Arterial Blood HCO3 22mmol/L (21-28) 19mmol/L (21-28) Arterial Blood Base Excess -4mmol/L (-3-3) -3mmol/L (-3-3) FiO2 21 21 Glucose (Fingerstick) 172mg/dL (70-99) White Blood Count 10.3x10^3/uL (4.0-11.0) Red Blood Count 2.53x10^6/uL (3.50-5.40) Hemoglobin 7.8g/dL (12.0-15.5) Hematocrit 25.5% (36.0-47.0) Mean Corpuscular Volume 101fL (79-100) Mean Corpuscular Hemoglobin 31pg (25-35) Mean Corpuscular Hemoglobin Concent 31g/dL (31-37) Red Cell Distribution Width 16.1% (11.5-14.5) Platelet Count 177x10^3/uL (140-400) Neutrophils (%) (Auto) 92% (31-73) Lymphocytes (%) (Auto) 4% (24-48) Monocytes (%) (Auto) 4% (0-9) Eosinophils (%) (Auto) 0% (0-3) Basophils (%) (Auto) 0% (0-3) Neutrophils # (Auto) 9.5x10^3uL (1.8-7.7) Lymphocytes # (Auto) 0.4x10^3/uL (1.0-4.8) Monocytes # (Auto) 0.4x10^3/uL (0.0-1.1) Eosinophils # (Auto) 0.0x10^3/uL (0.0-0.7) Basophils # (Auto) 0.0x10^3/uL (0.0-0.2) Sodium Level 136mmol/L (136-145) Potassium Level 4.1mmol/L (3.5-5.1) Chloride Level 103mmol/L (98-107) Carbon Dioxide Level 23mmol/L (21-32) Anion Gap 10 (6-14) Blood Urea Nitrogen 37mg/dL (7-20) Creatinine 1.3mg/dL (0.6-1.0) Estimated GFR (Cockcroft-Gault) 51.1 Glucose Level 130mg/dL (70-99) Calcium Level 8.9mg/dL (8.5-10.1) Medications Active Scripts Medications Dose Route/Sig Days Date Category Nephro-Arielle Tablet (Folic Acid/Vitamin B Comp W-C) 0.8 Mg Tablet 1 Tab PO DAILY 04/19/16 Reported Oxycodone Hcl 5 Mg Capsule 1 Cap PO Q4HRS PRN 04/19/16 Reported Zofran (Ondansetron Hcl) 4 Mg Tablet 1 Tab PO Q8HRS 04/19/16 Reported Albuterol Sulfate Neb Soln (Albuterol Sulfate) 2.5 Mg/3 Ml Vial.neb 1 Vial NEB PRN Q4HRS 04/19/16 Reported Tylenol (Acetaminophen) 325 Mg Tablet 650 Mg PO Q6HRS PRN 04/19/16 Reported Duoneb 0.5-3(2.5) Mg/3 Ml (Albuterol/Ipratropium) 3 Ml Ampul.neb 3 Ml NEB TID 04/19/16 Reported Spironolactone 50 Mg Tablet 1 Tab PO DAILY 04/19/16 Reported Deltasone (Prednisone) 20 Mg Tablet 10 Mg PO DAILY 04/19/16 Reported Nystatin 100,000 Unit/1 Ml Oral.susp 100,000 Unit PO QID 04/19/16 Reported Cellcept (Mycophenolate Mofetil) 500 Mg Tablet 1 Tab PO BID 04/19/16 Reported Metoprolol Tartrate 25 Mg Tablet 25 Mg PO BID 04/19/16 Reported Melatonin 3 Mg Tab.rapdis 3 Mg PO HS 04/19/16 Reported Neurontin (Gabapentin) 100 Mg Capsule 100 Mg PO TID 04/19/16 Reported Lasix (Furosemide) 40 Mg Tablet 1 Tab PO DAILY 04/19/16 Reported Folic Acid 1 Mg Tablet 1 Tab PO DAILY 04/19/16 Reported Advair 500-50 Diskus (Fluticasone/Salmeterol) 1 Each Disk.w.dev 1 Puff IH BID 04/19/16 Reported Mobic (Meloxicam) 7.5 Mg Tablet 7.5 Mg PO DAILY 04/19/16 Reported Ativan (Lorazepam) 0.5 Mg Tablet 0.5 Mg PO PRN BID PRN 04/19/16 Reported Coumadin (Warfarin Sodium) 2 Mg Tablet 1 Tab PO HS 04/19/16 Reported Senokot-S Tablet (Sennosides/Docusate Sodium) 1 Each Tablet 1 Tab PO BID PRN 04/24/15 Reported Impression . 1. [id number] hypercapnic respiratory failure. 2. Hyperkalemia. 3. Multiple wounds. 4. Leukocytosis. 5. Morbid obesity. 6. Obstructive sleep apnea. 7. Acute metabolic encephalopathy. 8. Hypotension, suspect secondary to adrenal insufficiency. Plan . 1. Decrease IPAP 2. Continue antibiotics per Infectious Disease. 3. Follow lab. 4. Hemodialysis per Dr. Clay. 5. Steroids for chronic sarcoid. 6. Solu-Cortef KOFI Mcneill MD Aug 04, 2016 11:03
[2016-08-04] MEDS: NYSTATIN 100,000 UNITS/ML 5 ML ORAL.SUSP. PO SCH ×4 (11:13→21:20)
[2016-08-04] MEDS: MICAFUNGIN 100 MG in IV DEXTROSE 5% 100 ML IV SCH (11:13)
[2016-08-04] MEDS: GABAPENTIN 100 MG CAPSULE. PO SCH ×3 (11:14→21:19)
[2016-08-04] MEDS: FOLIC ACID 1 MG TABLET PO SCH (11:14)
[2016-08-04] MEDS: FOLIC/VIT B COMP W-C (RENAL) TABLET. PO SCH (11:14)
--- NOTE | 2016-08-04 11:33 | PDOC ---
PROGRESS NOTES Chief Complaint Chief Complaint Hyperkalemia Open wounds, bleeding ASSESSMENT AND PLAN: 1. Sepsis: improved, stable VS. blood cult NGTD. stress dose steroids stopped 2. ODALIS: creat recovered to [id number]. prob 2/2 to above. monitor closely; Dr Clay following 3. Hyperkalemia: resolved s/p HD on 08/01. 4. Respir failure: chronic; hypoventilation syndrome due to obesity; sarcoidosis. ANASTASIIA. ? worsening with narcotics - minimize 5. Wounds: calciphylaxis. hx of infection (MSSA). Abx as per Dr Sharpe. Dr Prajapati's input appreciated: risk with anesthesia currently outweighing benefits of debridement. ?mechanical debridement wit wet-to-dry? 6. Leukocytosis: much improved. monitor 7. Wound bleed: resolved with direct pressure 8. Acute Encephalopathy: fluctuating; good today. suspect multifactorial: respir issues, infection. 9. Afib: rate controlled 10. Sarcoidosis: on cellcept and pred long-term 11. Antiphospholipid syndrome: previously seen by Dr Church; on coumadin on O/ P basis. 12. Anemia: macrocytic. hx severe anemia, chronic inflammatory by recent labs, no vitamin deficiency 13. Hypoalbuminemia: severe, in face of massive obesity, and chronic infection /inflammation. on PPN currently. supplements PO 14. Prophylaxis: heparin SQ minimum given APS hx. restart coumadin when full PO 15. Dispo: stable for transfer to [facility] Vitals Vitals Vital Signs Date Time Temp Pulse Resp B/P Pulse Ox O2 Delivery O2 Flow Rate FiO2 08/04/16 07:28 98 BiPAP/CPAP 08/04/16 07:00 64 26 118/71 08/04/16 04:00 98.3 98.3 08/03/16 14:00 1.0 Physical Exam General: Cooperative, No acute distress Heart: Regular rate, No murmurs Lungs: Clear Abdomen: Soft, No tenderness, Other (massively obese) Extremities: Other (multiple lower ext wounds) Skin: Other (dressings intact on bilateral thighs, lower extremities) Labs LABS Laboratory Tests Test 08/03/16 12:17 08/03/16 22:18 08/04/16 06:00 08/04/16 07:30 O2 Saturation 94% (92-99) 99% (92-99) Arterial Blood pH 7.31 (7.35-7.45) 7.50 (7.35-7.45) Arterial Blood pCO2 at Patient Temp 45mmHg (35-46) 25mmHg (35-46) Arterial Blood pO2 at Patient Temp 69mmHg (75-108) 125mmHg (75-108) Arterial Blood HCO3 22mmol/L (21-28) 19mmol/L (21-28) Arterial Blood Base Excess -4mmol/L (-3-3) -3mmol/L (-3-3) FiO2 21 21 Glucose (Fingerstick) 172mg/dL (70-99) White Blood Count 10.3x10^3/uL (4.0-11.0) Red Blood Count 2.53x10^6/uL (3.50-5.40) Hemoglobin 7.8g/dL (12.0-15.5) Hematocrit 25.5% (36.0-47.0) Mean Corpuscular Volume 101fL (79-100) Mean Corpuscular Hemoglobin 31pg (25-35) Mean Corpuscular Hemoglobin Concent 31g/dL (31-37) Red Cell Distribution Width 16.1% (11.5-14.5) Platelet Count 177x10^3/uL (140-400) Neutrophils (%) (Auto) 92% (31-73) Lymphocytes (%) (Auto) 4% (24-48) Monocytes (%) (Auto) 4% (0-9) Eosinophils (%) (Auto) 0% (0-3) Basophils (%) (Auto) 0% (0-3) Neutrophils # (Auto) 9.5x10^3uL (1.8-7.7) Lymphocytes # (Auto) 0.4x10^3/uL (1.0-4.8) Monocytes # (Auto) 0.4x10^3/uL (0.0-1.1) Eosinophils # (Auto) 0.0x10^3/uL (0.0-0.7) Basophils # (Auto) 0.0x10^3/uL (0.0-0.2) Sodium Level 136mmol/L (136-145) Potassium Level 4.1mmol/L (3.5-5.1) Chloride Level 103mmol/L (98-107) Carbon Dioxide Level 23mmol/L (21-32) Anion Gap 10 (6-14) Blood Urea Nitrogen 37mg/dL (7-20) Creatinine 1.3mg/dL (0.6-1.0) Estimated GFR (Cockcroft-Gault) 51.1 Glucose Level 130mg/dL (70-99) Calcium Level 8.9mg/dL (8.5-10.1) Review of Systems Review of Systems feels ok. denies SOB or cough. legs painful Nutrition Consultation Dietary Evaluation: Recommendations by RD: Increase Calorie Intake, Protein supplementation Comments: [facility] - 475kcal and 21.6g protein Encourage intake at meals as tolerated Expected Outcomes/Goals: meet >75% est nutr needs Interpretation of weight loss: >7.5% in 3 months Malnutrition Findings: Malnutrition related to morbid: BMI>or equal to 40 Malnutrition related to morbid: Yes Weight Status: Morbidly Obese Fluid Accumulation (Non-Severe: Mild depletion OVIDIO STALLWORTH MD Aug 04, 2016 11:33
--- NOTE | 2016-08-04 11:36 | PDOC ---
Renal-Progress Notes Vitals Vitals Vital Signs Date Time Temp Pulse Resp B/P Pulse Ox O2 Delivery O2 Flow Rate FiO2 08/04/16 07:28 98 BiPAP/CPAP 08/04/16 07:00 64 26 118/71 08/04/16 04:00 98.3 98.3 08/03/16 14:00 1.0 Weight Weight [ ] I.O. Intake and Output Intake and Output 08/04/16 07:00 Intake Total 3282 ml Output Total 735 ml Balance 2547 ml Intake Oral 600 ml IV Total 2682 ml Output Urine Total 735 ml Labs Labs Laboratory Tests Test 08/03/16 12:17 08/03/16 22:18 08/04/16 06:00 08/04/16 07:30 O2 Saturation 94% (92-99) 99% (92-99) Arterial Blood pH 7.31 (7.35-7.45) 7.50 (7.35-7.45) Arterial Blood pCO2 at Patient Temp 45mmHg (35-46) 25mmHg (35-46) Arterial Blood pO2 at Patient Temp 69mmHg (75-108) 125mmHg (75-108) Arterial Blood HCO3 22mmol/L (21-28) 19mmol/L (21-28) Arterial Blood Base Excess -4mmol/L (-3-3) -3mmol/L (-3-3) FiO2 21 21 Glucose (Fingerstick) 172mg/dL (70-99) White Blood Count 10.3x10^3/uL (4.0-11.0) Red Blood Count 2.53x10^6/uL (3.50-5.40) Hemoglobin 7.8g/dL (12.0-15.5) Hematocrit 25.5% (36.0-47.0) Mean Corpuscular Volume 101fL (79-100) Mean Corpuscular Hemoglobin 31pg (25-35) Mean Corpuscular Hemoglobin Concent 31g/dL (31-37) Red Cell Distribution Width 16.1% (11.5-14.5) Platelet Count 177x10^3/uL (140-400) Neutrophils (%) (Auto) 92% (31-73) Lymphocytes (%) (Auto) 4% (24-48) Monocytes (%) (Auto) 4% (0-9) Eosinophils (%) (Auto) 0% (0-3) Basophils (%) (Auto) 0% (0-3) Neutrophils # (Auto) 9.5x10^3uL (1.8-7.7) Lymphocytes # (Auto) 0.4x10^3/uL (1.0-4.8) Monocytes # (Auto) 0.4x10^3/uL (0.0-1.1) Eosinophils # (Auto) 0.0x10^3/uL (0.0-0.7) Basophils # (Auto) 0.0x10^3/uL (0.0-0.2) Sodium Level 136mmol/L (136-145) Potassium Level 4.1mmol/L (3.5-5.1) Chloride Level 103mmol/L (98-107) Carbon Dioxide Level 23mmol/L (21-32) Anion Gap 10 (6-14) Blood Urea Nitrogen 37mg/dL (7-20) Creatinine 1.3mg/dL (0.6-1.0) Estimated GFR (Cockcroft-Gault) 51.1 Glucose Level 130mg/dL (70-99) Calcium Level 8.9mg/dL (8.5-10.1) Micro Micro Microbiology 08/02/16 Blood Culture - Preliminary, Resulted NO GROWTH AFTER 2 DAYS Review of Systems Constitutional: yes: no symptom reported Physical Exam General Appearance: no apparent distress Skin: warm Respiratory: decreased breath sounds Heart: S1S2, RRR Abdomen: soft, bowel sounds present Extremities: pulses present Neurology: alert Musculoskeletal: Other ( bilateral hip avascular necrosis) Assessment Assessment IMP ODALIS-IMPROVED AGAIN HYPERKALEMIA-RESOLVED MORBID OBESITY LEUCOCYTOSIS MULTIPLE WOUNDS ENCEPHALOPATHY RESP ACIDOSIS FROM HYPERCARBIA-BETTER PLAN HOLD HD FOR NOW CONT TO HOLD HER ALDACTONE, MOBIC FOR NOW LABS IN AM ANTIBIOTICS PPN TILL EATING BETTER WILL D/C TEMP HD CATHETER TOMORROW IF RENAL FXN REMAINS STABLE CATARINO LOREDO MD Aug 04, 2016 11:36
[2016-08-05] MEDS: OXYCODONE IR 5 MG TABLET. PO PRN ×2 (00:08→21:26)
[2016-08-05 04:00] VITALS: BP 106/39
[2016-08-05] MEDS: HYDROCORTISONE SOD SUCC/PF 100 MG/2 ML VIAL. IV SCH (05:34)
[2016-08-05] MEDS: CEFTOLOZANE/TAZOBACTAM 1,500 MG in IV NORMAL SALINE 100ML 100 ML IV SCH ×3 (05:34→21:26)
[2016-08-05] MEDS: AA 2.75%/CALCIUM/LYTES/D5W 1,000 ML IV SCH ×2 (05:34→21:28)
[2016-08-05] MEDS: HEPARIN PF for SUB-Q USE 5,000 UNIT/0.5 ML VIAL. SQ SCH ×3 (05:38→21:32)
--- NOTE | 2016-08-05 06:59 | PDOC ---
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 Wounds dressed with clean dressings IV: RIJ. Left ant shoulder peripheral Labs Lab Laboratory Tests Test 08/04/16 07:30 O2 Saturation 99% (92-99) Arterial Blood pH 7.50 (7.35-7.45) Arterial Blood pCO2 at Patient Temp 25mmHg (35-46) Arterial Blood pO2 at Patient Temp 125mmHg (75-108) Arterial Blood HCO3 19mmol/L (21-28) Arterial Blood Base Excess -3mmol/L (-3-3) FiO2 21 Objective Assessment S/p rapid response 08/02 Decreased UOP - improved Hypotension improved now off Levophed Leukocytosis - improved- remains AF Multiple wounds - H/o MDR PSA/MSSA Acute Encephalopathy - improved overnight Bleed from left thigh wound -controlled Acute Resp failure - on BiPAP currently while resting but was on 2 liters NC earlier when more awake ODALIS - UOP is picking up - better Plan Plan of Care Cont Zerbaxa (08/02) micafungin will try to wean further as she improves D/c Zyvox Will likely need additional access if PPN is to continue as opposed to dobhoff and HD cath removed F/u Cults urine that was ordered. Check Blood cults F/u labs in am RAS MERINO MD Aug 05, 2016 06:59
--- NOTE | 2016-08-05 07:51 | PDOC ---
PULMONARY PROGRESS NOTES Subjective on bipap, sob, better, no cough, no pain Vitals Vital Signs Date Time Temp Pulse Resp B/P Pulse Ox O2 Delivery O2 Flow Rate FiO2 08/05/16 05:19 100 BiPAP/CPAP 08/05/16 04:00 98.1 61 16 106/39 98.1 Comments ros as mentioned as above other sys otherwise neg ROS: No Nausea, No Chest Pain, No Abdominal Pain General: Alert HEENT: Other (nc at perrl) Lungs: Crackles Cardiovascular: S1, S2 Abdomen: Soft, Non-tender Neuro Exam: Alert Extremities: Other (edema) Skin: Warm Labs Laboratory Tests Test 08/03/16 08:00 08/03/16 12:17 08/03/16 22:18 08/04/16 06:00 O2 Saturation 98% (92-99) 94% (92-99) Arterial Blood pH 7.23 (7.35-7.45) 7.31 (7.35-7.45) Arterial Blood pCO2 at Patient Temp 55mmHg (35-46) 45mmHg (35-46) Arterial Blood pO2 at Patient Temp 106mmHg (75-108) 69mmHg (75-108) Arterial Blood HCO3 23mmol/L (21-28) 22mmol/L (21-28) Arterial Blood Base Excess -5mmol/L (-3-3) -4mmol/L (-3-3) FiO2 30 21 Glucose (Fingerstick) 172mg/dL (70-99) White Blood Count 10.3x10^3/uL (4.0-11.0) Red Blood Count 2.53x10^6/uL (3.50-5.40) Hemoglobin 7.8g/dL (12.0-15.5) Hematocrit 25.5% (36.0-47.0) Mean Corpuscular Volume 101fL (79-100) Mean Corpuscular Hemoglobin 31pg (25-35) Mean Corpuscular Hemoglobin Concent 31g/dL (31-37) Red Cell Distribution Width 16.1% (11.5-14.5) Platelet Count 177x10^3/uL (140-400) Neutrophils (%) (Auto) 92% (31-73) Lymphocytes (%) (Auto) 4% (24-48) Monocytes (%) (Auto) 4% (0-9) Eosinophils (%) (Auto) 0% (0-3) Basophils (%) (Auto) 0% (0-3) Neutrophils # (Auto) 9.5x10^3uL (1.8-7.7) Lymphocytes # (Auto) 0.4x10^3/uL (1.0-4.8) Monocytes # (Auto) 0.4x10^3/uL (0.0-1.1) Eosinophils # (Auto) 0.0x10^3/uL (0.0-0.7) Basophils # (Auto) 0.0x10^3/uL (0.0-0.2) Sodium Level 136mmol/L (136-145) Potassium Level 4.1mmol/L (3.5-5.1) Chloride Level 103mmol/L (98-107) Carbon Dioxide Level 23mmol/L (21-32) Anion Gap 10 (6-14) Blood Urea Nitrogen 37mg/dL (7-20) Creatinine 1.3mg/dL (0.6-1.0) Estimated GFR (Cockcroft-Gault) 51.1 Glucose Level 130mg/dL (70-99) Calcium Level 8.9mg/dL (8.5-10.1) Test 08/04/16 07:30 O2 Saturation 99% (92-99) Arterial Blood pH 7.50 (7.35-7.45) Arterial Blood pCO2 at Patient Temp 25mmHg (35-46) Arterial Blood pO2 at Patient Temp 125mmHg (75-108) Arterial Blood HCO3 19mmol/L (21-28) Arterial Blood Base Excess -3mmol/L (-3-3) FiO2 21 Medications Active Scripts Medications Dose Route/Sig Days Date Category Nephro-Arielle Tablet (Folic Acid/Vitamin B Comp W-C) 0.8 Mg Tablet 1 Tab PO DAILY 04/19/16 Reported Oxycodone Hcl 5 Mg Capsule 1 Cap PO Q4HRS PRN 04/19/16 Reported Zofran (Ondansetron Hcl) 4 Mg Tablet 1 Tab PO Q8HRS 04/19/16 Reported Albuterol Sulfate Neb Soln (Albuterol Sulfate) 2.5 Mg/3 Ml Vial.neb 1 Vial NEB PRN Q4HRS 04/19/16 Reported Tylenol (Acetaminophen) 325 Mg Tablet 650 Mg PO Q6HRS PRN 04/19/16 Reported Duoneb 0.5-3(2.5) Mg/3 Ml (Albuterol/Ipratropium) 3 Ml Ampul.neb 3 Ml NEB TID 04/19/16 Reported Spironolactone 50 Mg Tablet 1 Tab PO DAILY 04/19/16 Reported Deltasone (Prednisone) 20 Mg Tablet 10 Mg PO DAILY 04/19/16 Reported Nystatin 100,000 Unit/1 Ml Oral.susp 100,000 Unit PO QID 04/19/16 Reported Cellcept (Mycophenolate Mofetil) 500 Mg Tablet 1 Tab PO BID 04/19/16 Reported Metoprolol Tartrate 25 Mg Tablet 25 Mg PO BID 04/19/16 Reported Melatonin 3 Mg Tab.rapdis 3 Mg PO HS 04/19/16 Reported Neurontin (Gabapentin) 100 Mg Capsule 100 Mg PO TID 04/19/16 Reported Lasix (Furosemide) 40 Mg Tablet 1 Tab PO DAILY 04/19/16 Reported Folic Acid 1 Mg Tablet 1 Tab PO DAILY 04/19/16 Reported Advair 500-50 Diskus (Fluticasone/Salmeterol) 1 Each Disk.w.dev 1 Puff IH BID 04/19/16 Reported Mobic (Meloxicam) 7.5 Mg Tablet 7.5 Mg PO DAILY 04/19/16 Reported Ativan (Lorazepam) 0.5 Mg Tablet 0.5 Mg PO PRN BID PRN 04/19/16 Reported Coumadin (Warfarin Sodium) 2 Mg Tablet 1 Tab PO HS 04/19/16 Reported Senokot-S Tablet (Sennosides/Docusate Sodium) 1 Each Tablet 1 Tab PO BID PRN 04/24/15 Reported Comments cxr reviewed, A pacemaker enters the left subclavian approach. There apparently has been placement of a dialysis catheter via the right IJ approach. Its tip extends to near the cavoatrial junction. No pneumothorax is visible on this view. There is mild prominence of lung markings. Heart size is normal. Impression . 1. [id number] hypercapnic respiratory failure. 2. Hyperkalemia. 3. Multiple wounds. 4. Leukocytosis. 5. Morbid obesity. 6. Obstructive sleep apnea. 7. Acute metabolic encephalopathy. 8. Hypotension, suspect secondary to adrenal insufficiency. Plan . 1. cont bipap, setting reviewed, monitor resp status 2. Continue antibiotics per Infectious Disease. 3. Follow lab. 4. Hemodialysis per Dr. Clay. 5. Steroids for chronic sarcoid. 6. Solu-Cortef decrease to bid 7. bronchodilator, ics 8. hep for prophylaxis 9. add protonix for prophylaxis discussed w rn, rt NIRAJ ASHER MD Aug 05, 2016 07:51
[2016-08-05 08:00] VITALS: BP 121/65
[2016-08-05] MEDS: IPRATRPIUM/ALBUTEROL 0.5/2.5MG 3 ML NEBU. NEB SCH ×3 (08:56→16:45)
[2016-08-05] MEDS: BUDESONIDE 0.5 MG/2 ML NEBU NEB SCH ×2 (08:56→20:42)
[2016-08-05] MEDS: METOPROLOL TART IMMED RELEASE 25 MG TABLET PO SCH ×2 (09:00→21:27)
[2016-08-05] MEDS: MICAFUNGIN 100 MG in IV DEXTROSE 5% 100 ML IV SCH (09:27)
[2016-08-05] MEDS: NYSTATIN 100,000 UNITS/ML 5 ML ORAL.SUSP. PO SCH ×5 (09:27→21:49)
[2016-08-05] MEDS: PANTOPRAZOLE 40 MG TABLET. PO SCH (09:28)
[2016-08-05] MEDS: GABAPENTIN 100 MG CAPSULE. PO SCH ×3 (09:28→21:27)
[2016-08-05] MEDS: FOLIC ACID 1 MG TABLET PO SCH (09:28)
[2016-08-05] MEDS: MYCOPHENOLATE MOFETIL 250 MG CAPSULE. PO SCH ×2 (09:28→21:25)
[2016-08-05] MEDS: FOLIC/VIT B COMP W-C (RENAL) TABLET. PO SCH (09:28)
--- NOTE | 2016-08-05 09:34 | PDOC ---
PROGRESS NOTES Assessment Problems Medical Problems: (1) Bleeding from wound Status: Acute (2) Hyperkalemia Status: Acute (3) Wound, open Status: Acute Metabolic encephalopathy due to uremia, respiratory with hypercarbia. No evidence of stroke, seizure activity, or central nervous system infection. Plan No additional neurological studies needed Correction of medical problems Covering neurologist will see only PRN over weekend Subjective none Objective Vital Signs Date Time Temp Pulse Resp B/P Pulse Ox O2 Delivery O2 Flow Rate FiO2 08/05/16 08:56 92 BiPAP/CPAP 08/05/16 04:00 98.1 61 16 106/39 98.1 Intake and Output 08/05/16 07:00 Intake Total 2646 ml Output Total 900 ml Balance 1746 ml Intake Oral 400 ml IV Total 2246 ml Output Urine Total 900 ml PHYSICAL EXAM Opens eyes to voice, squeezes hands to command Tells me her name PERRL. EOMI. CN: no focal findings. Muscle tone: normal. Muscle strength: 0/5 legs, 2/5 arms DTR: 0+ Plantar reflex: flexor Gait: not examined in bed. Sensory exam: not cooperative with exam. No cerebellar signs elicited, not cooperative with exam. Review of Relevant I have reviewed the following items natacha (where applicable) has been applied. Labs Laboratory Tests Test 08/03/16 12:17 08/03/16 22:18 08/04/16 06:00 08/04/16 07:30 O2 Saturation 94% (92-99) 99% (92-99) Arterial Blood pH 7.31 (7.35-7.45) 7.50 (7.35-7.45) Arterial Blood pCO2 at Patient Temp 45mmHg (35-46) 25mmHg (35-46) Arterial Blood pO2 at Patient Temp 69mmHg (75-108) 125mmHg (75-108) Arterial Blood HCO3 22mmol/L (21-28) 19mmol/L (21-28) Arterial Blood Base Excess -4mmol/L (-3-3) -3mmol/L (-3-3) FiO2 21 21 Glucose (Fingerstick) 172mg/dL (70-99) White Blood Count 10.3x10^3/uL (4.0-11.0) Red Blood Count 2.53x10^6/uL (3.50-5.40) Hemoglobin 7.8g/dL (12.0-15.5) Hematocrit 25.5% (36.0-47.0) Mean Corpuscular Volume 101fL (79-100) Mean Corpuscular Hemoglobin 31pg (25-35) Mean Corpuscular Hemoglobin Concent 31g/dL (31-37) Red Cell Distribution Width 16.1% (11.5-14.5) Platelet Count 177x10^3/uL (140-400) Neutrophils (%) (Auto) 92% (31-73) Lymphocytes (%) (Auto) 4% (24-48) Monocytes (%) (Auto) 4% (0-9) Eosinophils (%) (Auto) 0% (0-3) Basophils (%) (Auto) 0% (0-3) Neutrophils # (Auto) 9.5x10^3uL (1.8-7.7) Lymphocytes # (Auto) 0.4x10^3/uL (1.0-4.8) Monocytes # (Auto) 0.4x10^3/uL (0.0-1.1) Eosinophils # (Auto) 0.0x10^3/uL (0.0-0.7) Basophils # (Auto) 0.0x10^3/uL (0.0-0.2) Sodium Level 136mmol/L (136-145) Potassium Level 4.1mmol/L (3.5-5.1) Chloride Level 103mmol/L (98-107) Carbon Dioxide Level 23mmol/L (21-32) Anion Gap 10 (6-14) Blood Urea Nitrogen 37mg/dL (7-20) Creatinine 1.3mg/dL (0.6-1.0) Estimated GFR (Cockcroft-Gault) 51.1 Glucose Level 130mg/dL (70-99) Calcium Level 8.9mg/dL (8.5-10.1) Microbiology 08/02/16 Blood Culture - Preliminary, Resulted NO GROWTH AFTER 3 DAYS 08/02/16 Urine Culture - Final, Complete 08/02/16 Urine Culture Result 1 (REBEKAH) - Final, Complete Medications Current Medications Tranexamic Acid (Cyklokapron) 1,000 mg 1X ONCE TOP Last administered on t 15:18; Start 07/31/16 at 14:45; Stop 07/31/16 at 14:46; Status DC Protamine Sulfate 50 mg 1X ONCE IV Last administered on 07/31/16 14:54; Start 07/31/16 at 15:15; Stop 07/31/16 at 15:16; Status DC Dextrose 25 gm 1X ONCE IV Last administered on 07/31/16 16:32; Start at 15:45; Stop 07/31/16 at 15:46; Status DC Insulin Human Regular 10 unit 10 unit 1X ONCE IV Last administered on 16:35; Start 07/31/16 at 15:45; Stop 07/31/16 at 15:46; Status DC Sodium Bicarbonate 50 meq/Dextrose 1,050 ml @ 125 mls/hr Q8H24M IV ; Start 05/07 at 15:45; Status Cancel Sodium Chloride (Iv Sodium Chloride 0.9% 500ml Bag) 500 ml @ 500 mls/hr 1X ONCE IV Last administered on 07/31/16 15:25; Start 07/31/16 at 15:30; Stop 05/07 at 16:29; Status DC Ondansetron HCl 4 mg 4 mg PRN Q8HRS PRN IV NAUSEA/VOMITING; Start 07/31/16 at 15:30; Stop 08/01/16 at 15:29; Status DC Sodium Chloride (Iv Sodium Chloride 0.9% 1000ml Bag) 1,000 ml @ 125 mls/hr Q8H IV ; Start 07/31/16 at 15:30; Stop 08/01/16 at 00:00; Status DC Acetaminophen (Tylenol) 650 mg PRN Q4HRS PRN PO FEVER; Start 07/31/16 at 15:30 ; Stop 07/31/16 at 19:08; Status DC Calcium Gluconate 1,000 mg 1X ONCE IVP Last administered on 07/31/16 16:36; Start 07/31/16 at 17:00; Stop 07/31/16 at 17:01; Status DC Sodium Bicarbonate 50 meq STK-MED ONCE .ROUTE ; Start 07/31/16 at 16:26; Stop at 16:27; Status DC Sodium Bicarbonate 50 meq 1X ONCE IV Last administered on 3/12/17at 16:36; Start 07/31/16 at 17:00; Stop 07/31/16 at 17:01; Status DC Sodium Polystyrene Sulfonate 15 gm 15 gm 1X ONCE PO Last administered on 18:00; Start 07/31/16 at 18:00; Stop 07/31/16 at 18:01; Status DC Sodium Chloride 1,000 ml @ 1,000 mls/hr Q1H PRN IV hypotension; Start 07/31/16 at 18:10; Stop 08/01/16 at 00:09; Status DC Albumin Human (Albuminar) 200 ml @ 200 mls/hr 1X PRN PRN IV Hypotension; Start 07/31/16 at 18:15; Stop 08/01/16 at 00:14; Status DC Acetaminophen (Tylenol) 500 mg 1X PRN PRN PO MILD PAIN / TEMP; Start 07/31/16 at 18:15; Stop 08/01/16 at 00:30; Status DC Diphenhydramine HCl (Benadryl) 25 mg 1X PRN PRN IV ITCHING; Start 07/31/16 at 18:15; Stop 08/01/16 at 00:30; Status DC Diphenhydramine HCl (Benadryl) 25 mg 1X PRN PRN IV ITCHING; Start 07/31/16 at 18:15; Stop 08/01/16 at 00:30; Status DC Info (PHARMACY MONITORING -- do not chart) 1 each PRN DAILY PRN MC SEE COMMENTS ; Start 07/31/16 at 18:15; Stop 08/04/16 at 10:08; Status DC Heparin Sodium (Porcine) 10,000 unit STK-MED ONCE .ROUTE ; Start 07/31/16 at 18: 27; Stop 07/31/16 at 18:28; Status DC Lidocaine/Sodium Bicarbonate 20 ml 20 ml STK-MED ONCE IJ ; Start 07/31/16 at 18: 27; Stop 07/31/16 at 18:28; Status DC Heparin Sodium/ Sodium Chloride 500 ml @ As Directed STK-MED ONCE .ROUTE ; Start 07/31/16 at 18:27; Stop 07/31/16 at 18:28; Status DC Lidocaine/Sodium Bicarbonate (Buffered Lidocaine 1%) 3 ml 1X ONCE IJ Last administered on 07/31/16 19:12; Start 07/31/16 at 19:00; Stop 07/31/16 at 19:01 ; Status DC Heparin Sodium/ Sodium Chloride 60 unit 1X ONCE IV Last administered on 19:13; Start 07/31/16 at 19:00; Stop 07/31/16 at 19:01; Status DC Heparin Sodium (Porcine) 2,500 unit 1X ONCE INT CAT Last administered on 19:12; Start 07/31/16 at 19:00; Stop 07/31/16 at 19:01; Status DC Acetaminophen (Tylenol) 650 mg PRN Q6HRS PRN PO PAIN Last administered on 17:23; Start 07/31/16 at 19:15 Albuterol Sulfate (Ventolin Neb Soln) 2.5 mg PRN Q4HRS PRN NEB SHORTNESS OF BREATH; Start 07/31/16 at 19:15 Folic Acid (Folic Acid) 1 mg DAILY PO Last administered on 08/05/16 09:28; Start 08/01/16 at 09:00 Vitamin B Complex/ Vitamin C (Nephro-Arielle) 1 tab DAILY PO Last administered on 08/05/16 09:28; Start 08/01/16 at 09:00 Furosemide (Lasix) 40 mg DAILY PO Last administered on 08/01/16 08:46; Start 08/01/16 at 09:00; Stop 08/02/16 at 11:29; Status DC Gabapentin (Neurontin) 100 mg TID PO Last administered on 08/05/16 09:28; Start 07/31/16 at 21:00 Albuterol/ Ipratropium (Duoneb) 3 ml TID NEB Last administered on 08/05/16 08: 56; Start 07/31/16 at 21:00 Lorazepam (Ativan) 0.5 mg PRN BID PRN PO ANXIETY / AGITATION; Start 07/31/16 at 19:15 Meloxicam (Mobic) 7.5 mg DAILY PO Last administered on 08/01/16 08:46; Start 08/01/16 at 09:00; Stop 08/01/16 at 11:25; Status DC Metoprolol Tartrate (Lopressor) 25 mg BID PO Last administered on 08/04/16 21: 25; Start 07/31/16 at 21:00 Morphine Sulfate (Ms Contin) 15 mg Q12HR PO Last administered on 08/01/16 08: 46; Start 07/31/16 at 21:00; Stop 08/01/16 at 16:46; Status DC Nystatin 5 ml QID PO Last administered on 08/05/16 09:27; Start 07/31/16 at 21 :00 Prednisone (Prednisone) 10 mg DAILY PO Last administered on 08/01/16 08:48; Start 08/01/16 at 09:00; Stop 08/03/16 at 16:57; Status DC Senna/Docusate Sodium (Senna Plus) 1 tab PRN BID PRN PO CONSTIPATION Last administered on 08/03/16 08:43; Start 07/31/16 at 19:15 Budesonide (Pulmicort) 0.5 mg RTBID NEB Last administered on 08/05/16 08:56; Start 07/31/16 at 20:00 Non-Formulary Medication 3 mg HS PO ; Start 07/31/16 at 21:00; Status UNV Mycophenolate Mofetil (Cellcept) 500 mg BID PO Last administered on 08/05/16 09:28; Start 07/31/16 at 21:00 Ondansetron HCl (Zofran Odt) 4 mg Q8HRS PO ; Start 07/31/16 at 22:00; Status Cancel Oxycodone HCl (Roxicodone) 5 mg PRN Q4HRS PRN PO PAIN Last administered on 08/05 00:08; Start 07/31/16 at 19:30 Spironolactone 50 mg 50 mg DAILY PO Last administered on 08/01/16 08:46; Start 08/01/16 at 09:00; Stop 08/01/16 at 11:25; Status DC Meropenem 500 mg/ Sodium Chloride 50 ml @ 100 mls/hr Q24H IV Last administered on 08/01/16 05:17; Start 08/01/16 at 06:00; Stop 08/02/16 at 07:03 ; Status DC Linezolid 300 ml @ 300 mls/hr Q12HR IV Last administered on 08/04/16 21:20; Start 08/01/16 at 09:00; Stop 08/05/16 at 06:55; Status DC Sodium Chloride (Iv Sodium Chloride 0.9% 1000ml Bag) 1,000 ml @ 70 mls/hr [id number] IV Last administered on 08/02/16 02:11; Start 08/01/16 at 00:00; Stop 08/02/16 at 14:14; Status DC Fentanyl Citrate (Fentanyl 2ml Vial) 50 mcg PRN Q2HR PRN IV PAIN Last administered on 08/01/16 08:12; Start 08/01/16 at 02:45 Heparin Sodium (Porcine) 5,000 unit Q8HRS SQ Last administered on 08/05/16 05: 38; Start 08/01/16 at 22:00 Furosemide (Lasix) 80 mg 1X ONCE IVP ; Start 08/01/16 at 22:45; Stop 08/02/16 at 00:56; Status DC Naloxone HCl 0.4 mg 0.4 mg 1X ONCE IV Last administered on 08/01/16 23:00; Start 08/01/16 at 23:00; Stop 08/01/16 at 23:01; Status DC Sodium Chloride 250 ml @ 250 mls/hr 1X ONCE IV Last administered on 23:11; Start 08/01/16 at 23:15; Stop 08/02/16 at 00:14; Status DC Norepinephrine Bitartrate 8 mg/ Sodium Chloride 258 ml @ 0 mls/hr CONT PRN IV SEE I/O RECORD Last administered on 08/03/16 08:42; Start 08/02/16 at 00:00 Sodium Chloride 1,000 ml @ 75 mls/hr [id number] IV Last administered on 05:36; Start 08/02/16 at 03:45; Stop 08/03/16 at 10:49; Status DC Micafungin Sodium 100 mg/Dextrose 100 ml @ 100 mls/hr Q24H IV Last administered on 08/05/16 09:27; Start 08/02/16 at 08:00 Ceftolozane/ Tazobactam 1500 mg/Sodium Chloride 100 ml @ 100 mls/hr Q8HRS IV Last administered on 08/02/16 10:41; Start 08/02/16 at 08:00; Stop 08/02/16 at 14:02; Status DC Ceftolozane/ Tazobactam/Sodium Chloride (Zerbaxa/Iv Sodium Chloride 0.9% 100ml) 100 ml @ 100 mls/hr Q8HRS IV Last administered on 08/03/16 22:20; Start 08/02 at 22:00; Stop 08/04/16 at 00:00; Status DC Hydrocortisone Sodium Succinate (Solu-Cortef) 100 mg Q8HRS IV Last administered on 08/05/16 05:34; Start 08/02/16 at 16:00; Stop 08/05/16 at 07:43 ; Status DC Furosemide 60 mg 60 mg 1X ONCE IVP Last administered on 08/03/16 08:41; Start 08/03/16 at 08:30; Stop 08/03/16 at 08:33; Status DC Amino Acids/ Electrolytes 2,000 ml @ 75 mls/hr Q24H IV ; Start 08/03/16 at 12: 00; Status Cancel Amino Acids/ Electrolytes 1,000 ml @ 75 mls/hr [id number] IV Last administered on 08/05/16 05:34; Start 08/03/16 at 12:00 Ceftolozane/ Tazobactam/Sodium Chloride (Zerbaxa/Iv Sodium Chloride 0.9% 100ml) 100 ml @ 100 mls/hr Q8HRS IV Last administered on 08/05/16 05:34; Start 08/04 at 06:00 Hydrocortisone Sodium Succinate (Solu-Cortef) 100 mg Q12HR IV ; Start 08/05/16 at 21:00 Pantoprazole Sodium (Protonix) 40 mg DAILYAC PO Last administered on 08/05/16 09:28; Start 08/05/16 at 08:00 Active Scripts Active Reported Nephro-Arielle Tablet (Folic Acid/Vitamin B Comp W-C) 0.8 Mg Tablet 1 Tab PO DAILY Oxycodone Hcl 5 Mg Capsule 1 Cap PO Q4HRS PRN Zofran (Ondansetron Hcl) 4 Mg Tablet 1 Tab PO Q8HRS Albuterol Sulfate Neb Soln (Albuterol Sulfate) 2.5 Mg/3 Ml Vial.neb 1 Vial NEB PRN Q4HRS Tylenol (Acetaminophen) 325 Mg Tablet 650 Mg PO Q6HRS PRN Duoneb 0.5-3(2.5) Mg/3 Ml (Albuterol/Ipratropium) 3 Ml Ampul.neb 3 Ml NEB TID Spironolactone 50 Mg Tablet 1 Tab PO DAILY Deltasone (Prednisone) 20 Mg Tablet 10 Mg PO DAILY Nystatin 100,000 Unit/1 Ml Oral.susp 100,000 Unit PO QID Cellcept (Mycophenolate Mofetil) 500 Mg Tablet 1 Tab PO BID Metoprolol Tartrate 25 Mg Tablet 25 Mg PO BID Melatonin 3 Mg Tab.rapdis 3 Mg PO HS Neurontin (Gabapentin) 100 Mg Capsule 100 Mg PO TID Lasix (Furosemide) 40 Mg Tablet 1 Tab PO DAILY Folic Acid 1 Mg Tablet 1 Tab PO DAILY Advair 500-50 Diskus (Fluticasone/Salmeterol) 1 Each Disk.w.dev 1 Puff IH BID Mobic (Meloxicam) 7.5 Mg Tablet 7.5 Mg PO DAILY Ativan (Lorazepam) 0.5 Mg Tablet 0.5 Mg PO PRN BID PRN Coumadin (Warfarin Sodium) 2 Mg Tablet 1 Tab PO HS Senokot-S Tablet (Sennosides/Docusate Sodium) 1 Each Tablet 1 Tab PO BID PRN Vitals/I & O Vital Sign - Last 24 Hours 08/04/16 08/04/16 08/04/16 08/04/16 12:00 12:52 16:00 19:11 Temp 97.1 97.8 97.1 97.8 Pulse 74 74 Resp 26 26 B/P 118/71 118/71 Pulse Ox 95 98 94 100 O2 Delivery Room Air Room Air Room Air Room Air 08/04/16 08/04/16 08/04/16 08/04/16 19:52 19:54 19:55 20:00 Temp 97.9 97.9 Pulse 72 Resp 18 B/P 123/83 Pulse Ox 92 92 92 100 O2 Delivery BiPAP/CPAP BiPAP/CPAP BiPAP/CPAP BiPAP/CPAP 08/04/16 08/04/16 08/04/16 08/04/16 20:00 21:25 23:32 23:59 Temp 97.3 97.3 Pulse 72 67 Resp 22 B/P 125/79 113/75 Pulse Ox 98 100 O2 Delivery Bi-pap BiPAP/CPAP BiPAP/CPAP 08/05/16 08/05/16 08/05/16 08/05/16 00:08 01:00 01:22 03:25 Resp 24 20 Pulse Ox 100 100 99 100 O2 Delivery BiPAP/CPAP BiPAP/CPAP BiPAP/CPAP BiPAP/CPAP 08/05/16 08/05/16 08/05/16 04:00 05:19 08:56 Temp 98.1 98.1 Pulse 61 Resp 16 B/P 106/39 Pulse Ox 100 100 92 O2 Delivery BiPAP/CPAP BiPAP/CPAP BiPAP/CPAP Intake and Output 08/04/16 08/04/16 08/05/16 15:00 23:00 07:00 Intake Total 100 ml 300 ml 2246 ml Output Total 350 ml 550 ml Balance 100 ml -50 ml 1696 ml ELSA KHOURY MD Aug 05, 2016 09:34
--- NOTE | 2016-08-05 10:50 | PDOC ---
LYNDSAY RAMOS WAITER/WAITRESS TAVERN 08/05/16 1050: SURGICAL PROGRESS NOTE Subjective tolerating diet no complaints this AM Vital Signs Vital Signs Date Time Temp Pulse Resp B/P Pulse Ox O2 Delivery O2 Flow Rate FiO2 08/05/16 08:56 92 BiPAP/CPAP 08/05/16 04:00 98.1 61 16 106/39 98.1 I&O Intake and Output 08/05/16 07:00 Intake Total 2646 ml Output Total 900 ml Balance 1746 ml Intake Oral 400 ml IV Total 2246 ml Output Urine Total 900 ml General: Alert, Oriented X3, Cooperative, No acute distress Skin: Other (wounds dressed to cierra legs) Labs Laboratory Tests Test 08/03/16 12:17 08/03/16 22:18 08/04/16 06:00 08/04/16 07:30 O2 Saturation 94% (92-99) 99% (92-99) Arterial Blood pH 7.31 (7.35-7.45) 7.50 (7.35-7.45) Arterial Blood pCO2 at Patient Temp 45mmHg (35-46) 25mmHg (35-46) Arterial Blood pO2 at Patient Temp 69mmHg (75-108) 125mmHg (75-108) Arterial Blood HCO3 22mmol/L (21-28) 19mmol/L (21-28) Arterial Blood Base Excess -4mmol/L (-3-3) -3mmol/L (-3-3) FiO2 21 21 Glucose (Fingerstick) 172mg/dL (70-99) White Blood Count 10.3x10^3/uL (4.0-11.0) Red Blood Count 2.53x10^6/uL (3.50-5.40) Hemoglobin 7.8g/dL (12.0-15.5) Hematocrit 25.5% (36.0-47.0) Mean Corpuscular Volume 101fL (79-100) Mean Corpuscular Hemoglobin 31pg (25-35) Mean Corpuscular Hemoglobin Concent 31g/dL (31-37) Red Cell Distribution Width 16.1% (11.5-14.5) Platelet Count 177x10^3/uL (140-400) Neutrophils (%) (Auto) 92% (31-73) Lymphocytes (%) (Auto) 4% (24-48) Monocytes (%) (Auto) 4% (0-9) Eosinophils (%) (Auto) 0% (0-3) Basophils (%) (Auto) 0% (0-3) Neutrophils # (Auto) 9.5x10^3uL (1.8-7.7) Lymphocytes # (Auto) 0.4x10^3/uL (1.0-4.8) Monocytes # (Auto) 0.4x10^3/uL (0.0-1.1) Eosinophils # (Auto) 0.0x10^3/uL (0.0-0.7) Basophils # (Auto) 0.0x10^3/uL (0.0-0.2) Sodium Level 136mmol/L (136-145) Potassium Level 4.1mmol/L (3.5-5.1) Chloride Level 103mmol/L (98-107) Carbon Dioxide Level 23mmol/L (21-32) Anion Gap 10 (6-14) Blood Urea Nitrogen 37mg/dL (7-20) Creatinine 1.3mg/dL (0.6-1.0) Estimated GFR (Cockcroft-Gault) 51.1 Glucose Level 130mg/dL (70-99) Calcium Level 8.9mg/dL (8.5-10.1) Problem List Problems Medical Problems: (1) Bleeding from wound Status: Acute (2) Hyperkalemia Status: Acute (3) Wound, open Status: Acute Assessment/Plan cierra leg wounds continue wound care Problems: ANITA NARANJO MD 08/05/16 1348: SURGICAL PROGRESS NOTE Assessment/Plan as above palliative care eval for treatment goals? Problems: LYNDSAY RAMOS WAITER/WAITRESS TAVERN Aug 05, 2016 10:50 ANITA NARANJO MD Aug 05, 2016 13:48
--- NOTE | 2016-08-05 10:57 | PDOC ---
Renal-Progress Notes Subjective Notes Notes NONE History of Present Illness Hx of present illness STABLE Vitals Vitals Vital Signs Date Time Temp Pulse Resp B/P Pulse Ox O2 Delivery O2 Flow Rate FiO2 08/05/16 08:56 92 BiPAP/CPAP 08/05/16 04:00 98.1 61 16 106/39 98.1 Weight Weight [ ] I.O. Intake and Output Intake and Output 08/05/16 07:00 Intake Total 2646 ml Output Total 900 ml Balance 1746 ml Intake Oral 400 ml IV Total 2246 ml Output Urine Total 900 ml Micro Micro Microbiology 08/02/16 Blood Culture - Preliminary, Resulted NO GROWTH AFTER 3 DAYS 08/02/16 Urine Culture - Final, Complete 08/02/16 Urine Culture Result 1 (REBEKAH) - Final, Complete Review of Systems Constitutional: yes: no symptom reported Physical Exam General Appearance: no apparent distress Skin: warm Respiratory: decreased breath sounds Heart: S1S2, RRR Abdomen: soft, bowel sounds present Extremities: pulses present Neurology: alert Musculoskeletal: Other ( bilateral hip avascular necrosis) Assessment Assessment IMP ODALIS-IMPROVED AGAIN WITH CR OF 1.3 HYPERKALEMIA-RESOLVED MORBID OBESITY LEUCOCYTOSIS MULTIPLE WOUNDS ENCEPHALOPATHY RESP ACIDOSIS FROM HYPERCARBIA-BETTER PLAN OFF HD NOW CONT TO HOLD HER ALDACTONE, MOBIC FOR NOW LABS IN AM ANTIBIOTICS PPN TILL EATING BETTER WILL MAINTAIN TEMP HD CATHETER SINCE SHE HAS NO OTHER ACCESS CATARINO LOREDO MD Aug 05, 2016 10:57
[2016-08-05 11:22] LABS: BASO % 0 % (0-3); EOS % 0 % (0-3); LYMPH # 0.3 x10^3/uL (1.0-4.8); LYMPH % 3 % (24-48); MEAN CORPUSCULAR HEMOGLOBIN 31 pg (25-35); MEAN CORPUSCULAR HGB CONC 32 g/dL (31-37); MEAN CORPUSCULAR VOLUME 96 fL (79-100); MONO % 4 % (0-9); NEUT % 92 % (31-73); PLATELET COUNT 225 x10^3/uL (140-400); WHITE BLOOD COUNT 9.4 x10^3/uL (4.0-11.0)
[2016-08-05 11:36] LABS: CREATININE 1.2 mg/dL (0.6-1.0); POTASSIUM 4.5 mmol/L (3.5-5.1)
[2016-08-05 11:42] LABS: PHOSPHORUS 4.3 mg/dL (2.6-4.7)
[2016-08-05 11:43] LABS: MAGNESIUM 1.9 mg/dL (1.8-2.4)
[2016-08-05 12:00] VITALS: BP 116/61
[2016-08-05 12:41] LABS: HCO3 ABG 21 mmol/L (21-28); PCO2 ABG 37 mmHg (35-46); PH ABG 7.36 (7.35-7.45); PO2 ABG 71 mmHg (75-108); SAT O2 ABG 93 % (92-99)
[2016-08-05 12:44] LABS: FIO2 ABG 21
[2016-08-05 16:00] VITALS: BP 107/59
[2016-08-05 19:00] VITALS: BP 139/56
[2016-08-05] MEDS ORDERED: HYDROCORTISONE SOD SUCC/PF 100 MG/2 ML VIAL. IV SCH (21:00)
[2016-08-05 23:00] VITALS: BP 130/66
--- NOTE | 2016-08-05 23:48 | PDOC ---
PROGRESS NOTES Chief Complaint Chief Complaint Hyperkalemia Open wounds, bleeding ASSESSMENT AND PLAN: 1. Sepsis: improved, stable VS. blood cult NGTD. stress dose steroids stopped 2. ODALIS: creat recovered to baseline. Dr Clay following 3. Hyperkalemia: resolved s/p HD on 08/01. 4. Respir failure: chronic; hypoventilation syndrome due to obesity; sarcoidosis. ANASTASIIA. ? worsening with narcotics - minimize. BiPAP O/N 5. Wounds: calciphylaxis. hx of infection (MSSA). Abx as per Dr Sharpe. wound care. 6. Leukocytosis: much improved. monitor 7. Wound bleed: resolved with direct pressure 8. Acute Encephalopathy: fluctuating; good today. suspect multifactorial: respir issues, infection. 9. Afib: rate controlled 10. Sarcoidosis: on cellcept and pred long-term 11. Antiphospholipid syndrome: previously seen by Dr Church; on coumadin on O/ P basis. restart coumadin, overlapping with heparin until therapeutic 12. Anemia: macrocytic. hx severe anemia, chronic inflammatory by recent labs, no vitamin deficiency 13. Hypoalbuminemia: severe, in face of massive obesity, and chronic infection /inflammation. on PPN currently. supplements PO 14. Prophylaxis: heparin SQ for now. 15. Dispo: stable for transfer to med/tele 16. Poor venous access: curerntly only [facility], no longer used for HD l Vitals Vitals Vital Signs Date Time Temp Pulse Resp B/P Pulse Ox O2 Delivery O2 Flow Rate FiO2 08/05/16 23:30 BiPAP/CPAP 08/05/16 21:27 93 139/56 08/05/16 21:26 20 08/05/16 20:44 92 08/05/16 19:00 96.3 96.3 Physical Exam General: Alert, Oriented X3, Cooperative, No acute distress Heart: Regular rate, No murmurs Lungs: Crackles Abdomen: Soft, No tenderness, Other (massively obese) Extremities: Other (multiple lower ext wounds) Skin: Other (wounds dressed to cirera legs) Labs LABS Laboratory Tests Test 08/05/16 08:00 08/05/16 11:00 O2 Saturation 93% (92-99) Arterial Blood pH 7.36 (7.35-7.45) Arterial Blood pCO2 at Patient Temp 37mmHg (35-46) Arterial Blood pO2 at Patient Temp 71mmHg (75-108) Arterial Blood HCO3 21mmol/L (21-28) Arterial Blood Base Excess -4mmol/L (-3-3) FiO2 21 White Blood Count 9.4x10^3/uL (4.0-11.0) Red Blood Count 2.90x10^6/uL (3.50-5.40) Hemoglobin 9.0g/dL (12.0-15.5) Hematocrit 28.0% (36.0-47.0) Mean Corpuscular Volume 96fL (79-100) Mean Corpuscular Hemoglobin 31pg (25-35) Mean Corpuscular Hemoglobin Concent 32g/dL (31-37) Red Cell Distribution Width 16.0% (11.5-14.5) Platelet Count 225x10^3/uL (140-400) Neutrophils (%) (Auto) 92% (31-73) Lymphocytes (%) (Auto) 3% (24-48) Monocytes (%) (Auto) 4% (0-9) Eosinophils (%) (Auto) 0% (0-3) Basophils (%) (Auto) 0% (0-3) Neutrophils # (Auto) 8.7x10^3uL (1.8-7.7) Lymphocytes # (Auto) 0.3x10^3/uL (1.0-4.8) Monocytes # (Auto) 0.4x10^3/uL (0.0-1.1) Eosinophils # (Auto) 0.0x10^3/uL (0.0-0.7) Basophils # (Auto) 0.0x10^3/uL (0.0-0.2) Sodium Level 135mmol/L (136-145) Potassium Level 4.5mmol/L (3.5-5.1) Chloride Level 100mmol/L (98-107) Carbon Dioxide Level 21mmol/L (21-32) Anion Gap 14 (6-14) Blood Urea Nitrogen 48mg/dL (7-20) Creatinine 1.2mg/dL (0.6-1.0) Estimated GFR (Cockcroft-Gault) 56.0 Glucose Level 134mg/dL (70-99) Calcium Level 9.0mg/dL (8.5-10.1) Phosphorus Level 4.3mg/dL (2.6-4.7) Magnesium Level 1.9mg/dL (1.8-2.4) Review of Systems Review of Systems poor PO intake, not hungry. no nausea Nutrition Consultation Dietary Evaluation: Recommendations by RD: Increase Calorie Intake, Protein supplementation Comments: Novasource Renal TID - 475kcal and 21.6g protein Encourage intake at meals as tolerated Rec. continue PPN until intake consistently >50% at meals Encourage novasource renal with PO meds Expected Outcomes/Goals: meet >75% est nutr needs Interpretation of weight loss: >7.5% in 3 months Malnutrition Findings: Malnutrition related to morbid: BMI>or equal to 40 Malnutrition related to morbid: Yes Weight Status: Morbidly Obese Fluid Accumulation (Non-Severe: Mild depletion OVIDIO STALLWORTH MD Aug 05, 2016 23:48
[2016-08-06 03:00] VITALS: BP 112/79
[2016-08-06] MEDS: CEFTOLOZANE/TAZOBACTAM 1,500 MG in IV NORMAL SALINE 100ML 100 ML IV SCH ×3 (05:47→21:35)
[2016-08-06] MEDS: HEPARIN PF for SUB-Q USE 5,000 UNIT/0.5 ML VIAL. SQ SCH ×3 (05:49→22:00)
[2016-08-06] MEDS: BUDESONIDE 0.5 MG/2 ML NEBU NEB SCH ×2 (07:13→19:37)
[2016-08-06] MEDS: IPRATRPIUM/ALBUTEROL 0.5/2.5MG 3 ML NEBU. NEB SCH ×3 (07:13→19:37)
--- NOTE | 2016-08-06 08:28 | PDOC ---
PROGRESS NOTES Chief Complaint Chief Complaint Hyperkalemia Open wounds, bleeding ASSESSMENT AND PLAN: 1. Sepsis: improved, stable VS. blood cult NGTD. stress dose steroids stopped 2. ODALIS: creat recovered to baseline. Dr Clay following 3. Hyperkalemia: resolved s/p HD on 08/01. 4. Respir failure: chronic; hypoventilation syndrome due to obesity; sarcoidosis. ANASTASIIA. ? worsening with narcotics - minimize. BiPAP O/N 5. Wounds: calciphylaxis. hx of infection (MSSA). Abx as per Dr Sharpe. wound care. 6. Leukocytosis: much improved. monitor 7. Wound bleed: resolved with direct pressure 8. Acute Encephalopathy: fluctuating; good today. suspect multifactorial: respir issues, infection. 9. Afib: rate controlled 10. Sarcoidosis: on cellcept and pred long-term 11. Antiphospholipid syndrome: previously seen by Dr Church; on coumadin on O/ P basis. restart coumadin, overlapping with heparin until therapeutic 12. Anemia: macrocytic. hx severe anemia, chronic inflammatory by recent labs, no vitamin deficiency 13. Hypoalbuminemia: severe, in face of massive obesity, and chronic infection /inflammation. on PPN currently. supplements PO 14. Prophylaxis: heparin SQ for now. 15. Dispo: stable for transfer to med/tele 16. Poor venous access: curerntly only [place], no longer used for HD l History of Present Illness History of Present Illness Patient was laying in the bed, she was om BiPaP, wound dressing were intact, dry and clean, she was responding to questions, plan of care discussed with her. Vitals Vitals Vital Signs Date Time Temp Pulse Resp B/P Pulse Ox O2 Delivery O2 Flow Rate FiO2 08/06/16 07:14 99 BiPAP/CPAP 08/06/16 03:00 96.8 72 18 112/79 96.8 Physical Exam General: Alert, Oriented X3, Cooperative, No acute distress Heart: Regular rate, No murmurs Lungs: Crackles Abdomen: Soft, No tenderness, Other (massively obese) Extremities: Other (multiple lower ext wounds) Skin: Other (wounds dressed to cierra legs) Labs LABS Laboratory Tests Test 08/05/16 11:00 White Blood Count 9.4x10^3/uL (4.0-11.0) Red Blood Count 2.90x10^6/uL (3.50-5.40) Hemoglobin 9.0g/dL (12.0-15.5) Hematocrit 28.0% (36.0-47.0) Mean Corpuscular Volume 96fL (79-100) Mean Corpuscular Hemoglobin 31pg (25-35) Mean Corpuscular Hemoglobin Concent 32g/dL (31-37) Red Cell Distribution Width 16.0% (11.5-14.5) Platelet Count 225x10^3/uL (140-400) Neutrophils (%) (Auto) 92% (31-73) Lymphocytes (%) (Auto) 3% (24-48) Monocytes (%) (Auto) 4% (0-9) Eosinophils (%) (Auto) 0% (0-3) Basophils (%) (Auto) 0% (0-3) Neutrophils # (Auto) 8.7x10^3uL (1.8-7.7) Lymphocytes # (Auto) 0.3x10^3/uL (1.0-4.8) Monocytes # (Auto) 0.4x10^3/uL (0.0-1.1) Eosinophils # (Auto) 0.0x10^3/uL (0.0-0.7) Basophils # (Auto) 0.0x10^3/uL (0.0-0.2) Sodium Level 135mmol/L (136-145) Potassium Level 4.5mmol/L (3.5-5.1) Chloride Level 100mmol/L (98-107) Carbon Dioxide Level 21mmol/L (21-32) Anion Gap 14 (6-14) Blood Urea Nitrogen 48mg/dL (7-20) Creatinine 1.2mg/dL (0.6-1.0) Estimated GFR (Cockcroft-Gault) 56.0 Glucose Level 134mg/dL (70-99) Calcium Level 9.0mg/dL (8.5-10.1) Phosphorus Level 4.3mg/dL (2.6-4.7) Magnesium Level 1.9mg/dL (1.8-2.4) Review of Systems Review of Systems No fever, chills lungs have crackles at bases wounds on bilateral lower extremities Dressing was present on wounds morbid obese breathing on BiPAP Assessment and Plan Assessmemt and Plan ASSESSMENT: 1. Sepsis: improved, stable VS. blood cult NGTD. stress dose steroids stopped 2. ODALIS: creat recovered to baseline. Dr Clay following 3. Hyperkalemia: resolved s/p HD on 08/01. 4. Respir failure: chronic; hypoventilation syndrome due to obesity; sarcoidosis. ANASTASIIA. ? worsening with narcotics - minimize. BiPAP O/N 5. Wounds: calciphylaxis. hx of infection (MSSA). Abx as per Dr Sharpe. wound care. 6. Leukocytosis: much improved. monitor 7. Wound bleed: resolved with direct pressure 8. Acute Encephalopathy: fluctuating; good today. suspect multifactorial: respir issues, infection. 9. Afib: rate controlled 10. Sarcoidosis: on cellcept and pred long-term 11. Antiphospholipid syndrome: previously seen by Dr Church; on coumadin on O/ P basis. restart coumadin, overlapping with heparin until therapeutic 12. Anemia: macrocytic. hx severe anemia, chronic inflammatory by recent labs, no vitamin deficiency 13. Hypoalbuminemia: severe, in face of massive obesity, and chronic infection /inflammation. on PPN currently. supplements PO 14. Prophylaxis: heparin SQ for now. 15. Poor venous access: curerntly only [facility], no longer used for HD l PLAN: Continue BIPAP Continue antibiotics, respiratory treatments Continue wound care Continue PPN Continue to encourage her for PO meal intake Recheck labs in AM Appreciate subspecialities inputs and recommendations Problems Medical Problems: (1) Bleeding from wound Status: Acute (2) Hyperkalemia Status: Acute (3) Wound, open Status: Acute Problems: Comment Review of Relevant I have reviewed the following items natacha (where applicable) has been applied. Labs Laboratory Tests Test 08/05/16 08:00 08/05/16 11:00 O2 Saturation 93% (92-99) Arterial Blood pH 7.36 (7.35-7.45) Arterial Blood pCO2 at Patient Temp 37mmHg (35-46) Arterial Blood pO2 at Patient Temp 71mmHg (75-108) Arterial Blood HCO3 21mmol/L (21-28) Arterial Blood Base Excess -4mmol/L (-3-3) FiO2 21 White Blood Count 9.4x10^3/uL (4.0-11.0) Red Blood Count 2.90x10^6/uL (3.50-5.40) Hemoglobin 9.0g/dL (12.0-15.5) Hematocrit 28.0% (36.0-47.0) Mean Corpuscular Volume 96fL (79-100) Mean Corpuscular Hemoglobin 31pg (25-35) Mean Corpuscular Hemoglobin Concent 32g/dL (31-37) Red Cell Distribution Width 16.0% (11.5-14.5) Platelet Count 225x10^3/uL (140-400) Neutrophils (%) (Auto) 92% (31-73) Lymphocytes (%) (Auto) 3% (24-48) Monocytes (%) (Auto) 4% (0-9) Eosinophils (%) (Auto) 0% (0-3) Basophils (%) (Auto) 0% (0-3) Neutrophils # (Auto) 8.7x10^3uL (1.8-7.7) Lymphocytes # (Auto) 0.3x10^3/uL (1.0-4.8) Monocytes # (Auto) 0.4x10^3/uL (0.0-1.1) Eosinophils # (Auto) 0.0x10^3/uL (0.0-0.7) Basophils # (Auto) 0.0x10^3/uL (0.0-0.2) Sodium Level 135mmol/L (136-145) Potassium Level 4.5mmol/L (3.5-5.1) Chloride Level 100mmol/L (98-107) Carbon Dioxide Level 21mmol/L (21-32) Anion Gap 14 (6-14) Blood Urea Nitrogen 48mg/dL (7-20) Creatinine 1.2mg/dL (0.6-1.0) Estimated GFR (Cockcroft-Gault) 56.0 Glucose Level 134mg/dL (70-99) Calcium Level 9.0mg/dL (8.5-10.1) Phosphorus Level 4.3mg/dL (2.6-4.7) Magnesium Level 1.9mg/dL (1.8-2.4) Laboratory Tests Test 08/05/16 11:00 White Blood Count 9.4x10^3/uL (4.0-11.0) Red Blood Count 2.90x10^6/uL (3.50-5.40) Hemoglobin 9.0g/dL (12.0-15.5) Hematocrit 28.0% (36.0-47.0) Mean Corpuscular Volume 96fL (79-100) Mean Corpuscular Hemoglobin 31pg (25-35) Mean Corpuscular Hemoglobin Concent 32g/dL (31-37) Red Cell Distribution Width 16.0% (11.5-14.5) Platelet Count 225x10^3/uL (140-400) Neutrophils (%) (Auto) 92% (31-73) Lymphocytes (%) (Auto) 3% (24-48) Monocytes (%) (Auto) 4% (0-9) Eosinophils (%) (Auto) 0% (0-3) Basophils (%) (Auto) 0% (0-3) Neutrophils # (Auto) 8.7x10^3uL (1.8-7.7) Lymphocytes # (Auto) 0.3x10^3/uL (1.0-4.8) Monocytes # (Auto) 0.4x10^3/uL (0.0-1.1) Eosinophils # (Auto) 0.0x10^3/uL (0.0-0.7) Basophils # (Auto) 0.0x10^3/uL (0.0-0.2) Sodium Level 135mmol/L (136-145) Potassium Level 4.5mmol/L (3.5-5.1) Chloride Level 100mmol/L (98-107) Carbon Dioxide Level 21mmol/L (21-32) Anion Gap 14 (6-14) Blood Urea Nitrogen 48mg/dL (7-20) Creatinine 1.2mg/dL (0.6-1.0) Estimated GFR (Cockcroft-Gault) 56.0 Glucose Level 134mg/dL (70-99) Calcium Level 9.0mg/dL (8.5-10.1) Phosphorus Level 4.3mg/dL (2.6-4.7) Magnesium Level 1.9mg/dL (1.8-2.4) Microbiology 08/02/16 Blood Culture - Preliminary, Resulted NO GROWTH AFTER 4 DAYS 08/02/16 Urine Culture - Final, Complete 08/02/16 Urine Culture Result 1 ([id number]) - Final, Complete Medications Current Medications Tranexamic Acid (Cyklokapron) 1,000 mg 1X ONCE TOP Last administered on 15:18; Start 07/31/16 at 14:45; Stop 07/31/16 at 14:46; Status DC Protamine Sulfate 50 mg 1X ONCE IV Last administered on 07/31/16 14:54; Start 07/31/16 at 15:15; Stop 07/31/16 at 15:16; Status DC Dextrose 25 gm 1X ONCE IV Last administered on 07/31/16 16:32; Start at 15:45; Stop 07/31/16 at 15:46; Status DC Insulin Human Regular 10 unit 10 unit 1X ONCE IV Last administered on 16:35; Start 07/31/16 at 15:45; Stop 07/31/16 at 15:46; Status DC Sodium Bicarbonate 50 meq/Dextrose 1,050 ml @ 125 mls/hr Q8H24M IV ; Start 05/07 at 15:45; Status Cancel Sodium Chloride (Iv Sodium Chloride 0.9% 500ml Bag) 500 ml @ 500 mls/hr 1X ONCE IV Last administered on 07/31/16 15:25; Start 07/31/16 at 15:30; Stop 05/07 at 16:29; Status DC Ondansetron HCl 4 mg 4 mg PRN Q8HRS PRN IV NAUSEA/VOMITING; Start 07/31/16 at 15:30; Stop 08/01/16 at 15:29; Status DC Sodium Chloride (Iv Sodium Chloride 0.9% 1000ml Bag) 1,000 ml @ 125 mls/hr Q8H IV ; Start 07/31/16 at 15:30; Stop 08/01/16 at 00:00; Status DC Acetaminophen (Tylenol) 650 mg PRN Q4HRS PRN PO FEVER; Start 07/31/16 at 15:30 ; Stop 07/31/16 at 19:08; Status DC Calcium Gluconate 1,000 mg 1X ONCE IVP Last administered on 07/31/16 16:36; Start 07/31/16 at 17:00; Stop 07/31/16 at 17:01; Status DC Sodium Bicarbonate 50 meq STK-MED ONCE .ROUTE ; Start 07/31/16 at 16:26; Stop at 16:27; Status DC Sodium Bicarbonate 50 meq 1X ONCE IV Last administered on 07/31/16t 16:36; Start 07/31/16 at 17:00; Stop 07/31/16 at 17:01; Status DC Sodium Polystyrene Sulfonate 15 gm 15 gm 1X ONCE PO Last administered on t 18:00; Start 07/31/16 at 18:00; Stop 07/31/16 at 18:01; Status DC Sodium Chloride 1,000 ml @ 1,000 mls/hr Q1H PRN IV hypotension; Start 07/31/16 at 18:10; Stop 08/01/16 at 00:09; Status DC Albumin Human (Albuminar) 200 ml @ 200 mls/hr 1X PRN PRN IV Hypotension; Start 07/31/16 at 18:15; Stop 08/01/16 at 00:14; Status DC Acetaminophen (Tylenol) 500 mg 1X PRN PRN PO MILD PAIN / TEMP; Start 07/31/16 at 18:15; Stop 08/01/16 at 00:30; Status DC Diphenhydramine HCl (Benadryl) 25 mg 1X PRN PRN IV ITCHING; Start 07/31/16 at 18:15; Stop 08/01/16 at 00:30; Status DC Diphenhydramine HCl (Benadryl) 25 mg 1X PRN PRN IV ITCHING; Start 07/31/16 at 18:15; Stop 08/01/16 at 00:30; Status DC Info (PHARMACY MONITORING -- do not chart) 1 each PRN DAILY PRN MC SEE COMMENTS ; Start 07/31/16 at 18:15; Stop 08/04/16 at 10:08; Status DC Heparin Sodium (Porcine) 10,000 unit STK-MED ONCE .ROUTE ; Start 07/31/16 at 18: 27; Stop 07/31/16 at 18:28; Status DC Lidocaine/Sodium Bicarbonate 20 ml 20 ml STK-MED ONCE IJ ; Start 07/31/16 at 18: 27; Stop 07/31/16 at 18:28; Status DC Heparin Sodium/ Sodium Chloride 500 ml @ As Directed STK-MED ONCE .ROUTE ; Start 07/31/16 at 18:27; Stop 07/31/16 at 18:28; Status DC Lidocaine/Sodium Bicarbonate (Buffered Lidocaine 1%) 3 ml 1X ONCE IJ Last administered on 07/31/16 19:12; Start 07/31/16 at 19:00; Stop 07/31/16 at 19:01 ; Status DC Heparin Sodium/ Sodium Chloride 60 unit 1X ONCE IV Last administered on 19:13; Start 07/31/16 at 19:00; Stop 07/31/16 at 19:01; Status DC Heparin Sodium (Porcine) 2,500 unit 1X ONCE INT CAT Last administered on 19:12; Start 07/31/16 at 19:00; Stop 07/31/16 at 19:01; Status DC Acetaminophen (Tylenol) 650 mg PRN Q6HRS PRN PO PAIN Last administered on 17:23; Start 07/31/16 at 19:15 Albuterol Sulfate (Ventolin Neb Soln) 2.5 mg PRN Q4HRS PRN NEB SHORTNESS OF BREATH; Start 07/31/16 at 19:15 Folic Acid (Folic Acid) 1 mg DAILY PO Last administered on 08/05/16 09:28; Start 08/01/16 at 09:00 Vitamin B Complex/ Vitamin C (Nephro-Arielle) 1 tab DAILY PO Last administered on 08/05/16 09:28; Start 08/01/16 at 09:00 Furosemide (Lasix) 40 mg DAILY PO Last administered on 08/01/16 08:46; Start 08/01/16 at 09:00; Stop 08/02/16 at 11:29; Status DC Gabapentin (Neurontin) 100 mg TID PO Last administered on 08/05/16 21:27; Start 07/31/16 at 21:00 Albuterol/ Ipratropium (Duoneb) 3 ml TID NEB Last administered on 08/06/16 07: 13; Start 07/31/16 at 21:00 Lorazepam (Ativan) 0.5 mg PRN BID PRN PO ANXIETY / AGITATION; Start 07/31/16 at 19:15 Meloxicam (Mobic) 7.5 mg DAILY PO Last administered on 08/01/16 08:46; Start 08/01/16 at 09:00; Stop 08/01/16 at 11:25; Status DC Metoprolol Tartrate (Lopressor) 25 mg BID PO Last administered on 08/05/16 21: 27; Start 07/31/16 at 21:00 Morphine Sulfate (Ms Contin) 15 mg Q12HR PO Last administered on 08/01/16 08: 46; Start 07/31/16 at 21:00; Stop 08/01/16 at 16:46; Status DC Nystatin 5 ml QID PO Last administered on 08/05/16 16:53; Start 07/31/16 at 21 :00 Prednisone (Prednisone) 10 mg DAILY PO Last administered on 08/01/16 08:48; Start 08/01/16 at 09:00; Stop 08/03/16 at 16:57; Status DC Senna/Docusate Sodium (Senna Plus) 1 tab PRN BID PRN PO CONSTIPATION Last administered on 08/03/16 08:43; Start 07/31/16 at 19:15 Budesonide (Pulmicort) 0.5 mg RTBID NEB Last administered on 08/06/16 07:13; Start 07/31/16 at 20:00 Non-Formulary Medication 3 mg HS PO ; Start 07/31/16 at 21:00; Status UNV Mycophenolate Mofetil (Cellcept) 500 mg BID PO Last administered on 08/05/16 21:25; Start 07/31/16 at 21:00 Ondansetron HCl (Zofran Odt) 4 mg Q8HRS PO ; Start 07/31/16 at 22:00; Status Cancel Oxycodone HCl (Roxicodone) 5 mg PRN Q4HRS PRN PO PAIN Last administered on 08/05 21:26; Start 07/31/16 at 19:30 Spironolactone 50 mg 50 mg DAILY PO Last administered on 08/01/16 08:46; Start 08/01/16 at 09:00; Stop 08/01/16 at 11:25; Status DC Meropenem 500 mg/ Sodium Chloride 50 ml @ 100 mls/hr Q24H IV Last administered on 08/01/16 05:17; Start 08/01/16 at 06:00; Stop 08/02/16 at 07:03 ; Status DC Linezolid 300 ml @ 300 mls/hr Q12HR IV Last administered on 08/04/16 21:20; Start 08/01/16 at 09:00; Stop 08/05/16 at 06:55; Status DC Sodium Chloride (Iv Sodium Chloride 0.9% 1000ml Bag) 1,000 ml @ 70 mls/hr [id number] IV Last administered on 08/02/16 02:11; Start 08/01/16 at 00:00; Stop 08/02/16 at 14:14; Status DC Fentanyl Citrate (Fentanyl 2ml Vial) 50 mcg PRN Q2HR PRN IV PAIN Last administered on 08/01/16 08:12; Start 08/01/16 at 02:45 Heparin Sodium (Porcine) 5,000 unit Q8HRS SQ Last administered on 08/06/16 05: 49; Start 08/01/16 at 22:00 Furosemide (Lasix) 80 mg 1X ONCE IVP ; Start 08/01/16 at 22:45; Stop 08/02/16 at 00:56; Status DC Naloxone HCl 0.4 mg 0.4 mg 1X ONCE IV Last administered on 08/01/16 23:00; Start 08/01/16 at 23:00; Stop 08/01/16 at 23:01; Status DC Sodium Chloride 250 ml @ 250 mls/hr 1X ONCE IV Last administered on 23:11; Start 08/01/16 at 23:15; Stop 08/02/16 at 00:14; Status DC Norepinephrine Bitartrate 8 mg/ Sodium Chloride 258 ml @ 0 mls/hr CONT PRN IV SEE I/O RECORD Last administered on 08/03/16 08:42; Start 08/02/16 at 00:00 Sodium Chloride 1,000 ml @ 75 mls/hr [id number] IV Last administered on 05:36; Start 08/02/16 at 03:45; Stop 08/03/16 at 10:49; Status DC Micafungin Sodium 100 mg/Dextrose 100 ml @ 100 mls/hr Q24H IV Last administered on 08/05/16 09:27; Start 08/02/16 at 08:00 Ceftolozane/ Tazobactam 1500 mg/Sodium Chloride 100 ml @ 100 mls/hr Q8HRS IV Last administered on 08/02/16 10:41; Start 08/02/16 at 08:00; Stop 08/02/16 at 14:02; Status DC Ceftolozane/ Tazobactam/Sodium Chloride (Zerbaxa/Iv Sodium Chloride 0.9% 100ml) 100 ml @ 100 mls/hr Q8HRS IV Last administered on 08/03/16 22:20; Start 08/02 at 22:00; Stop 08/04/16 at 00:00; Status DC Hydrocortisone Sodium Succinate (Solu-Cortef) 100 mg Q8HRS IV Last administered on 08/05/16 05:34; Start 08/02/16 at 16:00; Stop 08/05/16 at 07:43 ; Status DC Furosemide 60 mg 60 mg 1X ONCE IVP Last administered on 08/03/16 08:41; Start 08/03/16 at 08:30; Stop 08/03/16 at 08:33; Status DC Amino Acids/ Electrolytes 2,000 ml @ 75 mls/hr Q24H IV ; Start 08/03/16 at 12: 00; Status Cancel Amino Acids/ Electrolytes 1,000 ml @ 75 mls/hr [id number] IV Last administered on 08/05/16 21:28; Start 08/03/16 at 12:00 Ceftolozane/ Tazobactam/Sodium Chloride (Zerbaxa/Iv Sodium Chloride 0.9% 100ml) 100 ml @ 100 mls/hr Q8HRS IV Last administered on 08/06/16 05:47; Start 08/04 at 06:00 Hydrocortisone Sodium Succinate (Solu-Cortef) 100 mg Q12HR IV Last administered on 08/05/16 21:28; Start 08/05/16 at 21:00 Pantoprazole Sodium (Protonix) 40 mg DAILYAC PO Last administered on 08/05/16 09:28; Start 08/05/16 at 08:00 Active Scripts Active Reported Nephro-Arielle Tablet (Folic Acid/Vitamin B Comp W-C) 0.8 Mg Tablet 1 Tab PO DAILY Oxycodone Hcl 5 Mg Capsule 1 Cap PO Q4HRS PRN Zofran (Ondansetron Hcl) 4 Mg Tablet 1 Tab PO Q8HRS Albuterol Sulfate Neb Soln (Albuterol Sulfate) 2.5 Mg/3 Ml Vial.neb 1 Vial NEB PRN Q4HRS Tylenol (Acetaminophen) 325 Mg Tablet 650 Mg PO Q6HRS PRN Duoneb 0.5-3(2.5) Mg/3 Ml (Albuterol/Ipratropium) 3 Ml Ampul.neb 3 Ml NEB TID Spironolactone 50 Mg Tablet 1 Tab PO DAILY Deltasone (Prednisone) 20 Mg Tablet 10 Mg PO DAILY Nystatin 100,000 Unit/1 Ml Oral.susp 100,000 Unit PO QID Cellcept (Mycophenolate Mofetil) 500 Mg Tablet 1 Tab PO BID Metoprolol Tartrate 25 Mg Tablet 25 Mg PO BID Melatonin 3 Mg Tab.rapdis 3 Mg PO HS Neurontin (Gabapentin) 100 Mg Capsule 100 Mg PO TID Lasix (Furosemide) 40 Mg Tablet 1 Tab PO DAILY Folic Acid 1 Mg Tablet 1 Tab PO DAILY Advair 500-50 Diskus (Fluticasone/Salmeterol) 1 Each Disk.w.dev 1 Puff IH BID Mobic (Meloxicam) 7.5 Mg Tablet 7.5 Mg PO DAILY Ativan (Lorazepam) 0.5 Mg Tablet 0.5 Mg PO PRN BID PRN Coumadin (Warfarin Sodium) 2 Mg Tablet 1 Tab PO HS Senokot-S Tablet (Sennosides/Docusate Sodium) 1 Each Tablet 1 Tab PO BID PRN Vitals/I & O Vital Sign - Last 24 Hours 08/05/16 08/05/16 08/05/16 08/05/16 08:56 11:38 12:00 12:29 Temp 98.0 98.0 Pulse 68 Resp 19 B/P 116/61 Pulse Ox 92 98 98 97 O2 Delivery BiPAP/CPAP Room Air Room Air Room Air 08/05/16 08/05/16 08/05/16 08/05/16 16:00 16:46 19:00 20:43 Temp 97.8 96.3 97.8 96.3 Pulse 76 93 Resp 18 18 B/P 107/59 139/56 Pulse Ox 99 96 94 92 O2 Delivery Room Air Room Air Room Air Room Air 308/05/16 08/05/16 08/05/16 20:44 21:24 21:26 21:27 Pulse 93 Resp 20 B/P 139/56 Pulse Ox 92 O2 Delivery Room Air Room Air Room Air 08/05/16 08/05/16 08/05/16 08/06/16 22:25 23:00 23:30 02:34 Temp 97.9 97.9 Pulse 94 Resp 20 18 B/P 130/66 Pulse Ox 94 O2 Delivery BiPAP/CPAP Room Air BiPAP/CPAP BiPAP/CPAP 08/06/16 08/06/16 08/06/16 03:00 06:29 07:14 Temp 96.8 96.8 Pulse 72 Resp 18 B/P 112/79 Pulse Ox 100 99 99 O2 Delivery BiPAP/CPAP BiPAP/CPAP BiPAP/CPAP Intake and Output 08/05/16 08/05/16 08/06/16 15:00 23:00 07:00 Intake Total 180 ml 220 ml 727 ml Output Total 525 ml 300 ml 1700 ml Balance -345 ml -80 ml -973 ml Nutrition Consultation Dietary Evaluation: Recommendations by RD: Increase Calorie Intake, Protein supplementation Comments: Novasource Renal TID - 475kcal and 21.6g protein Encourage intake at meals as tolerated Rec. continue PPN until intake consistently >50% at meals Encourage novasource renal with PO meds Expected Outcomes/Goals: meet >75% est nutr needs Interpretation of weight loss: >7.5% in 3 months Malnutrition Findings: Malnutrition related to morbid: BMI>or equal to 40 Malnutrition related to morbid: Yes Weight Status: Morbidly Obese Fluid Accumulation (Non-Severe: Mild depletion CAROL SHEARER III DO Aug 06, 2016 08:28
--- NOTE | 2016-08-06 08:53 | PDOC ---
PULMONARY PROGRESS NOTES Subjective on , used bipap last night, sob, better, no cough, no pain Vitals Vital Signs Date Time Temp Pulse Resp B/P Pulse Ox O2 Delivery O2 Flow Rate FiO2 08/06/16 07:14 99 BiPAP/CPAP 08/06/16 03:00 96.8 72 18 112/79 96.8 Comments ros as mentioned as above other sys otherwise neg ROS: No Nausea, No Chest Pain, No Abdominal Pain General: Alert HEENT: Other (nc at perrl) Lungs: Crackles Cardiovascular: S1, S2 Abdomen: Soft, Non-tender Neuro Exam: Alert Extremities: Other (edema) Skin: Warm Labs Laboratory Tests Test 08/05/16 08:00 08/05/16 11:00 O2 Saturation 93% (92-99) Arterial Blood pH 7.36 (7.35-7.45) Arterial Blood pCO2 at Patient Temp 37mmHg (35-46) Arterial Blood pO2 at Patient Temp 71mmHg (75-108) Arterial Blood HCO3 21mmol/L (21-28) Arterial Blood Base Excess -4mmol/L (-3-3) FiO2 21 White Blood Count 9.4x10^3/uL (4.0-11.0) Red Blood Count 2.90x10^6/uL (3.50-5.40) Hemoglobin 9.0g/dL (12.0-15.5) Hematocrit 28.0% (36.0-47.0) Mean Corpuscular Volume 96fL (79-100) Mean Corpuscular Hemoglobin 31pg (25-35) Mean Corpuscular Hemoglobin Concent 32g/dL (31-37) Red Cell Distribution Width 16.0% (11.5-14.5) Platelet Count 225x10^3/uL (140-400) Neutrophils (%) (Auto) 92% (31-73) Lymphocytes (%) (Auto) 3% (24-48) Monocytes (%) (Auto) 4% (0-9) Eosinophils (%) (Auto) 0% (0-3) Basophils (%) (Auto) 0% (0-3) Neutrophils # (Auto) 8.7x10^3uL (1.8-7.7) Lymphocytes # (Auto) 0.3x10^3/uL (1.0-4.8) Monocytes # (Auto) 0.4x10^3/uL (0.0-1.1) Eosinophils # (Auto) 0.0x10^3/uL (0.0-0.7) Basophils # (Auto) 0.0x10^3/uL (0.0-0.2) Sodium Level 135mmol/L (136-145) Potassium Level 4.5mmol/L (3.5-5.1) Chloride Level 100mmol/L (98-107) Carbon Dioxide Level 21mmol/L (21-32) Anion Gap 14 (6-14) Blood Urea Nitrogen 48mg/dL (7-20) Creatinine 1.2mg/dL (0.6-1.0) Estimated GFR (Cockcroft-Gault) 56.0 Glucose Level 134mg/dL (70-99) Calcium Level 9.0mg/dL (8.5-10.1) Phosphorus Level 4.3mg/dL (2.6-4.7) Magnesium Level 1.9mg/dL (1.8-2.4) Laboratory Tests Test 08/05/16 11:00 White Blood Count 9.4x10^3/uL (4.0-11.0) Red Blood Count 2.90x10^6/uL (3.50-5.40) Hemoglobin 9.0g/dL (12.0-15.5) Hematocrit 28.0% (36.0-47.0) Mean Corpuscular Volume 96fL (79-100) Mean Corpuscular Hemoglobin 31pg (25-35) Mean Corpuscular Hemoglobin Concent 32g/dL (31-37) Red Cell Distribution Width 16.0% (11.5-14.5) Platelet Count 225x10^3/uL (140-400) Neutrophils (%) (Auto) 92% (31-73) Lymphocytes (%) (Auto) 3% (24-48) Monocytes (%) (Auto) 4% (0-9) Eosinophils (%) (Auto) 0% (0-3) Basophils (%) (Auto) 0% (0-3) Neutrophils # (Auto) 8.7x10^3uL (1.8-7.7) Lymphocytes # (Auto) 0.3x10^3/uL (1.0-4.8) Monocytes # (Auto) 0.4x10^3/uL (0.0-1.1) Eosinophils # (Auto) 0.0x10^3/uL (0.0-0.7) Basophils # (Auto) 0.0x10^3/uL (0.0-0.2) Sodium Level 135mmol/L (136-145) Potassium Level 4.5mmol/L (3.5-5.1) Chloride Level 100mmol/L (98-107) Carbon Dioxide Level 21mmol/L (21-32) Anion Gap 14 (6-14) Blood Urea Nitrogen 48mg/dL (7-20) Creatinine 1.2mg/dL (0.6-1.0) Estimated GFR (Cockcroft-Gault) 56.0 Glucose Level 134mg/dL (70-99) Calcium Level 9.0mg/dL (8.5-10.1) Phosphorus Level 4.3mg/dL (2.6-4.7) Magnesium Level 1.9mg/dL (1.8-2.4) Medications Active Scripts Medications Dose Route/Sig Days Date Category Nephro-Arielle Tablet (Folic Acid/Vitamin B Comp W-C) 0.8 Mg Tablet 1 Tab PO DAILY 04/19/16 Reported Oxycodone Hcl 5 Mg Capsule 1 Cap PO Q4HRS PRN 04/19/16 Reported Zofran (Ondansetron Hcl) 4 Mg Tablet 1 Tab PO Q8HRS 04/19/16 Reported Albuterol Sulfate Neb Soln (Albuterol Sulfate) 2.5 Mg/3 Ml Vial.neb 1 Vial NEB PRN Q4HRS 04/19/16 Reported Tylenol (Acetaminophen) 325 Mg Tablet 650 Mg PO Q6HRS PRN 04/19/16 Reported Duoneb 0.5-3(2.5) Mg/3 Ml (Albuterol/Ipratropium) 3 Ml Ampul.neb 3 Ml NEB TID 04/19/16 Reported Spironolactone 50 Mg Tablet 1 Tab PO DAILY 04/19/16 Reported Deltasone (Prednisone) 20 Mg Tablet 10 Mg PO DAILY 04/19/16 Reported Nystatin 100,000 Unit/1 Ml Oral.susp 100,000 Unit PO QID 04/19/16 Reported Cellcept (Mycophenolate Mofetil) 500 Mg Tablet 1 Tab PO BID 04/19/16 Reported Metoprolol Tartrate 25 Mg Tablet 25 Mg PO BID 04/19/16 Reported Melatonin 3 Mg Tab.rapdis 3 Mg PO HS 04/19/16 Reported Neurontin (Gabapentin) 100 Mg Capsule 100 Mg PO TID 04/19/16 Reported Lasix (Furosemide) 40 Mg Tablet 1 Tab PO DAILY 04/19/16 Reported Folic Acid 1 Mg Tablet 1 Tab PO DAILY 04/19/16 Reported Advair 500-50 Diskus (Fluticasone/Salmeterol) 1 Each Disk.w.dev 1 Puff IH BID 04/19/16 Reported Mobic (Meloxicam) 7.5 Mg Tablet 7.5 Mg PO DAILY 04/19/16 Reported Ativan (Lorazepam) 0.5 Mg Tablet 0.5 Mg PO PRN BID PRN 04/19/16 Reported Coumadin (Warfarin Sodium) 2 Mg Tablet 1 Tab PO HS 04/19/16 Reported Senokot-S Tablet (Sennosides/Docusate Sodium) 1 Each Tablet 1 Tab PO BID PRN 04/24/15 Reported Comments cxr reviewed, A pacemaker enters the left subclavian approach. There apparently has been placement of a dialysis catheter via the right IJ approach. Its tip extends to near the cavoatrial junction. No pneumothorax is visible on this view. There is mild prominence of lung markings. Heart size is normal. Impression . 1. Pqlqu-xw-hgretlc hypercapnic respiratory failure. 2. Hyperkalemia. 3. Multiple wounds. 4. Leukocytosis. 5. Morbid obesity. 6. Obstructive sleep apnea. 7. Acute metabolic encephalopathy. 8. Hypotension, suspect secondary to adrenal insufficiency. Plan . 1. cont bipap, prn during day, cont at night, setting reviewed, monitor resp status 2. Continue antibiotics per Infectious Disease. 3. Follow lab. 4. Hemodialysis per Dr. Clay. 5. Steroids for chronic sarcoid. 6. Solu-Cortef to daily 7. bronchodilator, ics 8. hep for prophylaxis 9. protonix for prophylaxis discussed w rn, rt NIRAJ ASHER MD Aug 06, 2016 08:53
[2016-08-06] MEDS ORDERED: HYDROCORTISONE SOD SUCC/PF 100 MG/2 ML VIAL. IV SCH (09:00)
[2016-08-06] MEDS: NYSTATIN 100,000 UNITS/ML 5 ML ORAL.SUSP. PO SCH ×4 (09:00→21:42)
[2016-08-06] MEDS: GABAPENTIN 100 MG CAPSULE. PO SCH ×3 (09:08→21:41)
[2016-08-06] MEDS: FOLIC ACID 1 MG TABLET PO SCH (09:08)
[2016-08-06] MEDS: FOLIC/VIT B COMP W-C (RENAL) TABLET. PO SCH (09:08)
[2016-08-06] MEDS: PANTOPRAZOLE 40 MG TABLET. PO SCH (09:08)
[2016-08-06] MEDS: METOPROLOL TART IMMED RELEASE 25 MG TABLET PO SCH ×2 (09:09→21:42)
--- NOTE | 2016-08-06 10:37 | PDOC ---
Infectious Disease Note Subjective Subjective + diarrhea ROS ROS GEN: Denies fevers, chills, sweats CV: Denies chest pain RESP: Denies shortness of air, cough GI: Denies n/v Vital Sign Vital Signs Vital Signs Date Time Temp Pulse Resp B/P Pulse Ox O2 Delivery O2 Flow Rate FiO2 08/06/16 09:09 66 123/57 08/06/16 07:14 99 BiPAP/CPAP 08/06/16 03:00 96.8 18 96.8 Physical Exam PHYSICAL EXAM GENERAL: Lying in bed, NAD LUNGS: Clear HEART: S1S2, no gallop, no murmur ABD: Obese, soft, NT : Morton EXT: BLE edema. Multiple leg wounds-bandaged PITCH FILLER: Alert, oriented x 3, no focal neurologic deficit SKIN: No rash RIJ/HDC. clean Labs Lab Laboratory Tests Test 08/05/16 11:00 White Blood Count 9.4x10^3/uL (4.0-11.0) Red Blood Count 2.90x10^6/uL (3.50-5.40) Hemoglobin 9.0g/dL (12.0-15.5) Hematocrit 28.0% (36.0-47.0) Mean Corpuscular Volume 96fL (79-100) Mean Corpuscular Hemoglobin 31pg (25-35) Mean Corpuscular Hemoglobin Concent 32g/dL (31-37) Red Cell Distribution Width 16.0% (11.5-14.5) Platelet Count 225x10^3/uL (140-400) Neutrophils (%) (Auto) 92% (31-73) Lymphocytes (%) (Auto) 3% (24-48) Monocytes (%) (Auto) 4% (0-9) Eosinophils (%) (Auto) 0% (0-3) Basophils (%) (Auto) 0% (0-3) Neutrophils # (Auto) 8.7x10^3uL (1.8-7.7) Lymphocytes # (Auto) 0.3x10^3/uL (1.0-4.8) Monocytes # (Auto) 0.4x10^3/uL (0.0-1.1) Eosinophils # (Auto) 0.0x10^3/uL (0.0-0.7) Basophils # (Auto) 0.0x10^3/uL (0.0-0.2) Sodium Level 135mmol/L (136-145) Potassium Level 4.5mmol/L (3.5-5.1) Chloride Level 100mmol/L (98-107) Carbon Dioxide Level 21mmol/L (21-32) Anion Gap 14 (6-14) Blood Urea Nitrogen 48mg/dL (7-20) Creatinine 1.2mg/dL (0.6-1.0) Estimated GFR (Cockcroft-Gault) 56.0 Glucose Level 134mg/dL (70-99) Calcium Level 9.0mg/dL (8.5-10.1) Phosphorus Level 4.3mg/dL (2.6-4.7) Magnesium Level 1.9mg/dL (1.8-2.4) Micro BLOOD CULTURE Preliminary NO GROWTH AFTER 4 DAYS Objective Assessment S/p rapid response 08/02 Decreased UOP - improved Hypotension improved now off Levophed Leukocytosis - improved- remains AF Multiple wounds - H/o MDR PSA/MSSA Acute Encephalopathy, improved Bleed from left thigh wound -controlled Acute Resp failure ODALIS - UOP, improving Plan Plan of Care Cont Zerbaxa (08/02) micafungin, wean soon Cultures NGTD Monitor labs Attending Co-Sign The patient was seen and interviewed as well as examined at the bedside. The chart was reviewed. The case was discussed. Agree with the plan of care. CLAUDIA AGRAWAL APRN Aug 06, 2016 10:37 VALENTINA CHINO MD Aug 06, 2016 14:35
[2016-08-06 11:00] LABS: BASO % 0 % (0-3); EOS % 0 % (0-3); HEMATOCRIT 31.5 % (36.0-47.0); LYMPH # 0.6 x10^3/uL (1.0-4.8); LYMPH % 6 % (24-48); MEAN CORPUSCULAR HEMOGLOBIN 31 pg (25-35); MEAN CORPUSCULAR HGB CONC 32 g/dL (31-37); MEAN CORPUSCULAR VOLUME 98 fL (79-100); MONO % 8 % (0-9); NEUT % 86 % (31-73); PLATELET COUNT 245 x10^3/uL (140-400); RED BLOOD COUNT 3.21 x10^6/uL (3.50-5.40); RED CELL DISTRIBUTION WIDTH 16.2 % (11.5-14.5); WHITE BLOOD COUNT 9.9 x10^3/uL (4.0-11.0)
[2016-08-06] MEDS: MICAFUNGIN 100 MG in IV DEXTROSE 5% 100 ML IV SCH (11:08)
[2016-08-06 11:12] LABS: CALCIUM 9.4 mg/dL (8.5-10.1); CREATININE 0.9 mg/dL (0.6-1.0); GFR 78.1; POTASSIUM 4.9 mmol/L (3.5-5.1)
--- NOTE | 2016-08-06 11:26 | PDOC ---
Renal-Progress Notes Subjective Notes Notes NONE History of Present Illness Hx of present illness NO CHANGE Vitals Vitals Vital Signs Date Time Temp Pulse Resp B/P Pulse Ox O2 Delivery O2 Flow Rate FiO2 08/06/16 09:09 66 123/57 08/06/16 07:14 99 BiPAP/CPAP 08/06/16 03:00 96.8 18 96.8 Weight Weight [ ] I.O. Intake and Output Intake and Output 08/06/16 07:00 Intake Total 1127 ml Output Total 2525 ml Balance -1398 ml Intake Oral 300 ml IV Total 827 ml Output Urine Total 2525 ml # Bowel Movements 1 Labs Labs Laboratory Tests Test 08/06/16 10:40 White Blood Count 9.9x10^3/uL (4.0-11.0) Red Blood Count 3.21x10^6/uL (3.50-5.40) Hemoglobin 10.0g/dL (12.0-15.5) Hematocrit 31.5% (36.0-47.0) Mean Corpuscular Volume 98fL (79-100) Mean Corpuscular Hemoglobin 31pg (25-35) Mean Corpuscular Hemoglobin Concent 32g/dL (31-37) Red Cell Distribution Width 16.2% (11.5-14.5) Platelet Count 245x10^3/uL (140-400) Neutrophils (%) (Auto) 86% (31-73) Lymphocytes (%) (Auto) 6% (24-48) Monocytes (%) (Auto) 8% (0-9) Eosinophils (%) (Auto) 0% (0-3) Basophils (%) (Auto) 0% (0-3) Neutrophils # (Auto) 8.5x10^3uL (1.8-7.7) Lymphocytes # (Auto) 0.6x10^3/uL (1.0-4.8) Monocytes # (Auto) 0.8x10^3/uL (0.0-1.1) Eosinophils # (Auto) 0.0x10^3/uL (0.0-0.7) Basophils # (Auto) 0.0x10^3/uL (0.0-0.2) Sodium Level 139mmol/L (136-145) Potassium Level 4.9mmol/L (3.5-5.1) Chloride Level 105mmol/L (98-107) Carbon Dioxide Level 24mmol/L (21-32) Anion Gap 10 (6-14) Blood Urea Nitrogen 51mg/dL (7-20) Creatinine 0.9mg/dL (0.6-1.0) Estimated GFR (Cockcroft-Gault) 78.1 Glucose Level 116mg/dL (70-99) Calcium Level 9.4mg/dL (8.5-10.1) Micro Micro Microbiology 08/02/16 Blood Culture - Preliminary, Resulted NO GROWTH AFTER 4 DAYS 08/02/16 Urine Culture - Final, Complete 08/02/16 Urine Culture Result 1 (REBEKAH) - Final, Complete Review of Systems Constitutional: yes: no symptom reported Physical Exam General Appearance: no apparent distress Skin: warm Respiratory: decreased breath sounds Heart: S1S2, RRR Abdomen: soft, bowel sounds present Extremities: pulses present Neurology: alert Musculoskeletal: Other ( bilateral hip avascular necrosis) Assessment Assessment IMP ODALIS-CR OF 1.2 NOW HYPERKALEMIA-RESOLVED MORBID OBESITY LEUCOCYTOSIS MULTIPLE WOUNDS ENCEPHALOPATHY RESP ACIDOSIS FROM HYPERCARBIA-BETTER PLAN OFF HD NOW CONT TO HOLD HER ALDACTONE, MOBIC FOR NOW LABS IN AM ANTIBIOTICS PPN TILL EATING BETTER WILL MAINTAIN TEMP HD CATHETER SINCE SHE HAS NO OTHER ACCESS CATARINO LOREDO MD Aug 06, 2016 11:26
[2016-08-06] MEDS ORDERED: LOPERAMIDE 2 MG CAPSULE PO PRN (13:45)
[2016-08-06] MEDS ORDERED: WARFARIN 5 MG TABLET. PO ONE (16:00)
[2016-08-06] MEDS: OXYCODONE IR 5 MG TABLET. PO PRN ×2 (16:32→23:36)
[2016-08-06] MEDS: MYCOPHENOLATE MOFETIL 250 MG CAPSULE. PO SCH ×2 (16:40→21:41)
[2016-08-06] MEDS: AA 2.75%/CALCIUM/LYTES/D5W 1,000 ML IV SCH ×2 (18:19→20:00)
[2016-08-06 19:00] VITALS: BP 159/109
[2016-08-06 23:01] VITALS: BP 139/73
[2016-08-07 03:05] VITALS: BP 142/78
[2016-08-07] MEDS: CEFTOLOZANE/TAZOBACTAM 1,500 MG in IV NORMAL SALINE 100ML 100 ML IV SCH ×3 (06:00→21:49)
[2016-08-07] MEDS: PANTOPRAZOLE 40 MG TABLET. PO SCH ×2 (06:05→09:49)
[2016-08-07] MEDS: HEPARIN PF for SUB-Q USE 5,000 UNIT/0.5 ML VIAL. SQ SCH ×3 (06:05→21:58)
[2016-08-07 06:37] LABS: ALBUMIN 1.7 g/dL (3.4-5.0); CALCIUM 9.7 mg/dL (8.5-10.1); CREATININE 0.9 mg/dL (0.6-1.0); GFR 78.1; POTASSIUM 4.5 mmol/L (3.5-5.1)
[2016-08-07 07:00] VITALS: BP 132/65
[2016-08-07] MEDS: IPRATRPIUM/ALBUTEROL 0.5/2.5MG 3 ML NEBU. NEB SCH ×4 (07:07→19:46)
[2016-08-07] MEDS: BUDESONIDE 0.5 MG/2 ML NEBU NEB SCH ×2 (07:07→19:46)
--- NOTE | 2016-08-07 07:58 | PDOC ---
PULMONARY PROGRESS NOTES Subjective on bipap, sob, better, no cough, no pain Vitals Vital Signs Date Time Temp Pulse Resp B/P Pulse Ox O2 Delivery O2 Flow Rate FiO2 08/07/16 07:07 97 BiPAP/CPAP 08/07/16 03:05 96.1 74 20 142/78 96.1 08/06/16 20:00 15.0 Comments ros as mentioned as above other sys otherwise neg ROS: No Nausea, No Chest Pain, No Abdominal Pain General: Alert HEENT: Other (nc at perrl) Lungs: Crackles Cardiovascular: S1, S2 Abdomen: Soft, Non-tender Neuro Exam: Alert Extremities: Other (edema) Skin: Warm Labs Laboratory Tests Test 08/05/16 08:00 08/05/16 11:00 08/06/16 10:40 08/07/16 05:00 O2 Saturation 93% (92-99) Arterial Blood pH 7.36 (7.35-7.45) Arterial Blood pCO2 at Patient Temp 37mmHg (35-46) Arterial Blood pO2 at Patient Temp 71mmHg (75-108) Arterial Blood HCO3 21mmol/L (21-28) Arterial Blood Base Excess -4mmol/L (-3-3) FiO2 21 White Blood Count 9.4x10^3/uL (4.0-11.0) 9.9x10^3/uL (4.0-11.0) Red Blood Count 2.90x10^6/uL (3.50-5.40) 3.21x10^6/uL (3.50-5.40) Hemoglobin 9.0g/dL (12.0-15.5) 10.0g/dL (12.0-15.5) Hematocrit 28.0% (36.0-47.0) 31.5% (36.0-47.0) Mean Corpuscular Volume 96fL (79-100) 98fL (79-100) Mean Corpuscular Hemoglobin 31pg (25-35) 31pg (25-35) Mean Corpuscular Hemoglobin Concent 32g/dL (31-37) 32g/dL (31-37) Red Cell Distribution Width 16.0% (11.5-14.5) 16.2% (11.5-14.5) Platelet Count 225x10^3/uL (140-400) 245x10^3/uL (140-400) Neutrophils (%) (Auto) 92% (31-73) 86% (31-73) Lymphocytes (%) (Auto) 3% (24-48) 6% (24-48) Monocytes (%) (Auto) 4% (0-9) 8% (0-9) Eosinophils (%) (Auto) 0% (0-3) 0% (0-3) Basophils (%) (Auto) 0% (0-3) 0% (0-3) Neutrophils # (Auto) 8.7x10^3uL (1.8-7.7) 8.5x10^3uL (1.8-7.7) Lymphocytes # (Auto) 0.3x10^3/uL (1.0-4.8) 0.6x10^3/uL (1.0-4.8) Monocytes # (Auto) 0.4x10^3/uL (0.0-1.1) 0.8x10^3/uL (0.0-1.1) Eosinophils # (Auto) 0.0x10^3/uL (0.0-0.7) 0.0x10^3/uL (0.0-0.7) Basophils # (Auto) 0.0x10^3/uL (0.0-0.2) 0.0x10^3/uL (0.0-0.2) Sodium Level 135mmol/L (136-145) 139mmol/L (136-145) 141mmol/L (136-145) Potassium Level 4.5mmol/L (3.5-5.1) 4.9mmol/L (3.5-5.1) 4.5mmol/L (3.5-5.1) Chloride Level 100mmol/L (98-107) 105mmol/L (98-107) 109mmol/L (98-107) Carbon Dioxide Level 21mmol/L (21-32) 24mmol/L (21-32) 20mmol/L (21-32) Anion Gap 14 (6-14) 10 (6-14) 12 (6-14) Blood Urea Nitrogen 48mg/dL (7-20) 51mg/dL (7-20) 49mg/dL (7-20) Creatinine 1.2mg/dL (0.6-1.0) 0.9mg/dL (0.6-1.0) 0.9mg/dL (0.6-1.0) Estimated GFR (Cockcroft-Gault) 56.0 78.1 78.1 Glucose Level 134mg/dL (70-99) 116mg/dL (70-99) 86mg/dL (70-99) Calcium Level 9.0mg/dL (8.5-10.1) 9.4mg/dL (8.5-10.1) 9.7mg/dL (8.5-10.1) Phosphorus Level 4.3mg/dL (2.6-4.7) Magnesium Level 1.9mg/dL (1.8-2.4) Albumin 1.7g/dL (3.4-5.0) Laboratory Tests Test 08/06/16 10:40 08/07/16 05:00 White Blood Count 9.9x10^3/uL (4.0-11.0) Red Blood Count 3.21x10^6/uL (3.50-5.40) Hemoglobin 10.0g/dL (12.0-15.5) Hematocrit 31.5% (36.0-47.0) Mean Corpuscular Volume 98fL (79-100) Mean Corpuscular Hemoglobin 31pg (25-35) Mean Corpuscular Hemoglobin Concent 32g/dL (31-37) Red Cell Distribution Width 16.2% (11.5-14.5) Platelet Count 245x10^3/uL (140-400) Neutrophils (%) (Auto) 86% (31-73) Lymphocytes (%) (Auto) 6% (24-48) Monocytes (%) (Auto) 8% (0-9) Eosinophils (%) (Auto) 0% (0-3) Basophils (%) (Auto) 0% (0-3) Neutrophils # (Auto) 8.5x10^3uL (1.8-7.7) Lymphocytes # (Auto) 0.6x10^3/uL (1.0-4.8) Monocytes # (Auto) 0.8x10^3/uL (0.0-1.1) Eosinophils # (Auto) 0.0x10^3/uL (0.0-0.7) Basophils # (Auto) 0.0x10^3/uL (0.0-0.2) Sodium Level 139mmol/L (136-145) 141mmol/L (136-145) Potassium Level 4.9mmol/L (3.5-5.1) 4.5mmol/L (3.5-5.1) Chloride Level 105mmol/L (98-107) 109mmol/L (98-107) Carbon Dioxide Level 24mmol/L (21-32) 20mmol/L (21-32) Anion Gap 10 (6-14) 12 (6-14) Blood Urea Nitrogen 51mg/dL (7-20) 49mg/dL (7-20) Creatinine 0.9mg/dL (0.6-1.0) 0.9mg/dL (0.6-1.0) Estimated GFR (Cockcroft-Gault) 78.1 78.1 Glucose Level 116mg/dL (70-99) 86mg/dL (70-99) Calcium Level 9.4mg/dL (8.5-10.1) 9.7mg/dL (8.5-10.1) Albumin 1.7g/dL (3.4-5.0) Medications Active Scripts Medications Dose Route/Sig Days Date Category Nephro-Arielle Tablet (Folic Acid/Vitamin B Comp W-C) 0.8 Mg Tablet 1 Tab PO DAILY 04/19/16 Reported Oxycodone Hcl 5 Mg Capsule 1 Cap PO Q4HRS PRN 04/19/16 Reported Zofran (Ondansetron Hcl) 4 Mg Tablet 1 Tab PO Q8HRS 04/19/16 Reported Albuterol Sulfate Neb Soln (Albuterol Sulfate) 2.5 Mg/3 Ml Vial.neb 1 Vial NEB PRN Q4HRS 04/19/16 Reported Tylenol (Acetaminophen) 325 Mg Tablet 650 Mg PO Q6HRS PRN 04/19/16 Reported Duoneb 0.5-3(2.5) Mg/3 Ml (Albuterol/Ipratropium) 3 Ml Ampul.neb 3 Ml NEB TID 04/19/16 Reported Spironolactone 50 Mg Tablet 1 Tab PO DAILY 04/19/16 Reported Deltasone (Prednisone) 20 Mg Tablet 10 Mg PO DAILY 04/19/16 Reported Nystatin 100,000 Unit/1 Ml Oral.susp 100,000 Unit PO QID 04/19/16 Reported Cellcept (Mycophenolate Mofetil) 500 Mg Tablet 1 Tab PO BID 04/19/16 Reported Metoprolol Tartrate 25 Mg Tablet 25 Mg PO BID 04/19/16 Reported Melatonin 3 Mg Tab.rapdis 3 Mg PO HS 04/19/16 Reported Neurontin (Gabapentin) 100 Mg Capsule 100 Mg PO TID 04/19/16 Reported Lasix (Furosemide) 40 Mg Tablet 1 Tab PO DAILY 04/19/16 Reported Folic Acid 1 Mg Tablet 1 Tab PO DAILY 04/19/16 Reported Advair 500-50 Diskus (Fluticasone/Salmeterol) 1 Each Disk.w.dev 1 Puff IH BID 04/19/16 Reported Mobic (Meloxicam) 7.5 Mg Tablet 7.5 Mg PO DAILY 04/19/16 Reported Ativan (Lorazepam) 0.5 Mg Tablet 0.5 Mg PO PRN BID PRN 04/19/16 Reported Coumadin (Warfarin Sodium) 2 Mg Tablet 1 Tab PO HS 04/19/16 Reported Senokot-S Tablet (Sennosides/Docusate Sodium) 1 Each Tablet 1 Tab PO BID PRN 04/24/15 Reported Comments cxr reviewed, A pacemaker enters the left subclavian approach. There apparently has been placement of a dialysis catheter via the right IJ approach. Its tip extends to near the cavoatrial junction. No pneumothorax is visible on this view. There is mild prominence of lung markings. Heart size is normal. Impression . 1. Ehirt-hb-aresxnn hypercapnic respiratory failure. 2. Hyperkalemia. 3. Multiple wounds. 4. Leukocytosis. 5. Morbid obesity. 6. Obstructive sleep apnea. 7. Acute metabolic encephalopathy. 8. Hypotension, suspect secondary to adrenal insufficiency. Plan . 1. cont bipap, prn during day, cont at night, setting reviewed, monitor resp status 2. Continue antibiotics per Infectious Disease. 3. Follow lab. 4. Hemodialysis per Dr. Clay. 5. Steroids for chronic sarcoid. 6. change Solu-Cortef to prednisone 7. bronchodilator, ics 8. hep for prophylaxis 9. protonix for prophylaxis discussed w rn, rt NIRAJ ASHER MD Aug 07, 2016 07:58
[2016-08-07] MEDS: NYSTATIN 100,000 UNITS/ML 5 ML ORAL.SUSP. PO SCH ×4 (09:00→21:51)
[2016-08-07] MEDS: AA 2.75%/CALCIUM/LYTES/D5W 1,000 ML IV SCH ×2 (09:20→22:40)
[2016-08-07] MEDS: MICAFUNGIN 100 MG in IV DEXTROSE 5% 100 ML IV SCH (09:42)
[2016-08-07] MEDS: METOPROLOL TART IMMED RELEASE 25 MG TABLET PO SCH ×2 (09:49→21:50)
[2016-08-07] MEDS: MYCOPHENOLATE MOFETIL 250 MG CAPSULE. PO SCH ×2 (09:49→21:51)
[2016-08-07] MEDS: GABAPENTIN 100 MG CAPSULE. PO SCH ×3 (09:49→21:50)
[2016-08-07] MEDS: FOLIC/VIT B COMP W-C (RENAL) TABLET. PO SCH (09:49)
[2016-08-07] MEDS: FOLIC ACID 1 MG TABLET PO SCH (09:49)
[2016-08-07] MEDS: PREDNISONE 20 MG TABLET PO SCH (09:53)
[2016-08-07 11:00] VITALS: BP 125/68
--- NOTE | 2016-08-07 11:00 | PDOC ---
Renal-Progress Notes Subjective Notes Notes NONE History of Present Illness Hx of present illness NO CHANGE Vitals Vitals Vital Signs Date Time Temp Pulse Resp B/P Pulse Ox O2 Delivery O2 Flow Rate FiO2 08/07/16 09:49 78 132/65 08/07/16 08:00 Room Air 08/07/16 07:07 97 08/07/16 07:00 96.8 20 96.8 08/06/16 20:00 15.0 Weight Weight [ ] I.O. Intake and Output Intake and Output 08/07/16 07:00 Intake Total 1750 ml Output Total 1550 ml Balance 200 ml Intake Oral 1650 ml IV Total 100 ml Output Urine Total 1550 ml Labs Labs Laboratory Tests Test 08/07/16 05:00 Sodium Level 141mmol/L (136-145) Potassium Level 4.5mmol/L (3.5-5.1) Chloride Level 109mmol/L (98-107) Carbon Dioxide Level 20mmol/L (21-32) Anion Gap 12 (6-14) Blood Urea Nitrogen 49mg/dL (7-20) Creatinine 0.9mg/dL (0.6-1.0) Estimated GFR (Cockcroft-Gault) 78.1 Glucose Level 86mg/dL (70-99) Calcium Level 9.7mg/dL (8.5-10.1) Albumin 1.7g/dL (3.4-5.0) Micro Micro Microbiology 08/02/16 Blood Culture - Final, Complete NO GROWTH AFTER 5 DAYS 08/02/16 Urine Culture - Final, Complete 08/02/16 Urine Culture Result 1 (REBEKAH) - Final, Complete Review of Systems Constitutional: yes: no symptom reported Physical Exam General Appearance: no apparent distress Skin: warm Respiratory: decreased breath sounds Heart: S1S2, RRR Abdomen: soft, bowel sounds present Extremities: pulses present Neurology: alert Musculoskeletal: Other ( bilateral hip avascular necrosis) Assessment Assessment IMP OADLIS-CR OF 1.2 NOW HYPERKALEMIA-RESOLVED MORBID OBESITY LEUCOCYTOSIS MULTIPLE WOUNDS ENCEPHALOPATHY RESP ACIDOSIS FROM HYPERCARBIA-BETTER PLAN OFF HD NOW CONT TO HOLD HER ALDACTONE, MOBIC FOR NOW LABS IN AM ANTIBIOTICS PPN TILL EATING BETTER WILL MAINTAIN TEMP HD CATHETER SINCE SHE HAS NO OTHER ACCESS CATARINO LOREDO MD Aug 07, 2016 11:00
--- NOTE | 2016-08-07 11:00 | PDOC ---
Infectious Disease Note Subjective Subjective Comfortable Diarrhea slowing down, none so far today ROS ROS GEN: Denies fevers, chills, sweats HEENT: Denies sore throat CV: Denies chest pain RESP: Denies shortness of air, cough GI: Denies n/v Vital Sign Vital Signs Vital Signs Date Time Temp Pulse Resp B/P Pulse Ox O2 Delivery O2 Flow Rate FiO2 08/07/16 09:49 78 132/65 08/07/16 08:00 Room Air 08/07/16 07:07 97 08/07/16 07:00 96.8 20 96.8 08/06/16 20:00 15.0 Physical Exam PHYSICAL EXAM GENERAL: Lying in bed, NAD LUNGS: Clear HEART: S1S2, no gallop, no murmur. pacemaker ABD: Obese, soft, NT : Morton EXT: BLE edema. Multiple leg wounds-bandaged [employer]: Alert, oriented x 3, no focal neurologic deficit SKIN: No rash RIJ/HDC. clean Labs Lab Laboratory Tests Test 08/07/16 05:00 Sodium Level 141mmol/L (136-145) Potassium Level 4.5mmol/L (3.5-5.1) Chloride Level 109mmol/L (98-107) Carbon Dioxide Level 20mmol/L (21-32) Anion Gap 12 (6-14) Blood Urea Nitrogen 49mg/dL (7-20) Creatinine 0.9mg/dL (0.6-1.0) Estimated GFR (Cockcroft-Gault) 78.1 Glucose Level 86mg/dL (70-99) Calcium Level 9.7mg/dL (8.5-10.1) Albumin 1.7g/dL (3.4-5.0) Micro BLOOD CULTURE Preliminary NO GROWTH AFTER 4 DAYS Objective Assessment S/p rapid response 08/02 Decreased UOP - improved Hypotension improved now off Levophed Leukocytosis - improved- remains AF Multiple wounds - H/o MDR PSA/MSSA Acute Encephalopathy, improved Bleed from left thigh wound -controlled Acute Resp failure ODALIS - UOP, improving Plan Plan of Care Cont Zerbaxa (08/02) micafungin, wean soon Cultures NGTD Attending Co-Sign The patient was seen and interviewed as well as examined at the bedside. The chart was reviewed. The case was discussed. Agree with the plan of care. CLAUDIA AGRAWAL APRN Aug 07, 2016 11:00 VALENTINA CHINO MD Aug 07, 2016 12:08
[2016-08-07 12:15] LABS: INR 1.1 (0.8-1.1); PROTHROMBIN TIME PATIENT 13.4 SEC (11.7-14.0)
[2016-08-07 15:00] VITALS: BP 120/69
--- NOTE | 2016-08-07 15:58 | PDOC ---
PROGRESS NOTES Chief Complaint Chief Complaint Hyperkalemia Open wounds, bleeding ASSESSMENT AND PLAN: 1. Sepsis: improved, stable VS. blood cult NGTD. stress dose steroids stopped 2. ODALIS: creat recovered to baseline. Dr Clay following 3. Hyperkalemia: resolved s/p HD on 08/01. 4. Respir failure: chronic; hypoventilation syndrome due to obesity; sarcoidosis. ANASTASIIA. ? worsening with narcotics - minimize. BiPAP O/N 5. Wounds: calciphylaxis. hx of infection (MSSA). Abx as per Dr Sharpe. wound care. 6. Leukocytosis: resolved monitor 7. Wound bleed: resolved with direct pressure 8. Acute Encephalopathy: fluctuating; good today. suspect multifactorial: respir issues, infection. 9. Afib: rate controlled 10. Sarcoidosis: on cellcept and pred long-term 11. Antiphospholipid syndrome: previously seen by Dr Church; on coumadin on O/ P basis. restart coumadin, overlapping with heparin until therapeutic 12. Anemia: macrocytic. hx severe anemia, chronic inflammatory by recent labs, no vitamin deficiency 13. Hypoalbuminemia: severe, in face of massive obesity, and chronic infection /inflammation. on PPN currently. supplements PO 14. Prophylaxis: heparin SQ for now. 15. Poor venous access: currently only [facility], no longer used for HD l 16. Dispo: LTAC vs NH. pt and actually prefer recent NH over LTAC History of Present Illness History of Present Illness Vitals Vitals Vital Signs Date Time Temp Pulse Resp B/P Pulse Ox O2 Delivery O2 Flow Rate FiO2 08/07/16 14:51 99 Nasal Cannula 2.0 08/07/16 11:00 97.5 77 20 125/68 97.5 Physical Exam General: Alert, Oriented X3, Cooperative, No acute distress Heart: Regular rate, No murmurs Lungs: Crackles Abdomen: Soft, No tenderness, Other (massively obese) Extremities: Other (multiple lower ext wounds) Skin: Other (wounds dressed to cierra legs) Labs LABS Laboratory Tests Test 08/07/16 05:00 08/07/16 11:50 Sodium Level 141mmol/L (136-145) Potassium Level 4.5mmol/L (3.5-5.1) Chloride Level 109mmol/L (98-107) Carbon Dioxide Level 20mmol/L (21-32) Anion Gap 12 (6-14) Blood Urea Nitrogen 49mg/dL (7-20) Creatinine 0.9mg/dL (0.6-1.0) Estimated GFR (Cockcroft-Gault) 78.1 Glucose Level 86mg/dL (70-99) Calcium Level 9.7mg/dL (8.5-10.1) Albumin 1.7g/dL (3.4-5.0) Prothrombin Time 13.4SEC (11.7-14.0) Prothromb Time International Ratio 1.1 (0.8-1.1) Review of Systems Review of Systems feels good, visiting with Nutrition Consultation Dietary Evaluation: Recommendations by RD: Increase Calorie Intake, Protein supplementation Comments: Novasource Renal TID - 475kcal and 21.6g protein Encourage intake at meals as tolerated Rec. continue PPN until intake consistently >50% at meals Encourage novasource renal with PO meds Expected Outcomes/Goals: meet >75% est nutr needs Interpretation of weight loss: >7.5% in 3 months Malnutrition Findings: Malnutrition related to morbid: BMI>or equal to 40 Malnutrition related to morbid: Yes Weight Status: Morbidly Obese Fluid Accumulation (Non-Severe: Mild depletion OVIDIO STALLWORTH MD Aug 07, 2016 15:58
[2016-08-07] MEDS ORDERED: WARFARIN 5 MG TABLET. PO ONE (16:00)
[2016-08-07 19:00] VITALS: BP 133/81
[2016-08-07] MEDS: OXYCODONE IR 5 MG TABLET. PO PRN (21:51)
[2016-08-07 23:00] VITALS: BP 138/65
[2016-08-08] VITALS (7 sets, daily range): BP systolic 130–145; BP diastolic 66–79
[2016-08-08] MEDS: CEFTOLOZANE/TAZOBACTAM 1,500 MG in IV NORMAL SALINE 100ML 100 ML IV SCH (05:06)
[2016-08-08] MEDS: HEPARIN PF for SUB-Q USE 5,000 UNIT/0.5 ML VIAL. SQ SCH ×3 (05:08→21:19)
[2016-08-08 05:20] LABS: INR 1.2 (0.8-1.1); PROTHROMBIN TIME PATIENT 14.6 SEC (11.7-14.0)
[2016-08-08 05:26] LABS: CALCIUM 9.1 mg/dL (8.5-10.1); CREATININE 0.8 mg/dL (0.6-1.0); GFR 89.5; POTASSIUM 4.4 mmol/L (3.5-5.1)
[2016-08-08] MEDS: BUDESONIDE 0.5 MG/2 ML NEBU NEB SCH ×2 (06:05→19:21)
[2016-08-08] MEDS: IPRATRPIUM/ALBUTEROL 0.5/2.5MG 3 ML NEBU. NEB SCH ×3 (06:06→19:21)
--- NOTE | 2016-08-08 09:04 | PDOC ---
Infectious Disease Note Subjective Subjective Comfortable Diarrhea slowing down, none so far today ROS ROS GEN: Denies fevers, chills, sweats HEENT: Denies blurred vision, sore throat CV: Denies chest pain RESP: Denies shortness of air, cough GI: Denies n/v/d NEURO: Denies confusion, dizziness MSK: Denies weakness, joint pain/swelling Vital Sign Vital Signs Vital Signs Date Time Temp Pulse Resp B/P Pulse Ox O2 Delivery O2 Flow Rate FiO2 08/08/16 08:56 97.7 83 16 144/68 BiPAP/CPAP 97.7 08/08/16 03:13 92 08/07/16 22:53 2.0 Physical Exam PHYSICAL EXAM GENERAL: NAD, Alert HEENT: PERRL, OC/OP NECK: Supple, no JVD, no LN LUNGS: Clear HEART: S1S2, no gallop, no murmur ABD: Soft, NT, no organomegaly, no rebound EXT: No edema, no cyanosis FUEL OIL CLERK: Alert, oriented x 3, no focal neurologic deficit SKIN: No rash IV: ok Labs Lab Laboratory Tests Test 08/07/16 11:50 08/08/16 04:50 Prothrombin Time 13.4SEC (11.7-14.0) 14.6SEC (11.7-14.0) Prothromb Time International Ratio 1.1 (0.8-1.1) 1.2 (0.8-1.1) Sodium Level 143mmol/L (136-145) Potassium Level 4.4mmol/L (3.5-5.1) Chloride Level 108mmol/L (98-107) Carbon Dioxide Level 27mmol/L (21-32) Anion Gap 8 (6-14) Blood Urea Nitrogen 41mg/dL (7-20) Creatinine 0.8mg/dL (0.6-1.0) Estimated GFR (Cockcroft-Gault) 89.5 Glucose Level 91mg/dL (70-99) Calcium Level 9.1mg/dL (8.5-10.1) Objective Assessment S/p rapid response 08/02 Decreased UOP - improved Hypotension improved now off Levophed Leukocytosis - improved- remains AF Multiple wounds - H/o MDR PSA/MSSA Acute Encephalopathy, improved Bleed from left thigh wound -controlled Acute Resp failure ODALIS - UOP, improving Plan Plan of Care d/c Zerbaxa (08/02) micafungin, Cultures NGTD local care VALENTINA CHINO MD Aug 08, 2016 09:04
[2016-08-08] MEDS: MYCOPHENOLATE MOFETIL 250 MG CAPSULE. PO SCH ×2 (09:20→21:04)
[2016-08-08] MEDS: METOPROLOL TART IMMED RELEASE 25 MG TABLET PO SCH ×2 (09:20→21:04)
[2016-08-08] MEDS: NYSTATIN 100,000 UNITS/ML 5 ML ORAL.SUSP. PO SCH ×3 (09:21→13:12)
[2016-08-08] MEDS: FOLIC ACID 1 MG TABLET PO SCH (09:21)
[2016-08-08] MEDS: GABAPENTIN 100 MG CAPSULE. PO SCH ×3 (09:21→21:04)
[2016-08-08] MEDS: PREDNISONE 20 MG TABLET PO SCH (09:21)
[2016-08-08] MEDS: FOLIC/VIT B COMP W-C (RENAL) TABLET. PO SCH (09:21)
[2016-08-08] MEDS: MICAFUNGIN 100 MG in IV DEXTROSE 5% 100 ML IV SCH (09:23)
[2016-08-08] MEDS: OXYCODONE IR 5 MG TABLET. PO PRN ×3 (09:44→21:04)
--- NOTE | 2016-08-08 11:05 | PDOC ---
SUBJECTIVE ROS f/u pfor Odalis doign better today OBJECTIVE Vital Signs Vital Signs Date Time Temp Pulse Resp B/P Pulse Ox O2 Delivery O2 Flow Rate FiO2 08/08/16 09:44 20 92 Room Air 2.0 08/08/16 09:20 83 144/68 08/08/16 08:56 97.7 97.7 I & 0 Intake and Output 08/08/16 07:00 Intake Total 1800 ml Output Total 2350 ml Balance -550 ml Intake Oral 1700 ml IV Total 100 ml Output Urine Total 2350 ml # Bowel Movements 1 PHYSICAL EXAM Physical Exam General Appearance: morbidly obese Awake: Alert Oriented x 2 Neck: No JVD or JVP Chest: CTA Danny Heart: S1 S2 Abdomen - Soft NTND Extremities - No Edema DIAGNOSIS/ASSESSMENT Assessment & Plan ODALIS- resolved PPN TILL EATING BETTER; WILL MAINTAIN TEMP HD CATHETER SINCE SHE HAS NO OTHER IV ACCESS Will sign off - pl call with Qs Problems: COMMENT/RELEVANT DATA Meds Current Medications Medications (Trade) Dose Ordered Sig/Karla Start Time Stop Time Status Last Admin Dose Admin Acetaminophen (Tylenol) 650 mg PRN Q6HRS PRN 07/31/16 19:15 08/04/16 17:23 650 MG Albumin Human (Albuminar) 200 ml @ 200 mls/hr 1X PRN PRN 07/31/16 18:15 08/01/16 00:14 DC Albuterol Sulfate (Ventolin Neb Soln) 2.5 mg PRN Q4HRS PRN 07/31/16 19:15 Albuterol/ Ipratropium (Duoneb) 3 ml TID 07/31/16 21:00 08/08/16 06:06 3 ML Amino Acids/ Electrolytes 1,000 ml @ 75 mls/hr [id number] 08/03/16 12:00 08/06/16 18:19 75 MLS/HR Budesonide (Pulmicort) 0.5 mg RTBID 07/31/16 20:00 08/08/16 06:05 0.5 MG Calcium Gluconate 1,000 mg 1X ONCE 07/31/16 17:00 07/31/16 17:01 DC 07/31/16 16:36 1,000 MG Ceftolozane/ Tazobactam/Sodium Chloride (Zerbaxa/Iv Sodium Chloride 0.9% 100ml) 100 ml @ 100 mls/hr Q8HRS 08/04/16 06:00 08/08/16 10:13 DC 08/08/16 05:06 100 MLS/HR Dextrose 25 gm 1X ONCE 07/31/16 15:45 07/31/16 15:46 DC 07/31/16 16:32 25 GM Diphenhydramine HCl (Benadryl) 25 mg 1X PRN PRN 07/31/16 18:15 08/01/16 00:30 DC Fentanyl Citrate (Fentanyl 2ml Vial) 50 mcg PRN Q2HR PRN 08/01/16 02:45 08/01/16 08:12 50 MCG Folic Acid (Folic Acid) 1 mg DAILY 08/01/16 09:00 08/08/16 09:21 1 MG Furosemide (Lasix) 80 mg 1X ONCE 08/01/16 22:45 08/02/16 00:56 DC Furosemide 60 mg 60 mg 1X ONCE 08/03/16 08:30 08/03/16 08:33 DC 08/03/16 08:41 60 MG Gabapentin (Neurontin) 100 mg TID 07/31/16 21:00 08/08/16 09:21 100 MG Heparin Sodium (Porcine) 5,000 unit Q8HRS 08/01/16 22:00 08/08/16 05:08 5,000 UNIT Heparin Sodium/ Sodium Chloride 60 unit 1X ONCE 07/31/16 19:00 07/31/16 19:01 DC 07/31/16 19:13 60 UNIT Hydrocortisone Sodium Succinate (Solu-Cortef) 100 mg DAILY 08/06/16 09:00 08/07/16 08:00 DC 08/06/16 09:09 100 MG Info (PHARMACY MONITORING -- do not chart) 1 each PRN DAILY PRN 07/31/16 18:15 08/04/16 10:08 DC Insulin Human Regular 10 unit 10 unit 1X ONCE 07/31/16 15:45 07/31/16 15:46 DC 07/31/16 16:35 10 UNIT Lidocaine/Sodium Bicarbonate (Buffered Lidocaine 1%) 3 ml 1X ONCE 07/31/16 19:00 07/31/16 19:01 DC 07/31/16 19:12 3 ML Linezolid 300 ml @ 300 mls/hr Q12HR 08/01/16 09:00 08/05/16 06:55 DC 08/04/16 21:20 300 MLS/HR Loperamide HCl (Imodium) 2 mg PRN Q15MIN PRN 08/06/16 13:45 Lorazepam (Ativan) 0.5 mg PRN BID PRN 07/31/16 19:15 Meloxicam (Mobic) 7.5 mg DAILY 08/01/16 09:00 08/01/16 11:25 DC 08/01/16 08:46 7.5 MG Meropenem 500 mg/ Sodium Chloride 50 ml @ 100 mls/hr Q24H 08/01/16 06:00 08/02/16 07:03 DC 08/01/16 05:17 100 MLS/HR Metoprolol Tartrate (Lopressor) 25 mg BID 07/31/16 21:00 08/08/16 09:20 25 MG Micafungin Sodium/ Dextrose (Mycamine) 100 ml @ 100 mls/hr Q24H 08/02/16 08:00 08/08/16 09:23 100 MLS/HR Morphine Sulfate (Ms Contin) 15 mg Q12HR 07/31/16 21:00 08/01/16 16:46 DC 08/01/16 08:46 15 MG Mycophenolate Mofetil (Cellcept) 500 mg BID 07/31/16 21:00 08/08/16 09:20 500 MG Naloxone HCl 0.4 mg 0.4 mg 1X ONCE 08/01/16 23:00 08/01/16 23:01 DC 08/01/16 23:00 0.4 MG Non-Formulary Medication 3 mg HS 07/31/16 21:00 UNV Norepinephrine Bitartrate 8 mg/ Sodium Chloride 258 ml @ 0 mls/hr CONT PRN 08/02/16 00:00 08/06/16 14:59 DC 08/03/16 08:42 13 MLS/HR Nystatin 5 ml QID 07/31/16 21:00 08/08/16 09:21 5 ML Ondansetron HCl (Zofran Odt) 4 mg Q8HRS 07/31/16 22:00 Cancel Ondansetron HCl (Zofran) 4 mg PRN Q8HRS PRN 07/31/16 15:30 08/01/16 15:29 DC Oxycodone HCl (Roxicodone) 5 mg PRN Q4HRS PRN 07/31/16 19:30 08/08/16 09:44 5 MG Pantoprazole Sodium (Protonix) 40 mg DAILYAC 08/05/16 08:00 08/07/16 09:49 40 MG Prednisone (Prednisone) 20 mg DAILY 08/07/16 09:00 08/08/16 09:21 20 MG Protamine Sulfate 50 mg 1X ONCE 07/31/16 15:15 07/31/16 15:16 DC 07/31/16 14:54 50 MG Senna/Docusate Sodium (Senna Plus) 1 tab PRN BID PRN 07/31/16 19:15 08/03/16 08:43 1 TAB Sodium Bicarbonate 50 meq/Dextrose 1,050 ml @ 125 mls/hr Q8H24M 07/31/16 15:45 Cancel Sodium Polystyrene Sulfonate 15 gm 15 gm 1X ONCE 07/31/16 18:00 07/31/16 18:01 DC 07/31/16 18:00 15 GM Sodium Bicarbonate 50 meq 1X ONCE 07/31/16 17:00 07/31/16 17:01 DC 07/31/16 16:36 50 MEQ Sodium Chloride 1,000 ml @ 75 mls/hr [id number] 08/02/16 03:45 08/03/16 10:49 DC 08/03/16 05:36 75 MLS/HR Sodium Chloride (Iv Sodium Chloride 0.9% 500ml Bag) 500 ml @ 500 mls/hr 1X ONCE 07/31/16 15:30 07/31/16 16:29 DC 07/31/16 15:25 500 MLS/HR Sodium Chloride (Iv Sodium Chloride 0.9% 1000ml Bag) 1,000 ml @ 70 mls/hr [id number] 08/01/16 00:00 08/02/16 14:14 DC 08/02/16 02:11 70 MLS/HR Spironolactone 50 mg 50 mg DAILY 08/01/16 09:00 08/01/16 11:25 DC 08/01/16 08:46 50 MG Tranexamic Acid (Cyklokapron) 1,000 mg 1X ONCE 07/31/16 14:45 07/31/16 14:46 DC 07/31/16 15:18 1,000 MG Vitamin B Complex/ Vitamin C (Nephro-Arielle) 1 tab DAILY 08/01/16 09:00 08/08/16 09:21 1 TAB Warfarin Sodium (Coumadin Per Pharmacy) 1 each PRN DAILY PRN 08/06/16 15:00 08/07/16 13:27 1 EACH Warfarin Sodium (Coumadin) 5 mg 1X WARF ONCE 08/07/16 16:00 08/07/16 16:01 DC 08/07/16 17:37 5 MG Lab Laboratory Tests Test 08/07/16 11:50 08/08/16 04:50 Prothrombin Time 13.4SEC (11.7-14.0) 14.6SEC (11.7-14.0) Prothromb Time International Ratio 1.1 (0.8-1.1) 1.2 (0.8-1.1) Sodium Level 143mmol/L (136-145) Potassium Level 4.4mmol/L (3.5-5.1) Chloride Level 108mmol/L (98-107) Carbon Dioxide Level 27mmol/L (21-32) Anion Gap 8 (6-14) Blood Urea Nitrogen 41mg/dL (7-20) Creatinine 0.8mg/dL (0.6-1.0) Estimated GFR (Cockcroft-Gault) 89.5 Glucose Level 91mg/dL (70-99) Calcium Level 9.1mg/dL (8.5-10.1) DAYTON CHINO MD Aug 08, 2016 11:05
[2016-08-08] MEDS: AA 2.75%/CALCIUM/LYTES/D5W 1,000 ML IV SCH ×2 (11:34→23:24)
--- NOTE | 2016-08-08 11:58 | PDOC ---
PROGRESS NOTES Assessment Problems Medical Problems: (1) Bleeding from wound Status: Acute (2) Hyperkalemia Status: Acute (3) Wound, open Status: Acute Metabolic encephalopathy due to uremia, respiratory with hypercarbia. No evidence of stroke, seizure activity, or central nervous system infection. She is much better than when I last saw her 3 days ago. Plan No additional neurological studies needed Correction of medical problems Subjective Denies pain Objective Vital Signs Date Time Temp Pulse Resp B/P Pulse Ox O2 Delivery O2 Flow Rate FiO2 08/08/16 11:29 97.2 81 14 138/66 100 97.2 08/08/16 10:44 Room Air 2.0 Intake and Output 08/08/16 07:00 Intake Total 1800 ml Output Total 2350 ml Balance -550 ml Intake Oral 1700 ml IV Total 100 ml Output Urine Total 2350 ml # Bowel Movements 1 PHYSICAL EXAM Alert, knows date, location, person PERRL. EOMI. CN: no focal findings. Muscle tone: normal. Muscle strength: 2/5 legs, 3/5 arms DTR: 0+ Plantar reflex: flexor Gait: not examined in bed. Sensory exam: stocking loss No cerebellar signs elicited Review of Relevant I have reviewed the following items natacha (where applicable) has been applied. Labs Laboratory Tests Test 08/07/16 05:00 08/07/16 11:50 08/08/16 04:50 Sodium Level 141mmol/L (136-145) 143mmol/L (136-145) Potassium Level 4.5mmol/L (3.5-5.1) 4.4mmol/L (3.5-5.1) Chloride Level 109mmol/L (98-107) 108mmol/L (98-107) Carbon Dioxide Level 20mmol/L (21-32) 27mmol/L (21-32) Anion Gap 12 (6-14) 8 (6-14) Blood Urea Nitrogen 49mg/dL (7-20) 41mg/dL (7-20) Creatinine 0.9mg/dL (0.6-1.0) 0.8mg/dL (0.6-1.0) Estimated GFR (Cockcroft-Gault) 78.1 89.5 Glucose Level 86mg/dL (70-99) 91mg/dL (70-99) Calcium Level 9.7mg/dL (8.5-10.1) 9.1mg/dL (8.5-10.1) Albumin 1.7g/dL (3.4-5.0) Prothrombin Time 13.4SEC (11.7-14.0) 14.6SEC (11.7-14.0) Prothromb Time International Ratio 1.1 (0.8-1.1) 1.2 (0.8-1.1) Laboratory Tests Test 08/08/16 04:50 Prothrombin Time 14.6SEC (11.7-14.0) Prothromb Time International Ratio 1.2 (0.8-1.1) Sodium Level 143mmol/L (136-145) Potassium Level 4.4mmol/L (3.5-5.1) Chloride Level 108mmol/L (98-107) Carbon Dioxide Level 27mmol/L (21-32) Anion Gap 8 (6-14) Blood Urea Nitrogen 41mg/dL (7-20) Creatinine 0.8mg/dL (0.6-1.0) Estimated GFR (Cockcroft-Gault) 89.5 Glucose Level 91mg/dL (70-99) Calcium Level 9.1mg/dL (8.5-10.1) Microbiology 08/02/16 Blood Culture - Final, Complete NO GROWTH AFTER 5 DAYS 08/02/16 Urine Culture - Final, Complete 08/02/16 Urine Culture Result 1 ([id number]) - Final, Complete Medications Current Medications Tranexamic Acid (Cyklokapron) 1,000 mg 1X ONCE TOP Last administered on 15:18; Start 07/31/16 at 14:45; Stop 07/31/16 at 14:46; Status DC Protamine Sulfate 50 mg 1X ONCE IV Last administered on 07/31/16 14:54; Start 07/31/16 at 15:15; Stop 07/31/16 at 15:16; Status DC Dextrose 25 gm 1X ONCE IV Last administered on 07/31/16 16:32; Start at 15:45; Stop 07/31/16 at 15:46; Status DC Insulin Human Regular 10 unit 10 unit 1X ONCE IV Last administered on 16:35; Start 07/31/16 at 15:45; Stop 07/31/16 at 15:46; Status DC Sodium Bicarbonate 50 meq/Dextrose 1,050 ml @ 125 mls/hr Q8H24M IV ; Start 05/07 at 15:45; Status Cancel Sodium Chloride (Iv Sodium Chloride 0.9% 500ml Bag) 500 ml @ 500 mls/hr 1X ONCE IV Last administered on 07/31/16 15:25; Start 07/31/16 at 15:30; Stop 05/07 at 16:29; Status DC Ondansetron HCl 4 mg 4 mg PRN Q8HRS PRN IV NAUSEA/VOMITING; Start 07/31/16 at 15:30; Stop 08/01/16 at 15:29; Status DC Sodium Chloride (Iv Sodium Chloride 0.9% 1000ml Bag) 1,000 ml @ 125 mls/hr Q8H IV ; Start 07/31/16 at 15:30; Stop 08/01/16 at 00:00; Status DC Acetaminophen (Tylenol) 650 mg PRN Q4HRS PRN PO FEVER; Start 07/31/16 at 15:30 ; Stop 07/31/16 at 19:08; Status DC Calcium Gluconate 1,000 mg 1X ONCE IVP Last administered on 07/31/16 16:36; Start 07/31/16 at 17:00; Stop 07/31/16 at 17:01; Status DC Sodium Bicarbonate 50 meq STK-MED ONCE .ROUTE ; Start 07/31/16 at 16:26; Stop at 16:27; Status DC Sodium Bicarbonate 50 meq 1X ONCE IV Last administered on 07/31/16 16:36; Start 07/31/16 at 17:00; Stop 07/31/16 at 17:01; Status DC Sodium Polystyrene Sulfonate 15 gm 15 gm 1X ONCE PO Last administered on 18:00; Start 07/31/16 at 18:00; Stop 07/31/16 at 18:01; Status DC Sodium Chloride 1,000 ml @ 1,000 mls/hr Q1H PRN IV hypotension; Start 07/31/16 at 18:10; Stop 08/01/16 at 00:09; Status DC Albumin Human (Albuminar) 200 ml @ 200 mls/hr 1X PRN PRN IV Hypotension; Start 07/31/16 at 18:15; Stop 08/01/16 at 00:14; Status DC Acetaminophen (Tylenol) 500 mg 1X PRN PRN PO MILD PAIN / TEMP; Start 07/31/16 at 18:15; Stop 08/01/16 at 00:30; Status DC Diphenhydramine HCl (Benadryl) 25 mg 1X PRN PRN IV ITCHING; Start 07/31/16 at 18:15; Stop 08/01/16 at 00:30; Status DC Diphenhydramine HCl (Benadryl) 25 mg 1X PRN PRN IV ITCHING; Start 07/31/16 at 18:15; Stop 08/01/16 at 00:30; Status DC Info (PHARMACY MONITORING -- do not chart) 1 each PRN DAILY PRN MC SEE COMMENTS ; Start 07/31/16 at 18:15; Stop 08/04/16 at 10:08; Status DC Heparin Sodium (Porcine) 10,000 unit STK-MED ONCE .ROUTE ; Start 07/31/16 at 18: 27; Stop 07/31/16 at 18:28; Status DC Lidocaine/Sodium Bicarbonate 20 ml 20 ml STK-MED ONCE IJ ; Start 07/31/16 at 18: 27; Stop 07/31/16 at 18:28; Status DC Heparin Sodium/ Sodium Chloride 500 ml @ As Directed STK-MED ONCE .ROUTE ; Start 07/31/16 at 18:27; Stop 07/31/16 at 18:28; Status DC Lidocaine/Sodium Bicarbonate (Buffered Lidocaine 1%) 3 ml 1X ONCE IJ Last administered on 07/31/16 19:12; Start 07/31/16 at 19:00; Stop 07/31/16 at 19:01 ; Status DC Heparin Sodium/ Sodium Chloride 60 unit 1X ONCE IV Last administered on 19:13; Start 07/31/16 at 19:00; Stop 07/31/16 at 19:01; Status DC Heparin Sodium (Porcine) 2,500 unit 1X ONCE INT CAT Last administered on 19:12; Start 07/31/16 at 19:00; Stop 07/31/16 at 19:01; Status DC Acetaminophen (Tylenol) 650 mg PRN Q6HRS PRN PO PAIN Last administered on 17:23; Start 07/31/16 at 19:15 Albuterol Sulfate (Ventolin Neb Soln) 2.5 mg PRN Q4HRS PRN NEB SHORTNESS OF BREATH; Start 07/31/16 at 19:15 Folic Acid (Folic Acid) 1 mg DAILY PO Last administered on 08/08/16 09:21; Start 08/01/16 at 09:00 Vitamin B Complex/ Vitamin C (Nephro-Arielle) 1 tab DAILY PO Last administered on 08/08/16 09:21; Start 08/01/16 at 09:00 Furosemide (Lasix) 40 mg DAILY PO Last administered on 08/01/16 08:46; Start 08/01/16 at 09:00; Stop 08/02/16 at 11:29; Status DC Gabapentin (Neurontin) 100 mg TID PO Last administered on 08/08/16 09:21; Start 07/31/16 at 21:00 Albuterol/ Ipratropium (Duoneb) 3 ml TID NEB Last administered on 08/08/16 06: 06; Start 07/31/16 at 21:00 Lorazepam (Ativan) 0.5 mg PRN BID PRN PO ANXIETY / AGITATION; Start 07/31/16 at 19:15 Meloxicam (Mobic) 7.5 mg DAILY PO Last administered on 08/01/16 08:46; Start 08/01/16 at 09:00; Stop 08/01/16 at 11:25; Status DC Metoprolol Tartrate (Lopressor) 25 mg BID PO Last administered on 08/08/16 09: 20; Start 07/31/16 at 21:00 Morphine Sulfate (Ms Contin) 15 mg Q12HR PO Last administered on 08/01/16 08: 46; Start 07/31/16 at 21:00; Stop 08/01/16 at 16:46; Status DC Nystatin 5 ml QID PO Last administered on 08/08/16 09:21; Start 07/31/16 at 21 :00 Prednisone (Prednisone) 10 mg DAILY PO Last administered on 08/01/16 08:48; Start 08/01/16 at 09:00; Stop 08/03/16 at 16:57; Status DC Senna/Docusate Sodium (Senna Plus) 1 tab PRN BID PRN PO CONSTIPATION Last administered on 08/03/16 08:43; Start 07/31/16 at 19:15 Budesonide (Pulmicort) 0.5 mg RTBID NEB Last administered on 08/08/16 06:05; Start 07/31/16 at 20:00 Non-Formulary Medication 3 mg HS PO ; Start 07/31/16 at 21:00; Status UNV Mycophenolate Mofetil (Cellcept) 500 mg BID PO Last administered on 08/08/16 09:20; Start 07/31/16 at 21:00 Ondansetron HCl (Zofran Odt) 4 mg Q8HRS PO ; Start 07/31/16 at 22:00; Status Cancel Oxycodone HCl (Roxicodone) 5 mg PRN Q4HRS PRN PO PAIN Last administered on 08/08 09:44; Start 07/31/16 at 19:30 Spironolactone 50 mg 50 mg DAILY PO Last administered on 08/01/16 08:46; Start 08/01/16 at 09:00; Stop 08/01/16 at 11:25; Status DC Meropenem 500 mg/ Sodium Chloride 50 ml @ 100 mls/hr Q24H IV Last administered on 08/01/16 05:17; Start 08/01/16 at 06:00; Stop 08/02/16 at 07:03 ; Status DC Linezolid 300 ml @ 300 mls/hr Q12HR IV Last administered on 08/04/16 21:20; Start 08/01/16 at 09:00; Stop 08/05/16 at 06:55; Status DC Sodium Chloride (Iv Sodium Chloride 0.9% 1000ml Bag) 1,000 ml @ 70 mls/hr [id number] IV Last administered on 08/02/16 02:11; Start 08/01/16 at 00:00; Stop 08/02/16 at 14:14; Status DC Fentanyl Citrate (Fentanyl 2ml Vial) 50 mcg PRN Q2HR PRN IV PAIN Last administered on 08/01/16 08:12; Start 08/01/16 at 02:45 Heparin Sodium (Porcine) 5,000 unit Q8HRS SQ Last administered on 08/08/16 05: 08; Start 08/01/16 at 22:00 Furosemide (Lasix) 80 mg 1X ONCE IVP ; Start 08/01/16 at 22:45; Stop 08/02/16 at 00:56; Status DC Naloxone HCl 0.4 mg 0.4 mg 1X ONCE IV Last administered on 08/01/16 23:00; Start 08/01/16 at 23:00; Stop 08/01/16 at 23:01; Status DC Sodium Chloride 250 ml @ 250 mls/hr 1X ONCE IV Last administered on 23:11; Start 08/01/16 at 23:15; Stop 08/02/16 at 00:14; Status DC Norepinephrine Bitartrate 8 mg/ Sodium Chloride 258 ml @ 0 mls/hr CONT PRN IV SEE I/O RECORD Last administered on 08/03/16 08:42; Start 08/02/16 at 00:00; Stop 08/06/16 at 14:59; Status DC Sodium Chloride 1,000 ml @ 75 mls/hr [id number] IV Last administered on 05:36; Start 08/02/16 at 03:45; Stop 08/03/16 at 10:49; Status DC Micafungin Sodium 100 mg/Dextrose 100 ml @ 100 mls/hr Q24H IV Last administered on 08/08/16 09:23; Start 08/02/16 at 08:00 Ceftolozane/ Tazobactam 1500 mg/Sodium Chloride 100 ml @ 100 mls/hr Q8HRS IV Last administered on 08/02/16 10:41; Start 08/02/16 at 08:00; Stop 08/02/16 at 14:02; Status DC Ceftolozane/ Tazobactam/Sodium Chloride (Zerbaxa/Iv Sodium Chloride 0.9% 100ml) 100 ml @ 100 mls/hr Q8HRS IV Last administered on 08/03/16 22:20; Start 08/02 at 22:00; Stop 08/04/16 at 00:00; Status DC Hydrocortisone Sodium Succinate (Solu-Cortef) 100 mg Q8HRS IV Last administered on 08/05/16 05:34; Start 08/02/16 at 16:00; Stop 08/05/16 at 07:43 ; Status DC Furosemide 60 mg 60 mg 1X ONCE IVP Last administered on 08/03/16 08:41; Start 08/03/16 at 08:30; Stop 08/03/16 at 08:33; Status DC Amino Acids/ Electrolytes 2,000 ml @ 75 mls/hr Q24H IV ; Start 08/03/16 at 12: 00; Status Cancel Amino Acids/ Electrolytes 1,000 ml @ 75 mls/hr [id number] IV Last administered on 08/08/16 11:34; Start 08/03/16 at 12:00 Ceftolozane/ Tazobactam/Sodium Chloride (Zerbaxa/Iv Sodium Chloride 0.9% 100ml) 100 ml @ 100 mls/hr Q8HRS IV Last administered on 08/08/16 05:06; Start 08/04 at 06:00; Stop 08/08/16 at 10:13; Status DC Hydrocortisone Sodium Succinate (Solu-Cortef) 100 mg Q12HR IV Last administered on 08/05/16 21:28; Start 08/05/16 at 21:00; Stop 08/06/16 at 08:53 ; Status DC Pantoprazole Sodium (Protonix) 40 mg DAILYAC PO Last administered on 08/07/16 09:49; Start 08/05/16 at 08:00 Hydrocortisone Sodium Succinate (Solu-Cortef) 100 mg DAILY IV Last administered on 08/06/16 09:09; Start 08/06/16 at 09:00; Stop 08/07/16 at 08:00 ; Status DC Loperamide HCl (Imodium) 2 mg PRN Q15MIN PRN PO DIARRHEA; Start 08/06/16 at 13: 45 Warfarin Sodium (Coumadin Per Pharmacy) 1 each PRN DAILY PRN MC SEE COMMENTS Last administered on 08/07/16 13:27; Start 08/06/16 at 15:00 Warfarin Sodium (Coumadin) 5 mg 1X WARF ONCE PO Last administered on 16:40; Start 08/06/16 at 16:00; Stop 08/06/16 at 16:01; Status DC Prednisone (Prednisone) 20 mg DAILY PO Last administered on 08/08/16 09:21; Start 08/07/16 at 09:00 Warfarin Sodium (Coumadin) 5 mg 1X WARF ONCE PO Last administered on t 17:37; Start 08/07/16 at 16:00; Stop 08/07/16 at 16:01; Status DC Active Scripts Active Reported Nephro-Arielle Tablet (Folic Acid/Vitamin B Comp W-C) 0.8 Mg Tablet 1 Tab PO DAILY Oxycodone Hcl 5 Mg Capsule 1 Cap PO Q4HRS PRN Zofran (Ondansetron Hcl) 4 Mg Tablet 1 Tab PO Q8HRS Albuterol Sulfate Neb Soln (Albuterol Sulfate) 2.5 Mg/3 Ml Vial.neb 1 Vial NEB PRN Q4HRS Tylenol (Acetaminophen) 325 Mg Tablet 650 Mg PO Q6HRS PRN Duoneb 0.5-3(2.5) Mg/3 Ml (Albuterol/Ipratropium) 3 Ml Ampul.neb 3 Ml NEB TID Spironolactone 50 Mg Tablet 1 Tab PO DAILY Deltasone (Prednisone) 20 Mg Tablet 10 Mg PO DAILY Nystatin 100,000 Unit/1 Ml Oral.susp 100,000 Unit PO QID Cellcept (Mycophenolate Mofetil) 500 Mg Tablet 1 Tab PO BID Metoprolol Tartrate 25 Mg Tablet 25 Mg PO BID Melatonin 3 Mg Tab.rapdis 3 Mg PO HS Neurontin (Gabapentin) 100 Mg Capsule 100 Mg PO TID Lasix (Furosemide) 40 Mg Tablet 1 Tab PO DAILY Folic Acid 1 Mg Tablet 1 Tab PO DAILY Advair 500-50 Diskus (Fluticasone/Salmeterol) 1 Each Disk.w.dev 1 Puff IH BID Mobic (Meloxicam) 7.5 Mg Tablet 7.5 Mg PO DAILY Ativan (Lorazepam) 0.5 Mg Tablet 0.5 Mg PO PRN BID PRN Coumadin (Warfarin Sodium) 2 Mg Tablet 1 Tab PO HS Senokot-S Tablet (Sennosides/Docusate Sodium) 1 Each Tablet 1 Tab PO BID PRN Vitals/I & O Vital Sign - Last 24 Hours 08/07/16 08/07/16 08/07/16 08/07/16 12:41 14:51 15:00 19:00 Temp 96.8 97.9 96.8 97.9 Pulse 72 86 Resp 20 20 B/P 120/69 133/81 Pulse Ox 99 99 94 92 O2 Delivery Nasal Cannula Nasal Cannula Room Air Room Air O2 Flow Rate 2.0 2.0 08/07/16 08/07/16 08/07/16 08/07/16 19:44 20:00 21:50 21:51 Pulse 86 B/P 133/81 Pulse Ox 97 97 O2 Delivery Room Air Room Air Room Air O2 Flow Rate 2.0 2.0 08/07/16 08/07/16 08/08/16 08/08/16 23:00 23:33 01:40 03:13 Temp 97.5 98.3 97.5 98.3 Pulse 86 79 Resp 20 20 B/P 138/65 145/74 Pulse Ox 99 96 92 O2 Delivery Nasal Cannula BiPAP/CPAP BiPAP/CPAP BiPAP/CPAP 08/08/16 08/08/16 08/08/16 08/08/16 03:23 06:07 06:08 07:00 Temp 97.7 97.7 Pulse 83 Resp 16 B/P 144/68 Pulse Ox 87 O2 Delivery BiPAP/CPAP BiPAP/CPAP BiPAP/CPAP BiPAP/CPAP 08/08/16 08/08/16 08/08/16 08/08/16 08:56 09:20 09:44 10:44 Temp 97.7 97.7 Pulse 83 83 Resp 16 20 20 B/P 144/68 144/68 Pulse Ox 92 100 O2 Delivery BiPAP/CPAP Room Air Room Air O2 Flow Rate 2.0 2.0 08/08/16 11:29 Temp 97.2 97.2 Pulse 81 Resp 14 B/P 138/66 Pulse Ox 100 Intake and Output 08/07/16 08/07/16 08/08/16 15:00 23:00 07:00 Intake Total 250 ml 1450 ml 100 ml Output Total 1000 ml 1350 ml Balance 250 ml 450 ml -1250 ml ELSA KHOURY MD Aug 08, 2016 11:58
--- NOTE | 2016-08-08 12:12 | PDOC ---
PULMONARY PROGRESS NOTES Subjective PT FEELS BETTER LESS DAVID Vitals Vital Signs Date Time Temp Pulse Resp B/P Pulse Ox O2 Delivery O2 Flow Rate FiO2 08/08/16 11:29 97.2 81 14 138/66 100 97.2 08/08/16 10:44 Room Air 2.0 ROS: No Nausea, No Chest Pain, No Abdominal Pain General: Alert HEENT: Other (nc at perrl) Lungs: Crackles Cardiovascular: S1, S2 Abdomen: Soft, Non-tender Neuro Exam: Alert Extremities: Other (edema) Skin: Warm Labs Laboratory Tests Test 08/07/16 05:00 08/07/16 11:50 08/08/16 04:50 Sodium Level 141mmol/L (136-145) 143mmol/L (136-145) Potassium Level 4.5mmol/L (3.5-5.1) 4.4mmol/L (3.5-5.1) Chloride Level 109mmol/L (98-107) 108mmol/L (98-107) Carbon Dioxide Level 20mmol/L (21-32) 27mmol/L (21-32) Anion Gap 12 (6-14) 8 (6-14) Blood Urea Nitrogen 49mg/dL (7-20) 41mg/dL (7-20) Creatinine 0.9mg/dL (0.6-1.0) 0.8mg/dL (0.6-1.0) Estimated GFR (Cockcroft-Gault) 78.1 89.5 Glucose Level 86mg/dL (70-99) 91mg/dL (70-99) Calcium Level 9.7mg/dL (8.5-10.1) 9.1mg/dL (8.5-10.1) Albumin 1.7g/dL (3.4-5.0) Prothrombin Time 13.4SEC (11.7-14.0) 14.6SEC (11.7-14.0) Prothromb Time International Ratio 1.1 (0.8-1.1) 1.2 (0.8-1.1) Laboratory Tests Test 08/08/16 04:50 Prothrombin Time 14.6SEC (11.7-14.0) Prothromb Time International Ratio 1.2 (0.8-1.1) Sodium Level 143mmol/L (136-145) Potassium Level 4.4mmol/L (3.5-5.1) Chloride Level 108mmol/L (98-107) Carbon Dioxide Level 27mmol/L (21-32) Anion Gap 8 (6-14) Blood Urea Nitrogen 41mg/dL (7-20) Creatinine 0.8mg/dL (0.6-1.0) Estimated GFR (Cockcroft-Gault) 89.5 Glucose Level 91mg/dL (70-99) Calcium Level 9.1mg/dL (8.5-10.1) Medications Active Scripts Medications Dose Route/Sig Days Date Category Nephro-Arielle Tablet (Folic Acid/Vitamin B Comp W-C) 0.8 Mg Tablet 1 Tab PO DAILY 04/19/16 Reported Oxycodone Hcl 5 Mg Capsule 1 Cap PO Q4HRS PRN 04/19/16 Reported Zofran (Ondansetron Hcl) 4 Mg Tablet 1 Tab PO Q8HRS 04/19/16 Reported Albuterol Sulfate Neb Soln (Albuterol Sulfate) 2.5 Mg/3 Ml Vial.neb 1 Vial NEB PRN Q4HRS 04/19/16 Reported Tylenol (Acetaminophen) 325 Mg Tablet 650 Mg PO Q6HRS PRN 04/19/16 Reported Duoneb 0.5-3(2.5) Mg/3 Ml (Albuterol/Ipratropium) 3 Ml Ampul.neb 3 Ml NEB TID 04/19/16 Reported Spironolactone 50 Mg Tablet 1 Tab PO DAILY 04/19/16 Reported Deltasone (Prednisone) 20 Mg Tablet 10 Mg PO DAILY 04/19/16 Reported Nystatin 100,000 Unit/1 Ml Oral.susp 100,000 Unit PO QID 04/19/16 Reported Cellcept (Mycophenolate Mofetil) 500 Mg Tablet 1 Tab PO BID 04/19/16 Reported Metoprolol Tartrate 25 Mg Tablet 25 Mg PO BID 04/19/16 Reported Melatonin 3 Mg Tab.rapdis 3 Mg PO HS 04/19/16 Reported Neurontin (Gabapentin) 100 Mg Capsule 100 Mg PO TID 04/19/16 Reported Lasix (Furosemide) 40 Mg Tablet 1 Tab PO DAILY 04/19/16 Reported Folic Acid 1 Mg Tablet 1 Tab PO DAILY 04/19/16 Reported Advair 500-50 Diskus (Fluticasone/Salmeterol) 1 Each Disk.w.dev 1 Puff IH BID 04/19/16 Reported Mobic (Meloxicam) 7.5 Mg Tablet 7.5 Mg PO DAILY 04/19/16 Reported Ativan (Lorazepam) 0.5 Mg Tablet 0.5 Mg PO PRN BID PRN 04/19/16 Reported Coumadin (Warfarin Sodium) 2 Mg Tablet 1 Tab PO HS 04/19/16 Reported Senokot-S Tablet (Sennosides/Docusate Sodium) 1 Each Tablet 1 Tab PO BID PRN 04/24/15 Reported Comments cxr reviewed, A pacemaker enters the left subclavian approach. There apparently has been placement of a dialysis catheter via the right IJ approach. Its tip extends to near the cavoatrial junction. No pneumothorax is visible on this view. There is mild prominence of lung markings. Heart size is normal. Impression . 1. Bxter-ad-okognse hypercapnic respiratory failure. 2. Hyperkalemia. 3. Multiple wounds. 4. Leukocytosis. 5. Morbid obesity. 6. Obstructive sleep apnea. 7. Acute metabolic encephalopathy. 8. Hypotension, suspect secondary to adrenal insufficiency. Plan . RESP STATUS IS COMPENSATED 1. cont bipap, prn during day, cont at night, setting reviewed, monitor resp status 2. Continue antibiotics per Infectious Disease. 3. Follow lab. 4. Hemodialysis per Dr. Clay. 5. Steroids for chronic sarcoid. 6. change Solu-Cortef to prednisone 7. bronchodilator, ics 8. hep for prophylaxis 9. Protonix for prophylaxis KOFI BENNETT MD Aug 08, 2016 12:12
--- NOTE | 2016-08-08 14:08 | PDOC ---
PROGRESS NOTES Chief Complaint Chief Complaint acute renal failure, imrpoved ASSESSMENT AND PLAN: 1. Sepsis: improved, stable VS. blood cult NGTD. 2. ODALIS: improved to baseline, good urine output 3. Hyperkalemia: resolved s/p HD on 08/01. 4. Respir failure: chronic; hypoventilation syndrome due to obesity; sarcoidosis. ANASTASIIA 5. Wounds: calciphylaxis. hx of infection (MSSA). Abx and wound care. 6. Leukocytosis: resolved 7. Wound bleed: resolved 8. Acute Encephalopathy: improved 9. Afib: rate controlled 10. Sarcoidosis: on cellcept and pred long-term 11. Antiphospholipid syndrome: previously seen by Dr Church; on coumadin on O/ P basis 12. Anemia: macrocytic. hx severe anemia, chronic inflammatory by recent labs, no vitamin deficiency 13. Hypoalbuminemia: severe, in face of massive obesity, and chronic infection /inflammation. on PPN currently. supplements PO 14. Poor venous access: currently only [place], no longer used for HD l 15. Dispo: LTAC has been denied by insurance previously, she likes her SNU current History of Present Illness History of Present Illness no event no nvd Vitals Vitals Vital Signs Date Time Temp Pulse Resp B/P Pulse Ox O2 Delivery O2 Flow Rate FiO2 08/08/16 12:51 Nasal Cannula 2.0 08/08/16 11:29 97.2 81 14 138/66 100 97.2 Physical Exam General: Alert, Oriented X3, Cooperative, No acute distress Heart: Regular rate, No murmurs Lungs: Crackles Abdomen: Soft, No tenderness, Other (massively obese) Extremities: No clubbing, No edema, Other (multiple lower ext wounds) Skin: No rashes, No breakdown, Other (wounds dressed to cierra legs) Labs LABS Laboratory Tests Test 08/08/16 04:50 Prothrombin Time 14.6SEC (11.7-14.0) Prothromb Time International Ratio 1.2 (0.8-1.1) Sodium Level 143mmol/L (136-145) Potassium Level 4.4mmol/L (3.5-5.1) Chloride Level 108mmol/L (98-107) Carbon Dioxide Level 27mmol/L (21-32) Anion Gap 8 (6-14) Blood Urea Nitrogen 41mg/dL (7-20) Creatinine 0.8mg/dL (0.6-1.0) Estimated GFR (Cockcroft-Gault) 89.5 Glucose Level 91mg/dL (70-99) Calcium Level 9.1mg/dL (8.5-10.1) Review of Systems Review of Systems no n,vd Assessment and Plan Assessmemt and Plan DC to SNU soon Problems Medical Problems: (1) Bleeding from wound Status: Acute (2) Hyperkalemia Status: Acute (3) Wound, open Status: Acute Problems: Comment Review of Relevant I have reviewed the following items natacha (where applicable) has been applied. Labs Laboratory Tests Test 08/07/16 05:00 08/07/16 11:50 08/08/16 04:50 Sodium Level 141mmol/L (136-145) 143mmol/L (136-145) Potassium Level 4.5mmol/L (3.5-5.1) 4.4mmol/L (3.5-5.1) Chloride Level 109mmol/L (98-107) 108mmol/L (98-107) Carbon Dioxide Level 20mmol/L (21-32) 27mmol/L (21-32) Anion Gap 12 (6-14) 8 (6-14) Blood Urea Nitrogen 49mg/dL (7-20) 41mg/dL (7-20) Creatinine 0.9mg/dL (0.6-1.0) 0.8mg/dL (0.6-1.0) Estimated GFR (Cockcroft-Gault) 78.1 89.5 Glucose Level 86mg/dL (70-99) 91mg/dL (70-99) Calcium Level 9.7mg/dL (8.5-10.1) 9.1mg/dL (8.5-10.1) Albumin 1.7g/dL (3.4-5.0) Prothrombin Time 13.4SEC (11.7-14.0) 14.6SEC (11.7-14.0) Prothromb Time International Ratio 1.1 (0.8-1.1) 1.2 (0.8-1.1) Laboratory Tests Test 08/08/16 04:50 Prothrombin Time 14.6SEC (11.7-14.0) Prothromb Time International Ratio 1.2 (0.8-1.1) Sodium Level 143mmol/L (136-145) Potassium Level 4.4mmol/L (3.5-5.1) Chloride Level 108mmol/L (98-107) Carbon Dioxide Level 27mmol/L (21-32) Anion Gap 8 (6-14) Blood Urea Nitrogen 41mg/dL (7-20) Creatinine 0.8mg/dL (0.6-1.0) Estimated GFR (Cockcroft-Gault) 89.5 Glucose Level 91mg/dL (70-99) Calcium Level 9.1mg/dL (8.5-10.1) Microbiology 08/02/16 Blood Culture - Final, Complete NO GROWTH AFTER 5 DAYS 08/02/16 Urine Culture - Final, Complete 08/02/16 Urine Culture Result 1 ([id number]) - Final, Complete Medications Current Medications Tranexamic Acid (Cyklokapron) 1,000 mg 1X ONCE TOP Last administered on 15:18; Start 07/31/16 at 14:45; Stop 07/31/16 at 14:46; Status DC Protamine Sulfate 50 mg 1X ONCE IV Last administered on 07/31/16 14:54; Start 07/31/16 at 15:15; Stop 07/31/16 at 15:16; Status DC Dextrose 25 gm 1X ONCE IV Last administered on 07/31/16 16:32; Start at 15:45; Stop 07/31/16 at 15:46; Status DC Insulin Human Regular 10 unit 10 unit 1X ONCE IV Last administered on 16:35; Start 07/31/16 at 15:45; Stop 07/31/16 at 15:46; Status DC Sodium Bicarbonate 50 meq/Dextrose 1,050 ml @ 125 mls/hr Q8H24M IV ; Start 05/07 at 15:45; Status Cancel Sodium Chloride (Iv Sodium Chloride 0.9% 500ml Bag) 500 ml @ 500 mls/hr 1X ONCE IV Last administered on 07/31/16 15:25; Start 07/31/16 at 15:30; Stop 05/07 at 16:29; Status DC Ondansetron HCl 4 mg 4 mg PRN Q8HRS PRN IV NAUSEA/VOMITING; Start 07/31/16 at 15:30; Stop 08/01/16 at 15:29; Status DC Sodium Chloride (Iv Sodium Chloride 0.9% 1000ml Bag) 1,000 ml @ 125 mls/hr Q8H IV ; Start 07/31/16 at 15:30; Stop 08/01/16 at 00:00; Status DC Acetaminophen (Tylenol) 650 mg PRN Q4HRS PRN PO FEVER; Start 07/31/16 at 15:30 ; Stop 07/31/16 at 19:08; Status DC Calcium Gluconate 1,000 mg 1X ONCE IVP Last administered on 07/31/16 16:36; Start 07/31/16 at 17:00; Stop 07/31/16 at 17:01; Status DC Sodium Bicarbonate 50 meq STK-MED ONCE .ROUTE ; Start 07/31/16 at 16:26; Stop at 16:27; Status DC Sodium Bicarbonate 50 meq 1X ONCE IV Last administered on 07/31/16 16:36; Start 07/31/16 at 17:00; Stop 07/31/16 at 17:01; Status DC Sodium Polystyrene Sulfonate 15 gm 15 gm 1X ONCE PO Last administered on 18:00; Start 07/31/16 at 18:00; Stop 07/31/16 at 18:01; Status DC Sodium Chloride 1,000 ml @ 1,000 mls/hr Q1H PRN IV hypotension; Start 07/31/16 at 18:10; Stop 08/01/16 at 00:09; Status DC Albumin Human (Albuminar) 200 ml @ 200 mls/hr 1X PRN PRN IV Hypotension; Start 07/31/16 at 18:15; Stop 08/01/16 at 00:14; Status DC Acetaminophen (Tylenol) 500 mg 1X PRN PRN PO MILD PAIN / TEMP; Start 07/31/16 at 18:15; Stop 08/01/16 at 00:30; Status DC Diphenhydramine HCl (Benadryl) 25 mg 1X PRN PRN IV ITCHING; Start 07/31/16 at 18:15; Stop 08/01/16 at 00:30; Status DC Diphenhydramine HCl (Benadryl) 25 mg 1X PRN PRN IV ITCHING; Start 07/31/16 at 18:15; Stop 08/01/16 at 00:30; Status DC Info (PHARMACY MONITORING -- do not chart) 1 each PRN DAILY PRN MC SEE COMMENTS ; Start 07/31/16 at 18:15; Stop 08/04/16 at 10:08; Status DC Heparin Sodium (Porcine) 10,000 unit STK-MED ONCE .ROUTE ; Start 07/31/16 at 18: 27; Stop 07/31/16 at 18:28; Status DC Lidocaine/Sodium Bicarbonate 20 ml 20 ml STK-MED ONCE IJ ; Start 07/31/16 at 18: 27; Stop 07/31/16 at 18:28; Status DC Heparin Sodium/ Sodium Chloride 500 ml @ As Directed STK-MED ONCE .ROUTE ; Start 07/31/16 at 18:27; Stop 07/31/16 at 18:28; Status DC Lidocaine/Sodium Bicarbonate (Buffered Lidocaine 1%) 3 ml 1X ONCE IJ Last administered on 07/31/16 19:12; Start 07/31/16 at 19:00; Stop 07/31/16 at 19:01 ; Status DC Heparin Sodium/ Sodium Chloride 60 unit 1X ONCE IV Last administered on 19:13; Start 07/31/16 at 19:00; Stop 07/31/16 at 19:01; Status DC Heparin Sodium (Porcine) 2,500 unit 1X ONCE INT CAT Last administered on 19:12; Start 07/31/16 at 19:00; Stop 07/31/16 at 19:01; Status DC Acetaminophen (Tylenol) 650 mg PRN Q6HRS PRN PO PAIN Last administered on 17:23; Start 07/31/16 at 19:15 Albuterol Sulfate (Ventolin Neb Soln) 2.5 mg PRN Q4HRS PRN NEB SHORTNESS OF BREATH; Start 07/31/16 at 19:15 Folic Acid (Folic Acid) 1 mg DAILY PO Last administered on 08/08/16 09:21; Start 08/01/16 at 09:00 Vitamin B Complex/ Vitamin C (Nephro-Arielle) 1 tab DAILY PO Last administered on 08/08/16 09:21; Start 08/01/16 at 09:00 Furosemide (Lasix) 40 mg DAILY PO Last administered on 08/01/16 08:46; Start 08/01/16 at 09:00; Stop 08/02/16 at 11:29; Status DC Gabapentin (Neurontin) 100 mg TID PO Last administered on 08/08/16 09:21; Start 07/31/16 at 21:00 Albuterol/ Ipratropium (Duoneb) 3 ml TID NEB Last administered on 08/08/16 12: 51; Start 07/31/16 at 21:00 Lorazepam (Ativan) 0.5 mg PRN BID PRN PO ANXIETY / AGITATION; Start 07/31/16 at 19:15 Meloxicam (Mobic) 7.5 mg DAILY PO Last administered on 08/01/16 08:46; Start 08/01/16 at 09:00; Stop 08/01/16 at 11:25; Status DC Metoprolol Tartrate (Lopressor) 25 mg BID PO Last administered on 08/08/16 09: 20; Start 07/31/16 at 21:00 Morphine Sulfate (Ms Contin) 15 mg Q12HR PO Last administered on 08/01/16 08: 46; Start 07/31/16 at 21:00; Stop 08/01/16 at 16:46; Status DC Nystatin 5 ml QID PO Last administered on 08/08/16 09:21; Start 07/31/16 at 21 :00 Prednisone (Prednisone) 10 mg DAILY PO Last administered on 08/01/16 08:48; Start 08/01/16 at 09:00; Stop 08/03/16 at 16:57; Status DC Senna/Docusate Sodium (Senna Plus) 1 tab PRN BID PRN PO CONSTIPATION Last administered on 08/03/16 08:43; Start 07/31/16 at 19:15 Budesonide (Pulmicort) 0.5 mg RTBID NEB Last administered on 08/08/16 06:05; Start 07/31/16 at 20:00 Non-Formulary Medication 3 mg HS PO ; Start 07/31/16 at 21:00; Status UNV Mycophenolate Mofetil (Cellcept) 500 mg BID PO Last administered on 08/08/16 09:20; Start 07/31/16 at 21:00 Ondansetron HCl (Zofran Odt) 4 mg Q8HRS PO ; Start 07/31/16 at 22:00; Status Cancel Oxycodone HCl (Roxicodone) 5 mg PRN Q4HRS PRN PO PAIN Last administered on 08/08 09:44; Start 07/31/16 at 19:30 Spironolactone 50 mg 50 mg DAILY PO Last administered on 08/01/16 08:46; Start 08/01/16 at 09:00; Stop 08/01/16 at 11:25; Status DC Meropenem 500 mg/ Sodium Chloride 50 ml @ 100 mls/hr Q24H IV Last administered on 08/01/16 05:17; Start 08/01/16 at 06:00; Stop 08/02/16 at 07:03 ; Status DC Linezolid 300 ml @ 300 mls/hr Q12HR IV Last administered on 08/04/16 21:20; Start 08/01/16 at 09:00; Stop 08/05/16 at 06:55; Status DC Sodium Chloride (Iv Sodium Chloride 0.9% 1000ml Bag) 1,000 ml @ 70 mls/hr [id number] IV Last administered on 08/02/16 02:11; Start 08/01/16 at 00:00; Stop 08/02/16 at 14:14; Status DC Fentanyl Citrate (Fentanyl 2ml Vial) 50 mcg PRN Q2HR PRN IV PAIN Last administered on 08/01/16 08:12; Start 08/01/16 at 02:45 Heparin Sodium (Porcine) 5,000 unit Q8HRS SQ Last administered on 08/08/16 05: 08; Start 08/01/16 at 22:00 Furosemide (Lasix) 80 mg 1X ONCE IVP ; Start 08/01/16 at 22:45; Stop 08/02/16 at 00:56; Status DC Naloxone HCl 0.4 mg 0.4 mg 1X ONCE IV Last administered on 08/01/16 23:00; Start 08/01/16 at 23:00; Stop 08/01/16 at 23:01; Status DC Sodium Chloride 250 ml @ 250 mls/hr 1X ONCE IV Last administered on 23:11; Start 08/01/16 at 23:15; Stop 08/02/16 at 00:14; Status DC Norepinephrine Bitartrate 8 mg/ Sodium Chloride 258 ml @ 0 mls/hr CONT PRN IV SEE I/O RECORD Last administered on 08/03/16 08:42; Start 08/02/16 at 00:00; Stop 08/06/16 at 14:59; Status DC Sodium Chloride 1,000 ml @ 75 mls/hr [id number] IV Last administered on 05:36; Start 08/02/16 at 03:45; Stop 08/03/16 at 10:49; Status DC Micafungin Sodium 100 mg/Dextrose 100 ml @ 100 mls/hr Q24H IV Last administered on 08/08/16 09:23; Start 08/02/16 at 08:00; Stop 08/08/16 at 13:12 ; Status DC Ceftolozane/ Tazobactam 1500 mg/Sodium Chloride 100 ml @ 100 mls/hr Q8HRS IV Last administered on 08/02/16 10:41; Start 08/02/16 at 08:00; Stop 08/02/16 at 14:02; Status DC Ceftolozane/ Tazobactam/Sodium Chloride (Zerbaxa/Iv Sodium Chloride 0.9% 100ml) 100 ml @ 100 mls/hr Q8HRS IV Last administered on 08/03/16 22:20; Start 08/02 at 22:00; Stop 08/04/16 at 00:00; Status DC Hydrocortisone Sodium Succinate (Solu-Cortef) 100 mg Q8HRS IV Last administered on 08/05/16 05:34; Start 08/02/16 at 16:00; Stop 08/05/16 at 07:43 ; Status DC Furosemide 60 mg 60 mg 1X ONCE IVP Last administered on 08/03/16 08:41; Start 08/03/16 at 08:30; Stop 08/03/16 at 08:33; Status DC Amino Acids/ Electrolytes 2,000 ml @ 75 mls/hr Q24H IV ; Start 08/03/16 at 12: 00; Status Cancel Amino Acids/ Electrolytes 1,000 ml @ 75 mls/hr [id number] IV Last administered on 08/08/16 11:34; Start 08/03/16 at 12:00 Ceftolozane/ Tazobactam/Sodium Chloride (Zerbaxa/Iv Sodium Chloride 0.9% 100ml) 100 ml @ 100 mls/hr Q8HRS IV Last administered on 08/08/16 05:06; Start 08/04 at 06:00; Stop 08/08/16 at 10:13; Status DC Hydrocortisone Sodium Succinate (Solu-Cortef) 100 mg Q12HR IV Last administered on 08/05/16 21:28; Start 08/05/16 at 21:00; Stop 08/06/16 at 08:53 ; Status DC Pantoprazole Sodium (Protonix) 40 mg DAILYAC PO Last administered on 08/07/16 09:49; Start 08/05/16 at 08:00 Hydrocortisone Sodium Succinate (Solu-Cortef) 100 mg DAILY IV Last administered on 08/06/16 09:09; Start 08/06/16 at 09:00; Stop 08/07/16 at 08:00 ; Status DC Loperamide HCl (Imodium) 2 mg PRN Q15MIN PRN PO DIARRHEA; Start 08/06/16 at 13: 45 Warfarin Sodium (Coumadin Per Pharmacy) 1 each PRN DAILY PRN MC SEE COMMENTS Last administered on 08/08/16 12:40; Start 08/06/16 at 15:00 Warfarin Sodium (Coumadin) 5 mg 1X WARF ONCE PO Last administered on 16:40; Start 08/06/16 at 16:00; Stop 08/06/16 at 16:01; Status DC Prednisone (Prednisone) 20 mg DAILY PO Last administered on 08/08/16 09:21; Start 08/07/16 at 09:00 Warfarin Sodium (Coumadin) 5 mg 1X WARF ONCE PO Last administered on 17:37; Start 08/07/16 at 16:00; Stop 08/07/16 at 16:01; Status DC Warfarin Sodium (Coumadin) 5 mg 1X WARF ONCE PO ; Start 08/08/16 at 16:00; Stop 08/08/16 at 16:01 Active Scripts Active Reported Nephro-Arielle Tablet (Folic Acid/Vitamin B Comp W-C) 0.8 Mg Tablet 1 Tab PO DAILY Oxycodone Hcl 5 Mg Capsule 1 Cap PO Q4HRS PRN Zofran (Ondansetron Hcl) 4 Mg Tablet 1 Tab PO Q8HRS Albuterol Sulfate Neb Soln (Albuterol Sulfate) 2.5 Mg/3 Ml Vial.neb 1 Vial NEB PRN Q4HRS Tylenol (Acetaminophen) 325 Mg Tablet 650 Mg PO Q6HRS PRN Duoneb 0.5-3(2.5) Mg/3 Ml (Albuterol/Ipratropium) 3 Ml Ampul.neb 3 Ml NEB TID Spironolactone 50 Mg Tablet 1 Tab PO DAILY Deltasone (Prednisone) 20 Mg Tablet 10 Mg PO DAILY Nystatin 100,000 Unit/1 Ml Oral.susp 100,000 Unit PO QID Cellcept (Mycophenolate Mofetil) 500 Mg Tablet 1 Tab PO BID Metoprolol Tartrate 25 Mg Tablet 25 Mg PO BID Melatonin 3 Mg Tab.rapdis 3 Mg PO HS Neurontin (Gabapentin) 100 Mg Capsule 100 Mg PO TID Lasix (Furosemide) 40 Mg Tablet 1 Tab PO DAILY Folic Acid 1 Mg Tablet 1 Tab PO DAILY Advair 500-50 Diskus (Fluticasone/Salmeterol) 1 Each Disk.w.dev 1 Puff IH BID Mobic (Meloxicam) 7.5 Mg Tablet 7.5 Mg PO DAILY Ativan (Lorazepam) 0.5 Mg Tablet 0.5 Mg PO PRN BID PRN Coumadin (Warfarin Sodium) 2 Mg Tablet 1 Tab PO HS Senokot-S Tablet (Sennosides/Docusate Sodium) 1 Each Tablet 1 Tab PO BID PRN Vitals/I & O Vital Sign - Last 24 Hours 08/07/16 08/07/16 08/07/16 08/07/16 14:51 15:00 19:00 19:44 Temp 96.8 97.9 96.8 97.9 Pulse 72 86 Resp 20 20 B/P 120/69 133/81 Pulse Ox 99 94 92 97 O2 Delivery Nasal Cannula Room Air Room Air Room Air O2 Flow Rate 2.0 08/07/16 08/07/16 08/07/16 08/07/16 20:00 21:50 21:51 23:00 Temp 97.5 97.5 Pulse 86 86 Resp 20 B/P 133/81 138/65 Pulse Ox 97 99 O2 Delivery Room Air Room Air Nasal Cannula O2 Flow Rate 2.0 2.0 08/07/16 08/08/16 08/08/16 08/08/16 23:33 01:40 03:13 03:23 Temp 98.3 98.3 Pulse 79 Resp 20 B/P 145/74 Pulse Ox 96 92 O2 Delivery BiPAP/CPAP BiPAP/CPAP BiPAP/CPAP BiPAP/CPAP 08/08/16 08/08/16 08/08/16 08/08/16 06:07 06:08 07:00 08:00 Temp 97.7 97.7 Pulse 83 Resp 16 B/P 144/68 Pulse Ox 87 O2 Delivery BiPAP/CPAP BiPAP/CPAP BiPAP/CPAP Room Air O2 Flow Rate 2.0 08/08/16 08/08/16 08/08/16 08/08/16 08:56 09:20 09:44 10:44 Temp 97.7 97.7 Pulse 83 83 Resp 16 20 B/P 144/68 144/68 Pulse Ox 92 100 O2 Delivery BiPAP/CPAP Room Air Room Air O2 Flow Rate 2.0 2.0 08/08/16 08/08/16 11:29 12:51 Temp 97.2 97.2 Pulse 81 Resp 14 B/P 138/66 Pulse Ox 100 O2 Delivery Nasal Cannula O2 Flow Rate 2.0 Intake and Output 08/07/16 08/07/16 08/08/16 15:00 23:00 07:00 Intake Total 250 ml 1450 ml 100 ml Output Total 1000 ml 1350 ml Balance 250 ml 450 ml -1250 ml Nutrition Consultation Dietary Evaluation: Recommendations by RD: Increase Calorie Intake, Protein supplementation Comments: Novasource Renal TID - 475kcal and 21.6g protein Encourage intake at meals as tolerated Rec. continue PPN until intake consistently >50% at meals Encourage novasource renal with PO meds Expected Outcomes/Goals: meet >75% est nutr needs Interpretation of weight loss: >7.5% in 3 months Malnutrition Findings: Malnutrition related to morbid: BMI>or equal to 40 Malnutrition related to morbid: Yes Weight Status: Morbidly Obese Fluid Accumulation (Non-Severe: Mild depletion SIRI TAYLOR MD Aug 08, 2016 14:07
[2016-08-08] MEDS ORDERED: WARFARIN 5 MG TABLET. PO ONE (16:00)
[2016-08-09 03:00] VITALS: BP 138/88
[2016-08-09] MEDS: HEPARIN PF for SUB-Q USE 5,000 UNIT/0.5 ML VIAL. SQ SCH ×2 (06:05→13:09)
[2016-08-09 07:00] VITALS: BP 140/68
[2016-08-09] MEDS: BUDESONIDE 0.5 MG/2 ML NEBU NEB SCH (07:23)
[2016-08-09] MEDS: IPRATRPIUM/ALBUTEROL 0.5/2.5MG 3 ML NEBU. NEB SCH ×2 (07:23→13:24)
[2016-08-09] MEDS: FOLIC ACID 1 MG TABLET PO SCH (09:09)
[2016-08-09] MEDS: PANTOPRAZOLE 40 MG TABLET. PO SCH (09:09)
[2016-08-09] MEDS: FOLIC/VIT B COMP W-C (RENAL) TABLET. PO SCH (09:09)
[2016-08-09] MEDS: GABAPENTIN 100 MG CAPSULE. PO SCH ×2 (09:09→13:03)
[2016-08-09] MEDS: MYCOPHENOLATE MOFETIL 250 MG CAPSULE. PO SCH (09:09)
[2016-08-09] MEDS: PREDNISONE 20 MG TABLET PO SCH (09:09)
[2016-08-09] MEDS: METOPROLOL TART IMMED RELEASE 25 MG TABLET PO SCH (09:13)
[2016-08-09 09:32] LABS: INR 1.4 (0.8-1.1); PROTHROMBIN TIME PATIENT 16.1 SEC (11.7-14.0)
--- NOTE | 2016-08-09 10:14 | PDOC ---
Infectious Disease Note Subjective Subjective Comfortable ROS ROS no n/v/d/pain Vital Sign Vital Signs Vital Signs Date Time Temp Pulse Resp B/P Pulse Ox O2 Delivery O2 Flow Rate FiO2 08/09/16 09:13 80 140/68 08/09/16 07:23 92 BiPAP/CPAP 08/09/16 07:00 97.9 20 97.9 08/08/16 20:00 2.0 Physical Exam PHYSICAL EXAM GENERAL: NAD, Alert HEENT: PERRL, OC/OP NECK: Supple, no JVD, no LN LUNGS: Clear HEART: S1S2, no gallop, no murmur ABD: Soft, NT, no organomegaly, no rebound EXT: No edema, no cyanosis, wounds CLIENT TECHNICAL SUPPORT ASSOCIATE: Alert, oriented x 3, no focal neurologic deficit SKIN: No rash IV: ok Labs Lab Laboratory Tests Test 08/09/16 08:40 Prothrombin Time 16.1SEC (11.7-14.0) Prothromb Time International Ratio 1.4 (0.8-1.1) Objective Assessment S/p rapid response 08/02 Decreased UOP - improved Hypotension improved now off Levophed Leukocytosis - improved- remains AF Multiple wounds - H/o MDR PSA/MSSA Acute Encephalopathy, improved Bleed from left thigh wound -controlled Acute Resp failure ODALIS - UOP, improving Plan Plan of Care pt/ot ok to d/c to SNF/LTAC local care VALENTINA CHINO MD Aug 09, 2016 10:14
[2016-08-09 10:40] VITALS: BP 126/70
--- NOTE | 2016-08-09 10:42 | PDOC ---
PULMONARY PROGRESS NOTES Subjective PT FEELS BETTER LESS DAVID Vitals Vital Signs Date Time Temp Pulse Resp B/P Pulse Ox O2 Delivery O2 Flow Rate FiO2 08/09/16 10:40 97.7 85 20 126/70 Room Air 97.7 08/09/16 07:23 92 08/08/16 20:00 2.0 ROS: No Nausea, No Chest Pain, No Abdominal Pain General: Alert HEENT: Other (nc at perrl) Lungs: Crackles Cardiovascular: S1, S2 Abdomen: Soft, Non-tender Neuro Exam: Alert Extremities: Other (edema) Skin: Warm Labs Laboratory Tests Test 08/07/16 11:50 08/08/16 04:50 08/09/16 08:40 Prothrombin Time 13.4SEC (11.7-14.0) 14.6SEC (11.7-14.0) 16.1SEC (11.7-14.0) Prothromb Time International Ratio 1.1 (0.8-1.1) 1.2 (0.8-1.1) 1.4 (0.8-1.1) Sodium Level 143mmol/L (136-145) Potassium Level 4.4mmol/L (3.5-5.1) Chloride Level 108mmol/L (98-107) Carbon Dioxide Level 27mmol/L (21-32) Anion Gap 8 (6-14) Blood Urea Nitrogen 41mg/dL (7-20) Creatinine 0.8mg/dL (0.6-1.0) Estimated GFR (Cockcroft-Gault) 89.5 Glucose Level 91mg/dL (70-99) Calcium Level 9.1mg/dL (8.5-10.1) Laboratory Tests Test 08/09/16 08:40 Prothrombin Time 16.1SEC (11.7-14.0) Prothromb Time International Ratio 1.4 (0.8-1.1) Medications Active Scripts Medications Dose Route/Sig Days Date Category Nephro-Arielle Tablet (Folic Acid/Vitamin B Comp W-C) 0.8 Mg Tablet 1 Tab PO DAILY 04/19/16 Reported Oxycodone Hcl 5 Mg Capsule 1 Cap PO Q4HRS PRN 04/19/16 Reported Zofran (Ondansetron Hcl) 4 Mg Tablet 1 Tab PO Q8HRS 04/19/16 Reported Albuterol Sulfate Neb Soln (Albuterol Sulfate) 2.5 Mg/3 Ml Vial.neb 1 Vial NEB PRN Q4HRS 04/19/16 Reported Tylenol (Acetaminophen) 325 Mg Tablet 650 Mg PO Q6HRS PRN 04/19/16 Reported Duoneb 0.5-3(2.5) Mg/3 Ml (Albuterol/Ipratropium) 3 Ml Ampul.neb 3 Ml NEB TID 04/19/16 Reported Spironolactone 50 Mg Tablet 1 Tab PO DAILY 04/19/16 Reported Deltasone (Prednisone) 20 Mg Tablet 10 Mg PO DAILY 04/19/16 Reported Nystatin 100,000 Unit/1 Ml Oral.susp 100,000 Unit PO QID 04/19/16 Reported Cellcept (Mycophenolate Mofetil) 500 Mg Tablet 1 Tab PO BID 04/19/16 Reported Metoprolol Tartrate 25 Mg Tablet 25 Mg PO BID 04/19/16 Reported Melatonin 3 Mg Tab.rapdis 3 Mg PO HS 04/19/16 Reported Neurontin (Gabapentin) 100 Mg Capsule 100 Mg PO TID 04/19/16 Reported Lasix (Furosemide) 40 Mg Tablet 1 Tab PO DAILY 04/19/16 Reported Folic Acid 1 Mg Tablet 1 Tab PO DAILY 04/19/16 Reported Advair 500-50 Diskus (Fluticasone/Salmeterol) 1 Each Disk.w.dev 1 Puff IH BID 04/19/16 Reported Mobic (Meloxicam) 7.5 Mg Tablet 7.5 Mg PO DAILY 04/19/16 Reported Ativan (Lorazepam) 0.5 Mg Tablet 0.5 Mg PO PRN BID PRN 04/19/16 Reported Coumadin (Warfarin Sodium) 2 Mg Tablet 1 Tab PO HS 04/19/16 Reported Senokot-S Tablet (Sennosides/Docusate Sodium) 1 Each Tablet 1 Tab PO BID PRN 04/24/15 Reported Comments cxr reviewed, A pacemaker enters the left subclavian approach. There apparently has been placement of a dialysis catheter via the right IJ approach. Its tip extends to near the cavoatrial junction. No pneumothorax is visible on this view. There is mild prominence of lung markings. Heart size is normal. Impression . 1. [id number] hypercapnic respiratory failure. 2. Hyperkalemia. 3. Multiple wounds. 4. Leukocytosis. 5. Morbid obesity. 6. Obstructive sleep apnea. 7. Acute metabolic encephalopathy. 8. Hypotension, suspect secondary to adrenal insufficiency. Plan . RESP STATUS IS COMPENSATED D/C SOON TO /SNU 1. cont bipap, prn during day, cont at night, setting reviewed, monitor resp status 2. Continue antibiotics per Infectious Disease. 3. Follow lab. 4. Hemodialysis per Dr. Clay. 5. Steroids for chronic sarcoid. 6. change Solu-Cortef to prednisone 7. bronchodilator, ics 8. hep for prophylaxis 9. Protonix for prophylaxis KOFI BENNETT MD Aug 09, 2016 10:42
[2016-08-09] MEDS ORDERED: NYSTATIN TOPICAL POWDER 15GM BOTTLE. TP SCH (12:30)
[2016-08-09] MEDS: OXYCODONE IR 5 MG TABLET. PO PRN (13:04)
[2016-08-09] MEDS ORDERED: WARFARIN 5 MG TABLET. PO ONE (16:00)
--- NOTE | 2016-08-09 22:17 | PDOC3 ---
Discharge Summary Visit Information Date of Admission: Aug 01, 2016 Date of Discharge: Aug 09, 2016 Admitting Diagnosis: acute renal failure, hyperkalemia Final Diagnosis 1. Sepsis: blood cult neg 2. ODALIS: ATN 3. Hyperkalemia: 4. Respir failure: chronic; hypoventilation syndrome - sarcoidosis. ANASTASIIA 5. Wounds: calciphylaxis. hx of infection (MSSA). 6. Leukocytosis: 7. Bleeding from wounds 8. Acute Encephalopathy: metabolic on admit, renal failure 9. Afib: rate controlled 10. Sarcoidosis: on cellcept and pred long-term 11. Antiphospholipid syndrome: on coumadin on O/P basis 12. Anemia: macrocytic. hx severe anemia, chronic inflammatory 13. Hypoalbuminemia: severe, in face of morbid obesity, and chronic infection /inflammation. malnutrition, severe 14. Poor venous access: 15. weakness and debility Problems Medical Problems: (1) Bleeding from wound Status: Acute (2) Hyperkalemia Status: Acute (3) Sepsis Status: Acute (4) Wound, open Status: Acute Brief Hospital Course Allergies Allergies Coded Allergies Type Severity Reaction Last Updated Verified pineapple Allergy Mild Itching 04/21/16 Yes Iodinated Contrast Media - Oral and Adverse Reaction Severe 04/19/16 Yes vancomycin Adverse Reaction Severe renal disease 04/19/16 Yes morphine Adverse Reaction Intermediate 08/04/16 Yes Vital Signs Vital Signs Date Time Temp Pulse Resp B/P Pulse Ox O2 Delivery O2 Flow Rate FiO2 08/09/16 13:24 Room Air 08/09/16 13:04 18 08/09/16 10:40 97.7 85 126/70 97.7 08/09/16 07:23 92 08/08/16 20:00 2.0 Lab Results Laboratory Tests Test 08/08/16 04:50 08/09/16 08:40 Prothrombin Time 14.6SEC (11.7-14.0) 16.1SEC (11.7-14.0) Prothromb Time International Ratio 1.2 (0.8-1.1) 1.4 (0.8-1.1) Sodium Level 143mmol/L (136-145) Potassium Level 4.4mmol/L (3.5-5.1) Chloride Level 108mmol/L (98-107) Carbon Dioxide Level 27mmol/L (21-32) Anion Gap 8 (6-14) Blood Urea Nitrogen 41mg/dL (7-20) Creatinine 0.8mg/dL (0.6-1.0) Estimated GFR (Cockcroft-Gault) 89.5 Glucose Level 91mg/dL (70-99) Calcium Level 9.1mg/dL (8.5-10.1) Laboratory Tests Test 08/09/16 08:40 Prothrombin Time 16.1SEC (11.7-14.0) Prothromb Time International Ratio 1.4 (0.8-1.1) Brief Hospital Course Ms. Butt is a 56 old admit to ICU for acute renal failure, hyperkalemia, got HD within hours. HD cath placed emergently by IR renal fxn improvd rapidly, lytes stable and HD stopped bleeding from Leg wounds, improved quickly ongoing poor PO intake, malnutrition, poor wound healing plan SNU, needs long rehab, Discharge Information Condition at Discharge: Improved Follow Up: Weeks Disposition/Orders: D/C to Another Facility (SNU) Scheduled Albuterol Sulfate (Albuterol Sulfate Neb Soln) 1 VIAL NEB PRN Q4HRS (Reported) Fluticasone/Salmeterol (Advair 500-50 Diskus) 1 PUFF IH BID (Reported) Folic Acid (Folic Acid) 1 TAB PO DAILY (Reported) Folic Acid/Vitamin B Comp W-C (Nephro-Arielle Tablet) 1 TAB PO DAILY (Reported) Furosemide (Lasix) 1 TAB PO DAILY (Reported) Gabapentin (Neurontin) 100 MG PO TID (Reported) Ipratropium/Albuterol Sulfate (Duoneb 0.5-3(2.5) Mg/3 Ml) 3 ML NEB TID (Reported ) Melatonin (Melatonin) 3 MG PO HS (Reported) Meloxicam (Mobic) 7.5 MG PO DAILY (Reported) Metoprolol Tartrate (Metoprolol Tartrate) 25 MG PO BID (Reported) Mycophenolate Mofetil (Cellcept) 1 TAB PO BID (Reported) Nystatin (Nystatin) 100,000 UNIT PO QID (Reported) Ondansetron Hcl (Zofran) 1 TAB PO Q8HRS (Reported) Prednisone (Deltasone) 10 MG PO DAILY (Reported) Warfarin Sodium (Coumadin) 1 TAB PO HS (Reported) Scheduled PRN Acetaminophen (Tylenol) 650 MG PO Q6HRS PRN PRN PAIN (Reported) Lorazepam (Ativan) 0.5 MG PO PRN BID PRN PRN ANXIETY / AGITATION (Reported) Oxycodone Hcl (Oxycodone Hcl) 1 CAP PO Q4HRS PRN PRN PAIN (Reported) Sennosides/Docusate Sodium (Senokot-S Tablet) 1 TAB PO BID PRN PRN CONSTIPATION (Reported) Discontinued Medications Spironolactone (Spironolactone) 1 TAB PO DAILY (Reported) Patient Instructions Patient Instructions time > 30 min SIRI TAYLOR MD Aug 09, 2016 22:17
== END 2016-08-09 14:55 | DRG 871 ==
LOC: ER 14:32 → 6 SOUTH 15:04 → 1 WEST ICU 18:28 → 6 SOUTH 08-01 13:24 → 1 WEST ICU 08-02 02:18 → 5 NORTH 08-05 19:54
PROVIDERS: ADMIT Internal Medicine; ATTEND Internal Medicine
PROC: 02HV33Z Insertion of Infusion Device into Superior Vena Cava, Percutaneous Approach (ICD-10-PCS; principal; 2016-07-31)
PROC: B5181ZA Fluoroscopy of Superior Vena Cava using Low Osmolar Contrast, Guidance (ICD-10-PCS; 2016-07-31)
PROC: 05HM33Z Insertion of Infusion Device into Right Internal Jugular Vein, Percutaneous Approach (ICD-10-PCS; 2016-08-01)
PROC: B543ZZA Ultrasonography of Right Jugular Veins, Guidance (ICD-10-PCS; 2016-08-01)
PROC: 5A1D60Z (ICD-10-PCS; 2016-08-03)
DX: A41.9 Sepsis, unspecified organism (principal); E43 Unspecified severe protein-calorie malnutrition; N17.0 Acute kidney failure with tubular necrosis; G93.41 Metabolic encephalopathy; J96.21 Acute and chronic respiratory failure with hypoxia; J96.22 Acute and chronic respiratory failure with hypercapnia; D68.61 Antiphospholipid syndrome; E27.40 Unspecified adrenocortical insufficiency; E87.2 Acidosis; E66.2 Morbid (severe) obesity with alveolar hypoventilation; I50.32 Chronic diastolic (congestive) heart failure; Z68.43 Body mass index [BMI] 50.0-59.9, adult; L03.90 Cellulitis, unspecified; M87.9 Osteonecrosis, unspecified; D53.9 Nutritional anemia, unspecified; D86.9 Sarcoidosis, unspecified; E83.59 Other disorders of calcium metabolism; E87.5 Hyperkalemia; G62.9 Polyneuropathy, unspecified; G89.29 Other chronic pain; I12.9 Hypertensive chronic kidney disease with stage 1 through stage 4 chronic kidney disease, or unspecified chronic kidney disease; N18.3 Chronic kidney disease, stage 3 (moderate); I25.10 Atherosclerotic heart disease of native coronary artery without angina pectoris; I27.2 Other secondary pulmonary hypertension; I48.91 Unspecified atrial fibrillation; J44.9 Chronic obstructive pulmonary disease, unspecified; J45.909 Unspecified asthma, uncomplicated; Z16.24 Resistance to multiple antibiotics; F32.9 Major depressive disorder, single episode, unspecified; F41.9 Anxiety disorder, unspecified; M79.7 Fibromyalgia; Z79.01 Long term (current) use of anticoagulants; Z79.52 Long term (current) use of systemic steroids; Z82.49 Family history of ischemic heart disease and other diseases of the circulatory system; Z86.19 Personal history of other infectious and parasitic diseases; Z86.711 Personal history of pulmonary embolism; Z87.440 Personal history of urinary (tract) infections; Z95.0 Presence of cardiac pacemaker; Z79.899 Other long term (current) drug therapy; Z79.82 Long term (current) use of aspirin
CPT/HCPCS: 36415; 36556; 36600; 70450; 71010; 76937; 80048; 80051; 80053; 80076; 81001; 82040; 82805; 82947; 83605; 83735; 83880; 84100; 84145; 85007; 85027; 85610; 86705; 86706; 86850; 86870; 86880; 86900; 86901; 87040; 87086; 87340; 87341; 87641; 93005; 94250; 94640; 94660; 94760; 96374; C1769; C1892; J0610; J1720; J1815; J2020; J2185; J2248; J2310; J3010; J7030; J7040; J7042; J7050; J7512; J7517; J7620; 99285-25; C9452

== ENCOUNTER 2016-11-28 11:57 | Emergency (ER) | payer BC, OTHER ==
[~2016-11-28] VITALS: Ht 157.5 cm; Wt 142.9 kg
[~2016-11-28 11:57] MED LIST changes: +BUPR150T15 PO; -MELA3TAB12 PO; +MELA3TAB43 PO; -MORP15TA34 PO; +MORP15TA80 PO; -NYST1000 PO; +NYST100054 PO; +OXYC5CAP PO; -OXYC5CAP3 PO; +POLY17PO29 PO; -POLY17PO5 PO; +SENN-79 PO; -SENN8.6T3 PO
[2016-11-28 12:42] LABS: BASO % 0 % (0-3); EOS % 0 % (0-3); HEMATOCRIT 29.1 % (36.0-47.0); HEMOGLOBIN 9.2 g/dL (12.0-15.5); LYMPH # 0.6 x10^3/uL (1.0-4.8); LYMPH % 7 % (24-48); MEAN CORPUSCULAR HEMOGLOBIN 29 pg (25-35); MEAN CORPUSCULAR HGB CONC 32 g/dL (31-37); MEAN CORPUSCULAR VOLUME 92 fL (79-100); MONO % 5 % (0-9); NEUT % 88 % (31-73); PLATELET COUNT 217 x10^3/uL (140-400); RED BLOOD COUNT 3.19 x10^6/uL (3.50-5.40); RED CELL DISTRIBUTION WIDTH 15.9 % (11.5-14.5); WHITE BLOOD COUNT 9.3 x10^3/uL (4.0-11.0)
--- NOTE | 2016-11-28 12:58 | PHYS DOC ---
Past Medical History Past Medical History: Anemia, Anxiety, Asthma, Depression, Heart Disease, Hypertension, Renal Failure, UTI, Other Additional Past Medical Histor: pain; MSSA, sarcoidosis, fibromyalgia, obesity Past Surgical History: Pacemaker, Other Additional Past Surgical Histo: defibrillator; PICC; GI sx Alcohol Use: None Drug Use: None Adult General Chief Complaint Chief Complaint: WOUND CHECK HPI HPI 6-year-old morbidly obese -[place] female with a history of calciphylaxis and multiple chronic lower extremity wounds. Now sent for evaluation of bleeding from one of the wounds of her right lower extremity. Patient lives in a snf and has daily wound care by nurses. Apparently wound care nurse comes once a week to supervise and survey L wound noted and healing status. Today during dressing changes patient no vault a small amount of bleeding which was stubborn and refractory for multiple wounds on her right leg. Wound is currently hemostatic and patient states it is otherwise at baseline and she feels baseline as well with no increased pain, fevers chills sweats or shaking chills. No swelling or redness and no drainage beyond her baseline from any of the wounds. Review of Systems Review of Systems Constitutional: Denies fever or chills [] Eyes: Denies change in visual acuity, redness, or eye pain [] HENT: Denies nasal congestion or sore throat [] Respiratory: Denies cough or shortness of breath [] Cardiovascular: No additional information not addressed in HPI [] GI: Denies abdominal pain, nausea, vomiting, bloody stools or diarrhea [] : Denies dysuria or hematuria [] Musculoskeletal: Denies back pain or joint pain [] Integument: Denies rash or skin lesions [] Neurologic: Denies headache, focal weakness or sensory changes [] Endocrine: Denies polyuria or polydipsia [] Allergies Allergies Allergies Coded Allergies Type Severity Reaction Last Updated Verified pineapple Allergy Mild Itching 11/07/16 Yes I S O L A T I O N *CONTACT* Allergy Unknown 11/07/16 Yes Iodinated Contrast- Oral and IV Dye Adverse Reaction Severe 11/07/16 Yes vancomycin Adverse Reaction Severe renal disease 11/07/16 Yes morphine Adverse Reaction Intermediate 11/07/16 Yes Physical Exam Physical Exam Morbidly obese female in no acute distress alert and communicative vital signs unremarkable. Multiple wounds with dressings in place. Right lower extremity wound where site was bleeding with approximately 3 cm x 3 cm x 3 cm cavity with small amount of granulation tissue no active bleeding no erythema warmth fluctuance or crepitus. Dry dressing on this wound with no wet to dry in place on arrival. Constitutional: Well developed, well nourished, no acute distress, non-toxic appearance. [] HENT: Normocephalic, atraumatic, bilateral external ears normal, oropharynx moist, no oral exudates, nose normal. [] Eyes: PERRLA, EOMI, conjunctiva normal, no discharge. [] Neck: Normal range of motion, no tenderness, supple, no stridor. [] Cardiovascular:Heart rate regular rhythm, no murmur [] Lungs & Thorax: Bilateral breath sounds clear to auscultation [] Abdomen: Bowel sounds normal, soft, no tenderness, no masses, no pulsatile masses. [] Skin: Warm, dry, no erythema, no rash. [] Back: No tenderness, no CVA tenderness. [] Extremities: No tenderness, no cyanosis, no clubbing, ROM intact, no edema. [] Neurologic: Alert and oriented X 3, normal motor function, normal sensory function, no focal deficits noted. [] Psychologic: Affect normal, judgement normal, mood normal. [] Current Patient Data Vital Signs Vital Signs Date Time Temp Pulse Resp B/P (MAP) Pulse Ox O2 Delivery O2 Flow Rate FiO2 11/28/16 12:10 98.0 77 20 109/58 (75) 95 Nasal Cannula 2.0 98.0 Lab Values Laboratory Tests Test 11/28/16 12:35 11/28/16 13:05 White Blood Count 9.3 x10^3/uL (4.0-11.0) Red Blood Count 3.19 x10^6/uL (3.50-5.40) L Hemoglobin 9.2 g/dL (12.0-15.5) L Hematocrit 29.1 % (36.0-47.0) L Mean Corpuscular Volume 92 fL (79-100) Mean Corpuscular Hemoglobin 29 pg (25-35) Mean Corpuscular Hemoglobin Concent 32 g/dL (31-37) Red Cell Distribution Width 15.9 % (11.5-14.5) H Platelet Count 217 x10^3/uL (140-400) Neutrophils (%) (Auto) 88 % (31-73) H Lymphocytes (%) (Auto) 7 % (24-48) L Monocytes (%) (Auto) 5 % (0-9) Eosinophils (%) (Auto) 0 % (0-3) Basophils (%) (Auto) 0 % (0-3) Neutrophils # (Auto) 8.2 x10^3uL (1.8-7.7) H Lymphocytes # (Auto) 0.6 x10^3/uL (1.0-4.8) L Monocytes # (Auto) 0.5 x10^3/uL (0.0-1.1) Eosinophils # (Auto) 0.0 x10^3/uL (0.0-0.7) Basophils # (Auto) 0.0 x10^3/uL (0.0-0.2) Platelet Estimate Pending Prothrombin Time 30.8 SEC (11.7-14.0) H Prothrombin Time INR 3.2 (0.8-1.1) H Laboratory Tests 11/28/16 12:35 EKG EKG [] Radiology/Procedures Radiology/Procedures [] Course & Med Decision Making Course & Med Decision Making Pertinent Labs and Imaging studies reviewed. (See chart for details) Signs and symptoms consistent with chronic nonhealing wound status post episode of persistent bleeding which is now hemostatic. Wet to dry dressing with mild compression pressure with Kye bandage placed. CBC pending to rule out significant anemia or thrombocytopenia which may have precipitated bleeding. If unremarkable patient agrees with outpatient follow-up. No further workup or treatment will be indicated at this time and strict return precautions will be given [] Dragon Disclaimer Dragon Disclaimer This electronic medical record was generated, in whole or in part, using a voice recognition dictation system. Departure Departure Impression: Primary Impression: Chronic wound of extremity Disposition: 01 HOME, SELF-CARE Condition: STABLE Referrals: HAYDEN FLORES (PCP) Additional Instructions: The bleeding from her chronic wound has stopped. U have no evidence of infection or other complication today. Wet to dry dressing has been placed with a mild compression dressing with Kye bandage. Follow-up with your doctor in 1 day for reevaluation and to continue to work a straight chronic wound care. Please discuss whether wound should be dressed with wet-to-dry dressings as a sterile dry dressing was in place over this wound with a cavity which could result in suboptimal granulation tissue formation and delay healing. YOLETTE RUTHERFORD MD Nov 28, 2016 12:58
[2016-11-28 13:26] LABS: INR 3.2 (0.8-1.1); PROTHROMBIN TIME PATIENT 30.8 SEC (11.7-14.0)
[2016-11-28 14:10] VITALS: BP 108/55
[2016-11-28 14:38] LABS: OVALOCYTES OCC; PLT ESTIMATE ADEQUATE (ADEQUATE); POLYCHROMASIA SLIGHT
[2016-11-28] MEDS ORDERED: oxyCODONE/APAP 5/325 1 TAB TABLET PO ONE (14:45)
== END 2016-11-28 14:30 | disposition home or self-care (01) ==
LOC: ER 11:57
DX: T81.89XA Other complications of procedures, not elsewhere classified, initial encounter (principal); J45.909 Unspecified asthma, uncomplicated; M79.7 Fibromyalgia; I13.10 Hypertensive heart and chronic kidney disease without heart failure, with stage 1 through stage 4 chronic kidney disease, or unspecified chronic kidney disease; N18.9 Chronic kidney disease, unspecified; Z95.810 Presence of automatic (implantable) cardiac defibrillator; Z87.440 Personal history of urinary (tract) infections; Z88.1 Allergy status to other antibiotic agents; Z91.041 Radiographic dye allergy status; Z88.5 Allergy status to narcotic agent; Z91.018 Allergy to other foods; X58.XXXA Exposure to other specified factors, initial encounter; Y93.89 Activity, other specified; Y99.8 Other external cause status; Y92.89 Other specified places as the place of occurrence of the external cause
CPT/HCPCS: 36415; 85007; 85027; 85610; 99284